=== PATIENT | female | born 1980 | race Caucasian/White ===

== ENCOUNTER 2016-05-23 16:54 | Emergency (ER) | payer MEDICAID, OTHER ==
--- NOTE | 2016-05-23 17:42 | UC ---
Respiratory Complaint HPI - HPI Summary HPI Summary: 36 yo female with a 3-4 day hx of progressive worsening cough now using rescue inhaler and neb wheezing has felt feverish - History of Current Complaint Chief Complaint: UCGeneralIllness Stated Complaint: ST,CHEST CONGESTION,COUGH Time Seen by Provider: 05/23/16 17:31 Hx Obtained From: Patient Hx Last Menstrual Period: 05/20/16 Onset/Duration: Gradual Onset Timing: Constant Severity Initially: Mild Severity Currently: Mild Pain Intensity: 4 Pain Scale Used: 0-10 Numeric Character: Cough: Nonproductive Alleviating Factors: Bronchodilator Associated Signs And Symptoms: Positive: Hemoptysis, Nasal Congestion, Sinus Discomfort - Allergies/Home Medications Allergies/Adverse Reactions: Allergies Allergy/AdvReac Type Severity Reaction Status Date / Time Desloratadine [From Clarinex] Allergy Intermediate Hives Verified 05/23/16 17:23 Levofloxacin [From Levaquin] Allergy Intermediate Hives Verified 05/23/16 17:23 Naproxen Allergy Intermediate DIZZY, Verified 05/23/16 17:23 HIVES Latex Allergy Mild Rash Verified 05/23/16 17:23 Home Medications: Home Medications Multiple Vitamins W/ Minerals [Multivitamin Women] 1 tab PO DAILY 05/23/16 [ History Confirmed 05/23/16] PMH/Surg Hx/FS Hx/Imm Hx Endocrine History Of: Denies: Diabetes, Thyroid Disease, Hyperthyroidism, Hypothyroidism, Dyslipidemia Cardiovascular History Of: Denies: Cardiac Disorders, Hypertension, Pacemaker/ICD, Myocardial Infarction , Congestive Heart Failure, Atrial Fibrillation, Deep Vein Thrombosis, Bleeding Disorders Respiratory History Of: Reports: Asthma, Bronchitis, Pneumonia Denies: COPD, Pulmonary Embolism GI/ History Of: Reports: Gastroesophageal Reflux, Kidney Stones - many yrs ago , no surgery Denies: Ulcer, Gastrointestinal Bleed, Gall Bladder Disease, Diverticulitis, Renal Disease, Urosepsis Neurological History Of: Denies: TIA, CVA, Dementia, Seizures, Migraine Psychological History Of: Reports: Anxiety Denies: Depression, Bipolar Disorder, Schizophrenia, Post Traumatic Stress Disorder Cancer History Of: Denies: Lung Cancer, Colorectal Cancer, Breast Cancer, Prostate Cancer, Cervical Cancer Other History Of: Negative For: HIV, Hepatitis B, Hepatitis C, Anticoagulant Therapy - Surgical History Surgical History: Yes Surgery Procedure, Year, and Place: , 1996. Cholecystectomy, 2000. Tubal Ligation, 2002. CARPAL TUNNEL RIGHT. DEVIATED SEPTUM - Family History Known Family History: Positive: Unknown, Hypertension - father, Respiratory Disease Negative: Cardiac Disease, Diabetes - Social History Alcohol Use: None Substance Use Type: Excessive Caffeine Smoking Status (MU): Never Smoked Tobacco Have You Smoked in the Last Year: No - Immunization History Most Recent Influenza Vaccination: 2015--FEB Review of Systems Constitutional: Chills, Fatigue Skin: Negative Eyes: Negative ENT: Nasal Discharge Respiratory: Cough Cardiovascular: Negative Gastrointestinal: Abdominal Pain - with cough Genitourinary: Negative Motor: Negative Neurovascular: Negative Musculoskeletal: Negative Neurological: Negative Psychological: Negative All Other Systems Reviewed And Are Negative: Yes Physical Exam Triage Information Reviewed: Yes Appearance: Well-Appearing, No Pain Distress, Well-Nourished Vital Signs: Initial Vital Signs Temp 98.9 F 05/23/16 17:12 Pulse 106 05/23/16 17:12 Resp 18 05/23/16 17:12 BP 113/68 05/23/16 17:12 Pulse Ox 100 05/23/16 17:12 Eyes: Positive: Conjunctiva Clear ENT: Positive: Hearing grossly normal, Nasal congestion, Nasal drainage, TMs normal. Negative: Trismus, Muffled/hoarse voice Neck: Positive: Supple, Nontender, No Lymphadenopathy Respiratory: Positive: No respiratory distress, No accessory muscle use, Wheezing - with forced expiration Cardiovascular: Positive: RRR, No Murmur Abdomen Description: Positive: Nontender, Soft. Negative: CVA Tenderness (R), CVA Tenderness (L) Bowel Sounds: Positive: Present Musculoskeletal: Positive: ROM Intact, No Edema Neurological: Positive: Alert Psychological Exam: Normal Skin Exam: Normal UC Diagnostic Evaluation - Laboratory O2 Sat by Pulse Oximetry: 100 Respiratory Course/Dx - Differential Dx/Diagnosis Provider Diagnoses: acute bronchitis Discharge - Discharge Plan Condition: Stable Disposition: HOME Prescriptions: Azithromycin TAB* [Zithromax TAB*] 250 mg PO DAILY #6 tab Prednisone [Deltasone] 40 mg PO DAILY #10 tab Patient Education Materials: Acute Bronchitis (ED) Referrals: Serg Foster, [employer]SULTANT [Primary Care Provider] - 4 Days Additional Instructions: use your inhaler/nebulizer as directed recheck for new or worsening symptoms
[2016-05-23 17:51] VITALS: BP 105/60
== END 2016-05-23 17:51 | disposition home or self-care (01) ==
LOC: UCCORT 16:54
DX: J20.9 Acute bronchitis, unspecified (principal); Z88.6 Allergy status to analgesic agent; Z88.8 Allergy status to other drugs, medicaments and biological substances; Z90.49 Acquired absence of other specified parts of digestive tract
CPT/HCPCS: 99212; G0463

== ENCOUNTER 2016-06-18 13:15 | Emergency (ER) | payer OTHER | END 2016-06-18 14:30 | disposition left against medical advice (07) | LOC: UCCORT 13:15 | DX: R10.9 Unspecified abdominal pain (principal); Z53.21 Procedure and treatment not carried out due to patient leaving prior to being seen by health care provider ==

== ENCOUNTER 2016-07-03 08:35 | Emergency (ER) | payer OTHER ==
[2016-07-03 09:00] VITALS: BP 109/66
--- NOTE | 2016-07-03 10:10 | UC ---
Complaint Female HPI - HPI Summary HPI Summary: suprapubic abd discomfort x 3 days. Urinary frequency and burning. Feels like prior UTI's. Took one of her daughter's left-over Bactrim last pm. No fever. No flank pain. No hematuria. Pt states fam hx of "kidney problems" in herself and mother and grandmother. No fam members with renal transplant or dialysis. Pt unable to elaborate further on kidney problems. - History Of Current Complaint Chief Complaint: UCGU Stated Complaint: ABDOMINAL PAIN 3 DAYS Time Seen by Provider: 07/03/16 08:56 Hx Obtained From: Patient Hx Last Menstrual Period: 06/23/16 Onset/Duration: Gradual Onset, Lasting Days, Still Present Timing: Constant Severity Initially: Moderate Severity Currently: Moderate Pain Intensity: 2 Pain Scale Used: 0-10 Numeric Radiates to: no radiation Character: Dull, Burning Aggravating Factor(s): Nothing Alleviating Factor(s): Nothing Associated Signs And Symptoms: Negative: Fever, Back Pain, Vaginal Bleeding/ Discharge, Vaginal Discharge, Nausea, Vomiting(# Of Episodes =) - Allergies/Home Medications Allergies/Adverse Reactions: Allergies Allergy/AdvReac Type Severity Reaction Status Date / Time Desloratadine [From Clarinex] Allergy Intermediate Hives Verified 07/03/16 09:00 Levofloxacin [From Levaquin] Allergy Intermediate Hives Verified 07/03/16 09:00 Naproxen Allergy Intermediate DIZZY, Verified 07/03/16 09:00 HIVES Latex Allergy Mild Rash Verified 07/03/16 09:00 PMH/Surg Hx/FS Hx/Imm Hx Endocrine History Of: Denies: Diabetes, Thyroid Disease, Hyperthyroidism, Hypothyroidism, Dyslipidemia Cardiovascular History Of: Denies: Cardiac Disorders, Hypertension, Pacemaker/ICD, Myocardial Infarction , Congestive Heart Failure, Atrial Fibrillation, Deep Vein Thrombosis, Bleeding Disorders Respiratory History Of: Reports: Asthma, Bronchitis, Pneumonia Denies: COPD, Pulmonary Embolism GI/ History Of: Reports: Gastroesophageal Reflux, Kidney Stones - many yrs ago , no surgery Denies: Ulcer, Gastrointestinal Bleed, Gall Bladder Disease, Diverticulitis, Renal Disease, Urosepsis Neurological History Of: Denies: TIA, CVA, Dementia, Seizures, Migraine Psychological History Of: Reports: Anxiety Denies: Depression, Bipolar Disorder, Schizophrenia, Post Traumatic Stress Disorder Cancer History Of: Denies: Lung Cancer, Colorectal Cancer, Breast Cancer, Prostate Cancer, Cervical Cancer Other History Of: Negative For: HIV, Hepatitis B, Hepatitis C, Anticoagulant Therapy - Surgical History Surgical History: Yes Surgery Procedure, Year, and Place: , 1996. Cholecystectomy, 2000. Tubal Ligation, 2001. CARPAL TUNNEL RIGHT. DEVIATED SEPTUM - Family History Known Family History: Positive: Unknown, Hypertension - father, Renal Disease - mother and grandmother, Respiratory Disease Negative: Cardiac Disease, Diabetes - Social History Occupation: Employed Full-time Lives: With Family Alcohol Use: None Substance Use Type: None Smoking Status (MU): Never Smoked Tobacco Have You Smoked in the Last Year: No - Immunization History Most Recent Influenza Vaccination: 2015--FEB Review of Systems Constitutional: Negative Skin: Negative Eyes: Negative ENT: Negative Respiratory: Negative Cardiovascular: Negative Gastrointestinal: Negative Genitourinary: Dysuria, Frequency, Urgency Motor: Negative Neurovascular: Negative Musculoskeletal: Negative Neurological: Negative Psychological: Negative All Other Systems Reviewed And Are Negative: Yes Physical Exam Triage Information Reviewed: Yes Appearance: Well-Nourished, Ill-Appearing, Pain Distress Vital Signs: Initial Vital Signs Temp 98.1 F 07/03/16 08:50 Pulse 84 07/03/16 08:50 Resp 18 07/03/16 08:50 BP 109/66 07/03/16 08:50 Vital Signs Reviewed: Yes Eyes: Positive: Conjunctiva Clear ENT: Positive: Normal ENT inspection Neck: Positive: Supple, Nontender, No Lymphadenopathy Respiratory: Positive: Lungs clear, Normal breath sounds, No respiratory distress Cardiovascular: Positive: RRR, No Murmur, Pulses Normal, Brisk Capillary Refill Abdomen Description: Positive: Nontender, No Organomegaly, Soft. Negative: CVA Tenderness (R), CVA Tenderness (L), Distended, Guarding, McBurney's Point Tenderness, Peritoneal Signs, Pulsatile Mass Bowel Sounds: Positive: Present Musculoskeletal: Positive: Strength Intact, ROM Intact Neurological: Positive: Alert, Muscle Tone Normal Psychological Exam: Normal Skin Exam: Normal Complaint Female Dx - Course Course Of Treatment: UA and UCG neg, but will treat anyway as UTI, as pt took one Bactrim with improvement of symptoms, so culture and UA may not show infection. - Differential Dx/Diagnosis Differential Diagnosis/HQI/PQRI: Appendicitis, Ureteral Stone, Urinary Tract Infection Provider Diagnoses: UTI Discharge - Discharge Plan Condition: Stable Disposition: HOME Prescriptions: Fluconazole 150 MG (NF) [Diflucan 150 mg (NF)] 150 mg PO ONCE #2 tab Phenazopyridine TAB* [Pyridium 100 mg TAB*] 100 mg PO TID #15 tab Sulfamethox/Trimethoprim DS* [Bactrim DS 800/160 TAB*] 1 tab PO BID #10 tab Patient Education Materials: Urinary Tract Infection in Women (ED) Forms: *Work Release Referrals: Serg Foster NP [Primary Care Provider] - Additional Instructions: A culture has been sent. It may be negative, because you took one dose of the Bactrim. Since the Bactrim did help your symptoms, and it sounds like it was as true UTI, we have advised you to finish the full course of antibiotics, even if the culture is negative. Take the diflucan if needed for a yeast infection. You may use the phenazopyridine (pyridium) as needed for discomfort. Return to urgent care if any new or worsening symptoms.
== END 2016-07-03 10:31 | disposition home or self-care (01) ==
LOC: UCCORT 08:35
DX: N39.0 Urinary tract infection, site not specified (principal); Z32.02 Encounter for pregnancy test, result negative; Z87.440 Personal history of urinary (tract) infections; Z87.442 Personal history of urinary calculi; K21.9 Gastro-esophageal reflux disease without esophagitis; J45.909 Unspecified asthma, uncomplicated; F41.9 Anxiety disorder, unspecified; Z90.49 Acquired absence of other specified parts of digestive tract; Z88.1 Allergy status to other antibiotic agents
CPT/HCPCS: 81003; 84702; 87086; 99212; G0463

== ENCOUNTER 2016-09-30 09:16 | Emergency (ER) | payer MEDICAID ==
[2016-09-30 09:37] VITALS: BP 91/67
[2016-09-30] MEDS ORDERED: Ondansetron ODT TAB* 4 MG PO ONE (09:43)
--- NOTE | 2016-09-30 10:18 | UC ---
Abdominal Pain Female HPI - HPI Summary HPI Summary: LEFT UPPER ABDOMINAL/ FLANK PAIN X 3 DAYS NO FEVER, NO CHILLS, + NAUSEA NO /V/D/C NO URINARY SX. - History of Current Complaint Chief Complaint: UCGeneralIllness Stated Complaint: STOMACH ACHE,LEFT SIDE PAIN Time Seen by Provider: 09/30/16 09:37 Hx Obtained From: Patient Hx Last Menstrual Period: 09/12/16 ?: No Onset/Duration: Gradual Onset, Lasting Days - 3, Still Present Timing: Constant Severity Initially: Moderate Severity Currently: Moderate Location: Discrete At: LUQ Radiates: No Character: Aching Aggravating Factor(s): Movement Alleviating Factor(s): Spontaneous Resolution Associated Signs and Symptoms: Positive: Nausea. Negative: Fever, Cough, Chest Pain, Dizzy, Back Pain, Constipation, Blood in Stool, Urinary Symptoms, Decreased Appetite, Vaginal Bleeding, Vaginal Discharge, Vomiting, Diarrhea Allergies/Adverse Reactions: Allergies Allergy/AdvReac Type Severity Reaction Status Date / Time Desloratadine [From Clarinex] Allergy Intermediate Hives Verified 09/30/16 09:24 Levofloxacin [From Levaquin] Allergy Intermediate Hives Verified 09/30/16 09:24 Naproxen Allergy Intermediate DIZZY, Verified 09/30/16 09:24 HIVES Latex Allergy Mild Rash Verified 09/30/16 09:24 Home Medications: Home Medications Albuterol 2.5MG/3ML (0.083%)* [Ventolin 2.5 MG/3 ML NEB.SD*] 2.5 mg INH Q4H PRN 09/30/16 [History Confirmed 09/30/16] PMH/Surg Hx/FS Hx/Imm Hx Previously Healthy: Yes Other History Of: Negative For: HIV, Hepatitis B, Hepatitis C, Anticoagulant Therapy - Surgical History Surgical History: Yes Surgery Procedure, Year, and Place: , 1996. Cholecystectomy, 2000. Tubal Ligation, 2001. CARPAL TUNNEL RIGHT. DEVIATED SEPTUM - Family History Known Family History: Positive: Unknown, Hypertension - father, Renal Disease - mother and grandmother, Respiratory Disease Negative: Cardiac Disease, Diabetes - Social History Alcohol Use: None Substance Use Type: None Smoking Status (MU): Never Smoked Tobacco Have You Smoked in the Last Year: No - Immunization History Most Recent Influenza Vaccination: 2015--FEB Review of Systems Constitutional: Negative Skin: Negative Eyes: Negative ENT: Negative Respiratory: Negative Cardiovascular: Negative Gastrointestinal: Abdominal Pain Genitourinary: Negative All Other Systems Reviewed And Are Negative: Yes Physical Exam Triage Information Reviewed: Yes Appearance: Well-Appearing, No Pain Distress, Well-Nourished Vital Signs: Initial Vital Signs Temp 98.4 F 09/30/16 09:27 Pulse 92 09/30/16 09:27 Resp 14 09/30/16 09:27 BP 91/67 09/30/16 09:27 Pulse Ox 98 09/30/16 09:27 Vital Signs Reviewed: Yes Eye Exam: Normal Eyes: Positive: Conjunctiva Clear ENT: Positive: Hearing grossly normal, Pharynx normal Neck: Positive: Supple, Nontender, No Lymphadenopathy Respiratory: Positive: Chest non-tender, Lungs clear, Normal breath sounds, No respiratory distress Cardiovascular: Positive: RRR, No Murmur, Pulses Normal Abdomen Description: Positive: Nontender, Soft. Negative: CVA Tenderness (R), CVA Tenderness (L), Distended, Guarding Bowel Sounds: Positive: Present Abd Pain Female Course/Dx - Differential Dx/Diagnosis Provider Diagnoses: LUQ ABODMINAL PAIN Discharge - Discharge Plan Condition: Stable Disposition: HOME Patient Education Materials: Abdominal Pain (ED), Flank Pain (ED) Forms: *Work Release Referrals: Serg Foster NP [Primary Care Provider] - 3 Days Additional Instructions: cont. with rest, increase fluid, take tylenol as needed for pain , follow up in 3 days if not better, may need to do imagine study / CT scan of abdomen follow up sooner for go to ED if getting worse
== END 2016-09-30 10:21 | disposition home or self-care (01) ==
LOC: UCCORT 09:16
DX: R10.12 Left upper quadrant pain (principal)
CPT/HCPCS: 81003; 99212; A9270-GY; G0463

== ENCOUNTER 2016-11-13 14:22 | Emergency (ER) | payer OTHER ==
[2016-11-13 14:31] VITALS: BP 106/66
--- NOTE | 2016-11-13 15:01 | UC ---
Abdominal Pain Female HPI - HPI Summary HPI Summary: 36 year old female with hx of GERD present with GERD and epigastric pain that is slightly worsened after a meal. Not in the right or left upper stomach. She takes omeprazole BID and had negative endo in the past. Burning in the mid stomach started yesterday AM . LMP 11/12/16 . No new sexual partners. Has had BV 4 mo ago and given flagyl and she feels it is unrelated but returned. She has had more stress lately . No recent travel and works at [employer] - History of Current Complaint Chief Complaint: UCGU Stated Complaint: STOMACH ACHE Time Seen by Provider: 11/13/16 14:37 Hx Obtained From: Patient Hx Last Menstrual Period: 11/08/16 ?: No Onset/Duration: Gradual Onset Timing: Intermittent Episodes Lasting: Radiates: No Character: Burning Aggravating Factor(s): Food Associated Signs and Symptoms: Positive: Negative Allergies/Adverse Reactions: Allergies Allergy/AdvReac Type Severity Reaction Status Date / Time Desloratadine [From Clarinex] Allergy Intermediate Hives Verified 11/13/16 14:31 Levofloxacin [From Levaquin] Allergy Intermediate Hives Verified 11/13/16 14:31 Naproxen Allergy Intermediate DIZZY, Verified 11/13/16 14:31 HIVES Latex Allergy Mild Rash Verified 11/13/16 14:31 PMH/Surg Hx/FS Hx/Imm Hx Previously Healthy: Yes Respiratory History: Asthma GI/ History: Gastroesophageal Reflux Psychological History: Anxiety Other History Of: Negative For: HIV, Hepatitis B, Hepatitis C, Anticoagulant Therapy - Surgical History Surgical History: Yes Surgery Procedure, Year, and Place: , 1996. Cholecystectomy, 2000. Tubal Ligation, 2001. CARPAL TUNNEL RIGHT. DEVIATED SEPTUM - Family History Known Family History: Positive: Unknown, Hypertension - father, Renal Disease - mother and grandmother, Respiratory Disease Negative: Cardiac Disease, Diabetes - Social History Occupation: Employed Full-time Alcohol Use: None Substance Use Type: None Smoking Status (MU): Never Smoked Tobacco Have You Smoked in the Last Year: No - Immunization History Most Recent Influenza Vaccination: 2015--FEB Review of Systems Gastrointestinal: Abdominal Pain Genitourinary: Other - "odor" Psychological: Anxious All Other Systems Reviewed And Are Negative: Yes Physical Exam Triage Information Reviewed: Yes Appearance: Well-Appearing, No Pain Distress, Well-Nourished Vital Signs: Initial Vital Signs Temp 98.9 F 11/13/16 14:26 Pulse 85 11/13/16 14:26 Resp 16 11/13/16 14:26 BP 106/66 11/13/16 14:26 Pulse Ox 98 11/13/16 14:26 Vital Signs Reviewed: Yes Eye Exam: Normal ENT Exam: Normal Dental Exam: Normal Neck exam: Normal Neck: Positive: 1 Respiratory Exam: Normal Cardiovascular Exam: Normal Abdominal Exam: Normal Abdomen Description: Positive: No Organomegaly, Soft, Other: - midepigastric mild tenderness to deep palpation. Negative: CVA Tenderness (R), CVA Tenderness (L), Distended, Guarding Bowel Sounds: Positive: Present Musculoskeletal Exam: Normal Neurological Exam: Normal Psychological Exam: Normal Skin Exam: Normal Abd Pain Female Course/Dx - Course Course Of Treatment: Pt had BV 4 mo and and having the same sx and desires treatment and gets yeast from flagyl. treat at this time and if sx not improved then go to be seen melo. - Differential Dx/Diagnosis Differential Diagnosis: Constipation Provider Diagnoses: Gastritis / Bacterial vaginosis Discharge - Discharge Plan Condition: Good Disposition: HOME Prescriptions: Fluconazole [Diflucan 150 MG (NF)] 150 mg PO ONCE #1 tab Metronidazole [Flagyl 500 MG TAB] 500 mg PO BID #14 tab Sucralfate SUSP (NF) [Carafate SUSP (NF)] 10 ml PO Q6HR #1 bottle Patient Education Materials: Diet for Stomach Ulcers and Gastritis (ED), Gastroesophageal Reflux Disease (ED), Bacterial Vaginosis (ED) Forms: *Work Release Referrals: Serg Foster NP [Primary Care Provider] - 4 Days (Please follow up with GI for your heartburn if your symptoms persist) Additional Instructions: As we discussed if you develop a yeast infection from the antibiotic please then use the diflucan medication
== END 2016-11-13 15:13 | disposition home or self-care (01) ==
LOC: UCCORT 14:22
DX: K29.70 Gastritis, unspecified, without bleeding (principal); N76.0 Acute vaginitis; K21.9 Gastro-esophageal reflux disease without esophagitis; J45.909 Unspecified asthma, uncomplicated; F41.9 Anxiety disorder, unspecified; Z90.49 Acquired absence of other specified parts of digestive tract; Z88.8 Allergy status to other drugs, medicaments and biological substances; Z88.6 Allergy status to analgesic agent; Z88.1 Allergy status to other antibiotic agents; Z91.040 Latex allergy status
CPT/HCPCS: 81003; 99212; G0463

== ENCOUNTER 2017-01-07 16:05 | Emergency (ER) | payer OTHER ==
[2017-01-07 16:22] VITALS: BP 98/61
--- NOTE | 2017-01-07 16:29 | UC ---
Abdominal Pain Female HPI - HPI Summary HPI Summary: 36 yo female with a three day hx of diarrhea initially had 15-20+ episodes today has had two malaise lassitude fatigue no fever or chills no n/v anorexic no UTI symptoms no blood in stool - History of Current Complaint Chief Complaint: UCRespiratory Stated Complaint: FLU SYMPTOMS Time Seen by Provider: 01/07/17 16:14 Hx Obtained From: Patient Hx Last Menstrual Period: 01/07/17 Onset/Duration: Gradual Onset, Lasting Days Timing: Constant Severity Initially: Severe Severity Currently: Mild Pain Intensity: 2 Pain Scale Used: 0-10 Numeric Location: Diffuse Character: Cramping Aggravating Factor(s): Nothing Alleviating Factor(s): Spontaneous Resolution Associated Signs and Symptoms: Positive: Decreased Appetite, Diarrhea. Negative : Diaphoresis, Fever, Cough, Chest Pain, Dizzy, Back Pain, Constipation, Blood in Stool, Urinary Symptoms, Vaginal Bleeding, Vaginal Discharge, Nausea, Vomiting Allergies/Adverse Reactions: Allergies Allergy/AdvReac Type Severity Reaction Status Date / Time Desloratadine [From Clarinex] Allergy Intermediate Hives Verified 01/07/17 16:14 Levofloxacin [From Levaquin] Allergy Intermediate Hives Verified 01/07/17 16:14 Naproxen Allergy Intermediate DIZZY, Verified 01/07/17 16:14 HIVES Latex Allergy Mild Rash Verified 01/07/17 16:14 PMH/Surg Hx/FS Hx/Imm Hx Previously Healthy: Yes Respiratory History: Asthma Other History Of: Negative For: HIV, Hepatitis B, Hepatitis C, Anticoagulant Therapy - Surgical History Surgical History: Yes Surgery Procedure, Year, and Place: , 1996. Cholecystectomy, 2000. Tubal Ligation, 2001. CARPAL TUNNEL RIGHT. DEVIATED SEPTUM - Family History Known Family History: Positive: Hypertension - father, Renal Disease - mother and grandmother, Respiratory Disease Negative: Cardiac Disease, Diabetes - Social History Alcohol Use: None Substance Use Type: None Smoking Status (MU): Never Smoked Tobacco Have You Smoked in the Last Year: No Household Exposure Type: Cigarettes - Immunization History Most Recent Influenza Vaccination: none 2016 Review of Systems Constitutional: Negative Skin: Negative Eyes: Negative ENT: Sinus Congestion Respiratory: Negative Cardiovascular: Negative Gastrointestinal: Diarrhea Genitourinary: Negative Motor: Negative Neurovascular: Negative Musculoskeletal: Negative Neurological: Negative Psychological: Negative Is Patient Immunocompromised?: No All Other Systems Reviewed And Are Negative: Yes Physical Exam Triage Information Reviewed: Yes Appearance: Well-Appearing, No Pain Distress, Well-Nourished Vital Signs: Initial Vital Signs Temp 98.2 F 01/07/17 16:16 Pulse 81 01/07/17 16:16 Resp 16 01/07/17 16:16 BP 98/61 01/07/17 16:16 Pulse Ox 100 01/07/17 16:16 Vital Signs Reviewed: Yes Eyes: Positive: Conjunctiva Clear ENT: Positive: Hearing grossly normal, TMs normal. Negative: Nasal congestion, Nasal drainage, Tonsillar swelling, Tonsillar exudate, Trismus, Muffled/hoarse voice Dental: Negative: Abscess @ Neck: Positive: Supple, Nontender, No Lymphadenopathy Respiratory: Positive: Lungs clear, Normal breath sounds, No respiratory distress, No accessory muscle use Cardiovascular: Positive: RRR, No Murmur Abdomen Description: Positive: Nontender, No Organomegaly, Soft. Negative: CVA Tenderness (R), CVA Tenderness (L), Distended, Guarding Bowel Sounds: Positive: Present Musculoskeletal: Positive: ROM Intact, No Edema Neurological: Positive: Alert Psychological Exam: Normal Skin Exam: Normal Abd Pain Female Course/Dx - Differential Dx/Diagnosis Provider Diagnoses: acute diarrhea. suspect viral syndrome Discharge - Discharge Plan Condition: Stable Disposition: HOME Patient Education Materials: Acute Diarrhea (ED), Viral Syndrome (ED) Forms: *Work Release Referrals: Serg Foster NP [Primary Care Provider] - 2 Days Additional Instructions: rest fluids bring in stool for studies
== END 2017-01-07 16:47 | disposition home or self-care (01) ==
LOC: UCCORT 16:05
DX: R19.7 Diarrhea, unspecified (principal); Z88.1 Allergy status to other antibiotic agents; Z88.6 Allergy status to analgesic agent; Z88.8 Allergy status to other drugs, medicaments and biological substances; Z91.040 Latex allergy status
CPT/HCPCS: 87045; 87046; 87328; 87329; 87425; 87899; 99211; G0463

== ENCOUNTER 2017-02-09 16:20 | Emergency (ER) | payer OTHER ==
[2017-02-09 16:40] VITALS: BP 100/61
--- NOTE | 2017-02-09 17:10 | UC ---
Abdominal Pain Female HPI - HPI Summary HPI Summary: Pt c/o abdominal pain that began today around her umbilicus. Pt denies dysuria , frequency, and urgency. Pt has low back ache denies STD exposure. Denies unusual vaginal discharge or bleeding Pt reports 50 lb weight loss due to decreased appetite and increased stress level over the last 6 months. - History of Current Complaint Chief Complaint: UCAbdominalPain Stated Complaint: STOMACH ACHE Hx Obtained From: Patient Hx Last Menstrual Period: 01/07/17 ?: No Onset/Duration: Sudden Onset, Still Present Timing: Constant Severity Initially: Mild Severity Currently: Mild Location: Other - umbilicus Radiates: Yes Radiates to: Back, Flank Character: Aching, Dull Aggravating Factor(s): Nothing Associated Signs and Symptoms: Positive: Decreased Appetite, Other: - abdominal pain - Risk Factors Ectopic Risk Factor: Maternal Age ^ 30 Allergies/Adverse Reactions: Allergies Allergy/AdvReac Type Severity Reaction Status Date / Time Desloratadine [From Clarinex] Allergy Intermediate Hives Verified 02/09/17 16:40 Levofloxacin [From Levaquin] Allergy Intermediate Hives Verified 02/09/17 16:40 Naproxen Allergy Intermediate DIZZY, Verified 02/09/17 16:40 HIVES Latex Allergy Mild Rash Verified 02/09/17 16:40 PMH/Surg Hx/FS Hx/Imm Hx Previously Healthy: Yes Other History Of: Negative For: HIV, Hepatitis B, Hepatitis C, Anticoagulant Therapy - Surgical History Surgical History: Yes Surgery Procedure, Year, and Place: , 1996. Cholecystectomy, 2000. Tubal Ligation, 2001. CARPAL TUNNEL RIGHT. DEVIATED SEPTUM - Family History Known Family History: Positive: Unknown, Hypertension - father, Renal Disease - mother and grandmother, Respiratory Disease Negative: Cardiac Disease, Diabetes - Social History Occupation: Employed Full-time Lives: With Family Alcohol Use: None Substance Use Type: None Smoking Status (MU): Never Smoked Tobacco Have You Smoked in the Last Year: No Household Exposure Type: Cigarettes - Immunization History Most Recent Influenza Vaccination: none 2016 Review of Systems Constitutional: Negative Skin: Negative Eyes: Negative ENT: Negative Respiratory: Negative Cardiovascular: Negative Gastrointestinal: Abdominal Pain Genitourinary: Negative Motor: Negative Neurovascular: Negative Musculoskeletal: Negative Neurological: Negative Psychological: Negative Is Patient Immunocompromised?: No All Other Systems Reviewed And Are Negative: Yes Physical Exam Triage Information Reviewed: Yes Appearance: Well-Appearing Vital Signs: Initial Vital Signs Temp 98.2 F 02/09/17 16:36 Pulse 97 02/09/17 16:36 Resp 16 02/09/17 16:36 BP 100/61 02/09/17 16:36 Pulse Ox 99 02/09/17 16:36 Vital Signs Reviewed: Yes Eye Exam: Normal ENT Exam: Normal Dental Exam: Normal Neck exam: Normal Respiratory Exam: Normal Cardiovascular Exam: Normal Abdominal Exam: Normal Abdomen Description: Positive: Other: - mild tenderness umbilicus area Bowel Sounds: Positive: Present Musculoskeletal Exam: Normal Neurological Exam: Normal Psychological Exam: Normal Skin Exam: Normal Abd Pain Female Course/Dx - Differential Dx/Diagnosis Differential Diagnosis: Irritable Bowel Syndrome, Urinary Tract Infection, Other - BV Provider Diagnoses: Abdominal pain. unintentional weight loss Discharge - Discharge Plan Condition: Stable Disposition: HOME Patient Education Materials: Abdominal Pain (ED) Referrals: Vanessa Gutiérrez MD [Primary Care Provider] - If Needed Additional Instructions: Please follow up with your PCP or return to clinic as needed.
--- NOTE | 2017-02-11 07:30 | ED ---
Progress - Progress Note Progress Note: Per the chart, there is no suggestion of vaginitis. BV has come up positive but if patient still remains asymptomatic (no discharge, odor, vaginal pain) then she can simply f/u with pcp or seismograph chief within the next 1-2 weeks if needed. Course/Dx - Diagnoses Provider Diagnoses: Abdominal pain
== END 2017-02-09 17:22 | disposition home or self-care (01) ==
LOC: UCCORT 16:20
DX: R10.9 Unspecified abdominal pain (principal); R63.4 Abnormal weight loss; Z32.02 Encounter for pregnancy test, result negative
CPT/HCPCS: 81003; 84702; 87086; 87480; 87510; 99211; G0463

== ENCOUNTER 2017-04-13 17:13 | Emergency (ER) | payer OTHER ==
--- OUTSIDE RECORDS SUMMARY | 2017-04-13 17:38 | XMS REPORT ---
:1980 External Reference #:[id number] Author Organization [facility] Address [address] [address] Phone [phone] Care Team Providers Name Role Phone Vanessa Gutiérrez MD Primary Care Physician Unavailable Payers Type Date Identification Numbers Payment Provider Subscriber Commercial Policy Number: [id number] Orion Garcia Group Name: [id number] [address] PayID: [id number] [place] [address] Medigap Part B Expires: 2016 Policy Number: [id number] Medicaid Bibiana Garcia Group Name: 1 1 [address] PayID: [id number] [place] [address] Commercial Effective: 2014 Policy Number: [id number] Orion Garcia Expires: 2016 Group Name: [id number] [address] PayID: [id number] [place] [address] Problems Date Description Provider Status Onset: 07/19/2013 Vitamin D deficiency Deja Beck M.D. Active Onset: 04/03/2016 Moderate persistent asthma Vanessa Gutiérrez M.D. Active Onset: 03/25/2017 History of calculus of kidney Vanessa Gutiérrez M.D. Active Onset: 03/22/2014 Vaginitis and vulvovaginitis Vignesh Ferguson M.D. 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 [employer] Cigarette Use Never Smoked Cigarettes ETOH Use Rarely consumes alcohol Smoking Patient has never smoked Recreational Drug Use Denies Drug Use Exercise Type/Frequency Exercises regularly Exercise Type/Frequency started at gym treadmill 07/04 Sexual Hx text yes Allergies, Adverse Reactions, Alerts Date Description Reaction Status Severity Comments 10/12/2012 Levaquin rash active 10/12/2012 Clarinex rash active 10/20/2012 Latex active 11/03/2014 Naproxen active Moderate dizzy Medications Medication Date Status Form Strength Qnty SIG Indications Ordering Provider Sulfamethoxazole 04/09 Hx Tablets 800-160mg 10tab 1 by mouth R30.0 Vanessa /Trimethoprim s twice a day Marla, - X 5 days M.D. 04/14 Prilosec OTC 10/[address] 20mg 60tab take one Vanessa s capsule by Gutiérrez, mouth twice M.D. a day Cyclobenzaprine 09/20 Active Tablets 5mg 30tab take one M25.512 Vanessa HCL /2015 s tablet by Gutiérrez, mouth every M.D. 8 hours prn. may take a second tablet if first not effetive. Montelukast 03/28 Active Tablets 10mg 30tab take one Vanessa Sodium /2015 s tablet by Gutiérrez, mouth every M.D. day pv Daily 02/20 Active 30uni take one Vanessa Multivitamin- ts tablet by Marla, Tab mouth every M.D. day Humidifier 05/12 Active Misc 2Gallon 1unit run every 461.8 Deja s day Connie Beck Proventil HFA Active Aerosol 108(90Bas 1unit 2 puffs by Serg /0000 e) s mouth every Kristin, LOG DRIVER mcg/Act 4 hours as needed Klonopin Active Tablets 0.5mg 1 by mouth Unknown /0000 tid prn Amitriptyline Active Tablets 50mg 30tab take one Vanessa HCL s tablet by Gutiérrez, mouth at M.D. bedtime Azelastine HCL Active Solution 0.1% Use 1 Wister Unknown (Nasal) /0000 In Each Nostril In The Morning And Night Breo Ellipta Active Aerosol 100-25mcg Inhale One Unknown / /Inh puff By Mouth Every Day Fexofenadine HCL Active Tablets 180mg 30tab take one Rudy E. / s tablet by Jodie, mouth every M.D. day Sertraline HCL Active Tablets 50mg one daily Unknown Clindamycin 06/11 Hx Cream 2% 40gm one N76.0 [place] applicator Nate, - intravagina N.P. 03/25 lly at bedtime for 7 nights Tramadol HCL 11/06 Hx Tablets 50mg 60tab 1-2 tablets s every 12 Kristin, LOG DRIVER - hours as 04/03 needed for pain. Lorazepam 01/05 Hx Tablets 0.5mg 60tab 1 by mouth s three a day Tee, LOG DRIVER - as needed 09/20 Fluconazole 01/05 Hx Tablets 150mg 3tabs 1 tab by N76.0 mouth x1 Tee, LOG DRIVER - 09/20 Sulfamethoxazole 01/05 Hx Solution 400-80mg/ N76.0 Steve -Trimethoprim 5ML Tee, LOG DRIVER - 01/05 Sulfamethoxazole 01/05 Hx Tablets 800-160mg 10tab 1 tab by N76.0 Steve /Trimethoprim s mouth twice Tee, LOG DRIVER - a day x 5 Acetaminophen-Co 12/15 Hx Tablets 300-30mg 30tab 1 tab by M54.31 Deja deine #3 s mouth 2x Kiran, - per day prn M.D. 01/05 Fluticasone 05/12 Hx Suspension 50mcg/Act 1unit 2 sprays 461.8 Deja Propionate /2014 s each Kiran - nostril M.D. 12/15 Flagyl 03/22 Hx Tablets 500mg 14tab bid No 616.10 Vignesh s alcohol use Pachikara - during and , M.D. 05/12 for 5 after finishing Medrol (Shahriar) 12/22 Hx Tablets 4mg 1tabs as directed 493.90 Deja Teresa Beck M.D. 03/22 Nasonex 12/22 Hx Suspension 50mcg/Act 1unit 2 sp nasal 493.90 s every day Teresa Beck M.D. 01/05 Metrogel-Vaginal 07/22 Hx Gel 0.75% 1unit insert one s applicator Kiran, - once a day M.DAzael 03/22 x 7 Multi For Her Hx Capsules 30cap 1 by mouth s every day Teresa Beck M.D. 08/30 Effexor XR Hx Caps ER 75mg 1 po qd 24HR - 11/03 Effexor XR Hx Caps ER 150mg 30cap 1 by mouth 24HR s every day Teresa Beck M.D. 11/03 Singulair Hx Tablets 10mg 30tab 1 by mouth Rudy E. / s every day Teresa Feliciano M.D. 03/28 Trazodone HCL Hx Tablets 50mg 30tab 1 tablet at s bedtime as Kiran - needed M.DAzael 09/20 Hydrocodone/Acet Hx Tablets 5-325mg 1 po q4-6 Unknown aminophen /0000 hours prn - 07/14 Topamax Hx Tablets 25mg 1 Q6 hours Unknown / prn - 07/14 Vitamin D Hx Capsules [id number] 12cap one by Deja (Ergocalciferol) / s mouth Teresa Beck weekly Pat.[place] 05/12 Qvar Hx Aerosol 80mcg/Act 1unit 2 puff Rudy E. / s twice a day Teresa Feliciano M.D. 01/05 Bactrim DS Hx Tablets Unknown - 12/15 Tramadol HCL Hx Tablets as needed - 12/[address] 20mg 60cap take one Serg s capsule by KIM Foster - mouth twice 10/29 a day /2016 Trazodone HCL 00/00 Hx Tablets 100mg take two Unknown /0000 tablets by - mouth every 04/03 day at /2017 bedtime Immunizations CPT Code Status Date Vaccine Reaction Lot # [id number] Given 03/25/2017 Pneumonia Vaccine Pt. tolerated well. No [id number] immediate reaction noted. 05038 Given 04/03/2016 Tdap - [id number] Tetanus/Diptheria/Acellul ar Pertussis 17501 Given 04/03/2016 Influenza Virus Vaccine, [id number] Quadrivalent, Split Virus, Im Use Vital Signs Date Vital Result Comment 04/09/2017 Height 65 inches 5'5" Weight 158.00 lb per pt Heart Rate 66 /min reg Respiratory Rate 16 /min Pain Level 6 left shoulder BMI (Body Mass Index) 26.3 kg/m2 04/09/2017 Weight 158.00 lb Heart Rate 64 /min BP Systolic Sitting 128 mmHg BP Diastolic Sitting 80 mmHg O2 % BldC Oximetry 97 % 03/25/2017 Weight 156.00 lb Heart Rate 100 /min BP Systolic Sitting 100 mmHg BP Diastolic Sitting 70 mmHg O2 % BldC Oximetry 97 % 06/11/2016 Weight 170.00 lb Heart Rate 80 /min BP Systolic Sitting 110 mmHg BP Diastolic Sitting 70 mmHg Body Temperature 98.1 F O2 % BldC Oximetry 97 % 04/03/2016 Height 65 inches 5'5" Weight 166.00 lb Heart Rate 95 /min BP Systolic Sitting 110 mmHg BP Diastolic Sitting 68 mmHg Body Temperature 98.4 F O2 % BldC Oximetry 98 % BMI (Body Mass Index) 27.6 kg/m2 09/21/2015 Weight 190.00 lb Heart Rate 97 /min BP Systolic Sitting 126 mmHg BP Diastolic Sitting 78 mmHg O2 % BldC Oximetry 98 % 01/05/2015 Height 65.5 inches 5'5.50" Weight 207.00 lb Heart Rate 100 /min BP Systolic 120 mmHg BP Diastolic 78 mmHg Body Temperature 99.3 F O2 % BldC Oximetry 98 % BMI (Body Mass Index) 33.9 kg/m2 12/15/2014 Height 65.5 inches 5'5.50" Weight 206.00 lb Heart Rate 99 /min BP Systolic Sitting 122 mmHg BP Diastolic Sitting 78 mmHg Body Temperature 98.7 F O2 % BldC Oximetry 97 % BMI (Body Mass Index) 33.8 kg/m2 11/03/2014 Weight 210.50 lb Heart Rate 107 /min Respiratory Rate 18 /min Body Temperature 99.6 F Pain Level 4 O2 % BldC Oximetry 98 % 05/12/2014 Weight 212.00 lb Heart Rate 96 /min BP Systolic Sitting 110 mmHg BP Diastolic Sitting 70 mmHg Body Temperature 98.5 F 03/22/2014 Weight 210.50 lb Heart Rate 100 /min BP Systolic Sitting 111 mmHg BP Diastolic Sitting 73 mmHg Body Temperature 98.1 F 12/22/2013 Weight 209.00 lb Heart Rate 110 /min BP Systolic Sitting 112 mmHg BP Diastolic Sitting 70 mmHg 07/14/2013 Height 66 inches 5'6" Weight 187.00 lb Heart Rate 92 /min BP Systolic Sitting 118 mmHg BP Diastolic Sitting 72 mmHg Body Temperature 98.4 F BMI (Body Mass Index) 30.2 kg/m2 10/20/2012 Height 66 inches 5'6" Weight 170.00 lb Heart Rate 90 /min BP Systolic 103 mmHg BP Diastolic 69 mmHg BMI (Body Mass Index) 27.4 kg/m2 10/12/2012 Height 66 inches 5'6" Weight 170.00 lb Heart Rate 96 /min Respiratory Rate 12 /min BMI (Body Mass Index) 27.4 kg/m2 Results Test Date Test Result H/L Range Note Ua Routine 04/09/2017 Ua Specific [place] 1.000 Ua PH 6 Ua Color yellow Ua Appera clear Ua WBC - Ua Protein - Ua Glucose norm Ua Ketones - Ua Bilirubin - Ua Urobilinogen - Ua Nitrite - Ua Occult Blood - Poc Urinalysis 02/09/2017 Poc Glucose, Urine Negative Negative Poc Bilirubin, Urine 1+ Negative Poc Ketone, Urine 1+ Negative Poc Specific [place], Urine 1.025 1.010-1.030 Poc Blood, Urine Trace-intact Negative Poc pH, Urine 6.0 5-9 Poc Protein, Urine 2+ Negative Poc Urobilinogen, Urine 1.0 Negative Poc Nitrite, Urine Negative Negative Poc Leukocytes, Urine Trace Negative Poc Color, Urine Ainsley Poc Clarity, Urine Clear 1 Laboratory test 02/09/2017 Gardnerella/Yeast: SEE RESULT 2, 3 finding Vaginal Dna BELOW Urine Culture And 02/09/2017 Urine Culture SEE RESULT 4, 5 Sensitivities BELOW Laboratory test 02/09/2017 Poc , Urine Negative Negative 6 finding Laboratory test 01/08/2017 Stool Culture SEE RESULT 7, 8 finding BELOW Poc Urinalysis 09/30/2016 Poc Glucose, Urine Negative Negative Poc Bilirubin, Urine Negative Negative Poc Ketone, Urine 1+ Negative Poc Specific [place], Urine 1.020 1.010-1.030 Poc Blood, Urine Negative Negative Poc pH, Urine 7.0 5-9 Poc Protein, Urine Negative Negative Poc Urobilinogen, Urine 0.2 Negative Poc Nitrite, Urine Negative Negative Poc Leukocytes, Urine Negative Negative Poc Color, Urine Yellow Poc Clarity, Urine Clear 9 Laboratory test finding 09/12/2016 Bilirubin Total 0.50 mg/dL 0.2-1.0 10 Bilirubin Direct 0.10 mg/dL 0.03-0.18 10 Urine Culture And 07/03/2016 Urine Culture SEE RESULT 11, 12 Sensitivities BELOW Laboratory test finding 06/18/2016 TSH (Thyroid Stim 0.91 mcIU/mL 0.34- 5.60 Horm) Urine Culture And 06/11/2016 Urine Culture SEE RESULT 13 Sensitivities BELOW Ua Routine 06/11/2016 Ua Specific 1.025 [place] Ua PH 7 Ua Color yellow Ua Appera clear Ua WBC neg Ua Protein neg Ua Glucose neg Ua Ketones neg Ua Bilirubin neg Ua Urobilinogen normal Ua Nitrite neg Ua Occult Blood neg HIV 1/2 AB Evaluation 04/17/2016 HIV 1 2 Antibody Nonreactive Nonreactive 14 Comp Metabolic Panel 04/17/2016 Sodium 135 mmol/L 133-145 Potassium 4.1 mmol/L 3.5-5.0 Chloride 102 mmol/L 101-111 Co2 Carbon Dioxide 28 mmol/L 22-32 Anion Gap 5 mmol/L 2-11 Glucose 88 mg/dL 70-100 Blood Urea Nitrogen 14 mg/dL 6-24 Creatinine 0.88 mg/dL 0.51-0.95 BUN/Creatinine Ratio 15.9 8-20 Calcium 9.4 mg/dL 8.6-10.3 Total Protein 7.5 g/dL 6.4-8.9 Albumin 4.3 g/dL 3.2-5.2 Globulin 3.2 g/dL 2-4 Albumin/Globulin Ratio 1.3 1-3 Total Bilirubin 1.20 mg/dL High 0.2-1.0 Alkaline Phosphatase 54 U/L 34-104 Alt 14 U/L 7-52 Ast 16 U/L 13-39 Egfr Non- 71.9 >60 Egfr 92.5 >60 15 Laboratory test 04/03/2016 Cytology SEE RESULT BELOW 16 finding GC/Chlamydia 04/03/2016 Chlamydia trachomatis Negative Negative Amplified Rna Rna Neisseria gonorrhoeae (GC) Rna Negative Negative Laboratory test 04/03/2016 Gardnerella/Yeast: Vaginal SEE RESULT BELOW 17 finding Dna HPV Rna Ww/Reflex Genotype Negative Negative 18 Trichomonas Vaginalis Rna Negative Negative 19 Urine Culture And 01/16/2016 Urine Culture SEE RESULT BELOW 20, 21 Sensitivities Laboratory test finding 11/09/2015 Gardnerella/Yeast: SEE RESULT BELOW 22 Vaginal Dna Trichomonas Vaginalis Rna Negative Negative 23 GC/Chlamydia Amplified Rna 11/09/2015 Chlamydia trachomatis Rna Negative Negative Neisseria gonorrhoeae (GC) Rna Negative Negative Urine Culture And 10/06/2015 Urine Culture SEE RESULT BELOW 24, 25 Sensitivities GC/Chlamydia 08/21/2015 Chlamydia Negative Negative Amplified Rna trachomatis Rna Neisseria gonorrhoeae (GC) Rna Negative Negative CBC Auto Diff 08/21/2015 White Blood Count 7.8 10^3/uL 3.5-10.8 26 Red Blood Count 4.20 10^6/uL 4.0-5.4 26 Hemoglobin 13.6 g/dL 12.0-16.0 26 Hematocrit 40 % 35-47 26 Mean Corpuscular Volume 95 fL 80-97 26 Mean Corpuscular Hemoglobin 32 pg High 27-31 26 Mean Corpuscular HGB Conc 34 g/dL 31-36 26 Red Cell Distribution Width 13 % 10.5-15 26 Platelet Count 258 10^3/uL 150-450 26 Mean Platelet Volume 9 um3 7.4-10.4 26 Abs Neutrophils 3.4 10^3/uL 1.5-7.7 26 Abs Lymphocytes 3.5 10^3/uL 1.0-4.8 26 Abs Monocytes 0.7 10^3/uL 0-0.8 26 Abs Eosinophils 0.2 10^3/uL 0-0.6 26 Abs Basophils 0 10^3/uL 0-0.2 26 Abs Nucleated RBC 0 10^3/uL 26 Granulocyte % 43.2 % 38-83 26 Lymphocyte % 45.1 % 25-47 26 Monocyte % 8.8 % 1-9 26 Eosinophil % 2.6 % 0-6 26 Basophil % 0.3 % 0-2 26 Nucleated Red Blood Cells % 0.1 26 Laboratory test 08/21/2015 Gardnerella/Yeast: Vaginal SEE RESULT BELOW 27 finding Dna Laboratory test 08/21/2015 Trichomonas Vaginalis Rna Negative Negative 28 finding Basic Metabolic 08/21/2015 Sodium 136 mmol/L 133-145 26 Panel Potassium 4.2 mmol/L 3.5-5.0 26 Chloride 105 mmol/L 101-111 26 Co2 Carbon Dioxide 27 mmol/L 22-32 26 Anion Gap 4 mmol/L 2-11 26 Glucose 70 mg/dL 70-100 26 Blood Urea Nitrogen 14 mg/dL 6-24 26 Creatinine 0.95 mg/dL 0.51-0.95 26 BUN/Creatinine Ratio 14.7 8-20 26 Calcium 8.8 mg/dL 8.6-10.3 26 Egfr Non- 66.2 >60 26 Egfr 85.1 >60 26, 29 Urine Culture And 07/23/2015 Urine Culture SEE RESULT BELOW 30 Sensitivities Laboratory test finding 07/23/2015 Urine Glucose Negative mg/dL Negative Laboratory test finding 05/11/2015 Trichomonas Negative Negative 31 Vaginalis Rna Laboratory test finding 05/11/2015 Gardnerella/Yeast: SEE RESULT BELOW 32 Vaginal Dna Urine Culture And Sensitivities SEE RESULT BELOW 33 Laboratory test 05/11/2015 Gardnerella/Yeast: Vaginal SEE RESULT BELOW 34 finding Dna Urine Culture And Sensitivities SEE RESULT BELOW 35 GC/Chlamydia Amplified Rna 05/11/2015 Chlamydia trachomatis Rna Negative Negative Neisseria gonorrhoeae (GC) Rna Negative Negative Laboratory test 03/21/2015 Gardnerella/Yeast: Vaginal SEE RESULT BELOW 36 finding Dna Trichomonas Vaginalis Rna Negative Negative Laboratory test 02/09/2015 Gardnerella/Yeast: Vaginal SEE RESULT BELOW 37 finding Dna GC/Chlamydia 02/09/2015 Chlamydia trachomatis Rna Negative Negative Amplified Rna Neisseria gonorrhoeae (GC) Rna Negative Negative 38 Laboratory test 02/09/2015 Trichomonas Vaginalis Negative Negative 39 finding Rna Laboratory test 02/09/2015 Urine Culture And SEE RESULT BELOW 40 finding Sensitivities Laboratory test 01/05/2015 Gardnerella/Yeast: SEE RESULT BELOW 41 finding Vaginal Dna Ua And Culture 01/05/2015 Urine Culture And SEE RESULT BELOW 42 Sensitivity Sensitivities Urinalysis Profile 01/05/2015 Urine Color Yellow Urine Appearance Cloudy Urine Specific [place] 1.003 Low 1.010-1.030 Urine pH 6.0 5-9 Urine Urobilinogen Negative Negative Urine Ketones Negative Negative Urine Protein Negative Negative Urine Leukocytes 3+ Negative Urine Blood 1+ Negative Urine Nitrite Negative Negative Urine Bilirubin Negative Negative Urine Glucose Negative Negative Urine White Blood Cell 3+(>20/hpf) Absent Urine Red Blood Cell 1+(3-5/hpf) Absent Urine Bacteria Absent Absent Urine Squamous Epithelial Cell Present Absent Ua Routine 01/05/2015 Ua Specific [place] 1.000 Ua PH 5 Ua Color yellow Ua Appera cloudy Ua WBC large Ua Protein negative Ua Glucose negative Ua Ketones negative Ua Bilirubin negative Ua Urobilinogen normal Ua Nitrite negative Ua Occult Blood NHT GC/Chlamydia Amplified Rna 01/05/2015 Chlamydia trachomatis Rna Negative Negative Neisseria gonorrhoeae (GC) Rna Negative Negative 43 Laboratory test 12/17/2014 Gardnerella/Yeast: Vaginal SEE RESULT BELOW 44 finding Dna Trichomonas Vaginalis Rna Negative Negative 45 GC/Chlamydia Amplified Rna 12/17/2014 Chlamydia trachomatis Rna Positive Negative Neisseria gonorrhoeae (GC) Rna Negative Negative 46 Drug Abuse 20 Urine 12/15/2014 Urine Amphetamine Negative ng/mL 47 Urine Barbiturates Negative ng/mL 48 Urine Benzodiazepines Negative ng/mL 49 Urine Cocaine Negative ng/mL 50 Urine Methadone Negative ng/mL 51 Urine Opiates Negative ng/mL 52 Urine Phencyclidine Negative ng/mL Cutoff: 25 Urine Tetrahydrocannabinol Negative ng/mL Cutoff: 20 53 Urine Oxycodone Negative ng/mL 54 CBC Auto Diff 12/06/2014 White Blood Count 8.0 10^3/uL 4.8-10.8 Red Blood Count 4.17 10^6/uL 4.0-5.4 Hemoglobin 13.2 g/dL 12.0-16.0 Hematocrit 40 % 35-47 Mean Corpuscular Volume 95 fL 80-97 Mean Corpuscular Hemoglobin 32 pg High 27-31 Mean Corpuscular HGB Conc 34 g/dL 31-36 Red Cell Distribution Width 13 % 10.5-15 Platelet Count 296 10^3/uL 150-450 Mean Platelet Volume 9 um3 7.4-10.4 Abs Neutrophils 4.4 10^3/uL 1.5-7.7 Abs Lymphocytes 2.9 10^3/uL 1.0-4.8 Abs Monocytes 0.5 10^3/uL 0-0.8 Abs Eosinophils 0.2 10^3/uL 0-0.6 Abs Basophils 0.1 10^3/uL 0-0.2 Abs Nucleated RBC 0 10^3/uL Granulocyte % 54.5 % 38-83 Lymphocyte % 36.4 % 25-47 Monocyte % 5.7 % 1-9 Eosinophil % 2.7 % 0-6 Basophil % 0.7 % 0-2 Nucleated Red Blood Cells % 0 Comp Metabolic Panel 12/06/2014 Sodium 137 mmol/L 133-145 Potassium 4.0 mmol/L 3.5-5.0 Chloride 102 mmol/L 101-111 Co2 Carbon Dioxide 30 mmol/L 22-32 Anion Gap 5 mmol/L 2-11 Glucose 89 mg/dL 70-100 Blood Urea Nitrogen 14 mg/dL 6-24 Creatinine 0.95 mg/dL 0.51-0.95 BUN/Creatinine Ratio 14.7 8-20 Calcium 8.9 mg/dL 8.6-10.3 Total Protein 6.7 g/dL 6.4-8.9 Albumin 3.8 g/dL 3.2-5.2 Globulin 2.9 g/dL 2-4 Albumin/Globulin Ratio 1.3 1-3 Total Bilirubin 0.50 mg/dL 0.2-1.0 Alkaline Phosphatase 51 U/L 34-104 Alt 33 U/L 7-52 Ast 19 U/L 13-39 Egfr Non- 66.6 >60 Egfr 85.6 >60 55 Laboratory test finding 12/06/2014 TSH (Thyroid Stim Horm) 1.22 ?IU/mL 0.34-5.60 Free T4 (Free Thyroxine) 0.86 ng/mL 0.61-1.12 Lipid Profile (Trig/Chol/HDL) 12/06/2014 Triglycerides 126 mg/dL 56 Cholesterol 158 mg/dL 57 HDL Cholesterol 46.1 mg/dL 58 LDL Cholesterol 87 mg/dL 59 Laboratory test 10/29/2014 Urine Culture And SEE RESULT BELOW 60 finding Sensitivities Laboratory test 10/19/2014 Gardnerella/Yeast: SEE RESULT BELOW 61 finding Vaginal Dna GC/Chlamydia 10/19/2014 Chlamydia trachomatis Negative Negative Amplified Rna Rna Neisseria gonorrhoeae (GC) Rna Negative Negative 62 Laboratory test 10/19/2014 Trichomonas Vaginalis Negative Negative 63 finding Rna Laboratory test 10/10/2014 Urine Culture And SEE RESULT BELOW 64 finding Sensitivities Laboratory test 08/23/2014 Urine Culture And SEE RESULT BELOW 65 finding Sensitivities Laboratory test 06/14/2014 TSH (Thyroid 1.03 IU/mL 0.34-5.60 finding Stimulating Horm) Free T4 0.61 ng/mL 0.61-1.12 CMP Panel 06/14/2014 Sodium 134 mmol/L 133-145 Potassium 4.1 mmol/L 3.5-5.0 Chloride 101 mmol/L 101-111 Co2 Carbon Dioxide 27 mmol/L 22-32 Anion Gap 6 mmol/L 2-11 Glucose 113 mg/dL High 70-100 Blood Urea Nitrogen 11 mg/dL 6-24 Creatinine 0.88 mg/dL 0.51-0.95 BUN/Creatinine Ratio 12.5 8-20 Calcium 9.3 mg/dL 8.6-10.3 Total Protein 7.2 g/dL 6.4-8.9 Albumin 4.2 g/dL 3.2-5.2 Globulin 3.0 g/dL 2-4 Albumin/Globulin Ratio 1.4 1-3 Total Bilirubin 0.40 mg/dL 0.2-1.0 Alkaline Phosphatase 57 U/L 34-104 Alt 49 U/L 7-52 Ast 30 U/L 13-39 Egfr Non- 72.7 >60 Egfr 93.5 >60 66 Laboratory test finding 05/12/2014 Gardnerella/Yeast: Vaginal Dna (SEE NOTE ) 67 Ua Routine 03/22/2014 Ua Specific [place] 1.005 Ua PH 5 Ua Color yellow Ua Appera clear Ua WBC neg Ua Protein neg Ua Glucose neg Ua Ketones neg Ua Bilirubin neg Ua Urobilinogen neg Ua Nitrite neg Ua Occult Blood neg Urine Culture And 01/27/2014 Urine Culture (SEE NOTE) 68 Sensitivities Laboratory test finding 07/14/2013 Cytology RUN DATE: <SEE NOTE> Laboratory test finding 07/14/2013 Affirm Vaginal Dna (SEE NOTE) 70 Probe Vitamin D, 25 Hydroxy 07/14/2013 25-Hydroxy Vitamin D2 34 ng/mL 25-Hydroxy Vitamin D3 16 ng/mL 25-Hydroxy Vitamin D Total 50 ng/mL 71 Laboratory test 07/14/2013 TSH (Thyroid 0.72 IU/mL 0.34-5.60 finding Stimulating Horm) HIV 1/2 AB Evaluation 07/14/2013 HIV 1 2 Antibody Nonreactive Nonreactive 72 Lipid Profile 07/14/2013 Triglycerides 47 mg/dL 73 (Trig/Chol/HDL) Cholesterol 179 mg/dL 74 HDL Cholesterol 65.4 mg/dL 75 LDL Cholesterol 104 mg/dL 76 1 [employer]: [id number] Would you like to order Trichomonas Vaginalis RNA testing? N [id number] SEE RESULT BELOW Name: BIBIANA GARCIA : [address]: Jon Ness MD Acct: [id number] Unit: [id number] AGE: 37 Location: [facility] Re02/09/17 SEX: F Status: DEP ER SPEC: [id number] WILL: 02/09/[address]: Mona Buck NP REQ: [id number] RECD: 02/09/17 STATUS: MILAGROS KERNS DR: Vanessa Ness MD _ SOURCE: VAGINAL SPDESC: ORDERED: Arturo,Yeast DNA COMMENTS: Would you like to order Trichomonas Vaginalis RNA testing? N [id number] Procedure Result Reported Site Gardnerella/Yeast: Vaginal DNA Final 02/10/17- 1326 ML Organism 1 Negative Jodee Organism 2 POSITIVE GARDNERELLA The presence of G. vaginalis, although suggestive, is not diagnostic for bacterial vaginosis. Results should be interpreted in conjuction with other clinical and laboratory data available. Women with vaginal discharge should be evaluated for risk factors of cervicitis and pelvic inflammatory disease, toxic shock syndrome (S.aureus), and if present, evaluated for organisms not included in this assay such as N. gonorrhoeae, C. trachomatis, Mobiluncus, Mycoplasma and/or Prevotella. Mixed infections may occur. The performance of this test on patient specimens collected during or immediately after antimicrobial therapy is unknown. The presence or absence of Jodee species, or G. vaginalis cannot be used as a test for therapeutic success or failure. * ML - MAIN LAB ([facility]) . END OF REPORT * ML=Testing performed at Main Lab DEPARTMENT OF PATHOLOGY, [address] [place] [address] Jordan Pedroza M.D. Director [facility] # [id number] 4 [id number] SEE RESULT BELOW Name: BIBIANA GARCIA : [address]: Jon Ness MD Acct: [id number] Unit: [id number] AGE: 37 Location: [facility] Re02/09/17 SEX: F Status: DEP ER SPEC: [id number] WILL: 02/09/17-[address]: Mona Buck NP REQ: [id number] RECD: 02/09/17 STATUS: COMP OTHR DR: Vanessa Ness MD _ SOURCE: URINE SPDESC: ORDERED: Urine Culture COMMENTS: [id number] Procedure Result Reported Site Urine Culture Final 02/10/17- 1624 ML No growth of clinically significant organisms * ML - MAIN LAB ([facility]) . END OF REPORT * ML=Testing performed at Main Lab DEPARTMENT OF PATHOLOGY, [address] [place] [address] Jordan Pedroza M.D. Director [facility] # [id number] 6 [employer]: [id number] If is still suspected, please repeat test after 48 to 72 hours. 7 [id number] C. Difficile toxin testing is not performed on formed stool specimens. Test of cure 8 SEE RESULT BELOW Name: BIBIANA GARCIA : [address]: Elizabet Quesada MD Acct: [id number] Unit: [id number] AGE: 36 Location: [facility] Re01/08/17 SEX: F Status: REG REF SPEC: [id number] WILL: 01/08/17-[address] [facility] [address]: Xavi Navarro MD REQ: [id number] RECD: 01/09/17 STATUS: MILAGROS KERNS DR: Vanessa Gutiérrez MD _ SOURCE: STOOL SPDESC: ORDERED: Stool Culture, O P: Giar/Crypt, Rotavirus Ag St COMMENTS: [id number] C. Difficile toxin testing is not performed on formed stool specimens. Test of cure on positive patients is not recommended. Verbal to ABBY KNAPP. by [email or web address] at 0948 on 01/12/17. Results read back accurately. Procedure Result Reported Site Stool Culture Final 01/11/17- 0947 ML Result No enteric pathogens isolated Testing for Salmonella, Shigella, Aeromonas, Plesiomonas, Yersinia and Campylobacter are included in a Stool Culture. Vibrio spp not routinely tested for in a stool culture. If testing is desired, please request specifically when placing test order. Sensitivities not routinely performed on stool isolates, as antibiotics may prolong the carriage rate of bacteria. Please contact the microbiology lab if sensitivities are required. Stool Specimen Description Final 01/09/17- 1917 ML Stool Color Brown Stool Form Formed Stool Consistency Firm Shiga Toxin 1 2 Final 01/12/17- 1147 ML Organism 1 Negative Shiga Toxin 1 2 CONTINUED ON NEXT PAGE * ML=Testing performed at Main Lab DEPARTMENT OF PATHOLOGY, [address] [place] [address] Jordan Pedroza M.D. Director [facility] # [id number] Patient: BIBIANA GARCIA [id number] (Continued) Specimen: [id number] Collected: 01/08/17 Received: 01/09/17 (Continued) Procedure Result Reported Site Shiga Toxin 1 2 Final (continued) 01/12/17- 1146 Immunochromatographic Assay O P: Giardia/Cryptospor Screen Final 01/12/17 121 ML Organism 1 Neg Cryptosporidium/Giardia Giardia and cryptosporidium antigen testing performed by enzyme immunoassay. If patient is immunocompromised or has traveled to or is from a developing country, a full ova and parasite exam with microscopic (OPMIC) is recommended. All samples will be held one month in case full ova and parasite testing is requested. Contact the Microbiology Department at [phone]. TEST LIMITATIONS: As with all diagnostic procedures, the results obtained should be used in conjunction with other clinical information available the physician, including confirmation by another method. Negative results can occur in samples containing antigen below lower limits of detection of the assay. One negative specimen does not rule out the possibility of a parasitic infection. To improve detection it is recommended that three specimens be collected on separate days over a period of not more than seven days. The use of colonic washes, aspirates or other diluted sample types has not been established and could affect the performance of the assay. Stool samples contaminated with an oily or particulate base (eg. Barium, mineral oil etc.) could interfere with the test and are not recommended. Rotavirus Antigen Stool Final 01/10/17- 812 ML Organism 1 Negative Rotavirus CONTINUED ON NEXT PAGE * ML=Testing performed at Main Lab DEPARTMENT OF PATHOLOGY, [address] [place] [address] Jordan Pedroza M.D. Director [facility] # [id number] Patient: BIBIANA GARCIA [id number] (Continued) Specimen: [id number] Collected: 01/08/17-1029 Received: 01/09/17 (Continued) Procedure Result Reported Site Rotavirus Antigen Stool Final (continued) 01/10/17- 812 Antigen testing by enzyme immunoassay * ML - MAIN LAB ([facility]) . END OF REPORT * ML=Testing performed at Main Lab DEPARTMENT OF PATHOLOGY, [address] [place] [address] Jordan Pedroza M.D. Director [facility] # [id number] 9 Etcher Photoengraving: [id number] REPEAT IN 4 MONTHS 11 [id number] 12 SEE RESULT BELOW Name: BIBIANA GARCIA : [address]: Betzaida Leiva MD Acct: [id number] Unit: [id number] AGE: 36 Location: [facility] Re07/03/16 SEX: F Status: DEP ER SPEC: [id number] WILL: 07/03/[address] [facility] [address]: Betzaida Leiva MD REQ: [id number] RECD: 07/03/16 STATUS: COMP WILMARHR DR: Serg Foster LOG DRIVER _ SOURCE: URINE SPDESC: ORDERED: Urine Culture COMMENTS: [id number] Procedure Result Reported Site Urine Culture Final 07/04/16- 1341 ML No growth of clinically significant organisms * ML - MAIN LAB ([facility]) . END OF REPORT * ML=Testing performed at Main Lab DEPARTMENT OF PATHOLOGY, [address] [place] [address] Jordan Pedroza M.D. Director [facility] # [id number] 13 SEE RESULT BELOW Name: BIBIANA GARCIA : [address]: Sydnie Sullivan NP Acct: [id number] Unit: [id number] AGE: 36 Location: [facility] Re06/11/16 SEX: F Status: REG REF SPEC: [id number] WILL: 06/11/16-[address]: Sydnie Sullivan NP REQ: [id number] RECD: 06/11/16 STATUS: COMP _ SOURCE: URINE SPDESC: ORDERED: Urine Culture COMMENTS: [id number] Urine Source: Random Procedure Result Reported Site Urine Culture Final 06/12/16- 1612 ML No Growth (<1,000 CFU/mL) * ML - [facility] ([facility]) . END OF REPORT * ML=Testing performed at Main Lab DEPARTMENT OF PATHOLOGY, [address] [place] [address] Jordan Pedrzoa M.D. Director [facility] # [id number] 14 It is recognized that currently available assays for the detection of antibodies to HIV-1 and/or HIV-2 may not detect all infected individuals. HIV antibodies may be undetectable in some stages of the infection and in some clinical conditions. The performance of this assay has not been established for populations of infants or children. Assayed by Chemiluminescence Microparticle Immunoassay on the Siemens Advia Centaur CP. Values obtained with different methods or kits cannot be used interchangeably.The diagnostic specificity of the ADVIA Centaur 1/O/2 Enhanced assay in the low risk population was 99.90% (6052/6058) with a 95% confidence interval of 99.78 to 99.96%. 15 Because ethnic data is not always readily available, this report includes an eGFR for both -Americans and non- Americans. The National Kidney Disease Education Program (NKDEP) does not endorse the use of the MDRD equation for patients that are not between the ages of 18 and 70, are , have extremes of body size, muscle mass, or nutritional status, or are non- or non-. According to the National Kidney Foundation, irrespective of diagnosis, the stage of the disease is based on the level of kidney function: Stage Description GFR(mL/min/1.73 m(2)) 1 Kidney damage with normal or decreased GFR 90 2 Kidney damage with mild decrease in GFR 60-89 3 Moderate decrease in GFR 30-59 4 Severe decrease in GFR 15-29 5 Kidney failure <15 (or dialysis) 16 SEE RESULT BELOW Name: BIBIANA GARCIA : [address]: Vanessa Gutiérrez MD Acct: [id number] Unit: [id number] AGE: 36 Location: [facility] Re04/03/16 SEX: F Status: REG REF SPEC: [id number] WILL: 04/03/16-[address] [facility] [address]: Vanessa Gutiérrez MD REQ: [id number] RECD: 04/03/16 STATUS: SOUT _ ORDERED: IMAGE ANALYSIS, HPV/Thin Prep, HPV 16/18 GENE COMMENTS: [id number] FINAL DIAGNOSIS Negative for Intraepithelial lesion or Malignancy A. Ectocervical/Endocervical Specimen Adequacy: Satisfactory of evaluation Transformation zone component identified Patient Information: HPV: High risk HPV RNA testing regardless of pap results. HPV 16/18 Genotype Reflex Actual Specimen Date: 04/03/16 Last Menstrual Date: 02/24/17 Previous Abnormal Pap Smears?:N Date Time Test Result Flag (u) Normal Range 04/03/16 1247 HPV RNA RFLX GE Negative Negative The high-risk HPV types detected by the assay include: 16, 18, 31, 33, 35, 39, 45, 51, 52, 56, 58, 59, 66, and 68. Signed (signature on file) DAKOTAH Sepulveda (ASCP) 04/04 1417 This Pap test was evaluated with the assistance of the BDNA Test Imaging System. Due to cytologic findings at the accounts supervisor microscope, comprehensive manual rescreening by a Graphic Design Professor may be required. The Pap Smear is a screening test designed to aid in the detection of premalignant and malignant conditions of the uterine cervix. It is not a diagnostic procedure and should not be used as the sole means of detecting cervical cancer. Both false- positive and false- negative reports do occur. Depending on your risk status, a Pap smear should be obtained and evaluated every 1-3 years. END OF REPORT * ML=Testing performed at Main Lab DEPARTMENT OF PATHOLOGY, [address], [place], [place] [address] Jordan Pedroza M.D. Director [facility] # [id number] 17 SEE RESULT BELOW Name: BIBIANA GARCIA : [address]: Vanessa Gutiérrez MD Acct: [id number] Unit: [id number] AGE: 36 Location: [facility] Re04/03/16 SEX: F Status: REG REF SPEC: [id number] WILL: 04/03/16-[address] [facility] [address]: Vanessa Gutiérrez MD REQ: [id number] RECD: 04/03/16 STATUS: COMP _ SOURCE: VAGINAL SPDESC: ORDERED: Agata Morris DNA COMMENTS: [id number] Procedure Result Reported Site Gardnerella/Yeast: Vaginal DNA Final 04/04/16- 1059 ML Organism 1 Negative Gardnerella Organism 2 Negative Jodee The presence of G. vaginalis, although suggestive, is not diagnostic for bacterial vaginosis. Results should be interpreted in conjuction with other clinical and laboratory data available. Women with vaginal discharge should be evaluated for risk factors of cervicitis and pelvic inflammatory disease, toxic shock syndrome (S.aureus), and if present, evaluated for organisms not included in this assay such as N. gonorrhoeae, C. trachomatis, Mobiluncus, Mycoplasma and/or Prevotella. Mixed infections may occur. The performance of this test on patient specimens collected during or immediately after antimicrobial therapy is unknown. The presence or absence of Jodee species, or G. vaginalis cannot be used as a test for therapeutic success or failure. * ML - MAIN LAB ([facility]) . END OF REPORT * ML=Testing performed at Main Lab DEPARTMENT OF PATHOLOGY, [address] [place] [address] Jordan Pedroza M.D. Director [facility] # [id number] 18 The high-risk HPV types detected by the assay include: 16, 18, 31, 33, 35, 39, 45, 51, 52, 56, 58, 59, 66, and 68. 19 [id number] GC/Chlamydia Source?: Thin Prep HPV Source?: Thin Prep Trichomonas Source: Thin Prep 20 [id number] 21 SEE RESULT BELOW Name: BIBIANA GARCIA : [address]: Tab Celaya MD Acct: [id number] Unit: [id number] AGE: 35 Location: [facility] Re01/16/16 SEX: F Status: DEP ER SPEC: [id number] WILL: 01/16/16-[address]: Anjelica Espana NP REQ: [id number] RECD: 01/16/16 STATUS: MILAGROS KERNS DR: Tab Foster LOG DRIVER _ SOURCE: URINE SPDESC: ORDERED: Urine Culture COMMENTS: [id number] Procedure Result Reported Site Urine Culture Final 10/27/16- 1250 ML Organism 1 STREP GROUP B [place] Count 75-100,000 (Many) CFU/ML Organism 2 NORMAL ABI [place] Count 1-10,000 (Few) CFU/ML Susceptibility testing of penicillins and other B-lactams approved by FDA for treatment of Streptococcus pyogenes (Group A Strep) and Streptococcus agalactiae (Group B Strep) is not necessary for clinical purposes and need not be done routinely, since as with vancomycin, resistant strains have not been recognized. (CLSI B978-W88;p.66) Positive isolates will be saved for one week. Please call the Microbiology Laboratory if further susceptibility testing is needed. * ML - MAIN LAB ([facility]) . END OF REPORT * ML=Testing performed at Main Lab DEPARTMENT OF PATHOLOGY, [address] [place] [address] Jordan Pedroza M.D. Director [facility] # [id number] 22 SEE RESULT BELOW Name: BIBIANA GARCIA : [address]: Steve Keen MD Acct: [id number] Unit: [id number] AGE: 35 Location: [facility] Re11/09/15 SEX: F Status: DEP ER SPEC: [id number] WILL: 11/09/15-[address] [facility] [address]: Steve Keen MD REQ: [id number] RECD: 11/09/15 STATUS: MILAGROS KERNS DR: Serg Foster LOG DRIVER _ SOURCE: VAGINAL SPDESC: ORDERED: Arturo,Yeast DNA Procedure Result Reported Site Gardnerella/Yeast: Vaginal DNA Final 11/10/15- 1224 ML Organism 1 POSITIVE GARDNERELLA Organism 2 Negative Jodee The presence of G. vaginalis, although suggestive, is not diagnostic for bacterial vaginosis. Results should be interpreted in conjuction with other clinical and laboratory data available. Women with vaginal discharge should be evaluated for risk factors of cervicitis and pelvic inflammatory disease, toxic shock syndrome (S.aureus), and if present, evaluated for organisms not included in this assay such as N. gonorrhoeae, C. trachomatis, Mobiluncus, Mycoplasma and/or Prevotella. Mixed infections may occur. The performance of this test on patient specimens collected during or immediately after antimicrobial therapy is unknown. The presence or absence of Jodee species, or G. vaginalis cannot be used as a test for therapeutic success or failure. * ML - MAIN LAB ([facility]) . END OF REPORT * ML=Testing performed at Main Lab DEPARTMENT OF PATHOLOGY, [address] [place] [address] Jordan Pedroza M.D. Director [facility] # [id number] 23 GC/Chlamydia Source?: Endocervical Trichomonas Source: Endocervical 24 [id number] 25 SEE RESULT BELOW Name: BIBIANA GARCIA : [address]: Bev Espana MD Acct: [id number] Unit: [id number] AGE: 35 Location: [facility] Re10/06/15 SEX: F Status: DEP ER SPEC: [id number] WILL: 10/06/15-[address] [facility] [address]: Bve Espana MD REQ: [id number] RECD: 10/07/157333 STATUS: MILAGROS KERNS DR: Deja Beck MD _ SOURCE: URINE SPDESC: ORDERED: Urine Culture COMMENTS: [id number] Procedure Result Reported Site Urine Culture Final 10/08/15- 1233 ML No Growth (<1,000 CFU/mL) * ML - MAIN LAB ([facility]) . END OF REPORT * ML=Testing performed at Main Lab DEPARTMENT OF PATHOLOGY, [address] [place] [address] Jordan Pedroza M.D. Director [facility] # [id number] 26 [id number] 27 SEE RESULT BELOW Name: BIBIANA GARCIA : [address]: Xavi Navarro MD Acct: [id number] Unit: [id number] AGE: 35 Location: [facility] Re08/21/15 SEX: F Status: DEP ER SPEC: [id number] WILL: 08/21/15-[address]: Xavi Navarro MD REQ: [id number] RECD: 08/22/15-1155 STATUS: MILAGROS KERNS DR: Deja Beck MD _ SOURCE: VAGINAL SPDESC: ORDERED: Arturo,Yeast DNA Procedure Result Reported Site Gardnerella/Yeast: Vaginal DNA Final 08/22/15- 1406 ML Organism 1 Negative Gardnerella Organism 2 Negative Jodee The presence of G. vaginalis, although suggestive, is not diagnostic for bacterial vaginosis. Results should be interpreted in conjuction with other clinical and laboratory data available. Women with vaginal discharge should be evaluated for risk factors of cervicitis and pelvic inflammatory disease, toxic shock syndrome (S.aureus), and if present, evaluated for organisms not included in this assay such as N. gonorrhoeae, C. trachomatis, Mobiluncus, Mycoplasma and/or Prevotella. Mixed infections may occur. The performance of this test on patient specimens collected during or immediately after antimicrobial therapy is unknown. The presence or absence of Jodee species, or G. vaginalis cannot be used as a test for therapeutic success or failure. * ML - MAIN LAB ([facility]) . END OF REPORT * ML=Testing performed at Main Lab DEPARTMENT OF PATHOLOGY, [address] [place] [address] Jordan Pedroza M.D. Director [facility] # [id number] 28 GC/Chlamydia Source?: Endocervical Trichomonas Source: Endocervical 29 Because ethnic data is not always readily available, this report includes an eGFR for both -Americans and non- Americans. The National Kidney Disease Education Program (NKDEP) does not endorse the use of the MDRD equation for patients that are not between the ages of 18 and 70, are , have extremes of body size, muscle mass, or nutritional status, or are non- or non-. According to the National Kidney Foundation, irrespective of diagnosis, the stage of the disease is based on the level of kidney function: Stage Description GFR(mL/min/1.73 m(2)) 1 Kidney damage with normal or decreased GFR 90 2 Kidney damage with mild decrease in GFR 60-89 3 Moderate decrease in GFR 30-59 4 Severe decrease in GFR 15-29 5 Kidney failure <15 (or dialysis) 30 SEE RESULT BELOW Name: BIBIANA GARCIA : [address]: Tab Celaya MD Acct: [id number] Unit: [id number] AGE: 35 Location: [facility] Re07/23/15 SEX: F Status: DEP ER SPEC: [id number] WILL: 07/23/15-[address] [facility] [address]: Alejandro HERRERA REQ: [id number] RECD: 07/23/15 STATUS: MILAGROS KERNS DR: [facility] Deja Beck MD _ SOURCE: URINE SPDESC: ORDERED: Urine Culture Procedure Result Reported Site Urine Culture Final 07/24/15- 1638 ML No growth of clinically significant organisms * ML - MAIN LAB ([facility]) . END OF REPORT * ML=Testing performed at Main Lab DEPARTMENT OF PATHOLOGY, [address] [place] [address] Jordan Pedroza M.D. Director [facility] # [id number] 31 GC/Chlamydia Source?: Endocervical Trichomonas Source: Endocervical 32 SEE RESULT BELOW Name: BIBIANA GARCIA : [address]: Tab Celaya MD Acct: [id number] Unit: [id number] AGE: 35 Location: [facility] Re05/11/15 SEX: F Status: DEP ER SPEC: [id number] WILL: 05/11/15-[address]: Cordelia Cahn NP REQ: [id number] RECD: 05/12/15-1225 STATUS: MILAGROS KERNS DR: Dejakelsi Celaya MD _ SOURCE: VAGINAL SPDESC: ORDERED: Arturo,Yeast DNA Procedure Result Reported Site Gardnerella/Yeast: Vaginal DNA Final 05/12/15- 1336 ML Organism 1 POSITIVE GARDNERELLA Organism 2 Negative Jodee The presence of G. vaginalis, although suggestive, is not diagnostic for bacterial vaginosis. Results should be interpreted in conjuction with other clinical and laboratory data available. Women with vaginal discharge should be evaluated for risk factors of cervicitis and pelvic inflammatory disease, toxic shock syndrome (S.aureus), and if present, evaluated for organisms not included in this assay such as N. gonorrhoeae, C. trachomatis, Mobiluncus, Mycoplasma and/or Prevotella. Mixed infections may occur. The performance of this test on patient specimens collected during or immediately after antimicrobial therapy is unknown. The presence or absence of Jodee species, or G. vaginalis cannot be used as a test for therapeutic success or failure. * ML - MAIN LAB ([facility]) . END OF REPORT * ML=Testing performed at Main Lab DEPARTMENT OF PATHOLOGY, [address] [place] [address] Jordan ePdroza M.D. Director [facility] # [id number] 33 SEE RESULT BELOW Name: BIBIANA GARCIA : [address]: Tab Celaya MD Acct: [id number] Unit: [id number] AGE: 35 Location: [facility] Re05/11/15 SEX: F Status: DEP ER SPEC: [id number] WILL: 05/11/15-[address] [facility] [address]: Tab Celaya MD REQ: [id number] RECD: 05/12/15-5 STATUS: MILAGROS KERNS DR: Deja Beck MD _ SOURCE: URINE SPDESC: ORDERED: Urine Culture Procedure Result Reported Site Urine Culture Final 05/13/15- 1314 ML No Growth (<1,000 CFU/mL) * ML - MAIN LAB ([facility]) . END OF REPORT * ML=Testing performed at Main Lab DEPARTMENT OF PATHOLOGY, [address] [place] [address] Jordan Pedroza M.D. Director [facility] # [id number] 34 SEE RESULT BELOW Name: BIBIANA GARCIA : [address]: Tab Celaya MD Acct: [id number] Unit: [id number] AGE: 35 Location: [facility] Re05/11/15 SEX: F Status: DEP ER SPEC: [id number] WILL: 05/11/15-[address] [facility] [address]: Cordelia Chan NP REQ: [id number] RECD: 05/12/15-1224 STATUS: MILAGROS KERNS DR: Deja Celaya MD _ SOURCE: VAGINAL SPDESC: ORDERED: Arturo,Yeast DNA Procedure Result Reported Site Gardnerella/Yeast: Vaginal DNA Final 05/12/15- 1336 ML Organism 1 POSITIVE GARDNERELLA Organism 2 Negative Jodee The presence of G. vaginalis, although suggestive, is not diagnostic for bacterial vaginosis. Results should be interpreted in conjuction with other clinical and laboratory data available. Women with vaginal discharge should be evaluated for risk factors of cervicitis and pelvic inflammatory disease, toxic shock syndrome (S.aureus), and if present, evaluated for organisms not included in this assay such as N. gonorrhoeae, C. trachomatis, Mobiluncus, Mycoplasma and/or Prevotella. Mixed infections may occur. The performance of this test on patient specimens collected during or immediately after antimicrobial therapy is unknown. The presence or absence of Jodee species, or G. vaginalis cannot be used as a test for therapeutic success or failure. * ML - MAIN LAB ([facility]) . END OF REPORT * ML=Testing performed at Main Lab DEPARTMENT OF PATHOLOGY, [address] [place] [address] Jordan Pedroza M.D. Director [facility] # [id number] 35 SEE RESULT BELOW Name: BIBIANA GARCIA : [address]: Tab Celaya MD Acct: [id number] Unit: [id number] AGE: 35 Location: [facility] Re05/11/15 SEX: F Status: DEP ER SPEC: [id number] WILL: 05/11/15-[address] [facility] [address]: Tab Celaya MD REQ: [id number] RECD: 05/12/15-122 STATUS: MILAGROS KERNS DR: Deja Beck MD _ SOURCE: URINE SPDESC: ORDERED: Urine Culture Procedure Result Reported Site Urine Culture Final 05/13/15- 1314 ML No Growth (<1,000 CFU/mL) * ML - MAIN LAB ([facility]) . END OF REPORT * ML=Testing performed at Main Lab DEPARTMENT OF PATHOLOGY, [address] [place] [address] Jordan Pedroza M.D. Director [facility] # [id number] 36 SEE RESULT BELOW Name: BIBIANA GARCIA : [address]: Steve Keen MD Acct: [id number] Unit: [id number] AGE: 35 Location: [facility] Re03/21/15 SEX: F Status: DEP ER SPEC: [id number] WILL: 03/21/15-[address] [facility] [address]: Steve Keen MD REQ: [id number] RECD: 03/21/15 STATUS: MILAGROS KERNS DR: Deja Beck MD _ SOURCE: VAGINAL SPDESC: ORDERED: Arturo,Yeast DNA Procedure Result Reported Site Gardnerella/Yeast: Vaginal DNA Final 03/22/15- 1242 ML Organism 1 Negative Gardnerella Organism 2 Negative Jodee The presence of G. vaginalis, although suggestive, is not diagnostic for bacterial vaginosis. Results should be interpreted in conjuction with other clinical and laboratory data available. Women with vaginal discharge should be evaluated for risk factors of cervicitis and pelvic inflammatory disease, toxic shock syndrome (S.aureus), and if present, evaluated for organisms not included in this assay such as N. gonorrhoeae, C. trachomatis, Mobiluncus, Mycoplasma and/or Prevotella. Mixed infections may occur. The performance of this test on patient specimens collected during or immediately after antimicrobial therapy is unknown. The presence or absence of Jodee species, or G. vaginalis cannot be used as a test for therapeutic success or failure. * ML - MAIN LAB ([facility]) . END OF REPORT * ML=Testing performed at Main Lab DEPARTMENT OF PATHOLOGY, [address] [place] [address] Jordan Pedroza M.D. Director [place] # [id number] 37 SEE RESULT BELOW Name: BIBIANA GARCIA : [address]: Bev Espana MD Acct: [id number] Unit: [id number] AGE: 35 Location: [facility] Re02/09/15 SEX: F Status: DEP ER SPEC: [id number] WILL: 02/09/15-[address] [facility] [address]: Bev Espana MD REQ: [id number] RECD: 02/09/15 STATUS: MILAGROS KERNS DR: Deja Beck MD _ SOURCE: VAGINAL SPDESC: ORDERED: Arturo,Yeast DNA Procedure Result Verified Site Gardnerella/Yeast: Vaginal DNA Final 02/10/15- 1406 ML Organism 1 Negative Jodee Organism 2 POSITIVE GARDNERELLA The presence of G. vaginalis, although suggestive, is not diagnostic for bacterial vaginosis. Results should be interpreted in conjuction with other clinical and laboratory data available. Women with vaginal discharge should be evaluated for risk factors of cervicitis and pelvic inflammatory disease, toxic shock syndrome (S.aureus), and if present, evaluated for organisms not included in this assay such as N. gonorrhoeae, C. trachomatis, Mobiluncus, Mycoplasma and/or Prevotella. Mixed infections may occur. The performance of this test on patient specimens collected during or immediately after antimicrobial therapy is unknown. The presence or absence of Jodee species, or G. vaginalis cannot be used as a test for therapeutic success or failure. * ML - MAIN LAB ([facility]) . END OF REPORT * ML=Testing performed at Main Lab DEPARTMENT OF PATHOLOGY, [address] [place] [address] Jordan Pedroza M.D. Director [facility] # [id number] 38 Female urine specimens have been self-validated by [facility] and have been granted conditional assay approval by [facility]. 39 [facility] Specimen Source: vaginal GC/Chlamydia Source?: Endocervical Trichomonas Source: Endocervical 40 SEE RESULT BELOW Name: BIBIANA GARCIA : [address]: Bev Espana MD Acct: [id number] Unit: [id number] AGE: 35 Location: [facility] Re02/09/15 SEX: F Status: DEP ER SPEC: [id number] WILL: 02/09/15-[address] [facility] [address]: Bev Espana MD REQ: [id number] RECD: 02/09/15234 STATUS: MILAGROS KERNS DR: [facility] Deja Beck MD _ SOURCE: URINE SPDESC: ORDERED: Urine Culture Procedure Result Verified Site Urine Culture Final 02/11/15- 927 ML No Growth Day 2 (<1,000 CFU/mL) * ML - MAIN LAB ([facility]) . END OF REPORT * ML=Testing performed at Main Lab DEPARTMENT OF PATHOLOGY, [address] [place] [address] Jordan Pedroza M.D. Director [facility] # [id number] 41 SEE RESULT BELOW Name: BIBIANA GARCIA : [address]: Steve Tee NP Acct: [id number] Unit: [id number] AGE: 34 Location: [facility] Re01/05/15 SEX: F Status: REG REF SPEC: [id number] WILL: 01/05/[address] [facility] [address]: Steve Tee NP REQ: [id number] RECD: 01/05/15 STATUS: COMP _ SOURCE: VAGINAL SPDESC: ORDERED: Arturo,Yeast DNA, Trich DNA Procedure Result Verified Site Gardnerella/Yeast: Vaginal DNA Final 01/06/15- 1319 ML Organism 1 POSITIVE GARDNERELLA Organism 2 POSITIVE JODEE The presence of G. vaginalis, although suggestive, is not diagnostic for bacterial vaginosis. Results should be interpreted in conjuction with other clinical and laboratory data available. Women with vaginal discharge should be evaluated for risk factors of cervicitis and pelvic inflammatory disease, toxic shock syndrome (S.aureus), and if present, evaluated for organisms not included in this assay such as N. gonorrhoeae, C. trachomatis, Mobiluncus, Mycoplasma and/or Prevotella. Mixed infections may occur. The performance of this test on patient specimens collected during or immediately after antimicrobial therapy is unknown. The presence or absence of Jodee species, or G. vaginalis cannot be used as a test for therapeutic success or failure. Trichomonas: Vaginal DNA Probe Final 01/06/15- 1320 ML Organism 1 Negative Trichomonas CONTINUED ON NEXT PAGE * ML=Testing performed at Main Lab DEPARTMENT OF PATHOLOGY, [address] [place] [address] Jordan Pedroza M.D. Director [facility] # [id number] Patient: BIBIANA GARCIA [id number] (Continued) Specimen: [id number] Collected: 01/05/15 Received: 01/05/15-1625 (Continued) Procedure Result Verified Site Trichomonas: Vaginal DNA Probe Final (continued) 01/06/15- 1320 The presence or absence of T. vaginalis cannot be used as a test for therapeutic success or failure. * ML - MAIN LAB ([facility]) . END OF REPORT * ML=Testing performed at Main Lab DEPARTMENT OF PATHOLOGY, [address] [place] [address] Jordan Pedroza M.D. Director [facility] # [id number] 42 SEE RESULT BELOW Name: BIBIANA GARCIA : [address]: Steve Tee NP Acct: [id number] Unit: [id number] AGE: 34 Location: [facility] Re01/05/15 SEX: F Status: REG REF SPEC: [id number] WILL: 01/05/15-[address]: Steve Tee NP REQ: [id number] RECD: 01/05/15 STATUS: COMP _ [facility] ORDERED: Urine Culture Urine Source: Catheterization Procedure Result Verified Site Urine Culture Final 15- 1038 ML Organism 1 NORMAL ABI [place] Count 10-25,000 (Moderate) CFU/ML * ML - MAIN LAB ([facility]) . END OF REPORT * ML=Testing performed at Main Lab DEPARTMENT OF PATHOLOGY, [address] [place] [address] Jordan Pedroza M.D. Director [facility] # [id number] 43 Female urine specimens have been self-validated by [facility] and have been granted conditional assay approval by [facility]. 44 SEE RESULT BELOW Name: BIBIANA GARCIA Vito : [address]: Luciano Marion DO Acct: [id number] Unit: [id number] AGE: 34 Location: [facility] Re12/17/14 SEX: F Status: DEP ER SPEC: [id number] WILL: 12/17/14-[address] [facility] [address]: Gwen Duran NP REQ: [id number] RECD: 12/18/14-1152 STATUS: MILAGROS KERNS DR: Deja Marion DO _ SOURCE: VAGINAL SPDESC: ORDERED: Arturo,Yeast DNA Procedure Result Verified Site Gardnerella/Yeast: Vaginal DNA Final 12/19/14- 1113 ML Organism 1 Negative Gardnerella Organism 2 Negative Jodee The presence of G. vaginalis, although suggestive, is not diagnostic for bacterial vaginosis. Results should be interpreted in conjuction with other clinical and laboratory data available. Women with vaginal discharge should be evaluated for risk factors of cervicitis and pelvic inflammatory disease, toxic shock syndrome (S.aureus), and if present, evaluated for organisms not included in this assay such as N. gonorrhoeae, C. trachomatis, Mobiluncus, Mycoplasma and/or Prevotella. Mixed infections may occur. The performance of this test on patient specimens collected during or immediately after antimicrobial therapy is unknown. The presence or absence of Jodee species, or G. vaginalis cannot be used as a test for therapeutic success or failure. * ML - MAIN LAB ([facility]) . END OF REPORT * ML=Testing performed at Main Lab DEPARTMENT OF PATHOLOGY, [address] [place] [address] Jordan Pedroza M.D. Director [facility] # [id number] 45 [facility] Specimen Source: endocervical GC/Chlamydia Source?: Endocervical Trichomonas Source: Endocervical 46 Female urine specimens have been self-validated by [facility] and have been granted conditional assay approval by [facility]. 47 REFERENCE VALUE Cutoff: 500 48 REFERENCE VALUE Cutoff: 200 49 REFERENCE VALUE Cutoff: 200 50 REFERENCE VALUE Cutoff: 150 51 REFERENCE VALUE Cutoff: 150 52 REFERENCE VALUE Cutoff: 300 53 ADDITIONAL INFORMATION This report is intended for use in clinical monitoring or management of patients. It is not intended for use in employment-related testing. 54 REFERENCE VALUE Cutoff: 100 ADDITIONAL INFORMATION This report is intended for use in clinical monitoring or management of patients. It is not intended for use in employment-related testing. Test Performed by: [place] [address] [employer]: Sudheer Griffiths II, M.D., Ph.D. 55 Because ethnic data is not always readily available, this report includes an eGFR for both -Americans and non- Americans. The National Kidney Disease Education Program (NKDEP) does not endorse the use of the MDRD equation for patients that are not between the ages of 18 and 70, are , have extremes of body size, muscle mass, or nutritional status, or are non- or non-. According to the National Kidney Foundation, irrespective of diagnosis, the stage of the disease is based on the level of kidney function: Stage Description GFR(mL/min/1.73 m(2)) 1 Kidney damage with normal or decreased GFR 90 2 Kidney damage with mild decrease in GFR 60-89 3 Moderate decrease in GFR 30-59 4 Severe decrease in GFR 15-29 5 Kidney failure <15 (or dialysis) 56 Desirable <150 Borderline high 150-199 High 200-499 Very High >500 57 Desirable <200 Borderline high 200-239 High >239 58 Low <40 Desirable: 40-60 High: >60 59 Desirable: <100 mg/dL Near Optimal: 100-129 mg/dL Borderline High: 130-159 mg/dL High: 160-189 mg/dL Very High: >189 mg/dL 60 SEE RESULT BELOW Name: BIBIANA MATHIS : [address]: Alejandro Sesay MD Acct: [id number] Unit: [id number] AGE: 34 Location: [facility] Re10/29/14 SEX: F Status: DEP ER SPEC: [id number] WILL: 10/29/14-[address]: Alejandro Sesay MD REQ: [id number] RECD: 10/30/141134 STATUS: COMP [facility] DR: Deja Beck MD _ SOURCE: URINE SPDESC: ORDERED: Urine Culture Procedure Result Verified Site Urine Culture Final 11/01/14- 1130 ML No Growth Day 2 (<1,000 CFU/mL) * ML - MAIN LAB ([facility]) . END OF REPORT * ML=Testing performed at Main Lab DEPARTMENT OF PATHOLOGY, [address] [place] [address] Jordan Pedroza M.D. Director [facility] # [id number] 61 SEE RESULT BELOW Name: BIBIANA GARCIA : [address]: Adrianne Hugo Acct: [id number] Unit: [id number] AGE: 34 Location: [facility] Re10/19/14 SEX: F Status: DEP ER SPEC: [id number] WILL: 10/19/14-[address] [facility] [address]: Adrianne Dixon DO REQ: [id number] RECD: 10/20/14-105 STATUS: MILAGROS KERNS DR: Deja Beck MD _ SOURCE: VAGINAL SPDESC: ORDERED: Arturo,Yeast DNA Procedure Result Verified Site Gardnerella/Yeast: Vaginal DNA Final 10/21/14- 1419 ML Organism 1 Negative Gardnerella Organism 2 Negative Jodee The presence of G. vaginalis, although suggestive, is not diagnostic for bacterial vaginosis. Results should be interpreted in conjuction with other clinical and laboratory data available. Women with vaginal discharge should be evaluated for risk factors of cervicitis and pelvic inflammatory disease, toxic shock syndrome (S.aureus), and if present, evaluated for organisms not included in this assay such as N. gonorrhoeae, C. trachomatis, Mobiluncus, Mycoplasma and/or Prevotella. Mixed infections may occur. The performance of this test on patient specimens collected during or immediately after antimicrobial therapy is unknown. The presence or absence of Jodee species, or G. vaginalis cannot be used as a test for therapeutic success or failure. * ML - MAIN LAB ([facility]) . END OF REPORT * ML=Testing performed at Main Lab DEPARTMENT OF PATHOLOGY, [address] [place] [address] Jordan Pedroza M.D. Director [facility] # [id number] 62 Female urine specimens have been self-validated by [facility] and have been granted conditional assay approval by [facility]. 63 [facility] Specimen Source: cervix GC/Chlamydia Source?: Endocervical Trichomonas Source: Endocervical 64 SEE RESULT BELOW Name: BIBIANA GARCIA : [address]: Xavi Navarro MD Acct: [id number] Unit: [id number] AGE: 34 Location: [facility] Re10/10/14 SEX: F Status: DEP ER SPEC: [id number] WILL: 10/10/14-[address] [facility] [address]: Alyson Keen NP REQ: [id number] RECD: 10/10/14 STATUS: MILAGROS KERNS DR: [facility] Deja Beck MD _ SOURCE: URINE SPDESC: ORDERED: Urine Culture Procedure Result Verified Site Urine Culture Final 10/12/14- 1018 ML Organism 1 NORMAL ABI [place] Count 1-10,000 (Few) CFU/ML * ML - MAIN LAB ([facility]) . END OF REPORT * ML=Testing performed at Main Lab DEPARTMENT OF PATHOLOGY, [address] [place] [address] Jordan Pedroza M.D. Director [facility] # [id number] 65 SEE RESULT BELOW Name: BIBIANA GARCIA : [address]: Xavi Navarro MD Acct: [id number] Unit: [id number] AGE: 34 Location: [facility] Re08/23/14 SEX: F Status: DEP ER SPEC: [id number] WILL: 08/23/14-[address] [facility] [address]: Xavi Navarro MD REQ: [id number] RECD: 08/23/14-1311 STATUS: MILAGROS KERNS DR: Deja Beck MD _ SOURCE: URINE SPDESC: ORDERED: Urine Culture Procedure Result Verified Site Urine Culture Final 08/25/14- 0850 ML Organism 1 ESCHERICHIA COLI [place] Count >100,000 (Many) CFU/ML 1. ESCHERICHIA COLI M.I.C. RX --------- ------ Ampicillin <=2 S Cefazolin <=4 S Cefepime <=1 S Ceftriaxone <=1 S Ciprofloxacin <=0.25 S Gentamicin <=1 S Levofloxacin <=0.12 S Meropenem <=0.25 S Nitrofurantoin <=16 S Tetracycline <=1 S Pipercillin/Tazobactam <=4 S Trimethoprim/Sulfamethoxazole <=20 S Amoxicillin/Clavulanic Acid <=2 S Aztreonam <=1 S Contact the Microbiology Department for any additional antibiotic reporting. * ML - MAIN LAB ([facility]) . END OF REPORT * ML=Testing performed at Main Lab DEPARTMENT OF PATHOLOGY, [address] [place] [address] Jordan Pedroza M.D. Director [facility] # [id number] 66 Because ethnic data is not always readily available, this report includes an eGFR for both -Americans and non- Americans. The National Kidney Disease Education Program (NKDEP) does not endorse the use of the MDRD equation for patients that are not between the ages of 18 and 70, are , have extremes of body size, muscle mass, or nutritional status, or are non- or non-. According to the National Kidney Foundation, irrespective of diagnosis, the stage of the disease is based on the level of kidney function: Stage Description GFR(mL/min/1.73 m(2)) 1 Kidney damage with normal or decreased GFR 90 2 Kidney damage with mild decrease in GFR 60-89 3 Moderate decrease in GFR 30-59 4 Severe decrease in GFR 15-29 5 Kidney failure <15 (or dialysis) 67 RUN DATE: 05/13/14 [facility] LIVE PAGE 1 RUN TIME: [address] [place] [address] Specimen Inquiry Name: BIBIANA GARCIA : [address]: Deja Beck MD Acct: [id number] Unit: [id number] AGE: 34 Location: [facility] Re05/12/14 SEX: F Status: REG REF SPEC: [id number] WILL: 05/12/14-[address] [facility] [address]: Deja Beck MD REQ: [id number] RECD: 05/12/14-1799 STATUS: COMP _ SOURCE: VAGINAL SPDESC: ORDERED: Arturo,Yeast DNA, Trich DNA QUERIES: Provider Requisition # [id number] Procedure Result Verified Site Gardnerella/Yeast: Vaginal DNA Final 05/13/14- 1255 ML Organism 1 Negative Gardnerella Organism 2 Negative Jodee The presence of G. vaginalis, although suggestive, is not diagnostic for bacterial vaginosis. Results should be interpreted in conjuction with other clinical and laboratory data available. Women with vaginal discharge should be evaluated for risk factors of cervicitis and pelvic inflammatory disease, toxic shock syndrome (S.aureus), and if present, evaluated for organisms not included in this assay such as N. gonorrhoeae, C. trachomatis, Mobiluncus, Mycoplasma and/or Prevotella. Mixed infections may occur. The performance of this test on patient specimens collected during or immediately after antimicrobial therapy is unknown. The presence or absence of Jodee species, or G. vaginalis cannot be used as a test for therapeutic success or failure. Trichomonas: Vaginal DNA Probe Final 05/13/14- 1255 ML Organism 1 Negative Trichomonas CONTINUED ON NEXT PAGE * ML=Testing performed at Main Lab DEPARTMENT OF PATHOLOGY, [facility] [place], [place] [address] Jordan Pedroza M.D. Director [facility] # [id number] RUN DATE: 05/13/14 [facility] LIVE PAGE 2 RUN TIME: [address] [place] [address] Specimen Inquiry Patient: BIBIANA GARCIA [id number] (Continued) Specimen: [id number] Collected: 05/12/14-1648 Received: 05/12/14-1799 (Continued) Procedure Result Verified Site Trichomonas: Vaginal DNA Probe Final (continued) 05/13/14- 1255 The presence or absence of T. vaginalis cannot be used as a test for therapeutic success or failure. END OF REPORT * ML=Testing performed at Main Lab DEPARTMENT OF PATHOLOGY, [address] [place] [address] Jordan Pedroza M.D. Director [facility] # [id number] 68 RUN DATE: 01/29/14 [facility] LIVE PAGE 1 RUN TIME: [address] [place] [address] Specimen Inquiry Name: BIBIANA GARCIA : [address]: Xavi Navarro MD Acct: [id number] Unit: [id number] AGE: 33 Location: [facility] Re01/27/14 SEX: F Status: DEP ER SPEC: [id number] WILL: 01/27/14-[address] [facility] [address]: Xavi Navarro MD REQ: [id number] RECD: 01/27/14 STATUS: MILAGROS KERNS DR: [facility] Deja Beck MD _ SOURCE: URINE SPDESC: ORDERED: Urine Culture Procedure Result Verified Site Urine Culture Final 01/29/14- 0732 ML Organism 1 ESCHERICHIA COLI [place] Count >100,000 (Many) CFU/ML 1. ESCHERICHIA COLI M.I.C. RX --------- ------ Ampicillin >=32 R Cefazolin <=4 S Cefepime <=1 S Ceftriaxone <=1 S Ciprofloxacin <=0.25 S Gentamicin >=16 R Levofloxacin 1 S Meropenem <=0.25 S Nitrofurantoin <=16 S Tetracycline <=1 S Pipercillin/Tazobactam <=4 S Trimethoprim/Sulfamethoxazole <=20 S Amoxicillin/Clavulanic Acid 8 S Aztreonam <=1 S Contact the Microbiology Department for any additional antibiotic reporting. END OF REPORT * ML=Testing performed at Main Lab DEPARTMENT OF PATHOLOGY, [facility] [place], [place] [address] Jordan Pedroza M.D. Director [facility] # [id number] 69 RUN DATE: 07/15/13 [facility] LIVE PAGE 1 RUN TIME: [address] [place] [address] Specimen Inquiry Name: BIBIANA MATHIS : [address]: Deja Beck MD Acct: [id number] Unit: [id number] AGE: 33 Location: [facility] Re07/14/13 SEX: F Status: REG REF SPEC: [id number] WILL: 07/14/[address]: Deja Beck MD REQ: [id number] RECD: 07/14/13 STATUS: SOUT _ ORDERED: IMAGE ANALYSIS FINAL DIAGNOSIS Negative for Intraepithelial lesion or Malignancy A. Ectocervical/Endocervical Specimen Adequacy: Satisfactory of evaluation Transformation zone component identified Patient Information: HPV: Thin Layer Pap Test w/reflex to high risk HPV DNA testing when ASCUS Actual Specimen Date: 07/14/13 Last Menstrual Date: 07/04/13 Cautery: N IUD: N Lesion, grossly demonstrate: N ?: N Post Menopausal?: N Hysterectomy?: N Previous Abnormal Pap Smears?:Y If Yes, enter Diagnosis: had abnormal in past, but have been normal since Signed (signature on file) DAKOTAH Echeverria (ASCP) 07/15/13 9703 This Pap test was evaluated with the assistance of the ThinPrep Test Imaging System. Due to cytologic findings at the accounts supervisor microscope, comprehensive manual rescreening by a Graphic Design Professor may be required. The Pap Smear is a screening test designed to aid in the detection of premalignant and malignant conditions of the uterine cervix. It is not a diagnostic procedure and should not be used as the sole means of detecting cervical cancer. Both false- positive and false- negative reports do occur. Depending on your risk status, a Pap smear shoudl be obtained and evaluated every 1-3 years. END OF REPORT * ML=Testing performed at Main Lab DEPARTMENT OF PATHOLOGY, [facility] [place], [place] [address] Jordan Pedroza M.D. Director [facility] Permit #[id number] 70 RUN DATE: 07/15/13 [facility] LIVE PAGE 1 RUN TIME: 1430 [facility] [employer] [place], [place] [address] Specimen Inquiry Name: BIBIANA MATHIS : [address]: Deja Beck MD Acct: [id number] Unit: [id number] AGE: 33 Location: [facility] Re07/14/13 SEX: F Status: REG REF SPEC: [id number] WILL: 07/14/13-[address] [facility] [address]: Djea Beck MD REQ: [id number] RECD: 07/14/13 STATUS: COMP _ SOURCE: VAGINAL SPDESC: ORDERED: Affirm QUERIES: Medent Number [id number] Procedure Result Verified Site Affirm Vaginal DNA Probe Final 07/15/13- 1429 ML Organism 1 Negative Trichomonas Organism 2 Negative Gardnerella Organism 3 Negative Jodee The presence of G. vaginalis, although suggestive, is not diagnostic for bacterial vaginosis. Results should be interpreted in conjunction with other clinical and laboratory data available. Women with vaginal discharge should be evaluated for risk factors of cervicitis and pelvic inflammatory disease, toxic shock syndrome (S.aureus), and if present, evaluated for organisms not included in this assay such as N. gonorrhoeae, C. trachomatis, Mobiluncus, Mycoplasma and/or Prevotella. Mixed infections may occur. The performance of this test on patient specimens collected during or immediately after antimicrobial therapy is unknown. The presence or absence of Jodee species, G. vaginalis or T. vaginalis cannot be used as a test for therapeutic success or failure. END OF REPORT * ML=Testing performed at Main Lab DEPARTMENT OF PATHOLOGY, [address] [place] [address] Jordan Pedroza M.D. Director [facility] Permit #[id number] 71 -- REFERENCE VALUE -- 25-HYDROXY D TOTAL (D2+D3) Optimum levels in the healthy population are 20-50, patients with bone disease may benefit from higher levels within this range. Test Performed by: [address] [address] [employer]: Jake Colby III, M.D. 72 It is recognized that currently available assays for the detection of antibodies to HIV-1 and/or HIV-2 may not detect all infected individuals. HIV antibodies may be undetectable in some stages of the infection and in some clinical conditions. The performance of this assay has not been established for populations of infants or children. Assayed by Chemiluminescence Microparticle Immunoassay on the Siemens Advia Centaur CP. Values obtained with different methods or kits cannot be used interchangeably.The diagnostic specificity of the ADVIA Centaur 1/O/2 Enhanced assay in the low risk population was 99.90% (6052/6058) with a 95% confidence interval of 99.78 to 99.96%. 73 Desirable <150 Borderline high 150-199 High 200-499 Very High >500 74 Desirable <200 Borderline high 200-239 High >239 75 Low <40 Desirable: 40-60 High: >60 76 Desirable <100 Near Optimal 100-129 Borderline high 130-159 High 160-189 Very High >189 Procedures Date CPT Code Description Status 10/20/2012 45632 Rad Exam; Spine Cerv Comp Completed 10/12/2012 08651 Nerve Conduction 03-04 Studies Completed 10/12/2012 70502 Needle Electromyography Complete, Five Or More Muscles Completed Studied Encounters Type Date Location Provider CPT E/M Dx Office Visit 04/09/2017 1:30p [facility] [place] [address] M25.512 C.MStacey S46.012A R20.0 M54.2 Office Visit 03/25/2017 10:50a [facility] Vanesas Gutiérrez, [address]255 M25.512 - Barb Rosales Z23 J06.9 Office Visit 06/11/2016 1:00p [facility] Sydnie Sullivan, N.P. [address] N76.0 - [place] R35.0 L65.9 Office Visit 04/03/2016 11:10a [facility] Vanessaissac Couchan, [address] Z00.00 - Barb Rosales N76.0 Z13.1 Z11.4 Z12.4 Z23 Office Visit 09/21/2015 2:00p [facility] [place] [address] M25.512 [place] Office Visit 01/05/2015 1:30p [facility] [place] [address] N76.0 [place] N39.0 Office Visit 12/15/2014 4:20p [facility] Deja Beck M.D. 78267 M54.41 - [place] E78.89 Office Visit 11/03/2014 12:40p [facility] Deja Beck M.D. 37889 780.79 - [place] 783.1 844.9 782.3 V17.49 Office Visit 05/12/2014 4:40p [facility] Deja Beck M.D. 32453 616.10 - [place] 783.1 461.8 461.9 Office Visit 03/22/2014 1:40p [facility] Vignesh Ferguson, [address] 616.10 Medicine Teresa Celis M.D. Office Visit 12/22/2013 1:40p [facility] Deja Beck M.D. 49330 493.90 Medicine - [place] 726.5 Office Visit 07/14/2013 2:00p [facility] Deja Beck M.D. 26248 V70.0 - [place] V76.2 V76.10 268.9 278.00 V17.49 v65.44 V77.91 Office Visit 10/20/2012 2:00p [facility] M.D. 84240 723.4 C.M.A. Plan of Care Future Appointment(s):05/07/2017 2:45 pm - Orestes Burnett MD at [facility].MStacey05/21/2017 1:00 pm - Vanessa Gutiérrez M.D. at [facility] - Pvykzyxfa49/18/2018 - Orestes Burnett, MDM25.512 Pain in left shoulderFollow up:Follow up: 4 zvxaxO62.012A Strain of musc/tend the rotator cuff of left shoulder, initNew Therapy:Physical GkthpjbI67.0 Anesthesia of skinNew Orders:EMG w/Nerve Conduct Study, UpperNew Therapy:Physical FqxobrqO60.2 CervicalgiaNew Therapy:Physical TherapyComments:set up neurosurgery referral
--- OUTSIDE RECORDS SUMMARY | 2017-04-13 17:39 | XMS REPORT ---
:1980 External Reference #:[id number] Author Organization [facility] Address [address] [address] Phone [phone] Care Team Providers Name Role Phone Vanessa Gutiérrez MD Primary Care Physician Unavailable Payers Type Date Identification Numbers Payment Provider Subscriber Commercial Policy Number: [id number] [employer]ion [employer] Name: [id number] [address] PayID: [id number] [place] [address] Medigap Part B Expires: 2016 Policy Number: [id number] Medicaid Bibiana Garcia Group Name: 1 1 [address] PayID: [id number] [place] [address] Commercial Effective: 2014 Policy Number: [id number] Orion Garcia Expires: 2016 Group Name: [id number] [address] PayID: [id number] [place] [address] Problems Date Description Provider Status Onset: 07/19/2013 [...] Serg /0000 e) s mouth every Kristin, DIRECTOR WEIGHTS AND MEASURES mcg/Act 4 hours as needed Klonopin Active Tablets 0.5mg 1 by mouth Unknown /0000 tid prn Amitriptyline Active Tablets 50mg 30tab take one Vanessa HCL s tablet by Gutiérrez, mouth at M.D. bedtime Azelastine HCL Active Solution 0.1% Use 1 [place] Unknown (Nasal) /0000 In Each Nostril In The Morning And Night Breo Ellipta Active Aerosol 100-25mcg Inhale One Unknown /Inh puff By Mouth Every Day Fexofenadine HCL Active Tablets 180mg 30tab take one Rudy E. / s tablet by Jodie, mouth every M.D. day Sertraline HCL Active Tablets 50mg one daily Unknown Clindamycin 06/11 Hx Cream 2% 40gm one N76.0 Hendricks applicator Nate, - intravagina N.P. 03/25 lly at /2017 bedtime for 7 nights Tramadol HCL 11/06 Hx Tablets 50mg 60tab 1-2 tablets s every 12 Kristin, DIRECTOR WEIGHTS [employer] MEASURES - hours as 04/03 needed for pain. Lorazepam 01/05 Hx Tablets 0.5mg 60tab 1 by mouth s three a day Tee, DIRECTOR WEIGHTS [employer] MEASURES - as needed 09/20 Fluconazole 01/05 Hx Tablets 150mg 3tabs 1 tab by N76.0 mouth x1 Tee, DIRECTOR WEIGHTS AND MEASURES - 09/20 Sulfamethoxazole 01/05 Hx Solution 400-80mg/ N76.0 Steve -Trimethoprim 5ML Tee, DIRECTOR WEIGHTS AND MEASURES - 01/05 Sulfamethoxazole 01/05 Hx Tablets 800-160mg 10tab 1 tab by N76.0 Steve /Trimethoprim s mouth twice Tee, DIRECTOR WEIGHTS [employer] MEASURES - a day x 5 Acetaminophen-Co 12/15 Hx Tablets 300-30mg 30tab 1 tab by M54.31 Deja deine #3 /2014 s mouth 2x Kiran, - per day prn M.D. 01/05 Fluticasone 05/12 Hx Suspension 50mcg/Act 1unit 2 sprays 461.8 Deja Propionate /2014 s each Kiran - nostril M.D. 12/15 Flagyl 03/22 Hx Tablets 500mg 14tab bid No 616.10 Vignesh s alcohol use Pachikara - during and , M.D. 05/12 for 5 days after finishing Medrol (Shahriar) 12/22 Hx Tablets 4mg 1tabs as directed 493.90 Deja /2014 Teresa Beck M.D. 03/22 Nasonex 12/22 Hx Suspension 50mcg/Act 1unit 2 sp nasal 493.90 s every day Teresa Beck M.D. 01/05 Metrogel-Vaginal 07/22 Hx Gel 0.75% 1unit insert one s applicator Kiran, - once a day M.DAzael 03/22 x 7 /2013 Multi For Her Hx Capsules 30cap 1 [...] Hx Tablets 50mg 30tab 1 tablet at Deja s bedtime as Kiran - needed [place] 09/20 Hydrocodone/Acet Hx Tablets 5-325mg 1 po q4-6 Unknown aminophen /0000 hours prn - 07/14 Topamax Hx Tablets 25mg 1 Q6 hours Unknown prn - 07/14 Vitamin D Hx Capsules [id number] 12cap one by Deja (Ergocalciferol) / s mouth Teresa Beck weekly Connie 05/12 Qvar Hx Aerosol 80mcg/Act 1unit 2 [...] Code Status Date Vaccine Reaction Lot # [id number] Given 03/25/2017 Pneumonia Vaccine Pt. tolerated well. No [id number] immediate reaction noted. 05252 Given 04/03/2016 Tdap - [id number] Tetanus/Diptheria/Acellul ar Pertussis 75571 Given 04/03/2016 Influenza Virus Vaccine, [id number] Quadrivalent, Split Virus, Im Use Vital Signs Date Vital Result Comment 04/09/2017 Weight 158.00 lb Heart Rate 64 [...] Range Note Ua Routine 04/09/2017 Ua Specific [place] 1.000 Ua PH 6 Ua Color yellow Ua Appera clear Ua WBC - Ua Protein - Ua Glucose norm Ua Ketones - Ua Bilirubin - Ua Urobilinogen - Ua Nitrite - Ua Occult Blood - Urine Culture And 02/09/2017 Urine Culture SEE RESULT BELOW 1, 2 Sensitivities Laboratory test finding 02/09/2017 Poc , Negative Negative 3 Urine Poc Urinalysis 02/09/2017 Poc Glucose, Negative Negative Urine Poc Bilirubin, Urine 1+ Negative Poc Ketone, Urine 1+ Negative Poc Specific [place], Urine 1.025 1.010-1.030 Poc Blood, Urine Trace-intact Negative Poc pH, Urine 6.0 5-9 Poc Protein, Urine 2+ Negative Poc Urobilinogen, Urine 1.0 Negative Poc Nitrite, Urine Negative Negative Poc Leukocytes, Urine Trace Negative Poc Color, Urine Ainsley Poc Clarity, Urine Clear 4 Laboratory test 02/09/2017 Gardnerella/Yeast: SEE RESULT 5, 6 finding Vaginal Dna BELOW Laboratory test 01/08/2017 Stool Culture SEE RESULT 7, 8 finding BELOW Poc Urinalysis 09/30/2016 Poc Glucose, Urine Negative Negative Poc Bilirubin, Urine Negative Negative Poc Ketone, Urine 1+ Negative Poc Specific [place], Urine 1.020 1.010-1.030 Poc Blood, Urine Negative [...] BELOW Ua Routine 06/11/2016 Ua Specific 1.025 [place] Ua PH 7 Ua Color yellow Ua [...] Culture SEE RESULT BELOW 24, 25 Sensitivities CBC Auto Diff 08/21/2015 White Blood Count [...] Nucleated Red Blood Cells % 0.1 26 Basic Metabolic Panel 08/21/2015 Sodium 136 mmol/L 133-145 26 Potassium 4.2 mmol/L 3.5-5.0 26 Chloride 105 mmol/L 101-111 26 Co2 Carbon Dioxide 27 mmol/L 22-32 26 Anion Gap 4 mmol/L 2-11 26 Glucose 70 mg/dL 70-100 26 Blood Urea Nitrogen 14 mg/dL 6-24 26 Creatinine 0.95 mg/dL 0.51-0.95 26 BUN/Creatinine Ratio 14.7 8-20 26 Calcium 8.8 mg/dL 8.6-10.3 26 Egfr Non- 66.2 >60 26 Egfr 85.1 >60 26, 27 Laboratory test 08/21/2015 Gardnerella/Yeast: Vaginal SEE RESULT BELOW 28 finding Dna GC/Chlamydia 08/21/2015 Chlamydia trachomatis Rna Negative Negative Amplified Rna Neisseria gonorrhoeae (GC) Rna Negative Negative Laboratory test finding 08/21/2015 Trichomonas Negative Negative 29 Vaginalis Rna Urine Culture And 07/23/2015 Urine Culture SEE RESULT BELOW 30 Sensitivities Laboratory test finding 07/23/2015 Urine Glucose Negative mg/dL Negative Laboratory test finding 05/11/2015 Gardnerella/Yeast: SEE RESULT BELOW 31 Vaginal Dna Urine Culture And Sensitivities SEE RESULT BELOW 32 GC/Chlamydia Amplified Rna 05/11/2015 Chlamydia trachomatis Rna Negative Negative Neisseria gonorrhoeae (GC) Rna Negative Negative Laboratory test 05/11/2015 Trichomonas Vaginalis Negative Negative 33 finding Rna Laboratory test 05/11/2015 Gardnerella/Yeast: SEE RESULT BELOW 34 finding Vaginal Dna Urine Culture And Sensitivities SEE RESULT BELOW 35 Laboratory test 03/21/2015 Gardnerella/Yeast: Vaginal SEE RESULT BELOW 36 finding Dna Trichomonas Vaginalis Rna Negative Negative Laboratory test 02/09/2015 Urine Culture And SEE RESULT BELOW 37 finding Sensitivities GC/Chlamydia 02/09/2015 Chlamydia trachomatis Negative Negative Amplified Rna Rna Neisseria gonorrhoeae (GC) Rna Negative Negative 38 Laboratory test 02/09/2015 Gardnerella/Yeast: Vaginal SEE RESULT 39 finding Dna BELOW Laboratory test 02/09/2015 Trichomonas Vaginalis Rna Negative Negative 40 finding Laboratory test 01/05/2015 Gardnerella/Yeast: Vaginal SEE RESULT 41 finding Dna BELOW Ua And Culture 01/05/2015 Urine Culture And SEE RESULT 42 Sensitivity Sensitivities BELOW Urinalysis Profile 01/05/2015 Urine Color Yellow Urine Appearance Cloudy Urine Specific [place] 1.003 Low 1.010-1.030 Urine pH 6.0 5-9 [...] Present Absent Ua Routine 01/05/2015 Ua Specific [place] 1.000 Ua PH 5 Ua Color yellow [...] And SEE RESULT BELOW 65 finding Sensitivities CMP Panel 06/14/2014 Sodium 134 mmol/L 133-145 [...] Egfr 93.5 >60 66 Laboratory test finding 06/14/2014 TSH (Thyroid Stimulating 1.03 IU/mL 0.34-5.60 Horm) Free T4 0.61 ng/mL 0.61-1.12 Laboratory test finding 05/12/2014 Gardnerella/Yeast: Vaginal Dna (SEE NOTE ) 67 Ua Routine 03/22/2014 Ua Specific [place] 1.005 Ua PH 5 Ua Color yellow [...] 75 LDL Cholesterol 104 mg/dL 76 1 [id number] 2 SEE RESULT BELOW Name: BIBIANA GARCIA Vito : [address]: Jon Ness MD Acct: [id number] Unit: [id number] AGE: 37 Location: [facility] Re02/09/17 SEX: F Status: DEP ER SPEC: [id number] WILL: 02/09/17-[address] [facility] [address]: Mona Buck NP REQ: [id number] RECD: 02/09/17 STATUS: COMP OTHR DR: Vanessa Ness MD _ SOURCE: URINE SPDESC: ORDERED: Urine Culture COMMENTS: [id number] Procedure Result Reported Site Urine Culture Final 02/10/17- 1624 ML No growth of clinically significant organisms * [facility] - [facility]) . END OF REPORT * ML=Testing performed at Main Lab DEPARTMENT OF PATHOLOGY, [address] [place] [address] Jordan Pedroza M.D. Director [facility] # [id number] Actuarial Consultant: [id number] If is still suspected, please repeat test after 48 to 72 hours. 4 Actuarial Consultant: [id number] 5 Would you like to order Trichomonas Vaginalis RNA testing? N [id number] 6 SEE RESULT BELOW Name: BIBIANA GARCIA : [address]: Jon Ness MD Acct: [id number] Unit: [id number] AGE: 37 Location: [facility] Re02/09/17 SEX: F Status: DEP ER SPEC: [id number] WILL: 02/09/17-[address]: Mona Buck NP REQ: [id number] RECD: 02/09/17 STATUS: MILAGROS KERNS DR: Vanessa Ness MD _ [facility] ORDERED: Arturo,Yeast DNA COMMENTS: Would you like to order Trichomonas Vaginalis RNA testing? N [id number] Procedure Result Reported Site Gardnerella/Yeast: Vaginal DNA [...] or failure. * ML - [facility]) . END OF REPORT * ML=Testing performed at Main Lab DEPARTMENT OF PATHOLOGY, [address] [place] [address] Jordan Pedroza M.D. Director [facility] # [id number] 7 [id number] C. Difficile toxin testing is not performed on formed stool specimens. Test of cure 8 SEE RESULT BELOW Name: BIBIANA GARCIA : [address]: Elizabet Quesada MD Acct: [id number] Unit: [id number] AGE: 36 Location: [facility] Re01/08/17 SEX: F Status: REG REF SPEC: [id number] WILL: 01/08/17-[address] [facility] [address]: Xavi Navarro MD REQ: [id number] RECD: 01/09/17 STATUS: MILAGROS URBAN DR: Vanessa Gutiérrez MD _ SOURCE: STOOL SPDESC: ORDERED: Stool Culture, O P: Giar/Crypt, Rotavirus Ag St COMMENTS: [id number] C. Difficile toxin testing is not performed on formed stool specimens. Test of cure on positive patients is not recommended. Verbal to ABBY KNAPP. by [id number] at 0948 on 01/12/17. Results read back [...] performed at Main Lab DEPARTMENT OF PATHOLOGY, [address] [place] [address] Jordan Pedroza M.D. Director [facility] # [id number] Patient: BIBIANA GARCIA [id number] (Continued) Specimen: [id number] Collected: 01/08/17 Received: 01/09/17 (Continued) Procedure Result Reported Site Shiga Toxin 1 2 Final (continued) 01/12/17- 1146 Immunochromatographic Assay O P: Giardia/Cryptospor Screen Final 01/12/17- 1217 ML Organism 1 Neg Cryptosporidium/Giardia Giardia and cryptosporidium antigen testing performed by enzyme immunoassay. If patient is immunocompromised or has traveled to or is from a developing country, a full ova and parasite exam with microscopic (OPMIC) is recommended. All samples will be held one month in case full ova and parasite testing is requested. Contact the Microbiology Department at [phone]. TEST LIMITATIONS: As with all diagnostic procedures, [...] not recommended. Rotavirus Antigen Stool Final 01/10/17- 0813 ML Organism 1 Negative Rotavirus CONTINUED ON NEXT PAGE * ML=Testing performed at [facility] Lab DEPARTMENT OF PATHOLOGY, [address] [place] [address] Jordan Pedroza M.D. Director [facility] # [id number] Patient: BIBIANA GARCIA [id number] (Continued) Specimen: [id number] Collected: 01/08/17-1029 Received: 01/09/17-1832 (Continued) Procedure Result Reported Site Rotavirus Antigen Stool Final (continued) 01/10/17- 812 Antigen testing by enzyme immunoassay * ML - [facility]) . END OF REPORT * ML=Testing performed at Main Lab DEPARTMENT OF PATHOLOGY, [address] [place] [address] Jordan Pedroza M.D. Director [facility] # [id number] 9 Actuarial Consultant: [id number] REPEAT IN 4 MONTHS 11 [id number] 12 SEE RESULT BELOW Name: BIBIANA GARCIA : [address]: Betzaida Leiva MD Acct: [id number] Unit: [id number] AGE: 36 Location: [facility] Re07/03/16 SEX: F Status: DEP ER SPEC: [id number] WILL: 07/03/16-[address] [facility] [address]: Betzaida Leiva MD REQ: [id number] RECD: 07/03/16 STATUS: MILAGROS KERNS DR: Serg Foster DIRECTOR WEIGHTS AND MEASURES _ SOURCE: URINE SPDESC: ORDERED: Urine Culture COMMENTS: [id number] Procedure Result Reported Site Urine Culture Final 07/04/16- 1341 ML No growth of clinically significant organisms * ML - MAIN LAB ([facility]) . END OF REPORT * ML=Testing performed at Main Lab DEPARTMENT OF PATHOLOGY, [address] [place] [address] Jordan Pedroza M.D. Director [facility] # [id number] 13 SEE RESULT BELOW Name: BIBIANA GARCIA : [address]: Sydnie Sullivan NP Acct: [id number] Unit: [id number] AGE: 36 Location: [facility] Re06/11/16 SEX: F Status: REG REF SPEC: [id number] WILL: 06/11/16-[address]: Sydnie Sullivan NP REQ: [id number] RECD: 06/11/16 STATUS: COMP _ SOURCE: URINE SPDESC: ORDERED: Urine Culture COMMENTS: [id number] Urine Source: Random Procedure Result Reported Site Urine Culture Final 06/12/16- 1612 ML No Growth (<1,000 CFU/mL) * ML - [facility] LAB [facility]) . END OF REPORT * ML=Testing performed at Main Lab DEPARTMENT OF PATHOLOGY, [address] [place] [address] Jordan Pedroza M.D. Director [facility] # [id number] 14 It is recognized that currently available [...] [address]: Vanessa Gutiérrez MD Acct: [id number] Unit: [id number] AGE: 36 Location: [facility] Re04/03/16 SEX: F Status: REG REF SPEC: [id number] WILL: 04/03/16-[address]: Vanessa Gutiérrez MD REQ: [id number] RECD: 04/03/16 STATUS: SOUT _ ORDERED: IMAGE ANALYSIS, HPV/Thin Prep, HPV 16/18 GENE COMMENTS: [id number] FINAL DIAGNOSIS Negative for Intraepithelial lesion or [...] was evaluated with the assistance of the [employer] Software Test Imaging System. Due to cytologic findings at the grain wafer machine operator microscope, comprehensive manual rescreening by a Musical Engineer may be required. The Pap Smear is [...] performed at Main Lab DEPARTMENT OF PATHOLOGY, [address] [place] [address] Jordan Pedroza M.D. Director [facility] # [id number] 17 SEE RESULT BELOW Name: BIBIANA GARCIA : [address]: Vanessa Gutiérrez MD Acct: [id number] Unit: [id number] AGE: 36 Location: [facility] Re04/03/16 SEX: F Status: REG REF SPEC: [id number] WILL: 04/03/16-[address]: Vanessa Gutiérrez MD REQ: [id number] RECD: 04/03/16 STATUS: COMP _ SOURCE: VAGINAL SPDESC: ORDERED: ArturoYeast DNA COMMENTS: [id number] Procedure Result Reported Site Gardnerella/Yeast: Vaginal DNA [...] or failure. * ML - [facility]) . END OF REPORT * ML=Testing performed at Main Lab DEPARTMENT OF PATHOLOGY, [address] [place] [address] Jordan Pedroza M.D. Director [facility] # [id number] 18 The high-risk HPV types detected by the assay include: 16, 18, 31, 33, 35, 39, 45, 51, 52, 56, 58, 59, 66, and 68. 19 [id number] GC/Chlamydia Source?: Thin Prep HPV Source?: Thin Prep Trichomonas Source: Thin Prep 20 [id number] 21 SEE RESULT BELOW Name: BIBIANA GARCIA Vito : [address]: Tab Celaya MD Acct: [id number] Unit: [id number] AGE: 35 Location: [facility] Re01/16/16 SEX: F Status: DEP ER SPEC: [id number] WILL: 01/16/16-[address] [facility] [address]: Anjelica Espana NP REQ: [id number] RECD: 01/16/16 STATUS: MILAGROS KERNS DR: Tab Foster DIRECTOR WEIGHTS AND MEASURES _ SOURCE: URINE SPDESC: ORDERED: Urine Culture COMMENTS: [id number] Procedure Result Reported Site Urine Culture Final 01/17/16- 1250 ML Organism 1 STREP GROUP B [place] Count 75-100,000 (Many) CFU/ML Organism 2 NORMAL ABI [place] Count 1-10,000 (Few) CFU/ML Susceptibility testing of penicillins and other B-lactams approved by FDA for treatment of Streptococcus pyogenes (Group A Strep) and Streptococcus agalactiae (Group B Strep) is not necessary for clinical purposes and need not be done routinely, since as with vancomycin, resistant strains have not been recognized. (CLSI K652-M48;p.66) Positive isolates will be saved for one week. Please call the Microbiology Laboratory if further susceptibility testing is needed. * ML - [facility] . END OF REPORT * ML=Testing performed at Main Lab DEPARTMENT OF PATHOLOGY, [address] [place] [address] Jordan Pedroza M.D. Director [facility] # [id number] 22 SEE RESULT BELOW Name: BIBIANA GARCIA : [address]: Steve Keen MD Acct: [id number] Unit: [id number] AGE: 35 Location: [facility] Re11/09/15 SEX: F Status: DEP ER SPEC: [id number] WILL: 11/09/15-[address] [facility] [address]: Steve Keen MD REQ: [id number] RECD: 11/09/15 STATUS: MILAGROS KERNS DR: Serg Foster DIRECTOR WEIGHTS AND MEASURES _ SOURCE: VAGINAL SPDESC: ORDERED: Arturo,Yeast DNA [...] or failure. * ML - MA[facility] LAB ([facility]) . END OF REPORT * ML=Testing performed at Main Lab DEPARTMENT OF PATHOLOGY, [address] [place] [address] Jordan Pedroza M.D. Director [facility] # [id number] 23 GC/Chlamydia Source?: Endocervical Trichomonas Source: Endocervical 24 [id number] 25 SEE RESULT BELOW Name: BIBIANA GARCIA : [address]: Bev Espana MD Acct: [id number] Unit: [id number] AGE: 35 Location: [facility] Re10/06/15 SEX: F Status: DEP ER SPEC: [id number] WILL: 10/06/15-[address] [facility] [address]: Bev Espana MD REQ: [id number] RECD: 10/07/153811 STATUS: MILAGROS KERNS DR: Deja Beck MD _ SOURCE: URINE SPDESC: ORDERED: Urine Culture COMMENTS: [id number] Procedure Result Reported Site Urine Culture Final 10/08/15- 1233 ML No Growth (<1,000 CFU/mL) * ML - MAIN LAB ([facility]) . END OF REPORT * ML=Testing performed at Main Lab DEPARTMENT OF PATHOLOGY, [address] [place] [address] Jordan Pedroza M.D. Director [facility] # [id number] 26 [id number] 27 Because ethnic data is not always readily [...] 15-29 5 Kidney failure <15 (or dialysis) 28 SEE RESULT BELOW Name: BIBIANA GARCIA : [address]: Xavi Navarro MD Acct: [id number] Unit: [id number] AGE: 35 Location: [facility] Re08/21/15 SEX: F Status: DEP ER SPEC: [id number] WILL: 08/21/15-[address] [facility] [address]: Xaiv Navarro MD REQ: [id number] RECD: 08/22/15491 STATUS: MILAGROS KERNS DR: Deja Beck MD _ SOURCE: [facility]: ORDERED: Agata Morris DNA Procedure Result Reported Site Gardnerella/Yeast: Vaginal [...] or failure. * ML - [facility]) . END OF REPORT * ML=Testing performed at Main Lab DEPARTMENT OF PATHOLOGY, [address] [place] [address] Jordan Pedroza M.D. Director [facility] # [id number] 29 GC/Chlamydia Source?: Endocervical Trichomonas Source: Endocervical 30 SEE RESULT BELOW Name: BIBIANA GARCIA : [address]: Tab Celaya MD Acct: [id number] Unit: [id number] AGE: 35 Location: [facility] Re07/23/15 SEX: F Status: DEP ER SPEC: [id number] WILL: 07/23/15-[address]: Alejandro HERRERA REQ: [id number] RECD: 07/23/15 STATUS: MILAGROS KERNS DR: [facility] Deja Beck MD _ SOURCE: URINE SPDESC: ORDERED: Urine Culture Procedure Result Reported Site Urine Culture Final 07/24/15- 1638 ML No growth of clinically significant organisms * ML - [facility]) . END OF REPORT * ML=Testing performed at Main Lab DEPARTMENT OF PATHOLOGY, [address] [place] [address] Jordan Pedroza M.D. Director [facility] # [id number] 31 SEE RESULT BELOW Name: BIBIANA GARCIA : [address]: Tab Celaya MD Acct: [id number] Unit: [id number] AGE: 35 Location: [facility] Re05/11/15 SEX: F Status: DEP ER SPEC: [id number] WILL: 05/11/15-[address] [facility] [address]: Cordelia Chan NP REQ: [id number] RECD: 05/12/15-1225 STATUS: MILAGROS KERNS DR: Deja Celaya MD [...] or failure. * ML - [facility]) . END OF REPORT * ML=Testing performed at Main Lab DEPARTMENT OF PATHOLOGY, [address] [place] [address] Jordan Pedroza M.D. Director [facility] # [id number] 32 SEE RESULT BELOW Name: BIBIANA GARCIA : [address]: Tab Celaya MD Acct: [id number] Unit: [id number] AGE: 35 Location: [facility] Re05/11/15 SEX: F Status: DEP ER SPEC: [id number] WILL: 05/11/15-[address] [facility] [address]: Tab Celaya MD REQ: [id number] RECD: 05/12/15 STATUS: MILAGROS KERNS DR: Deja Beck MD _ SOURCE: URINE SPDESC: ORDERED: Urine Culture Procedure Result Reported Site Urine Culture Final 05/13/15- 1314 ML No Growth (<1,000 CFU/mL) * ML - MA[facility] LAB ([facility]) . END OF REPORT * ML=Testing performed at Main Lab DEPARTMENT OF PATHOLOGY, [address] [place] [address] Jordan Pedroza M.D. Director [facility] # [id number] 33 GC/Chlamydia Source?: Endocervical Trichomonas Source: Endocervical 34 SEE RESULT BELOW Name: BIBIANA GARCIA : [address]: Tab Celaya MD Acct: [id number] Unit: [id number] AGE: 35 Location: [facility] Re05/11/15 SEX: F Status: DEP ER SPEC: [id number] WILL: 05/11/15-[address] [facility] [address]: Cordeila Chan NP REQ: [id number] RECD: 05/12/15-5 STATUS: MILAGROS KERNS DR: Deja Celaya MD [...] or failure. * ML - MAIN LAB ([facility]) . END OF REPORT * ML=Testing performed at Main Lab DEPARTMENT OF PATHOLOGY, [address] [place] [address] Jordan Pedroza M.D. Director [facility] # [id number] 35 SEE RESULT BELOW Name: BIBIANA GARCIA : [address]: Tab Celaya MD Acct: [id number] Unit: [id number] AGE: 35 Location: [facility] Re05/11/15 SEX: F Status: DEP ER SPEC: [id number] WILL: 05/11/15-[address] [facility] [address]: Tab Celaya MD REQ: [id number] RECD: 05/12/15-5 STATUS: MILAGROS KERNS DR: Deja Beck MD _ SOURCE: URINE SPDESC: ORDERED: Urine Culture Procedure Result Reported Site Urine Culture Final 05/13/15- 1314 ML No Growth (<1,000 CFU/mL) * ML - [facility] LAB ([facility]) . END OF REPORT * ML=Testing performed at Main Lab DEPARTMENT OF PATHOLOGY, [address] [place] [address] Jordan Pedroza M.D. Director [facility] # [id number] 36 SEE RESULT BELOW Name: BIBIANA GARCIA : [address]: Steve Keen MD Acct: [id number] Unit: [id number] AGE: 35 Location: [facility] Re03/21/15 SEX: F Status: DEP ER SPEC: [id number] WILL: 03/21/15-[address] [facility] [address]: Steve Keen MD REQ: [id number] RECD: 03/21/15 STATUS: [facility] DR: Deja Beck MD _ SOURCE: VAGINAL [...] or failure. * ML - [facility] LAB ([facility]) . END OF REPORT * ML=Testing performed at Main Lab DEPARTMENT OF PATHOLOGY, [address] [place] [address] Jordan Pedroza M.D. Director [facility] # [id number] 37 SEE RESULT BELOW Name: BIBIANA GARCIA : [address]: Bev Espana MD Acct: [id number] Unit: [id number] AGE: 35 Location: [facility] Re02/09/15 SEX: F Status: DEP ER SPEC: [id number] WILL: 02/09/15-[address] [facility] [address]: Bev Espana MD REQ: [id number] RECD: 02/09/15-1123 STATUS: MILAGROS KERNS DR: [facility] Deja Beck MD _ SOURCE: URINE SPDESC: ORDERED: Urine Culture Procedure Result Verified Site Urine Culture Final 02/11/15- 927 ML No Growth Day 2 (<1,000 CFU/mL) * ML - [facility] ([facility]) . END OF REPORT * ML=Testing performed at Main Lab DEPARTMENT OF PATHOLOGY, [address] [place] [address] Jordan Pedroza M.D. Director [facility] # [id number] 38 Female urine specimens have been self-validated by [facility] and have been granted conditional assay approval by [facility]. 39 SEE RESULT BELOW Name: BIBIANA GARCIA : [address]: Bev Espana MD Acct: [id number] Unit: [id number] AGE: 35 Location: [facility] Re02/09/15 SEX: F Status: DEP ER SPEC: [id number] WILL: 02/09/15-[address]: Bev Espana MD REQ: [id number] RECD: 02/09/15-1821 STATUS: MILAGROS KERNS DR: Deja Beck MD [...] therapeutic success or failure. * ML - [facility] ([facility]) . END OF REPORT * ML=Testing performed at Main Lab DEPARTMENT OF PATHOLOGY, [address] [place] [address] Jordan Pedroza M.D. Director [facility] # [id number] 40 [facility] Specimen Source: vaginal GC/Chlamydia Source?: Endocervical Trichomonas Source: Endocervical 41 SEE RESULT BELOW Name: BIBIANA GARCIA : [address]: Steve Tee NP Acct: [id number] Unit: [id number] AGE: 34 Location: [facility] Re01/05/15 SEX: F Status: REG REF SPEC: [id number] WILL: 01/05/157236 [facility] DR: Steve Tee NP REQ: [id number] RECD: 01/05/15 STATUS: COMP _ SOURCE: VAGINAL [...] ON NEXT PAGE * ML=Testing performed at [facility] DEPARTMENT OF PATHOLOGY, [address] [place] [address] Jordan Pedroza M.D. Director [facility] # [id number] Patient: BRITTNEYLORETTABARRYBIBIANA L [id number] (Continued) Specimen: [id number] Collected: 01/05/15 Received: 01/05/15 (Continued) Procedure Result Verified Site Trichomonas: Vaginal DNA Probe Final (continued) 01/06/15- 7606 The presence or absence of T. vaginalis cannot be used as a test for therapeutic success or failure. * ML - MA[facility] ([facility]) . END OF REPORT * ML=Testing performed at Main Lab DEPARTMENT OF PATHOLOGY, [address] [place] [address] Jordan Pedroza M.D. Director [facility] # [id number] 42 SEE RESULT BELOW Name: BIBIANA GARCIA : [address]: Steve Tee NP Acct: [id number] Unit: [id number] AGE: 34 Location: [facility] Re01/05/15 SEX: F Status: REG REF SPEC: [id number] WILL: 01/05/15-[address]: Steve Tee NP REQ: [id number] RECD: 01/05/15- STATUS: COMP _ SOURCE: URINE SPDESC: ORDERED: Urine Culture Urine Source: Catheterization Procedure Result Verified Site Urine Culture Final 01/07/15- 1038 ML Organism 1 NORMAL ABI [place] Count 10-25,000 (Moderate) CFU/ML * ML - [facility] ([facility]) . END OF REPORT * ML=Testing performed at Main Lab DEPARTMENT OF PATHOLOGY, [address] [place] [address] Jordan Pedroza M.D. Director [facility] # [id number] 43 Female urine specimens have been self-validated by [facility] and have been granted conditional assay approval by [facility]. 44 SEE RESULT BELOW Name: BIBIANA GARCIA : [address]: Luciano Marion DO Acct: [id number] Unit: [id number] AGE: 34 Location: [facility] Re12/17/14 SEX: F Status: DEP ER SPEC: [id number] WILL: 12/17/14-[address]: Gwen Duran NP REQ: [id number] RECD: 12/18/14-115 STATUS: MILAGROS KERNS DR: Deja Marion DO [...] or failure. * ML - MAIN LAB ([facility]) . END OF REPORT * ML=Testing performed at Main Lab DEPARTMENT OF PATHOLOGY, [address] [place] [address] Jordan Pedroza M.D. Director [facility] # [id number] 45 [facility] Specimen Source: endocervical GC/Chlamydia Source?: Endocervical Trichomonas Source: Endocervical 46 Female urine specimens have been self-validated by [facility] and have been granted conditional assay approval by [facility]. 47 REFERENCE VALUE Cutoff: 500 48 REFERENCE [...] use in employment-related testing. Test Performed by: [address] [address] Ecology Professor: Sudheer Griffiths II, M.D., Ph.D. 55 Because [...] [address]: Alejandro Sesay MD Acct: [id number] Unit: [id number] AGE: 34 Location: [facility] Re10/29/14 SEX: F Status: DEP ER SPEC: [id number] WILL: 10/29/14-[address]: Alejandro Sesay MD REQ: [id number] RECD: 10/30/14 STATUS: MILAGROS KERNS DR: Deja Beck MD _ SOURCE: URINE SPDC: ORDERED: Urine Culture Procedure Result Verified Site Urine Culture Final 11/01/14- 1130 ML No Growth Day 2 (<1,000 CFU/mL) * ML - MAIN LAB ([facility]) . END OF REPORT * ML=Testing performed at Main Lab DEPARTMENT OF PATHOLOGY, [address] [place] [address] Jordan Pedroza M.D. Director [facility] # [id number] 61 SEE RESULT BELOW Name: BIBIANA GARCIA : [address]: Adrianne Hugo Acct: [id number] Unit: [id number] AGE: 34 Location: [facility] Re10/19/14 SEX: F Status: DEP ER SPEC: [id number] WILL: 10/19/14-[address] [facility] [address]: Adrianne Dixon DO REQ: [id number] RECD: 10/20/14 STATUS: MILAGROS KERNS DR: Deja Beck MD [...] or failure. * ML - MAIN LAB ([facility]) . END OF REPORT * ML=Testing performed at Main Lab DEPARTMENT OF PATHOLOGY, [address] [place] [address] Jordan Pedroza M.D. Director [facility] # [id number] 62 Female urine specimens have been self-validated by [facility] and have been granted conditional assay approval by [facility]. 63 [facility] Specimen Source: cervix GC/Chlamydia Source?: Endocervical Trichomonas Source: Endocervical 64 SEE RESULT BELOW Name: BIBIANA GARCIA : [address]: Xavi Navarro MD Acct: [id number] Unit: [id number] AGE: 34 Location: [facility] Re10/10/14 SEX: F Status: DEP ER SPEC: [id number] WILL: 10/10/14-[address] [facility] [address]: Alyson Keen NP REQ: [id number] RECD: 10/10/14 STATUS: MILAGROS KERNS DR: [facility] Deja Beck MD _ SOURCE: URINE SPDESC: ORDERED: Urine Culture Procedure Result Verified Site Urine Culture Final 10/12/14- 1018 ML Organism 1 NORMAL ABI [place] Count 1-10,000 (Few) CFU/ML * ML - MAIN LAB ([facility]) . END OF REPORT * ML=Testing performed at Main Lab DEPARTMENT OF PATHOLOGY, [address] [place] [address] Jordan Pedroza M.D. Director [facility] # [id number] 65 SEE RESULT BELOW Name: BIBIANA GARCIA : [address]: Xavi Navarro MD Acct: [id number] Unit: [id number] AGE: 34 Location: [facility] Re08/23/14 SEX: F Status: DEP ER SPEC: [id number] WILL: 08/23/14-[address] [facility] [address]: Xavi Navarro MD REQ: [id number] RECD: 08/23/14-1311 STATUS: MILAGROS KERNS DR: Djea Beck MD _ SOURCE: URINE SPDESC: ORDERED: Urine Culture Procedure Result Verified Site Urine Culture Final 08/25/14- 0850 ML Organism 1 ESCHERICHIA COLI [place] Count >100,000 (Many) CFU/ML 1. ESCHERICHIA COLI [...] antibiotic reporting. * ML - MAIN LAB ([facility]) . END OF REPORT * ML=Testing performed at Main Lab DEPARTMENT OF PATHOLOGY, [address] [place] [address] Jordan Pedroza M.D. Director [facility] # [id number] 66 Because ethnic data is not always [...] <15 (or dialysis) 67 RUN DATE: 05/13/14 [facility] LIVE PAGE 1 RUN TIME: [address] [place] [address] Specimen Inquiry Name: BIBIANA GARCIA : [address]: Deja Beck MD Acct: [id number] Unit: [id number] AGE: 34 Location: [facility] Re05/12/14 SEX: F Status: REG REF SPEC: [id number] WILL: 05/12/14-[address] [facility] [address]: Deja Beck MD REQ: [id number] RECD: 05/12/14 STATUS: COMP _ SOURCE: VAGINAL SPDESC: ORDERED: Arturo,Yeast DNA, Trich DNA QUERIES: Provider Requisition # [id number] Procedure Result Verified Site Gardnerella/Yeast: Vaginal DNA [...] performed at Main Lab DEPARTMENT OF PATHOLOGY, [facility] [employer] [place] [address] Jordan Pedroza M.D. Director [facility] # [id number] RUN DATE: 05/13/14 [facility] LIVE PAGE 2 RUN TIME: [address] [facility] [employer] [place], [place] [address] Specimen Inquiry Patient: BIBIANA GARCIA [id number] (Continued) Specimen: [id number] Collected: 05/12/14-1648 Received: 05/12/14-1799 (Continued) Procedure Result Verified Site Trichomonas: Vaginal DNA Probe Final (continued) 05/13/14- 1255 The presence or absence of T. vaginalis cannot be used as a test for therapeutic success or failure. END OF REPORT * ML=Testing performed at Main Lab DEPARTMENT OF PATHOLOGY, [address] [place] [address] Jordan Pedroza M.D. Director [facility] # [id number] 68 RUN DATE: 01/29/14 [facility] LIVE PAGE 1 RUN TIME: [address] [place] [address] Specimen Inquiry Name: BIBIANA GARCIA : [address]: Xavi Navarro MD Acct: [id number] Unit: [id number] AGE: 33 Location: [facility] Re01/27/14 SEX: F Status: DEP ER SPEC: [id number] WILL: 01/27/14-[address]: Xavi Navarro MD REQ: [id number] RECD: 01/27/14 STATUS: IMLAGROS KERNS DR: [facility] Deja Beck MD _ SOURCE: URINE SPDESC: ORDERED: Urine Culture Procedure Result Verified Site Urine Culture Final 01/29/14- 0732 ML Organism 1 ESCHERICHIA COLI [place] Count >100,000 (Many) CFU/ML 1. ESCHERICHIA COLI [...] performed at Main Lab DEPARTMENT OF PATHOLOGY, [facility] [employer] [place], [place] [address] Jordan Pedroza M.D. Director [facility] # [id number] 69 RUN DATE: 07/15/13 [facility] LIVE PAGE 1 RUN TIME: [address] [facility] [employer] [place], [place] [address] Specimen Inquiry Name: BIBIANA MATHIS : [address]: Deja Beck MD Acct: [id number] Unit: [id number] AGE: 33 Location: [facility] Re07/14/13 SEX: F Status: REG REF SPEC: [id number] WILL: 07/14/[address]: Deja Beck MD REQ: [id number] RECD: 07/14/13 STATUS: SOUT _ ORDERED: IMAGE [...] (signature on file) DAKOTAH Echeverria (ASCP) 07/15/13 6496 This Pap test was evaluated with the assistance of the Se[employer]an Angel PrintsPrep Test Imaging System. Due to cytologic findings at the grain wafer machine operator microscope, comprehensive manual rescreening by a Musical Engineer may be required. The Pap Smear is [...] performed at Main Lab DEPARTMENT OF PATHOLOGY, [facility] [employer] [place] [address] Jordan Pedroza M.D. Director [facility] Permit #[id number] 70 RUN DATE: 07/15/13 [facility] LIVE PAGE 1 RUN TIME: 14[address] [facility] [employer] [place], [place] [address] Specimen Inquiry Name: BIBIANA MATHIS : [address]: Deja Beck MD Acct: [id number] Unit: [id number] AGE: 33 Location: [facility] Re07/14/13 SEX: F Status: REG REF SPEC: [id number] WILL: 07/14/13-[address]: Deja Beck MD REQ: [id number] RECD: 07/14/13 STATUS: COMP _ SOURCE: VAGINAL [facility]: ORDERED: Affirm QUERIES: Medent Number [id number] Procedure Result Verified Site Affirm Vaginal DNA [...] performed at Main Lab DEPARTMENT OF PATHOLOGY, [address] [place] [address] Jordan Pedroza M.D. Director [facility] Permit #[id number] 71 -- REFERENCE VALUE -- 25-HYDROXY D TOTAL (D2+D3) Optimum levels in the healthy population are 20-50, patients with bone disease may benefit from higher levels within this range. Test Performed by: [place] [address] Ecology Professor: Jake Colby III, M.D. 72 It is [...] Procedures Date CPT Code Description Status 10/20/2012 17284 Rad Exam; Spine Cerv Comp Completed 10/12/2012 29407 Nerve Conduction 03-04 Studies Completed 10/12/2012 40021 Needle Electromyography Complete, Five Or More Muscles Completed Studied Encounters Type Date Location Provider CPT E/M Dx Office Visit 03/25/2017 [facility] Vanessa Gutiérrez 04489 M25.512 10:50a - Barb Rosales Z23 J06.9 Office Visit 06/11/2016 1:00p [facility] Sydnie Sullivan, N.P. 58398 N76.0 - [place] R35.0 L65.9 Office Visit 04/03/2016 11:10a [facility] Vanessa Gutiérrez, 38436 Z00.00 - Barb Rosales N76.0 Z13.1 Z11.4 Z12.4 Z23 Office Visit 09/21/2015 2:00p [facility] - Serg Foster, DIRECTOR WEIGHTS AND MEASURES 16000 M25.512 [place] Office Visit 01/05/2015 1:30p [facility] - Steve Tee, DIRECTOR WEIGHTS AND MEASURES 95187 N76.0 [place] N39.0 Office Visit 12/15/2014 4:20p [facility] Deja Beck M.D. 92536 M54.41 - [place] E78.89 Office Visit 11/03/2014 12:40p [facility] Deja Beck M.D. 65761 780.79 - [place] 783.1 844.9 782.3 V17.49 Office Visit 05/12/2014 4:40p [facility] Deja Beck M.D. 04714 616.10 - [place] 783.1 461.8 461.9 Office Visit 03/22/2014 1:40p [facility] Vignesh Ferguson, 14333 616.10 [facility] Teresa Celis M.D. Office Visit 12/22/2013 1:40p [facility] Deja Beck M.D. 11908 493.90 [facility] Vimal 726.5 Office Visit 07/14/2013 2:00p [facility] Deja Beck M.D. 94813 V70.0 - [place] V76.2 V76.10 268.9 278.00 V17.49 v65.44 V77.91 Office Visit 10/20/2012 2:00p [facility] M.D. 43750 723.4 C.M.A. Plan of Care Future Appointment(s):05/21/2017 1:00 pm - Vanessa Gutiérrez M.D. at [facility] - Uwttfwnrd40/18/2018 - Vanessa Gutiérrez M.D.R30.0 DysuriaNew Medication:Sulfamethoxazole/Trimethoprim DS 800-160 mgL08.9 Local infection of the skin and subcutaneous tissue, unspComments:I do not feel any residual infection or cyst which is good
--- OUTSIDE RECORDS SUMMARY | 2017-04-13 17:40 | XMS REPORT ---
:1980 External Reference #:[id number] Author Organization [facility] Address [address] [address] Phone [phone] Care Team Providers Name Role Phone Vanessa Gutiérrez MD Primary Care Physician Unavailable Payers Type Date Identification Numbers Payment Provider Subscriber Commercial Policy Number: [id number] Orion Garcia Group Name: [id number] [address] PayID: [id number] [place] [address] Medigap Part B Expires: 2016 Policy Number: [id number] Medicaid Bibiana Garcia Group Name: 1 1 [address] PayID: [id number] [place] [address] Commercial Effective: 2014 Policy Number: [id number] Orion Garcia Expires: 2016 Group Name: [id number] [address] PayID: [id number] [place] [address] Problems Date Description Provider Status Onset: 07/19/2013 Vitamin D deficiency Deja Beck M.D. Active Onset: 04/03/2016 Moderate persistent asthma Vansesa Gutiérrez M.D. 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 day Humidifier 05/12 Active Misc 2Gallon 1unit run every 461.8 Deja s day Connie Beck Proventil HFA Active Aerosol 108(90Bas 1unit 2 puffs by Serg /0000 e) s mouth every KIM Foster mcg/Act 4 hours as needed Klonopin Active Tablets 0.5mg 1 by mouth Unknown /0000 tid prn Amitriptyline Active Tablets 50mg 30tab take one Vanessa HCL s tablet by Gutiérrez, mouth at M.D. bedtime Azelastine HCL Active Solution 0.1% Use 1 [place] Unknown (Nasal) /0000 In Each Nostril In The Morning And Night Breo Ellipta Active Aerosol 100-25mcg Inhale One Unknown /0000 /Inh puff By Mouth Every Day Fexofenadine HCL 00/00 Active Tablets 180mg 30tab take one Rudy E. / s tablet by Jodie, mouth every M.D. day Sertraline HCL Active Tablets 50mg one daily Clindamycin 06/11 Hx Cream 2% 40gm one N76.0 Sydnie applicator Nate, - intravagina N.P. 03/25 lly at bedtime for 7 nights Tramadol HCL 11/06 Hx Tablets 50mg 60tab 1-2 tablets s every 12 Kristin, [employer]FTWO[employer] - hours as 04/03 needed for pain. Lorazepam 01/05 Hx Tablets 0.5mg 60tab 1 by mouth s three a day Tee, [employer] - as needed 09/20 Fluconazole 01/05 Hx Tablets 150mg 3tabs 1 tab by N76.0 mouth x1 Tee, [employer] - 09/20 Sulfamethoxazole 01/05 Hx Solution 400-80mg/ N76.0 Steve -Trimethoprim 5ML Tee, [employer] - 01/05 Sulfamethoxazole 01/05 Hx Tablets 800-160mg 10tab 1 tab by N76.0 Steve /Trimethoprim s mouth twice Tee, [employer] - a day x 5 Acetaminophen-Co 12/15 Hx Tablets 300-30mg 30tab 1 tab by M54.31 Deja deine #3 s mouth 2x Kiran, - per day prn M.D. 01/05 Fluticasone 05/12 Hx Suspension 50mcg/Act 1unit 2 sprays 461.8 Deja s each Kiran - nostril M.D. 12/15 Flagyl 03/22 Hx Tablets 500mg 14tab bid No 616.10 Vignesh s alcohol use Pachikara - during and , M.D. 05/12 for 5 days after finishing Medrol (Shahriar) 12/22 Hx Tablets 4mg 1tabs as directed 493.90 Deja /2014 Teresa Beck.DAzael 03/22 Nasonex 12/22 Hx Suspension 50mcg/Act 1unit 2 sp nasal 493.90 s every day Teresa Beck.[place] 01/05 Metrogel-Vaginal 07/22 Hx Gel 0.75% 1unit insert one s applicator Kiran, - once a day M.DAzael 03/22 x 7 Multi For Her Hx Capsules 30cap 1 by mouth Deja / s every day Teresa Beck M.D. 08/30 Effexor XR Hx Caps ER 75mg 1 po qd Unknown 24HR - 11/03 Effexor XR Hx Caps ER 150mg 30cap 1 by mouth Deja / 24HR s every day Teresa Beck M.D. 11/03 Singulair Hx Tablets 10mg 30tab 1 by mouth Rudy E. / s every day Teresa Feliciano M.D. 03/28 Trazodone HCL Hx Tablets 50mg 30tab 1 tablet at Deja / s bedtime as Kiran, - needed M.DAzael 09/20 Hydrocodone/Acet Hx Tablets 5-325mg 1 po q4-6 Unknown aminophen /0000 hours prn - 07/14 Topamax Hx Tablets 25mg 1 Q6 hours Unknown /0000 prn - 07/14 Vitamin D Hx Capsules [id number] 12cap one by Deja (Ergocalciferol) / s mouth Kiran - weekly M.DAzael 05/12 Qvar Hx Aerosol 80mcg/Act 1unit 2 puff Rudy E. / s twice a day Teresa Feliciano M.D. 01/05 Bactrim DS 00 Hx Tablets Unknown - 12/15 Tramadol HCL 00 Hx Tablets as needed - 12/[address] 20mg 60cap take one Segr s capsule by KIM Foster - mouth twice 10/29 a day /2016 Trazodone HCL 0000 Hx Tablets 100mg take two Unknown /0000 tablets by - mouth every 04/03 day at /2017 bedtime Immunizations CPT Code Status Date Vaccine Reaction Lot # [id number] Given 03/25/2017 Pneumonia Vaccine Pt. tolerated well. No [id number] immediate reaction noted. 96233 Given 04/03/2016 Tdap - [id number] Tetanus/Diptheria/Acellul ar Pertussis 23440 Given 04/03/2016 Influenza Virus Vaccine, [id number] Quadrivalent, Split Virus, Im Use Vital Signs Date Vital Result Comment 03/25/2017 Weight 156.00 lb Heart Rate 100 [...] Test Date Test Result H/L Range Note Laboratory test finding 02/09/2017 Gardnerella/Yeas SEE RESULT BELOW 1 , 2 t: Vaginal Dna Urine Culture And 02/09/2017 Urine Culture SEE RESULT BELOW 3, 4 Sensitivities Laboratory test finding 02/09/2017 Poc , Negative Negative 5 Urine Poc Urinalysis 02/09/2017 Poc Glucose, Negative Negative Urine Poc Bilirubin, Urine 1+ Negative Poc Ketone, Urine 1+ Negative Poc Specific [place], Urine 1.025 1.010-1.030 Poc Blood, Urine Trace-intact Negative Poc pH, Urine 6.0 5-9 Poc Protein, Urine 2+ Negative Poc Urobilinogen, Urine 1.0 Negative Poc Nitrite, Urine Negative Negative Poc Leukocytes, Urine Trace Negative Poc Color, Urine [place]ley Poc Clarity, Urine Clear 6 Laboratory test 01/08/2017 Stool Culture SEE RESULT BELOW 7, 8 finding Poc Urinalysis 09/30/2016 Poc Glucose, Urine Negative Negative Poc Bilirubin, Urine Negative Negative Poc Ketone, Urine 1+ Negative Poc Specific [place], Urine 1.020 1.010-1.030 Poc Blood, Urine Negative [...] (Thyroid Stim 0.91 mcIU/mL 0.34- 5.60 Horm) Ua Routine 06/11/2016 Ua Specific 1.025 [place] Ua PH 7 Ua Color yellow Ua Appera clear Ua WBC neg Ua Protein neg Ua Glucose neg Ua Ketones neg Ua Bilirubin neg Ua Urobilinogen normal Ua Nitrite neg Ua Occult Blood neg Urine Culture And 06/11/2016 Urine Culture SEE RESULT BELOW 13 Sensitivities HIV 1/2 AB Evaluation 04/17/2016 HIV 1 [...] Culture SEE RESULT BELOW 20, 21 Sensitivities GC/Chlamydia 11/09/2015 Chlamydia Negative Negative Amplified Rna trachomatis Rna Neisseria gonorrhoeae (GC) Rna Negative Negative Laboratory test 11/09/2015 Gardnerella/Yeast: Vaginal SEE RESULT BELOW 22 finding Dna Trichomonas Vaginalis Rna Negative Negative 23 Urine Culture And 10/06/2015 Urine Culture SEE RESULT BELOW 24, 25 Sensitivities CBC Auto Diff 08/21/2015 White Blood Count 7.8 10^3/uL 3.5-10.8 26 Red Blood Count 4.20 10^6/uL 4.0-5.4 26 Hemoglobin 13.6 g/dL 12.0-16.0 26 Hematocrit 40 % 35-47 26 Mean Corpuscular Volume 95 fL 80-97 26 Mean Corpuscular Hemoglobin 32 pg High - Mean Corpuscular HGB Conc 34 g/dL -36 Red Cell Distribution Width 13 % 10.5-15 [...] 08/21/2015 Trichomonas Negative Negative 29 Vaginalis Rna Laboratory test finding 07/23/2015 Urine Glucose Negative mg/dL Negative Urine Culture And 07/23/2015 Urine Culture SEE RESULT BELOW 30 Sensitivities Laboratory test finding 05/11/2015 Gardnerella/Yeast: SEE RESULT [...] And SEE RESULT BELOW 37 finding Sensitivities Laboratory test 02/09/2015 Gardnerella/Yeast: SEE RESULT BELOW 38 finding Vaginal Dna GC/Chlamydia 02/09/2015 Chlamydia trachomatis Negative Negative Amplified Rna Rna Neisseria gonorrhoeae (GC) Rna Negative Negative 39 Laboratory test finding 02/09/2015 Trichomonas Vaginalis Rna Negative Negative 40 GC/Chlamydia Amplified 01/05/2015 Chlamydia trachomatis Rna Negative Negative Rna Neisseria gonorrhoeae (GC) Rna Negative Negative 41 Laboratory test 01/05/2015 Gardnerella/Yeast: Vaginal SEE RESULT BELOW 42 finding Dna Ua And Culture 01/05/2015 Urine Culture And SEE RESULT BELOW 43 Sensitivity Sensitivities Urinalysis Profile 01/05/2015 Urine Color Yellow Urine Appearance Cloudy Urine Specific [place] 1.003 Low 1.010-1.030 Urine pH 6.0 5-9 [...] Present Absent Ua Routine 01/05/2015 Ua Specific [place] 1.000 Ua PH 5 Ua Color yellow Ua Appera cloudy Ua WBC large Ua Protein negative Ua Glucose negative Ua Ketones negative Ua Bilirubin negative Ua Urobilinogen normal Ua Nitrite negative Ua Occult Blood NHT Laboratory test 12/17/2014 Gardnerella/Yeast: Vaginal SEE RESULT [...] ) 67 Ua Routine 03/22/2014 Ua Specific [place] 1.005 Ua PH 5 Ua Color yellow [...] 75 LDL Cholesterol 104 mg/dL 76 1 Would you like to order Trichomonas Vaginalis RNA testing? N [id number] 2 SEE RESULT BELOW Name: BIBIANA GARCIA : [address]: Jon Ness MD Acct: [id number] Unit: [id number] AGE: 37 Location: [facility] Re02/09/17 SEX: F Status: DEP ER SPEC: [id number] WILL: 02/09/[address] [facility] [address]: Mona Buck NP REQ: [id number] RECD: 02/09/17 STATUS: MILAGROS [facility] DR: Vanessa Ness MD _ SOURCE: VAGINAL SPDESC: ORDERED: Arturo,Yeast DNA COMMENTS: Would you like to order Trichomonas Vaginalis RNA testing? N [id number] Procedure Result Reported Site Gardnerella/Yeast: Vaginal DNA [...] performed at Main Lab DEPARTMENT OF PATHOLOGY, [address] [place] [address] Jordan Pedroza M.D. Director [facility] # [id number] 3 [id number] 4 SEE RESULT BELOW Name: BIBIANA GARCIA : [address]: Jon Ness MD Acct: [id number] Unit: [id number] AGE: 37 Location: [facility] Re02/09/17 SEX: F Status: DEP ER SPEC: [id number] WILL: 02/09/17-[address]: Mona Buck NP REQ: [id number] RECD: 02/09/17 STATUS: MILAGROS KERNS DR: Vanessa Ness MD _ SOURCE: URINE [facility]: ORDERED: Urine Culture COMMENTS: [id number] Procedure Result Reported Site Urine Culture Final 02/10/17- 1624 ML No growth of clinically significant organisms * ML - MAIN LAB ([facility]) . END OF REPORT * ML=Testing performed at Main Lab DEPARTMENT OF PATHOLOGY, [address] [place] [address] Jordan Pedroza M.D. Director [facility] # [id number] 5 Meat Supervisor: [id number] If is still suspected, please repeat test after 48 to 72 hours. 6 Meat Supervisor: [id number] C. Difficile toxin testing is not performed on formed stool specimens. Test of cure 8 SEE RESULT BELOW Name: BIBIANA GARCIA : [address]: Elizabet Quesada MD Acct: [id number] Unit: [id number] AGE: 36 Location: [facility] Re01/08/17 SEX: F Status: REG REF SPEC: [id number] WILL: 01/08/17-[address] [facility] [address]: Xavi Navarro MD REQ: [id number] RECD: 01/09/17 STATUS: MILAGROS KERNS DR: Vanessa Gutiérrez MD _ SOURCE: STOOL SPDESC: ORDERED: Stool Culture, O P: Giar/Crypt, Rotavirus Ag St COMMENTS: [id number] C. Difficile toxin testing is not performed on formed stool specimens. Test of cure on positive patients is not recommended. Verbal to ABBY KNAPP. by [id number] at 0948 on 01/12/17. Results read back [...] are required. Stool Specimen Description Final 01/09/17- 191 ML Stool Color Brown Stool Form Formed Stool Consistency Firm Shiga Toxin 1 2 Final 01/12/17- 1147 ML Organism 1 Negative Shiga Toxin 1 2 CONTINUED ON NEXT PAGE * ML=Testing performed at Main Lab DEPARTMENT OF PATHOLOGY, [address] [place] [address] Jordan Pedroza M.D. Director [facility] # [id number] Patient: BIBIANA GARCIA [id number] (Continued) Specimen: [id number] Collected: 01/08/17 Received: 01/09/17 (Continued) Procedure Result [...] is requested. Contact the Microbiology Department at [phone]. TEST LIMITATIONS: As with all diagnostic procedures, [...] ON NEXT PAGE * ML=Testing performed at [facility] Lab DEPARTMENT OF PATHOLOGY, [address] [address] Jordan Pedroza M.D. Director [facility] # [id number] Patient: BRITTNEYLORETTABARRYBIBIANA L [id number] (Continued) Specimen: [id number] Collected: 01/08/17 Received: 01/09/17 (Continued) Procedure Result Reported Site Rotavirus Antigen Stool Final (continued) 01/10/17 1024 Antigen testing by enzyme immunoassay * ML - MAIN LAB ([facility]) . END OF REPORT * ML=Testing performed at Main Lab DEPARTMENT OF PATHOLOGY, [address] [place] [address] Jordan Pedroza M.D. Director [facility] # [id number] 9 Meat Supervisor: [id number] REPEAT IN 4 MONTHS 11 [id number] 12 SEE RESULT BELOW Name: BIBIANA GARCIA : [address]: Betzaida Leiva MD Acct: [id number] Unit: [id number] AGE: 36 Location: [facility] Re07/03/16 SEX: F Status: DEP ER SPEC: [id number] WILL: 07/03/[address]: Betzaida Leiva MD REQ: [id number] RECD: 07/03/16 STATUS: MILAGROS KERNS DR: Serg Foster [employer] _ SOURCE: URINE SPDESC: ORDERED: Urine Culture COMMENTS: [id number] Procedure Result Reported Site Urine Culture Final 07/04/16- 1341 ML No growth of clinically significant organisms * ML - MAIN LAB ([facility]) . END OF REPORT * ML=Testing performed at Main Lab DEPARTMENT OF PATHOLOGY, [address] [place] [address] Jordan Pedroza M.D. Director [facility] # [id number] 13 SEE RESULT BELOW Name: BIBIANA GARCIA : [address]: Sydnie Sullivan NP Acct: [id number] Unit: [id number] AGE: 36 Location: [facility] Re06/11/16 SEX: F Status: REG REF SPEC: [id number] WILL: 06/11/16-[address]: Sydnie Sullivan NP REQ: [id number] RECD: 06/11/16 STATUS: COMP _ SOURCE: URINE SPDESC: ORDERED: Urine Culture COMMENTS: [id number] Urine Source: Random Procedure Result Reported Site Urine Culture Final 06/12/16- 1612 ML No Growth (<1,000 CFU/mL) * ML - MAIN LAB ([facility]) . END OF REPORT * ML=Testing performed at Main Lab DEPARTMENT OF PATHOLOGY, [address] [place] [address] Jordan Pedroza M.D. Director [facility] # [id number] 14 It is recognized that currently available [...] [address]: Vanessa Gutiérrez MD Acct: [id number] Unit: [id number] AGE: 36 Location: [facility] Re04/03/16 SEX: F Status: REG REF SPEC: [id number] WILL: 04/03/16-[address]: Vanessa Gutiérrez MD REQ: [id number] RECD: 04/03/16 STATUS: SOUT _ ORDERED: IMAGE ANALYSIS, HPV/Thin Prep, HPV 16/18 GENE COMMENTS: [id number] FINAL DIAGNOSIS Negative for Intraepithelial lesion or [...] 66, and 68. Signed (signature on file) Cornel MeredithDAKOTAH (ASCP) 04/04 1417 This Pap test was evaluated with the assistance of the mySBX Test Imaging System. Due to cytologic findings at the laundry presser microscope, comprehensive manual rescreening by a Floor Renovator may be required. The Pap Smear is [...] performed at Main Lab DEPARTMENT OF PATHOLOGY, [address] [place] [address] Jordan Pedroza M.D. Director [facility] # [id number] 17 SEE RESULT BELOW Name: BIBIANA GARCIA : [address]: Vanessa Gutiérrez MD Acct: [id number] Unit: [id number] AGE: 36 Location: [facility] Re04/03/16 SEX: F Status: REG REF SPEC: [id number] WILL: 04/03/16-[address] [facility] [address]: Vanessa Gutiérrez MD REQ: [id number] RECD: 04/03/16 STATUS: COMP _ SOURCE: VAGINAL SPDESC: ORDERED: Arturo,Yeast DNA COMMENTS: [id number] Procedure Result Reported Site Gardnerella/Yeast: Vaginal DNA [...] or failure. * ML - MAIN LAB ([facility]) . END OF REPORT * ML=Testing performed at Main Lab DEPARTMENT OF PATHOLOGY, [address] [place] [address] Jordan Pedroza M.D. Director [facility] # [id number] 18 The high-risk HPV types detected by the assay include: 16, 18, 31, 33, 35, 39, 45, 51, 52, 56, 58, 59, 66, and 68. 19 [id number] GC/Chlamydia Source?: Thin Prep HPV Source?: Thin Prep Trichomonas Source: Thin Prep 20 [id number] 21 SEE RESULT BELOW Name: BIBIANA GARCIA : [address]: Tab Celaya MD Acct: [id number] Unit: [id number] AGE: 35 Location: [facility] Re01/16/16 SEX: F Status: DEP ER SPEC: [id number] WILL: 01/16/[address]: Anjelica Espana NP REQ: [id number] RECD: 01/16/16 STATUS: MILAGROS KERNS DR: Tab Foster SOFT[employer]ER _ SOURCE: URINE SPDESC: ORDERED: Urine Culture COMMENTS: [id number] Procedure Result Reported Site Urine Culture Final 01/17/16- 1250 ML Organism 1 STREP GROUP B [place] Count 75-100,000 (Many) CFU/ML Organism 2 NORMAL ABI [place] Count 1-10,000 (Few) CFU/ML Susceptibility testing of penicillins and other B-lactams approved by FDA for treatment of Streptococcus pyogenes (Group A Strep) and Streptococcus agalactiae (Group B Strep) is not necessary for clinical purposes and need not be done routinely, since as with vancomycin, resistant strains have not been recognized. (CLSI J506-Y91;p.66) Positive isolates will be saved for one week. Please call the Microbiology Laboratory if further susceptibility testing is needed. * ML - MAIN LAB ([facility]) . END OF REPORT * ML=Testing performed at Main Lab DEPARTMENT OF PATHOLOGY, [address] [place] [address] Jordan Pedroza M.D. Director [facility] # [id number] 22 SEE RESULT BELOW Name: BIBIANA GARCIA : [address]: Steve Keen MD Acct: [id number] Unit: [id number] AGE: 35 Location: [facility] Re11/09/15 SEX: F Status: DEP ER SPEC: [id number] WILL: 11/09/15-[address] [facility] [address]: Steve Keen MD REQ: [id number] RECD: 11/09/15 STATUS: MILAGROS KERNS DR: Serg Foster [employer]ER _ SOURCE: VAGINAL SPDESC: ORDERED: Arturo,Yeast DNA [...] or failure. * ML - MAIN LAB ([facility]) . END OF REPORT * ML=Testing performed at Main Lab DEPARTMENT OF PATHOLOGY, [address] [place] [address] Jordan Pedroza M.D. Director [facility] # [id number] 23 GC/Chlamydia Source?: Endocervical Trichomonas Source: Endocervical 24 [id number] 25 SEE RESULT BELOW Name: BIBIANA GARCIA : [address]: Bev Espana MD Acct: [id number] Unit: [id number] AGE: 35 Location: [facility] Re10/06/15 SEX: F Status: DEP ER SPEC: [id number] WILL: 10/06/15-[address] [facility] [address]: Bev Espana MD REQ: [id number] RECD: 10/07/15 STATUS: MILAGROS KERNS DR: Deja Beck MD _ SOURCE: URINE SPDESC: ORDERED: Urine Culture COMMENTS: [id number] Procedure Result Reported Site Urine Culture Final 10/08/15- 1233 ML No Growth (<1,000 CFU/mL) * ML - [facility] ([facility]) . END OF REPORT * ML=Testing performed at Main Lab DEPARTMENT OF PATHOLOGY, [address] [place] [address] Jordan Pedroza M.D. Director [facility] # [id number] 26 [id number] 27 Because ethnic data is not always [...] [address]: Xavi Navarro MD Acct: [id number] Unit: [id number] AGE: 35 Location: [facility] Re08/21/15 SEX: F Status: DEP ER SPEC: [id number] WILL: 08/21/15-[address] [facility] [address]: Xavi Navarro MD REQ: [id number] RECD: 08/22/15-1155 STATUS: COMP [facility] DR: Deja Beck MD _ SOURCE: VAGINAL [...] or failure. * ML - MAIN LAB ([facility]) . END OF REPORT * ML=Testing performed at Main Lab DEPARTMENT OF PATHOLOGY, [address] [address] Jordan Pedroza M.D. Director [facility] # [id number] 29 GC/Chlamydia Source?: Endocervical Trichomonas Source: Endocervical 30 SEE RESULT BELOW Name: BIBIANA GARCIA : [address]: Tab Celaya MD Acct: [id number] Unit: [id number] AGE: 35 Location: [facility] Re07/23/15 SEX: F Status: DEP ER SPEC: [id number] WILL: 07/23/15-[address]: Alejandro HERRERA REQ: [id number] RECD: 07/23/15 STATUS: MILAGROS KERNS DR: [facility] Deja Beck MD _ SOURCE: URINE SPDESC: ORDERED: Urine Culture Procedure Result Reported Site Urine Culture Final 07/24/15- 1638 ML No growth of clinically significant organisms * ML - MAIN LAB ([facility]) . END OF REPORT * ML=Testing performed at Main Lab DEPARTMENT OF PATHOLOGY, [address] [place] [place] [address] Jordan Pedroza M.D. Director [facility] # [id number] 31 SEE RESULT BELOW Name: BIBIANA GARCIA : [address]: Tab Celaya MD Acct: [id number] Unit: [id number] AGE: 35 Location: [facility] Re05/11/15 SEX: F Status: DEP ER SPEC: [id number] WILL: 05/11/15-[address] [facility] [address]: Cordelia Chan NP REQ: [id number] RECD: 05/12/15-1225 STATUS: MILAGROS KERNS DR: Deja [...] or failure. * ML - MAIN LAB ([facility]) . END OF REPORT * ML=Testing performed at Main Lab DEPARTMENT OF PATHOLOGY, [address] [place] [address] Jordan Pedroza M.D. Director [facility] # [id number] 32 SEE RESULT BELOW Name: BIBIANA GRACIA : [address]: Tab Celaya MD Acct: [id number] Unit: [id number] AGE: 35 Location: [facility] Re05/11/15 SEX: F Status: DEP ER SPEC: [id number] WILL: 05/11/15-[address] [facility] [address]: Tab Celaya MD REQ: [id number] RECD: 05/12/15-5 STATUS: MILAGROS KERNS DR: Deja Beck MD _ SOURCE: URINE SPDESC: ORDERED: Urine Culture Procedure Result Reported Site Urine Culture Final 05/13/15- 1314 ML No Growth (<1,000 CFU/mL) * ML - MAIN LAB ([facility]) . END OF REPORT * ML=Testing performed at Main Lab DEPARTMENT OF PATHOLOGY, [address] [place] [address] Jordan Pedroza M.D. Director [facility] # [id number] 33 GC/Chlamydia Source?: Endocervical Trichomonas Source: Endocervical 34 SEE RESULT BELOW Name: BIBIANA GARCIA : [address]: Tab Celaya MD Acct: [id number] Unit: [id number] AGE: 35 Location: [facility] Re05/11/15 SEX: F Status: DEP ER SPEC: [id number] WILL: 05/11/15-[address] [facility] [address]: Cordelia Chan NP REQ: [id number] RECD: 05/12/15-5 STATUS: MILAGROS KERNS DR: Deja [...] or failure. * ML - MAIN LAB ([facility]) . END OF REPORT * ML=Testing performed at Main Lab DEPARTMENT OF PATHOLOGY, [address] [place] [place] [address] Jordan Pedroza M.D. Director [facility] # [id number] 35 SEE RESULT BELOW Name: BIBIANA GARCIA : [address]: Tab Celaya MD Acct: [id number] Unit: [id number] AGE: 35 Location: [facility] Re05/11/15 SEX: F Status: DEP ER SPEC: [id number] WILL: 05/11/15-[address] [facility] [address]: Tab Celaya MD REQ: [id number] RECD: 05/12/15-122 STATUS: MILAGROS KERNS DR: Deja Beck MD _ SOURCE: URINE SPDESC: ORDERED: Urine Culture Procedure Result Reported Site Urine Culture Final 05/13/15- 1314 ML No Growth (<1,000 CFU/mL) * ML - MAIN LAB ([facility]) . END OF REPORT * ML=Testing performed at Main Lab DEPARTMENT OF PATHOLOGY, [address] [place] [address] Jordan Pedroza M.D. Director [facility] # [id number] 36 SEE RESULT BELOW Name: BIBIANA GARCIA : [address]: Steve Keen MD Acct: [id number] Unit: [id number] AGE: 35 Location: [facility] Re03/21/15 SEX: F Status: DEP ER SPEC: [id number] WILL: 03/21/15-[address] [facility] [address]: Steve Keen MD REQ: [id number] RECD: 03/21/15-5444 STATUS: MILAGROS KERNS DR: Deja Beck MD [...] or failure. * ML - MAIN LAB ([facility]) . END OF REPORT * ML=Testing performed at Main Lab DEPARTMENT OF PATHOLOGY, [address] [place] [address] Jodran Pedroza M.D. Director [facility] # [id number] 37 SEE RESULT BELOW Name: BIBIANA GARCIA : [address]: Bev Espana MD Acct: [id number] Unit: [id number] AGE: 35 Location: [facility] Re02/09/15 SEX: F Status: DEP ER SPEC: [id number] IWLL: 02/09/15-[address] [facility] [address]: Bev Espana MD REQ: [id number] RECD: 02/09/15-1342 STATUS: MILAGROS KERNS DR: [facility] Deja Beck MD _ SOURCE: URINE SPDESC: ORDERED: Urine Culture Procedure Result Verified Site Urine Culture Final 02/11/15- 927 ML No Growth Day 2 (<1,000 CFU/mL) * ML - MAIN LAB ([facility]) . END OF REPORT * ML=Testing performed at Main Lab DEPARTMENT OF PATHOLOGY, [address] [place] [address] Jordan Pedroza M.D. Director [facility] # [id number] 38 SEE RESULT BELOW Name: NADYABIBIANA L : [address]: Bev Espana MD Acct: [id number] Unit: [id number] AGE: 35 Location: [facility] Re02/09/15 SEX: F Status: DEP ER SPEC: [id number] WILL: 02/09/15-[address]: Bev Espana MD REQ: [id number] RECD: 02/09/15 STATUS: [facility] DR: Deja Beck MD _ SOURCE: [...] performed at Main Lab DEPARTMENT OF PATHOLOGY, [address] [place] [address] Jordan Pedroza M.D. Director [facility] # [id number] 39 Female urine specimens have been self-validated by [facility] and have been granted conditional assay approval by [facility]. [facility] Spec[facility] Source: vaginal GC/Chlamydia Source?: Endocervical Trichomonas Source: Endocervical 41 Female urine specimens have been self-validated by [facility] and have been granted conditional assay approval by [facility]. 42 SEE RESULT BELOW Name: BIBIANA GARCIA : [address]: Steve Tee NP Acct: [id number] Unit: [id number] AGE: 34 Location: [facility] Re01/05/15 SEX: F Status: REG REF SPEC: [id number] WILL: 01/05/158974 SUBM DR: Steve Tee NP REQ: [id number] RECD: 01/05/15 STATUS: COMP _ SOURCE: VAGINAL [...] ON NEXT PAGE * ML=Testing performed at [facility] DEPARTMENT OF PATHOLOGY, [address] [place] [place] [address] Jordan Pedroza M.D. Director [facility] # [id number] Patient: BIBIANA GARCIA [id number] (Continued) Specimen: [id number] Collected: 01/05/15 Received: 01/05/15 (Continued) Procedure Result Verified Site Trichomonas: Vaginal DNA Probe Final (continued) 01/06/15 1320 The presence or absence of T. vaginalis cannot be used as a test for therapeutic success or failure. * ML - MAIN LAB ([facility]) . END OF REPORT * ML=Testing performed at Main Lab DEPARTMENT OF PATHOLOGY, [address] [place] [place] [address] Jordan Pedroza M.D. Director [facility] # [id number] 43 SEE RESULT BELOW Name: BIBIANA GARCIA : [address]: Steve Tee NP Acct: [id number] Unit: [id number] AGE: 34 Location: [facility] Re01/05/15 SEX: F Status: REG REF SPEC: [id number] WILL: 01/05/150396 SUBM DR: Steve Tee NP REQ: [id number] RECD: 01/05/15 STATUS: COMP _ SOURCE: URINE SPDESC: ORDERED: Urine Culture Urine Source: Catheterization Procedure Result Verified Site Urine Culture Final 01/07/15- 1038 ML Organism 1 NORMAL ABI Saffell Count 10-25,000 (Moderate) CFU/ML * ML - MAIN LAB ([facility]) . END OF REPORT * ML=Testing performed at Main Lab DEPARTMENT OF PATHOLOGY, [address] [place] [address] Jordan Pedroza M.D. Director [facility] # [id number] 44 SEE RESULT BELOW Name: BIBIANA GARCIA : [address]: Luciano Marion DO Acct: [id number] Unit: [id number] AGE: 34 Location: [facility] Re12/17/14 SEX: F Status: DEP ER SPEC: [id number] WILL: 12/17/14-[address] [facility] DR: Gwen Duran NP REQ: [id number] RECD: 12/18/14 STATUS: [facility] DR: Deja Marion DO [...] therapeutic success or failure. * ML - [facility] ([facility]) . END OF REPORT * ML=Testing performed at Main Lab DEPARTMENT OF PATHOLOGY, [address] [place] [address] Jordan Pedroza M.D. Director [facility] # [id number] 45 [facility] Specimen Source: endocervical GC/Chlamydia Source?: Endocervical Trichomonas Source: Endocervical 46 Female urine specimens have been self-validated by [facility] and have been granted conditional assay approval by [facility]. 47 REFERENCE VALUE Cutoff: 500 48 [...] use in employment-related testing. Test Performed by: [address] [address] Chief Dietitian: Sudheer Griffiths II, M.D., Ph.D. 55 Because [...] >189 mg/dL 60 SEE RESULT BELOW Name: STELLAHÉCTORBIBIANA : [address]: Alejandro Sesay MD Acct: [id number] Unit: [id number] AGE: 34 Location: [facility] Re10/29/14 SEX: F Status: DEP ER SPEC: [id number] WILL: 10/29/14-[address]: Alejandro Sesay MD REQ: [id number] RECD: 10/30/14 STATUS: [facility] DR: Deja Beck MD _ SOURCE: URINE SPDESC: ORDERED: Urine Culture Procedure Result Verified Site Urine Culture Final 08/12/15- 1130 ML No Growth Day 2 (<1,000 CFU/mL) * ML - MAIN LAB ([facility]) . END OF REPORT * ML=Testing performed at Main Lab DEPARTMENT OF PATHOLOGY, [address] [place] [address] Jordan Pedroza M.D. Director [facility] # [id number] 61 SEE RESULT BELOW Name: BIBIANA GARCIA : [address]: Adrianne Hugo Acct: [id number] Unit: [id number] AGE: 34 Location: [facility] Re10/19/14 SEX: F Status: DEP ER SPEC: [id number] WILL: 10/19/14-[address] [facility] [address]: Adrianne Dixon DO REQ: [id number] RECD: 10/20/14-1050 STATUS: [facility] DR: Deja Beck MD [...] or failure. * ML - MAIN LAB ([facility]) . END OF REPORT * ML=Testing performed at Main Lab DEPARTMENT OF PATHOLOGY, [address] [place] [address] Jordan Pedroza M.D. Director [facility] # [id number] 62 Female urine specimens have been self-validated by [facility] and have been granted conditional assay approval by [facility]. 63 [facility] Specimen Source: cervix GC/Chlamydia Source?: Endocervical Trichomonas Source: Endocervical 64 SEE RESULT BELOW Name: BIBIANA GARCIA : [address]: Xavi Navarro MD Acct: [id number] Unit: [id number] AGE: 34 Location: [facility] Re10/10/14 SEX: F Status: DEP ER SPEC: [id number] WILL: 10/10/14-[address] [facility] [address]: Alyson Keen NP REQ: [id number] RECD: 10/10/14 STATUS: [facility]ER[facility] DR: [facility] Deja Beck MD _ SOURCE: URINE SPDESC: ORDERED: Urine Culture Procedure Result Verified Site Urine Culture Final 10/12/14- 1018 ML Organism 1 NORMAL ABI Saffell Count 1-10,000 (Few) CFU/ML * ML - MAIN LAB ([facility]) . END OF REPORT * ML=Testing performed at Main Lab DEPARTMENT OF PATHOLOGY, [address] [place] [address] Jordan Pedroza M.D. Director [facility] # [id number] 65 SEE RESULT BELOW Name: BIBIANA GARCIA : [address]: Xavi Navarro MD Acct: [id number] Unit: [id number] AGE: 34 Location: [facility] Re08/23/14 SEX: F Status: DEP ER SPEC: [id number] WILL: 08/23/[address] [facility] [address]: Xavi Navarro MD REQ: [id number] RECD: 08/23/14 STATUS: [facility] DR: Djea Beck MD _ SOURCE: URINE [facility]: ORDERED: Urine Culture Procedure Result Verified Site Urine Culture Final 08/25/14- 0850 ML Organism 1 ESCHERICHIA COLI Saffell Count >100,000 (Many) CFU/ML 1. ESCHERICHIA COLI [...] antibiotic reporting. * ML - MAIN LAB ([facility]) . END OF REPORT * ML=Testing performed at Main Lab DEPARTMENT OF PATHOLOGY, [facility] [employer] [place], [place] [address] Jordan Pedroza M.D. Director [facility] # [id number] 66 Because ethnic data is not always [...] <15 (or dialysis) 67 RUN DATE: 05/13/14 [facility] LIVE PAGE 1 RUN TIME: 2347 [facility] [place], [place] [address] Specimen Inquiry Name: BIBIANA GARCIA : [address]: Deja Beck MD Acct: [id number] Unit: [id number] AGE: 34 Location: [facility] Re05/12/14 SEX: F Status: REG REF SPEC: [id number] WILL: 05/12/14-[address]: Deja Beck MD REQ: [id number] RECD: 05/12/14 STATUS: COMP _ SOURCE: VAGINAL SPDESC: ORDERED: Arturo,Yeast DNA, Trich DNA QUERIES: Provider Requisition # [id number] Procedure Result Verified Site Gardnerella/Yeast: Vaginal DNA [...] performed at Main Lab DEPARTMENT OF PATHOLOGY, [facility] [employer] [place] [address] Jordan Pedroza M.D. Director [facility] # [id number] RUN DATE: 05/13/14 [facility] LIVE PAGE 2 RUN TIME: 1256 [facility] [place], [place] [address] Specimen Inquiry Patient: BIBIANA GARCIA [id number] (Continued) Specimen: [id number] Collected: 05/12/14 Received: 05/12/14-1799 (Continued) Procedure Result Verified Site Trichomonas: Vaginal DNA Probe Final (continued) 05/13/14- 1255 The presence or absence of T. vaginalis cannot be used as a test for therapeutic success or failure. END OF REPORT * ML=Testing performed at Main Lab DEPARTMENT OF PATHOLOGY, [facility] [employer] [place], [place] [address] Jordan Pedroza M.D. Director [facility] # [id number] 68 RUN DATE: 01/29/14 [facility] LIVE PAGE 1 RUN TIME: 07 [facility] [place], [place] [address] Specimen Inquiry Name: BIBIANA GARCIA : [address]: Xavi Navarro MD Acct: [id number] Unit: [id number] AGE: 33 Location: [facility] Re01/27/14 SEX: F Status: DEP ER SPEC: [id number] WILL: 01/27/14-[address]: Xavi Navarro MD REQ: [id number] RECD: 01/27/14 STATUS: [facility] KERNS DR: [facility] Deja Beck MD _ SOURCE: URINE SPDESC: ORDERED: Urine Culture Procedure Result Verified Site Urine Culture Final 01/29/14- 0732 ML Organism 1 ESCHERICHIA COLI Saffell Count >100,000 (Many) CFU/ML 1. ESCHERICHIA COLI [...] performed at Main Lab DEPARTMENT OF PATHOLOGY, [facility] [employer] [place], [place] [address] Jordan Pedroza M.D. Director [facility] # [id number] 69 RUN DATE: 07/15/13 [facility] LIVE PAGE 1 RUN TIME: 1306 [facility] [place], [place] [address] Specimen Inquiry Name: BIBIANA MATHIS : [address]: Deja Beck MD Acct: [id number] Unit: [id number] AGE: 33 Location: [facility] Re07/14/13 SEX: F Status: REG REF SPEC: [id number] WILL: 07/14/[address] [facility] [address]: Deja Beck MD REQ: [id number] RECD: 07/14/13 STATUS: SOUT _ ORDERED: IMAGE [...] been normal since Signed (signature on file) Irene Ross PA (ASCP) 07/15/13 1926 This Pap test was evaluated with the assistance of the Attend.comp Test Imaging System. Due to cytologic findings at the laundry presser microscope, comprehensive manual rescreening by a Floor Renovator may be required. The Pap Smear is [...] performed at Main Lab DEPARTMENT OF PATHOLOGY, [address] [place] [address] Jordan Pedroza M.D. Director [facility] Permit #[id number] 70 RUN DATE: 07/15/13 [facility] LIVE PAGE 1 RUN TIME: 1430 [address] [place], [place] [address] Specimen Inquiry Name: BIBIANA MATHIS : [address]: Deja Beck MD Acct: [id number] Unit: [id number] AGE: 33 Location: [facility] Re07/14/13 SEX: F Status: REG REF SPEC: [id number] WILL: 07/14/13-[address] [facility] [address]: Deja Beck MD REQ: [id number] RECD: 07/14/13-1824 STATUS: COMP _ SOURCE: VAGINAL SPDESC: ORDERED: Affirm QUERIES: Medent Number [id number] Procedure Result Verified Site Affirm Vaginal DNA [...] performed at Main Lab DEPARTMENT OF PATHOLOGY, [address] [place] [address] Jordan Pedroza M.D. Director [facility] Permit #[id number] 71 -- REFERENCE VALUE -- 25-HYDROXY D TOTAL (D2+D3) Optimum levels in the healthy population are 20-50, patients with bone disease may benefit from higher levels within this range. Test Performed by: [facility] - [address] [address] Chief Dietitian: Jake Colby III, M.D. 72 It is [...] Procedures Date CPT Code Description Status 10/20/2012 65998 Rad Exam; Spine Cerv Comp Completed 10/12/2012 84696 Nerve Conduction 03-04 Studies Completed 10/12/2012 05433 Needle Electromyography Complete, Five Or More Muscles Completed Studied Encounters Type Date Location Provider CPT E/M Dx Office Visit 06/11/2016 1:00p [facility] Sydnie Sullivan, N.P. [address] N76.0 - Vimal R35.0 L65.9 Office Visit 04/03/2016 11:10a [facility] Vanessa Gutiérrez [address] Z00.00 Teresa Day M.D. N76.0 Z13.1 Z11.4 Z12.4 Z23 Office Visit 09/21/2015 2:00p [facility] [place] [address] M25.512 Vimal Office Visit 01/05/2015 1:30p [facility] [place] [address] N76.0 Vimal N39.0 Office Visit 12/15/2014 4:20p [facility] Deja Beck M.D. 19117 M54.41 - Vimal E78.89 Office Visit 11/03/2014 12:40p [facility] Deja Beck M.D. 96121 780.79 - Ethel 783.1 844.9 782.3 V17.49 Office Visit 05/12/2014 4:40p [facility] Deja Beck M.D. 88833 616.10 - Ethel 783.1 461.8 461.9 Office Visit 03/22/2014 1:40p [facility] Vignesh Ferguson, [address] 616.10 [facility] Vimal Rosales Office Visit 12/22/2013 1:40p [facility] Deja Beck M.D. 61980 493.90 [facility]26[facility]5 Office Visit 07/14/2013 2:00p [facility] Deja Beck M.D. 76325 V70.0 - Ethel V76.2 V76.10 268.9 278.00 V17.49 v65.44 V77.91 Office Visit 10/20/2012 2:00p [facility] M.D. 29435 723.4 C.M.A. Plan of Care Future Appointment(s):05/21/2017 1:00 pm - Vanessa Gutiérrez M.D. at [facility] - Nfisvvsth15/03/2018 - Vanessa Gutiérrez M.D.M25.512 Pain in left shoulderReferral:Orestes Burnett MD, Surgery,OrthopedicFollow up:1 month for zwswtdhzC23 Encounter for ofogizdghxkmY61.9 Acute upper respiratory infection, unspecifiedComments:symptoms are likely viral, make sure you are hydrated well , continue to take antihistamine , it should improve in 7-10 days
== END 2017-04-13 17:55 | disposition left against medical advice (07) ==
LOC: UCCORT 17:13
DX: N39.9 Disorder of urinary system, unspecified (principal); Z53.21 Procedure and treatment not carried out due to patient leaving prior to being seen by health care provider

== ENCOUNTER 2017-04-19 10:07 | Emergency (ER) | payer OTHER | END 2017-04-19 11:20 | disposition left against medical advice (07) | LOC: UCCORT 10:07 | DX: M25.532 Pain in left wrist (principal); Z53.21 Procedure and treatment not carried out due to patient leaving prior to being seen by health care provider ==

== ENCOUNTER 2017-05-12 16:17 | Emergency (ER) | payer OTHER ==
[2017-05-12 17:19] VITALS: BP 98/56
--- NOTE | 2017-05-12 17:46 | UC ---
Ear Complaint HPI - HPI Summary HPI Summary: Pt presents with sore throat and ear pain since this morning. Pt states ear progressively sore - muffle hearing, no fever,c hills rash. No analgesia taken, No drainage. No difficulty swallowing. No sinus pain. No mann, vision changes. 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 pt's medications reviewed this visit - History of Current Complaint Chief Complaint: UCGeneralIllness Stated Complaint: SORE THROAT/ RIGHT EAR PAIN Time Seen by Provider: 05/12/17 17:35 Hx Obtained From: Patient Hx Last Menstrual Period: 04/29/17 Onset/Duration: Gradual Onset Severity Initially: Moderate Severity Currently: Moderate Pain Intensity: 6 - Allergies/Home Medications Allergies/Adverse Reactions: Allergies Allergy/AdvReac Type Severity Reaction Status Date / Time desloratadine [From Clarinex] Allergy Intermediate Hives Verified 05/12/17 17:17 latex Allergy Intermediate Rash Verified 05/12/17 17:17 levofloxacin [From Levaquin] Allergy Intermediate Hives Verified 05/12/17 17:17 naproxen Allergy Intermediate hives/dizzi Verified 05/12/17 17:17 ness Home Medications: Home Medications Sertraline* [Zoloft*] 50 mg PO DAILY 05/12/17 [History Confirmed 05/12/17] PMH/Surg Hx/FS Hx/Imm Hx Previously Healthy: Yes Other History Of: Negative For: HIV, Hepatitis B, Hepatitis C, Anticoagulant Therapy - Surgical History Surgical History: Yes Surgery Procedure, Year, and Place: , 1996. Cholecystectomy, 2000. Tubal Ligation, 2001. CARPAL TUNNEL RIGHT. DEVIATED SEPTUM - Family History Known Family History: Positive: Unknown, Hypertension - father, Renal Disease - mother and grandmother, Respiratory Disease Negative: Cardiac Disease, Diabetes - Social History Occupation: Employed Full-time Lives: With Family Alcohol Use: Occasionally Substance Use Type: None Smoking Status (MU): Never Smoked Tobacco Have You Smoked in the Last Year: No Household Exposure Type: Cigarettes - Immunization History Most Recent Influenza Vaccination: none 2016 Review of Systems Constitutional: Fever ENT: Sore Throat, Ear Ache Respiratory: Negative Is Patient Immunocompromised?: No All Other Systems Reviewed And Are Negative: Yes Physical Exam Triage Information Reviewed: Yes Appearance: Well-Appearing, No Pain Distress, Well-Nourished Vital Signs: Initial Vital Signs Temp 97.7 F 05/12/17 17:08 Pulse 74 05/12/17 17:08 Resp 16 05/12/17 17:08 BP 98/56 05/12/17 17:08 Pulse Ox 100 05/12/17 17:08 Vital Signs Reviewed: Yes Eye Exam: Normal Eyes: Positive: Conjunctiva Clear ENT Exam: Normal ENT: Positive: Pharyngeal erythema, Nasal congestion, Other - left TM ++ fluid, + retract right TM wnl turbinates mild inflamed + scant pnd diffuse erythema no exudate uvula midline no exudate. Negative: Tonsillar swelling Dental Exam: Normal Neck exam: Normal Neck: Positive: Supple, Nontender. Negative: No Lymphadenopathy - + cervical LA left submandibular Respiratory Exam: Normal Respiratory: Positive: Chest non-tender, Lungs clear, Normal breath sounds, No respiratory distress, No accessory muscle use Cardiovascular Exam: Normal Cardiovascular: Positive: RRR, No Murmur Musculoskeletal Exam: Normal Musculoskeletal: Positive: Strength Intact Neurological Exam: Normal Neurological: Positive: Alert Psychological Exam: Normal Skin Exam: Normal Ear Complaint Course/Dx - Course Course Of Treatment: progressive left ear pain and sore throat. + left OM on exam. strep neg. motrin/apap. hydrate. gargle/spit. abx. pt requesting diflucan for yeast related to abx. return precautions. work note - Differential Dx/Diagnosis Provider Diagnoses: left OM. pharyngitis Discharge - Discharge Plan Condition: Stable Disposition: HOME Prescriptions: Amoxicillin PO (*) [Amoxicillin 875 MG (*)] 875 mg PO BID #20 tab Fluconazole [Diflucan 150 MG (NF)] 150 mg PO ONCE #1 tab Patient Education Materials: Ear Infection (ED) Forms: *Work Release Referrals: Vansesa Gutiérrez MD [Primary Care Provider] - Additional Instructions: - Stay well hydrated. Drink plenty of non-alcoholic, non-caffinated beverages. - Alternate ibuprofen (Advil, Motrin) 600mg and Tylenol every 3 hours for pain or fever. Take with food. Do NOT take for more than 4-5 days. - cold foods (popsicle, jello, apple sauce) may be soothing to your throat - okay to gargle and spit with warm salt water, 2-3 times a day - taken antibiotics as prescribed until gone - These infections are spread by secretions - do NOT share eating or drinking utensils - clean items you share with other people such as cell phones, computer mouse, TV remote, computer tablets, etc. After you have taken antibiotic, change your toothbrush and your pillowcase. - get plenty of restful sleep - humidify the air in the room where you sleep - boil water, run a hot steam shower, vaporizer, cups of water by heat register - okay to take over the counter decongestant and cough medication - you have been given a prescription for diflucan - okay to take if you develop a yeast infection from your antibiotics - contact your doctor, return here, or go to the emergency department with questions or concerns
[2017-05-12] MEDS ORDERED: Acetaminophen TAB* 325 MG PO ONE (17:52)
== END 2017-05-12 18:12 | disposition home or self-care (01) ==
LOC: UCCORT 16:17
DX: H66.92 Otitis media, unspecified, left ear (principal); J02.9 Acute pharyngitis, unspecified
CPT/HCPCS: 87651; 99212; A9270-GY; G0463

== ENCOUNTER 2017-06-08 10:39 | Emergency (ER) | payer OTHER ==
--- OUTSIDE RECORDS SUMMARY | 2017-06-08 10:59 | XMS REPORT ---
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 There is capillary congestion, vasodilatation and edema. Smooth muscle fibers extend high into the lamina propria. There are sparse amounts of chronic inflammatory cells. There are no Helicobacter-type bacteria identified with MICROSCOPIC (Continued) Warthin- Starry staining. The controls are adequate. PRE OPERATIVE DIAGNOSIS Change in bowels , GERD, abdominal pain. REVIEW CODE CODE: I ----- RIKY Todd MD 05/30/11 1352 ----- 21 ------- RUN DATE: 05/21/11 [facility] NMI LIVE PAGE 1 RUN TIME: 1345 Specimen Inquiry RUN USER: INTERFACE ----- Name: BIBIANA CHAMPION Status: REG REF Re Age/Sex: 31/F Unit#: [id number] Location: [facility] : 78 ----- SPEC #: [id number] WILL: 05/19/11 STATUS: COMP REQ #: [id number] RECD: 05/19/[address]: Haley ALVAREZ,Deanna Chavis SOURCE: URINE ENTR: 05/19/[address]: PATTI: ORDERED: URINE C S QUERIES: MEDENT REQUISITION # [id number] SPECIMEN DESCRIPTION: URINE, RANDOM ACT WKST: UR 05/21/11 #1 ----- Procedure Result Verified Site ----- > URINE CULTURE SENSITIVI Final 05/21/11-1345 ML SCANT NORMAL URETHRAL OR PERINEAL ABI ----- - [facility] Permit #[id number] [address] [place] [id number] ----- DEPARTMENT OF PATHOLOGY, [address] [place] [address] [facility] Permit #[id number] Connie Hess M.D. Piler ----- 22 ------- RUN DATE: 05/02/11 [facility] NMI LIVE PAGE 1 RUN TIME: 1142 Specimen Inquiry RUN USER: INTERFACE ----- Name: BIBIANA CHAMPION Status: BRENDA CLI Re Age/Sex: 31/F Unit#: [id number] Location: [facility] : 78 ----- SPEC #: [id number] WILL: 04/29/11 STATUS: MILAGROS REQ #: [id number] RECD: 04/30/11-[address] [facility] [address]: Ke PEPPER,Que Aguirre SOURCE: URINE ENTR: 04/30/11-1100 [facility] DR: Linda Whitfield MD [facility]: ORDERED: URINE C S QUERIES : SPECIMEN DESCRIPTION: URINE, CLEAN CATCH ACT WKST: UR 05/02/11 #1 ----- Procedure Result Verified Site ----- > URINE CULTURE SENSITIVI Final 05/02/11-1141 ML SCANT NORMAL URETHRAL OR PERINEAL ABI ----- - [facility] Permit #[id number] [address] [place] [address] ----- DEPARTMENT OF PATHOLOGY, [address] [place] [address] [facility] Permit #[id number] Connie Hess M.D. Piler ----- 23 ------- RUN DATE: 04/03/11 [facility] NMI LIVE PAGE 1 RUN TIME: 1117 Specimen Inquiry RUN USER: INTERFACE ----- Name: BIBIANA CHAMPION Status: DEP CLI Re Age/Sex: 31/F Unit#: [id number] [facility] ----- SPEC #: [id number] WILL: 03/31/11 STATUS: COMP REQ #: [id number] RECD: 04/01/[address] [facility] [address]: Xavi Navarro MD SOURCE: URINE ENTR: 04/01/11 [facility] DR: Linda Whitfield MD [facility]: ORDERED: URINE C S QUERIES: SPECIMEN DESCRIPTION: URINE, CLEAN CATCH ACT WKST: UR 04/03/11 #1 ----- Procedure Result Verified Site ----- > URINE CULTURE SENSITIVI Final 04/03/11-1117 ML FINAL: NO GROWTH DAY 2 (<1,000 CFU/mL) ----- ML - [facility] Permit #[id number] [address] [place] [address] ----- DEPARTMENT OF PATHOLOGY, [address] [place] [id number] [facility] Permit #[id number] Connie Hess M.D. Piler ----- 24 PLEASE NOTE NEW REFERENCE RANGE. 25 Anion gap measurement may be of limited value in the presence of any alkalosis, especially in a combined acid base disorder. . 26 A metabolite of Naproxen, O-desmethylnaproxen, has been shown to interfere with the Jendrassik-Tona method for measuring total bilirubin. Samples from patients who have taken Naproxen have shown spurious elevation in total bilirubin levels. 27 Because ethnic data is not always [...] Kidney damage with mild decrease in GFR 60- 89 3 Moderate decrease in GFR 30-59 4 Severe decrease in GFR 15-29 5 Kidney failure <15 (or dialysis) 28 -- REFERENCE VALUE -- <0.75 (negative) 0.75-0.99 (equivocal) >=1.00 (positive) Test Performed by: [facility] Dpt of Lab Med and Pathology [address] [place] [id number] Watchmaker Apprentice: Jake Colby III, M.D. 29 SPECIMEN CONTAINS NORMAL URETHRAL OR PERINEAL ABI AND DOES NOT SUGGEST URINARY TRACT INFECTION 30 THERAPEUTIC TARGET FOR THE TREATMENT OF DIABETES MELLITUS PATIENTS IS <7 % HBA1C, AND IN SELECTIVE PATIENTS <6.0%. PLEASE REFER TO [employer] DIABETIC CARE GUIDELINES FOR FURTHER INFORMATION. 31 CHOLESTEROL INTERPRETATION: Desirable: Less than 200 MG/DL Borderline-High Risk: 200-239 MG/DL High-Risk: 240 MG/DL and over 32 HDL INTERPRETATION: Undesirable: High Risk: Less than 40 MG/DL Desirable: Low Risk: Greater than 60 MG/DL 33 LDL INTERPRETATION: Low Risk Optimal Level: LDL Less than 100 MG/DL Near or Above Optimal: LDL 100-129 MG/DL Borderline High Risk: LDL 130-159 MG/DL High Risk : LDL 160-189 MG/DL Very High Risk: LDL Greater than 189 MG/DL 34 -- REFERENCE VALUE -- 25-HYDROXY D TOTAL (D2+D3) Optimum levels in the normal population are 25-80 Test Performed by: [facility] Dpt of Lab Med and Pathology [address] [place] [address] Watchmaker Apprentice: Jake Colby III, M.D. 35 Note: Persistent reduction for 3 months or more in an eGFR <60 mL/min/1.73 m2 defines CKD. Patients with eGFR values >/=60 mL/min/1.73 m2 may also have CKD if evidence of persistent proteinuria is present. The original MDRD equation for estimated GFR is not valid for patients less than 18 years of age. Additional information may be found at www.kdoqi.org. 36 Is patient on heparin protocol? N Is patient on anticoagulants? Unknown QUERY: @[employer] Pat ID: QUERY: @[facility] Req #: QUERY: Anticoagulant Therapy? QUERY: Date of Last Dose: QUERY: Time of Last Dose: 37 THERAPEUTIC INR RANGE: 2.0 - 3.0 DVT, Pulmonary embolus, prophylaxis against venous thrombosis or systemic embolization in high risk patients. 2.5 - 3.5 Mechanical heart valves 38 QUERY: @[facility] Pat ID: QUERY: @[facility] Req #: Procedures Date CPT Code Description Status 02/26/2017 27544 Cystourethroscopy W/Removal FB/Calc/Stent Completed Urethra/Bladder Simple 02/16/2017 44645 IV Infusion, Hydration, 31 Minutes To 1 Hour Completed 02/11/2017 25853 Cystourethroscopy W/ Lithotripsy Incl. Ins. Indwelling Completed Stent 05/23/2011 94402 Holter Monitor 24HR Inter/Report Completed 05/01/2010 44765 Neuroplasty median nerve at carpal tunnel Completed 05/01/2010 00114 Anesthesia, Lower Arm Surgery Completed (Nerve,Muscle,Tendon,Fascia,Bursa) Encounters Type Date Location Provider CPT E/M Dx Office Visit 05/25/2017 1:30p Urology Светлана Palacios M.D. 85764 N20.0 N39.0 Office Visit 04/30/2017 10:00a Urology Светлана Palacios M.D. 00827 N20.0 N39.0 Office Visit 02/16/2017 1:30p Urology Светлана Palacios M.D. 06468 N20.0 Office Visit 10/17/2010 10:00a Orthopaedic Office Buck Hester 42889 723.4 M.DAzael Office Visit 08/12/2010 11:00a Orthopaedic Office Buck Hester 87986 354.0 M.D. Office Visit 03/28/2010 11:00a Orthopaedic Office Buck Hester 73121 354.0 M.D. Office Visit 02/20/2010 2:00p Orthopaedic Office Buck Hester 98000 354.0 M.DAzael Plan of Care Future Appointment(s):04/29/2018 3:00 pm - Светлана Palacios M.D. at [facility]1606/11 2:00 pm - Светлана Palacios M.D. at [facility]2005/25/2017 - Светлана Palacios M.D.N20.0 Calculus of kidneyNew Xrays:CT, Abdomen & Pelvis W/O ContrastComments:Given the pain that the patient has had for 3 days I will schedule her for a CT scan of the abdomenand pelvis. I will call her with the results.N39.0 Urinary tract infection, site not specifiedComments:I will order urine culture to make sure that her UTI has been completely treated.
[2017-06-08 11:45] VITALS: BP 93/49
--- NOTE | 2017-06-08 12:31 | UC ---
Lower Extremity/Ankle HPI - HPI Summary HPI Summary: 37 y/o female presents to the urgent care c/o left calf pain and a painful lump on the medial aspect of her calf for the past 4 days. Pt reports lump is approximately about the size of an almond. Pt states pain is 6/10 w/ walking and touch. Pt can't recall any injury. Pt also c/o of mild RT ear pain since last night. Pt denies numbness or tingling over the lower leg, fever, SOB, palpitations, dizziness, chest pain, smoking, recent travel or surgery, No OCP, Hx of DVT. Pt states her BP is usually low. - History of Current Complaint Chief Complaint: Sita Stated Complaint: RIGHT EAR, SKIN COMPLAINT Time Seen by Provider: 06/08/17 12:07 Hx Obtained From: Patient Hx Last Menstrual Period: 05/27/17 Onset/Duration: Gradual Onset, Lasting Weeks - 1 week Severity Initially: Mild Severity Currently: Moderate Pain Intensity: 6 Pain Scale Used: 0-10 Numeric Aggravating Factor(s): Ambulation Alleviating Factor(s): Rest Able to Bear Weight: Yes - Risk Factors Gout Risk Factors: Negative DVT Risk Factors: Negative Septic Arthritis Risk Factor: Negative - Allergies/Home Medications Allergies/Adverse Reactions: Allergies Allergy/AdvReac Type Severity Reaction Status Date / Time desloratadine [From Clarinex] Allergy Intermediate Hives Verified 06/08/17 11:45 latex Allergy Intermediate Rash Verified 06/08/17 11:45 levofloxacin [From Levaquin] Allergy Intermediate Hives Verified 06/08/17 11:45 naproxen Allergy Intermediate hives/dizzi Verified 06/08/17 11:45 ness PMH/Surg Hx/FS Hx/Imm Hx Previously Healthy: Yes Respiratory History: Asthma GI/ History: Gastroesophageal Reflux Psychological History: Anxiety, Depression Other History Of: Negative For: HIV, Hepatitis B, Hepatitis C, Anticoagulant Therapy - Surgical History Surgical History: Yes Surgery Procedure, Year, and Place: , 1996. Cholecystectomy, 2000. Tubal Ligation, 2001. CARPAL TUNNEL RIGHT. DEVIATED SEPTUM - Family History Known Family History: Positive: Unknown, Hypertension - father, Renal Disease - mother and grandmother, Respiratory Disease Negative: Cardiac Disease, Diabetes Family History: Stomach cancer, uterine cancer - Social History Occupation: Employed Full-time Lives: With Family Alcohol Use: Occasionally Substance Use Type: None Smoking Status (MU): Never Smoked Tobacco Have You Smoked in the Last Year: No Household Exposure Type: Cigarettes - Immunization History Most Recent Influenza Vaccination: none 2017 Review of Systems Constitutional: Negative Skin: Negative Eyes: Negative ENT: Ear Ache - RT ear pain Respiratory: Negative Cardiovascular: Negative Gastrointestinal: Negative Genitourinary: Negative Motor: Negative Neurovascular: Negative Musculoskeletal: Other: - left calf pain and a painful bump at touch Neurological: Negative Psychological: Negative Is Patient Immunocompromised?: No All Other Systems Reviewed And Are Negative: Yes Physical Exam - Summary Physical Exam Summary: Vital Signs Reviewed: Yes Appearance: Well-Appearing, Well-Nourished, female sitting in the examining table w/o any apparent pain distress. Eyes: Positive: Conjunctiva Clear - PERRLA< BERNICE, fundi grossly WNL ENT: Positive: Normal ENT inspection, Hearing grossly normal, RT external ear canal clear, RT TM WNL, left external ear canal clear, LF TM WNL. Pharynx normal , TMs normal, Uvula midline Neck: Positive: Supple, Nontender, No Lymphadenopathy Respiratory: Positive: Chest non-tender, Lungs clear, Normal breath sounds, No respiratory distress Cardiovascular: Positive: RRR, No Murmur, Pulses Normal, Brisk Capillary Refill Abdomen Description: Positive: Nontender, No Organomegaly, Soft. Negative: CVA Tenderness (R), CVA Tenderness (L) Bowel Sounds: Positive: Present Extremities: R/L extremity with/without deformity or asymmetry when compared to the R/L. No soft tissue swelling or edema. No overlying erythema, warmth, discoloration. No lesions or break in skin integrity. Diameter of both calves about the same 15 1/4 inches. Soft tissues of posterior lower legs are soft, supple, medial aspect of left mid calf w/ tender nodule or varicose vein, no bruising or ecchymosis observed or warm to touch, no evidence of thrombophlebitis. No evidence of gangrene or compartment syndrome. Medial thigh is without soft tissue swelling or tender to palpation. Negative Homans sign. No proximal lymphangitis or lymphadenopathy. Neurological Exam: Normal Psychological Exam: Normal Skin Exam: Normal Triage Information Reviewed: Yes Vital Signs: Initial Vital Signs Temp 98.2 F 06/08/17 11:40 Pulse 69 03/19/18 11:40 Resp 16 06/08/17 11:40 BP 93/49 06/08/17 11:40 Pulse Ox 100 06/08/17 11:40 Lower Extremity Course/Dx - Course Course Of Treatment: 37 y/o female presents to the urgent care c/o left calf pain and a painful lump on the medial aspect of her calf for the past 4 days. Pt reports lump is approximately about the size of an almond. Pt states pain is 6/10 w/ walking and touch. Pt can't recall any injury. Pt also c/o of mild RT ear pain since last night. Pt denies numbness or tingling over the lower leg , fever, SOB, palpitations, dizziness, chest pain, smoking, recent travel or surgery, No OCP, Hx of DVT. Pt states her BP is usually low. Hx obtained. Pt medial aspect of left mid calf w/ a tender nodule or varicose vein, no bruising or ecchymosis observed or warm to touch, no evidence of thrombophlebitis, trauma or abscess on examination. Pt's symptoms discussed w/ DR lopez and he agreed to to US of left lower leg to r/o DVT. Impression: No evidence of DVT of left lower extremity w/ an identified hypoechoic structure measuring [id number] in size probably a Hematoma as per radiologist. Pt's left calf wrapped w/ aaron bandage to apply compression and Rx Tyelenol PO to alleviate symptoms. Pt advised to elevate leg at night and avoid long periods of standing. Pt also advised to f/u w/ her PCP in 3 days if not improving of symptoms for further management. Pt understood and agreed w/ plan of care. Pt left the clinic hemodynamically stable , A&OX3 and ambulating. - Differential Dx/Diagnosis Differential Diagnosis/HQI/PQRI: Contusion, DVT, Phlebitis, Other - varicose veing Provider Diagnoses: 1- Acute left calf pain. 2-Possible left calf hematoma. Discharge - Discharge Plan Condition: Stable Disposition: HOME Prescriptions: Acetaminophen TAB* [Tylenol TAB*] 650 mg PO Q6H PRN #20 tab PRN Reason: Pain Patient Education Materials: Leg Pain (ED), Hematoma (ED) Referrals: Vanessa Gutiérrez MD [Primary Care Provider] - 3 Days Additional Instructions: 1-Please take Tylenol PO q4-6hrs prn as instructed after meals to alleviate pain and swelling. Avoid strenuous exercise, long period of standing up, elevate your leg at night time. Apply ice to alleviate symptoms 2-If symptoms do not improve f/u with your PCP in 3 days for further evaluation and treatment.
--- NOTE | 2017-06-08 13:13 | RAD ---
Indication: Leg edema. Duplex Doppler sonography of the deep venous system of the left lower extremity deep venous system was performed. Bilaterally the common femoral veins appear patent and compressible. Left proximal greater saphenous vein, proximal deep femoral vein, femoral vein, popliteal vein, posterior tibial veins and peroneal veins appear patent and compressible. ECHO complex well-defined structure in the medial calf measuring 15 x 12 x 14 mm with internal echoes may represent hematoma. Etiology is unclear. IMPRESSION: NO EVIDENCE OF DEEP VENOUS THROMBOSIS IS IDENTIFIED. IN THE AREA OF THE LUMP THERE IS A HYPOECHOIC STRUCTURE MEASURING 15 X 12 X 14 MM.
== END 2017-06-08 13:33 | disposition home or self-care (01) ==
LOC: UCCORT 10:39
DX: M79.662 Pain in left lower leg (principal); Z88.8 Allergy status to other drugs, medicaments and biological substances; Z88.1 Allergy status to other antibiotic agents; Z91.040 Latex allergy status
CPT/HCPCS: 99212; G0463

== ENCOUNTER 2017-06-30 15:24 | Emergency (ER) | payer OTHER ==
[2017-06-30 16:33] VITALS: BP 100/56
--- OUTSIDE RECORDS SUMMARY | 2017-06-30 16:33 | XMS REPORT ---
:1980 External Reference #:[id number] Author Organization [facility] Address [address] [address] Phone [phone] Care Team Providers Name Role Phone Vanessa Gutiérrez MD Primary Care Physician Unavailable Payers Type Date Identification Numbers Payment Provider Subscriber Commercial Policy Number: [id number] Orion Garcia Group Number: [id number] [address] PayID: [id number] [place] [address] Medigap Part B Expires: 2016 Policy Number: [id number] Medicaid Bibiana Garcia Group Name: 1 1 [address] PayID: [id number] [place] [address] Commercial Effective: 2014 Policy Number: [id number] Orion Garcia Expires: 2016 Group Name: [id number] [address] PayID: [id number] [place] [address] Problems Date Description Provider Status Onset: 07/19/2013 Vitamin D deficiency Deja Beck M.D. Active Onset: 04/03/2016 Moderate persistent asthma Vanessa Gutiérrez M.D. Active Onset: 03/25/2017 History of calculus of kidney Vanessa Gutiérrez M.D. Active Note: calcium oxalate Dr. Palacios Onset: Problem Active Onset: 05/20/2017 Neck pain Pako Wood MD Active Onset: 06/17/2017 Low back pain Pako Wood MD Active Onset: 03/22/2014 Vaginitis and vulvovaginitis Vignesh Ferguson M.D. 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 Occupation Currently Working [employer] Cigarette Use Never Smoked Cigarettes ETOH Use Rarely consumes alcohol Smoking Patient has never smoked Recreational Drug Use Denies Drug Use Daily Caffeine Consumes on average 3 cups of regular coffee per day Exercise Type/Frequency Exercises regularly Exercise Type/Frequency started at gym treadmill 07/04 Sexual Hx text yes Allergies, Adverse Reactions, Alerts Date Description Reaction Status Severity Comments 10/12/2012 Levaquin rash active 05/12/2017 Desloratadine Hives active Moderate 10/12/2012 Clarinex rash active 05/12/2017 Levofloxacin Hives active Moderate 10/20/2012 Latex active 11/03/2014 Naproxen active Moderate dizzy Medications Medication Date Status Form Strength Qnty SIG Indications Ordering Provider Prilosec OTC 10/[address] 20mg 60tab take one Vanessa /2016 s capsule by Gutiérrez, mouth twice M.D. a day Ventolin HFA 12/19 Active Aerosol 108(90Bas 1unit every Q4H e) s prn mcg/Act Cyclobenzaprine 09/20 Active Tablets 5mg 30tab take one M25.512 Vanessa HCL /2015 s tablet by Gutiérrez, mouth every M.D. 8 hours prn. may take a second tablet if first not effetive. Montelukast 03/28 Active Tablets 10mg 30tab take one Vanessa Sodium /2015 s tablet by Gutiérrez, mouth every M.D. day pv Daily 02/20 Active 30uni take one Vanessa Multivitamin-Min ts tablet by Gutiérrez, Tab mouth every M.D. day Humidifier 05/12 Active Misc 2Gallon 1unit run every 461.8 Deja /2014 s day Connie Beck Proventil HFA Active Aerosol 108(90Bas 1unit 2 puffs by Serg /0000 e) s mouth every Kristin, ADULT SERVICES LIBRARIAN mcg/Act 4 hours as needed Klonopin Active Tablets 0.5mg 1 by mouth Unknown tid prn Amitriptyline Active Tablets 50mg 30tab take one Vanessa HCL s tablet by Marla, mouth at M.D. bedtime Breo Ellipta Active Aerosol 100-25mcg Inhale One Unknown /Inh puff By Mouth Every Day Fexofenadine HCL Active Tablets 180mg 30tab take one Rudy E. / s tablet by Jodie, mouth every M.D. day Sertraline HCL Active Tablets 50mg one daily Unknown Amoxicillin 05/12 Hx Tablets 875mg 20tab Twice Daily s - 06/16 Diflucan 05/12 Hx Tablets 150mg 1tabs Once - 06/16 Sulfamethoxazole 04/09 Hx Tablets 800-160mg 10tab 1 by mouth R30.0 Vanessa /Trimethoprim s twice a day Marla, - X 5 days M.D. 04/14 only Clindamycin 06/11 Hx Cream 2% 40gm one N76.0 Sydnie applicator Nate, - intravagina N.P. 03/25 lly at bedtime for 7 nights Tramadol HCL 11/06 Hx Tablets 50mg 60tab 1-2 tablets s every 12 Kristin, ADULT SERVICES LIBRARIAN - hours as 04/03 needed for pain. Lorazepam 01/05 Hx Tablets 0.5mg 60tab 1 by mouth s three a day Randal, ADULT SERVICES LIBRARIAN - as needed 09/20 Fluconazole 01/05 Hx Tablets 150mg 3tabs 1 tab by N76.0 mouth x1 Tee, ADULT SERVICES LIBRARIAN - 09/20 Sulfamethoxazole 01/05 Hx Solution 400-80mg/ N76.0 - 5ML Tee, ADULT SERVICES LIBRARIAN - 01/05 Sulfamethoxazole 01/05 Hx Tablets 800-160mg 10tab 1 tab by N76.0 Steve /Trimethoprim s mouth twice Tee, ADULT SERVICES LIBRARIAN - a day x 5 Acetaminophen-Co 12/15 Hx Tablets 300-30mg 30tab 1 tab by M54.31 Deja deine #3 s mouth 2x Teresa Beck per day prn M.DAzael 01/05 Fluticasone 05/12 Hx Suspension 50mcg/Act 1unit 2 sprays 461.8 Deja s each Teresa Beck nostril M.DAzael 12/15 Flagyl 03/22 Hx Tablets 500mg 14tab bid No 616.10 Vignesh s alcohol use Pachikara - during and , M.DAzael 05/12 for 5 days after finishing Medrol (Shahriar) 12/22 Hx Tablets 4mg 1tabs as directed 493.90 Teresa Beck M.D. 03/22 Nasonex 12/22 Hx Suspension 50mcg/Act 1unit 2 sp nasal 493.90 s every day Teresa Beck M.D. 01/05 Metrogel-Vaginal 07/22 Hx Gel 0.75% 1unit insert one s applicator Kiran, - once a day M.DAzael 03/22 x 7 Elavil 02/18 Hx Tablets 25mg Bedtime - 06/16 Multi For Her Hx Capsules 30cap 1 by mouth Deja / s every day Teresa Beck M.D. 08/30 Effexor XR Hx Caps ER 75mg 1 po qd 24HR - 11/03 Effexor XR Hx Caps ER 150mg 30cap 1 by mouth Deja 24HR s every day Teresa Beck M.D. 11/03 Singulair Hx Tablets 10mg 30tab 1 by mouth Rudy E. /0000 s every day Teresa Feliciano M.D. 03/28 Trazodone HCL Hx Tablets 50mg 30tab 1 tablet at Deja / s bedtime as Teresa Beck needed Connie 09/20 Hydrocodone/Acet Hx Tablets 5-325mg 1 po q4-6 Unknown aminophen /0000 hours prn - 07/14 Topamax Hx Tablets 25mg 1 Q6 hours Unknown /0000 prn - 07/14 Vitamin D 00/00 Hx Capsules [id number] 12cap one by Deja (Ergocalciferol) /0000 s mouth Kiran - rodriguez M.DAzael 05/12 Qvar 00 Hx Aerosol 80mcg/Act 1unit 2 puff Rudy E. /0000 s twice a day Teresa Feliciano M.D. 01/05 Bactrim DS 00 Hx Tablets Unknown /0000 - 12/15 Tramadol HCL 00 Hx Tablets as needed Unknown /0000 - 12/15 [address] 20mg 60cap take one Serg /0000 s capsule by Kristin ADULT SERVICES LIBRARIAN - mouth twice 10/29 a Trazodone HCL Hx Tablets 100mg take two Unknown /0000 tablets by - mouth every 04/03 day at bedtime Azelastine HCL Hx Solution 0.1% Use 1 Jackson Unknown (Nasal) /0000 In Each - Nostril In 05/11 The Morning /2017 And Night Immunizations CPT Code Status Date Vaccine Reaction Lot # [id number] Given 03/25/2017 Pneumonia Vaccine Pt. tolerated well. No [id number] immediate reaction noted. 48650 Given 04/03/2016 Tdap - [id number] Tetanus/Diptheria/Acellul ar Pertussis 21844 Given 04/03/2016 Influenza Virus Vaccine, [id number] Quadrivalent, Split Virus, Im Use Vital Signs Date Vital Result Comment 06/17/2017 Height 65 inches 5'5" Heart Rate 95 /min BP Systolic 100 mmHg BP Diastolic 58 mmHg Respiratory Rate 20 /min Pain Level 7 O2 % BldC Oximetry 97 % 06/08/2017 Height 65 inches Weight 161.00 lb Heart Rate 69 /min BP Systolic 93 mmHg BP Diastolic 49 mmHg Respiratory Rate 16 /min Body Temperature 98.2 F O2 % BldC Oximetry 100 % BMI (Body Mass Index) 26.8 kg/m2 05/20/2017 Height 65 inches 5'5" Weight 159.12 lb Heart Rate 89 /min BP Systolic Sitting 92 mmHg BP Diastolic Sitting 60 mmHg Respiratory Rate 16 /min Pain Level 6 O2 % BldC Oximetry 98 % Ra BMI (Body Mass Index) 26.5 kg/m2 05/12/2017 Height 65 inches Weight 158.00 lb Heart Rate 74 /min BP Systolic 98 mmHg BP Diastolic 56 mmHg Respiratory Rate 16 /min Body Temperature 97.7 F O2 % BldC Oximetry 100 % BMI (Body Mass Index) 26.2 kg/m2 04/09/2017 Height 65 inches 5'5" Weight 158.00 [...] Test Result H/L Range Note Laboratory test 05/12/2017 Rapid Strep Negative Negative 1 finding Molecular Urine Culture And 04/09/2017 Urine Culture SEE RESULT BELOW 2 Sensitivities Ua Routine 04/09/2017 Ua Specific 1.000 [place]on Ua PH 6 Ua Color yellow Ua Appera clear Ua WBC - Ua Protein - Ua Glucose norm Ua Ketones - Ua Bilirubin - Ua Urobilinogen - Ua Nitrite - Ua Occult Blood - Laboratory test 02/09/2017 Gardnerella/Yeast: SEE RESULT 3, 4 finding Vaginal Dna BELOW Urine Culture And 02/09/2017 Urine Culture SEE RESULT 5, 6 Sensitivities BELOW Laboratory test 02/09/2017 Poc , Urine Negative Negative 7 finding Poc Urinalysis 02/09/2017 Poc Glucose, Urine Negative Negative Poc Bilirubin, Urine 1+ Negative Poc Ketone, Urine 1+ Negative Poc Specific [place], Urine 1.025 1.010-1.030 Poc Blood, Urine Trace-intact Negative Poc pH, Urine 6.0 5-9 Poc Protein, Urine 2+ Negative Poc Urobilinogen, Urine 1.0 Negative Poc Nitrite, Urine Negative Negative Poc Leukocytes, Urine Trace Negative Poc Color, Urine Ainsley Poc Clarity, Urine Clear 8 Laboratory test 01/08/2017 Stool Culture SEE RESULT BELOW 9, 10 finding Poc Urinalysis 09/30/2016 Poc Glucose, Urine Negative Negative Poc Bilirubin, Urine Negative Negative Poc Ketone, Urine 1+ Negative Poc Specific [place], Urine 1.020 1.010-1.030 Poc Blood, Urine Negative Negative Poc pH, Urine 7.0 5-9 Poc Protein, Urine Negative Negative Poc Urobilinogen, Urine 0.2 Negative Poc Nitrite, Urine Negative Negative Poc Leukocytes, Urine Negative Negative Poc Color, Urine Yellow Poc Clarity, Urine Clear 11 Laboratory test finding 09/12/2016 Bilirubin Total 0.50 mg/dL 0.2-1.0 12 Bilirubin Direct 0.10 mg/dL 0.03-0.18 12 Urine Culture And 07/03/2016 Urine Culture SEE RESULT 13, 14 Sensitivities BELOW Laboratory test finding 06/18/2016 TSH (Thyroid Stim 0.91 mcIU/mL 0.34- 5.60 Horm) Urine Culture And 06/11/2016 Urine Culture SEE RESULT 15 Sensitivities BELOW Ua Routine 06/11/2016 Ua Specific 1.025 [place] Ua PH 7 Ua Color yellow Ua Appera clear Ua WBC neg Ua Protein neg Ua Glucose neg Ua Ketones neg Ua Bilirubin neg Ua Urobilinogen normal Ua Nitrite neg Ua Occult Blood neg HIV 1/2 AB Evaluation 04/17/2016 HIV 1 2 Antibody Nonreactive Nonreactive 16 Comp Metabolic Panel 04/17/2016 Sodium 135 mmol/L [...] Egfr Non- 71.9 >60 Egfr 92.5 >60 17 Laboratory test 04/03/2016 Cytology SEE RESULT BELOW 18 finding GC/Chlamydia 04/03/2016 Chlamydia trachomatis Negative Negative Amplified Rna Rna Neisseria gonorrhoeae (GC) Rna Negative Negative Laboratory test 04/03/2016 Gardnerella/Yeast: Vaginal SEE RESULT BELOW 19 finding Dna HPV Rna Ww/Reflex Genotype Negative Negative 20 Trichomonas Vaginalis Rna Negative Negative 21 Urine Culture And 01/16/2016 Urine Culture SEE RESULT BELOW 22, 23 Sensitivities Laboratory test finding 11/09/2015 Gardnerella/Yeast: SEE RESULT BELOW 24 Vaginal Dna Trichomonas Vaginalis Rna Negative Negative 25 GC/Chlamydia Amplified Rna 11/09/2015 Chlamydia trachomatis Rna Negative Negative Neisseria gonorrhoeae (GC) Rna Negative Negative Urine Culture And 10/06/2015 Urine Culture SEE RESULT BELOW 26, 27 Sensitivities CBC Auto Diff 08/21/2015 White Blood Count 7.8 10^3/uL 3.5-10.8 28 Red Blood Count 4.20 10^6/uL 4.0-5.4 28 Hemoglobin 13.6 g/dL 12.0-16.0 28 Hematocrit 40 % 35-47 28 Mean Corpuscular Volume 95 fL 80-97 28 Mean Corpuscular Hemoglobin 32 pg High -31 28 Mean Corpuscular HGB Conc 34 g/dL 31-36 28 Red Cell Distribution Width 13 % 10.5-15 28 Platelet Count 258 10^3/uL 150-450 28 Mean Platelet Volume 9 um3 7.4-10.4 28 Abs Neutrophils 3.4 10^3/uL 1.5-7.7 28 Abs Lymphocytes 3.5 10^3/uL 1.0-4.8 28 Abs Monocytes 0.7 10^3/uL 0-0.8 28 Abs Eosinophils 0.2 10^3/uL 0-0.6 28 Abs Basophils 0 10^3/uL 0-0.2 28 Abs Nucleated RBC 0 10^3/uL 28 Granulocyte % 43.2 % 38-83 28 Lymphocyte % 45.1 % 25-47 28 Monocyte % 8.8 % 1-9 28 Eosinophil % 2.6 % 0-6 28 Basophil % 0.3 % 0-2 28 Nucleated Red Blood Cells % 0.1 28 Basic Metabolic Panel 08/21/2015 Sodium 136 mmol/L 133-145 28 Potassium 4.2 mmol/L 3.5-5.0 28 Chloride 105 mmol/L 101-111 28 Co2 Carbon Dioxide 27 mmol/L 22-32 28 Anion Gap 4 mmol/L 2-11 28 Glucose 70 mg/dL 70-100 28 Blood Urea Nitrogen 14 mg/dL 6-24 28 Creatinine 0.95 mg/dL 0.51-0.95 28 BUN/Creatinine Ratio 14.7 8-20 28 Calcium 8.8 mg/dL 8.6-10.3 28 Egfr Non- 66.2 >60 28 Egfr 85.1 >60 28, 29 Laboratory test 08/21/2015 Gardnerella/Yeast: Vaginal SEE RESULT BELOW 30 finding Dna GC/Chlamydia 08/21/2015 Chlamydia trachomatis Rna Negative Negative Amplified Rna Neisseria gonorrhoeae (GC) Rna Negative Negative Laboratory test finding 08/21/2015 Trichomonas Negative Negative 31 Vaginalis Rna Laboratory test finding 07/23/2015 Urine Glucose Negative mg/dL Negative Urine Culture And 07/23/2015 Urine Culture SEE RESULT BELOW 32 Sensitivities Laboratory test finding 05/11/2015 Gardnerella/Yeast: SEE RESULT BELOW 33 Vaginal Dna Urine Culture And Sensitivities SEE RESULT BELOW 34 GC/Chlamydia Amplified Rna 05/11/2015 Chlamydia trachomatis Rna Negative Negative Neisseria gonorrhoeae (GC) Rna Negative Negative Laboratory test 05/11/2015 Trichomonas Vaginalis Negative Negative 35 finding Rna Laboratory test 05/11/2015 Gardnerella/Yeast: SEE RESULT BELOW 36 finding Vaginal Dna Urine Culture And Sensitivities SEE RESULT BELOW 37 Laboratory test 03/21/2015 Gardnerella/Yeast: Vaginal SEE RESULT BELOW 38 finding Dna Trichomonas Vaginalis Rna Negative Negative Laboratory test 02/09/2015 Gardnerella/Yeast: Vaginal SEE RESULT BELOW 39 finding Dna GC/Chlamydia 02/09/2015 Chlamydia trachomatis Rna Negative Negative Amplified Rna Neisseria gonorrhoeae (GC) Rna Negative Negative 40 Laboratory test 02/09/2015 Trichomonas Vaginalis Negative Negative 41 finding Rna Laboratory test 02/09/2015 Urine Culture And SEE RESULT BELOW 42 finding Sensitivities GC/Chlamydia 01/05/2015 Chlamydia trachomatis Negative Negative Amplified Rna Rna Neisseria gonorrhoeae (GC) Rna Negative Negative 43 Laboratory test 01/05/2015 Gardnerella/Yeast: Vaginal SEE RESULT BELOW 44 finding Dna Ua And Culture 01/05/2015 Urine Culture And SEE RESULT BELOW 45 Sensitivity Sensitivities Urinalysis Profile 01/05/2015 Urine Color Yellow Urine Appearance Cloudy Urine Specific Macon 1.003 Low 1.010-1.030 Urine pH 6.0 5-9 [...] Present Absent Ua Routine 01/05/2015 Ua Specific [place] 1.000 Ua PH 5 Ua Color yellow Ua Appera cloudy Ua WBC large Ua Protein negative Ua Glucose negative Ua Ketones negative Ua Bilirubin negative Ua Urobilinogen normal Ua Nitrite negative Ua Occult Blood NHT Laboratory test 12/17/2014 Gardnerella/Yeast: Vaginal SEE RESULT BELOW 46 finding Dna Trichomonas Vaginalis Rna Negative Negative 47 GC/Chlamydia Amplified Rna 12/17/2014 Chlamydia trachomatis Rna Positive Negative Neisseria gonorrhoeae (GC) Rna Negative Negative 48 Drug Abuse 20 Urine 12/15/2014 Urine Amphetamine Negative ng/mL 49 Urine Barbiturates Negative ng/mL 50 Urine Benzodiazepines Negative ng/mL 51 Urine Cocaine Negative ng/mL 52 Urine Methadone Negative ng/mL 53 Urine Opiates Negative ng/mL 54 Urine Phencyclidine Negative ng/mL Cutoff: 25 Urine Tetrahydrocannabinol Negative ng/mL Cutoff: 20 55 Urine Oxycodone Negative ng/mL 56 CBC Auto Diff 12/06/2014 White Blood Count [...] Egfr Non- 66.6 >60 Egfr 85.6 >60 57 Laboratory test finding 12/06/2014 TSH (Thyroid Stim Horm) 1.22 ?IU/mL 0.34-5.60 Free T4 (Free Thyroxine) 0.86 ng/mL 0.61-1.12 Lipid Profile (Trig/Chol/HDL) 12/06/2014 Triglycerides 126 mg/dL 58 Cholesterol 158 mg/dL 59 HDL Cholesterol 46.1 mg/dL 60 LDL Cholesterol 87 mg/dL 61 Laboratory test 10/29/2014 Urine Culture And SEE RESULT BELOW 62 finding Sensitivities Laboratory test 10/19/2014 Gardnerella/Yeast: SEE RESULT BELOW 63 finding Vaginal Dna GC/Chlamydia 10/19/2014 Chlamydia trachomatis Negative Negative Amplified Rna Rna Neisseria gonorrhoeae (GC) Rna Negative Negative 64 Laboratory test 10/19/2014 Trichomonas Vaginalis Negative Negative 65 finding Rna Laboratory test 10/10/2014 Urine Culture And SEE RESULT BELOW 66 finding Sensitivities Laboratory test 08/23/2014 Urine Culture And SEE RESULT BELOW 67 finding Sensitivities CMP Panel 06/14/2014 Sodium 134 [...] Egfr Non- 72.7 >60 Egfr 93.5 >60 68 Laboratory test finding 06/14/2014 TSH (Thyroid Stimulating 1.03 IU/mL 0.34-5.60 Horm) Free T4 0.61 ng/mL 0.61-1.12 Laboratory test finding 05/12/2014 Gardnerella/Yeast: Vaginal Dna (SEE NOTE ) 69 Ua Routine 03/22/2014 Ua Specific [place] 1.005 Ua PH 5 Ua Color yellow Ua Appera clear Ua WBC neg Ua Protein neg Ua Glucose neg Ua Ketones neg Ua Bilirubin neg Ua Urobilinogen neg Ua Nitrite neg Ua Occult Blood neg Urine Culture And Sensitivities 01/27/2014 Urine Culture (SEE NOTE) 70 Vitamin D, 25 Hydroxy 07/14/2013 25-Hydroxy Vitamin [...] mg/dL 75 LDL Cholesterol 104 mg/dL 76 Laboratory test finding 07/14/2013 Affirm Vaginal Dna (SEE NOTE) 77 Probe Laboratory test finding 07/14/2013 Cytology RUN DATE: <SEE NOTE> 1 Office Rn: [id number] 2 SEE RESULT BELOW Name: BIBIANA GARCIA Vito : [address]: Vanessa Gutiérrez MD Acct: [id number] Unit: [id number] AGE: 37 Location: [facility] Re04/09/17 SEX: F Status: REG REF SPEC: [id number] WILL: 04/09/17-[address] [facility] [address]: Vanessa Gutiérrez MD REQ: [id number] RECD: 04/09/17123 STATUS: COMP _ SOURCE: URINE SPDESC: ORDERED: Urine Culture COMMENTS: [id number] Urine Source: Random Procedure Result Reported Site Urine Culture Final 04/10/17- 1312 ML No Growth (<1,000 CFU/mL) * ML - MAIN LAB ([facility]) . END OF REPORT * ML=Testing performed at Main Lab DEPARTMENT OF PATHOLOGY, [address] [place] [address] Jordan Pedroza M.D. Director [facility] # [id number] 3 Would you like to order Trichomonas Vaginalis RNA testing? N [id number] 4 SEE RESULT BELOW Name: BIBIANA GARCIA : [address]: Jon Ness MD Acct: [id number] Unit: [id number] AGE: 37 Location: [facility] Re02/09/17 SEX: F Status: DEP ER SPEC: [id number] WILL: 02/09/17-[address]: Mona Buck NP REQ: [id number] RECD: 02/09/17 STATUS: COMP OTHR DR: Vanessa Ness MD _ SOURCE: VAGINAL SPDESC: ORDERED: Arturo,Yeast DNA COMMENTS: Would you like to order Trichomonas Vaginalis RNA testing? N [id number] Procedure Result Reported Site Gardnerella/Yeast: Vaginal DNA [...] or failure. * ML - MAIN LAB ([facility]) . END OF REPORT * ML=Testing performed at Main Lab DEPARTMENT OF PATHOLOGY, [address] [place] [address] Jordan Pedroza M.D. Director [facility] # [id number] 5 [id number] SEE RESULT BELOW Name: BIBIANA GARICA : [address]: Jon Ness MD Acct: [id number] Unit: [id number] AGE: 37 Location: [facility] Re02/09/17 SEX: F Status: DEP ER SPEC: [id number] WILL: 02/09/[address] [facility] [address]: Mona Buck ADULT SERVICES LIBRARIAN REQ: [id number] RECD: 02/09/17 STATUS: COMP [facility] DR: Vanessa Ness MD _ SOURCE: URINE SPDESC: ORDERED: Urine Culture COMMENTS: [id number] Procedure Result Reported Site Urine Culture Final 02/10/17- 1624 ML No growth of clinically significant organisms * ML - MAIN LAB ([facility]) . END OF REPORT * ML=Testing performed at Main Lab DEPARTMENT OF PATHOLOGY, [address] [place] [address] Jordan Pedroza M.D. Director [facility] # [id number] 7 Office Rn: [id number] If is still suspected, please repeat test after 48 to 72 hours. 8 Office Rn: [id number] C. Difficile toxin testing is not performed on formed stool specimens. Test of cure 10 SEE RESULT BELOW Name: BIBIANA GARCIA : [address]: Elizabet Quesada MD Acct: [id number] Unit: [id number] AGE: 36 Location: [facility] Re01/08/17 SEX: F Status: REG REF SPEC: [id number] WILL: 01/08/17-[address] [facility] [address]: Xavi Navarro MD REQ: [id number] RECD: 01/09/17 STATUS: COMP [facility] DR: Vanessa Gutiérrez MD _ SOURCE: STOOL SPDESC: ORDERED: Stool Culture, O P: Giar/Crypt, Rotavirus Ag St COMMENTS: [id number] C. Difficile toxin testing is not performed on formed stool specimens. Test of cure on positive patients is not recommended. Verbal to ABBY KNAPP. by [id number] at 0948 on 01/12/17. Results read back [...] performed at Main Lab DEPARTMENT OF PATHOLOGY, [address] [place] [address] Jordan Pedroza M.D. Director [facility] # [id number] Patient: BIBIANA GARCIA [id number] (Continued) Specimen: [id number] Collected: 01/08/17-1029 Received: 01/09/17 (Continued) Procedure Result [...] is requested. Contact the Microbiology Department at [phone]. TEST LIMITATIONS: As with all diagnostic procedures, [...] not recommended. Rotavirus Antigen Stool Final 01/10/17- 08 ML Organism 1 Negative Rotavirus CONTINUED ON NEXT PAGE * ML=Testing performed at Main Lab DEPARTMENT OF PATHOLOGY, [address] [place] [address] Jordan Pedroza M.D. Director [facility] # [id number] Patient: BIBIANA GARCIA [id number] (Continued) Specimen: [id number] Collected: 01/08/17 Received: 01/09/17 (Continued) Procedure Result Reported Site Rotavirus Antigen Stool Final (continued) 01/10/17812 Antigen testing by enzyme immunoassay * ML - MAIN LAB ([facility]) . END OF REPORT * ML=Testing performed at Main Lab DEPARTMENT OF PATHOLOGY, [address] [place] [address] Jordan Pedroza M.D. Director [facility] # [id number] 11 Office Rn: [id number] 12 REPEAT IN 4 MONTHS 13 [id number] 14 SEE RESULT BELOW Name: BIBIANA GARCIA : [address]: Betzaida Leiva MD Acct: [id number] Unit: [id number] AGE: 36 Location: [facility] Re07/03/16 SEX: F Status: DEP ER SPEC: [id number] WILL: 07/03/[address] [facility] [address]: Betzaida Leiva MD REQ: [id number] RECD: 07/03/16 STATUS: MILAGROS KERNS DR: Serg Foster ADULT SERVICES LIBRARIAN _ SOURCE: URINE SPDESC: ORDERED: Urine Culture COMMENTS: [id number] Procedure Result Reported Site Urine Culture Final 07/04/16- 1341 ML No growth of clinically significant organisms * ML - MAIN LAB ([facility]) . END OF REPORT * ML=Testing performed at Main Lab DEPARTMENT OF PATHOLOGY, [address] [place] [address] Jordan Pedroza M.D. Director [facility] # [id number] 15 SEE RESULT BELOW Name: BIBIANA GARCIA : [address]: Sydnie Sullivan NP Acct: [id number] Unit: [id number] AGE: 36 Location: [facility] Re06/11/16 SEX: F Status: REG REF SPEC: [id number] WILL: 06/11/16-[address]: Sydnie Sullivan NP REQ: [id number] RECD: 06/11/16 STATUS: COMP _ SOURCE: URINE [facility]: ORDERED: Urine Culture COMMENTS: [id number] Urine Source: Random Procedure Result Reported Site Urine Culture Final 06/12/16- 1612 ML No Growth (<1,000 CFU/mL) * ML - [facility] ([facility]) . END OF REPORT * ML=Testing performed at Main Lab DEPARTMENT OF PATHOLOGY, [address] [place] [address] Jordan Pedroza M.D. Director [facility] # [id number] 16 It is recognized that currently available assays [...] 95% confidence interval of 99.78 to 99.96%. 17 Because ethnic data is not always readily [...] 15-29 5 Kidney failure <15 (or dialysis) 18 SEE RESULT BELOW Name: BIBIANA GARCIA : [address]: Vanessa Gutiérrez MD Acct: [id number] Unit: [id number] AGE: 36 Location: [facility] Re04/03/16 SEX: F Status: REG REF SPEC: [id number] WILL: 04/03/16-[address] [facility] [address]: Vanessa Gutiérrez MD REQ: [id number] RECD: 04/03/16 STATUS: SOUT _ ORDERED: IMAGE ANALYSIS, HPV/Thin Prep, HPV 16/18 GENE COMMENTS: [id number] FINAL DIAGNOSIS Negative for Intraepithelial lesion or [...] (signature on file) DAKOTAH Sepulveda (ASCP) 04/04 1076 This Pap test was evaluated with the assistance of the ThinPrep Test Imaging System. Due to cytologic findings at the recording artist microscope, comprehensive manual rescreening by a Erp Engineer may be required. The Pap Smear [...] performed at Main Lab DEPARTMENT OF PATHOLOGY, [address] [place] [address] Jordan Pedroza M.D. Director [facility] # [id number] 19 SEE RESULT BELOW Name: NADYABIBIANA L : [address]: Vanessa Gutiérrez MD Acct: [id number] Unit: [id number] AGE: 36 Location: [facility] Re04/03/16 SEX: F Status: REG REF SPEC: [id number] WILL: 04/03/16-[address] [facility] [address]: Vanessa Gutiérrez MD REQ: [id number] RECD: 04/03/16 STATUS: COMP _ SOURCE: VAGINAL [facility]: ORDERED: Arturo,Yeast DNA COMMENTS: [id number] Procedure Result Reported Site Gardnerella/Yeast: Vaginal DNA [...] therapeutic success or failure. * ML - [facility] ([facility]) . END OF REPORT * ML=Testing performed at Main Lab DEPARTMENT OF PATHOLOGY, [address] [place] [address] Jordan Pedroza M.D. Director [facility] # [id number] 20 The high-risk HPV types detected by the assay include: 16, 18, 31, 33, 35, 39, 45, 51, 52, 56, 58, 59, 66, and 68. 21 [id number] GC/Chlamydia Source?: Thin Prep HPV Source?: Thin Prep Trichomonas Source: Thin Prep 22 [id number] 23 SEE RESULT BELOW Name: BIBIANA GARCIA : [address]: Tab Celaya MD Acct: [id number] Unit: [id number] AGE: 35 Location: [facility] Re01/16/16 SEX: F Status: DEP ER SPEC: [id number] WILL: 01/16/[address]: Anjelica Espana NP REQ: [id number] RECD: 01/16/16 STATUS: MILAGROS KERNS DR: Tab Foster ADULT SERVICES LIBRARIAN _ SOURCE: URINE SPDESC: ORDERED: Urine Culture COMMENTS: [id number] Procedure Result Reported Site Urine Culture Final 01/17/16- 1250 ML Organism 1 STREP GROUP B [place]uma Count 75-100,000 (Many) CFU/ML Organism 2 NORMAL ABI [place] Count 1-10,000 (Few) CFU/ML Susceptibility testing of penicillins and other B-lactams approved by FDA for treatment of Streptococcus pyogenes (Group A Strep) and Streptococcus agalactiae (Group B Strep) is not necessary for clinical purposes and need not be done routinely, since as with vancomycin, resistant strains have not been recognized. (CLSI P272-P09;p.66) Positive isolates will be saved for one week. Please call the Microbiology Laboratory if further susceptibility testing is needed. * ML - MAIN LAB ([facility]) . END OF REPORT * ML=Testing performed at Main Lab DEPARTMENT OF PATHOLOGY, [address] [place] [address] Jordan Pedroza M.D. Director [facility] # [id number] 24 SEE RESULT BELOW Name: BIBIANA GARCIA : [address]: Steve Keen MD Acct: [id number] Unit: [id number] AGE: 35 Location: [facility] Re11/09/15 SEX: F Status: DEP ER SPEC: [id number] WILL: 11/09/15-[address] [facility] [address]: Steve Keen MD REQ: [id number] RECD: 11/09/15 STATUS: COMP SAUMYA DR: Serg Foster ADULT SERVICES LIBRARIAN _ SOURCE: VAGINAL SPDESC: ORDERED: Arturo,Yeast DNA [...] or failure. * ML - MAIN LAB ([facility]) . END OF REPORT * ML=Testing performed at Main Lab DEPARTMENT OF PATHOLOGY, [address] [place] [address] Jordan Pedroza M.D. Director [facility] # [id number] 25 GC/Chlamydia Source?: Endocervical Trichomonas Source: Endocervical 26 [id number] 27 SEE RESULT BELOW Name: BIBIANA GARCIA : [address]: Bev Espana MD Acct: [id number] Unit: [id number] AGE: 35 Location: [facility]: 10/06/15 SEX: F Status: DEP ER SPEC: [id number] WILL: 10/06/15-[address] [facility] [address]: Bev Espana MD REQ: [id number] RECD: 10/07/15-1332 STATUS: MILAGROS KERNS DR: Deja Beck MD _ SOURCE: URINE SPDESC: ORDERED: Urine Culture COMMENTS: [id number] Procedure Result Reported Site Urine Culture Final 10/08/15- 1233 ML No Growth (<1,000 CFU/mL) * ML - MAIN LAB ([facility]) . END OF REPORT * ML=Testing performed at Main Lab DEPARTMENT OF PATHOLOGY, [address] [place] [address] Jordan Pedroza M.D. Director [facility] # [id number] 29 Because ethnic data is not always [...] [address]: Xavi Navarro MD Acct: [id number] Unit: [id number] AGE: 35 Location: [facility] Re08/21/15 SEX: F Status: DEP ER SPEC: [id number] WILL: 08/21/15-[address] [facility] [address]: Xavi Navarro MD REQ: [id number] RECD: 08/22/154234 STATUS: MILAGROS KERNS DR: Deja Beck MD [...] or failure. * ML - MAIN LAB ([facility]) . END OF REPORT * ML=Testing performed at Main Lab DEPARTMENT OF PATHOLOGY, [address] [place] [address] Jordan Pedroza M.D. Director [facility] # [id number] 31 GC/Chlamydia Source?: Endocervical Trichomonas Source: Endocervical 32 SEE RESULT BELOW Name: BIBIANA GARCIA : [address]: Tab Celaya MD Acct: [id number] Unit: [id number] AGE: 35 Location: [facility] Re07/23/15 SEX: F Status: DEP ER SPEC: [id number] WILL: 07/23/15-[address] [facility] [address]: Alejandro HERRERA REQ: [id number] RECD: 07/23/15 STATUS: MILAGROS KERNS DR: [facility] Deja Beck MD _ SOURCE: URINE SPDESC: ORDERED: Urine Culture Procedure Result Reported Site Urine Culture Final 07/24/15- 1638 ML No growth of clinically significant organisms * ML - MAIN LAB ([facility]) . END OF REPORT * ML=Testing performed at Main Lab DEPARTMENT OF PATHOLOGY, [address] [place] [address] Jordan Pedroza M.D. Director [facility] # [id number] 33 SEE RESULT BELOW Name: BIBIANA GARCIA : [address]: Tab Celaya MD Acct: [id number] Unit: [id number] AGE: 35 Location: [facility] Re05/11/15 SEX: F Status: DEP ER SPEC: [id number] WILL: 05/11/15-[address] [facility] [address]: Cordelia Chan NP REQ: [id number] RECD: 05/12/15 STATUS: MILAGROS KERNS DR: Deja Celaya MD [...] or failure. * ML - MAIN LAB ([facility]) . END OF REPORT * ML=Testing performed at Main Lab DEPARTMENT OF PATHOLOGY, [address] [place] [address] Jordan Pedroza M.D. Director [facility] # [id number] 34 SEE RESULT BELOW Name: BIBIANA GARCIA : [address]: Tab Celaya MD Acct: [id number] Unit: [id number] AGE: 35 Location: [facility] Re05/11/15 SEX: F Status: DEP ER SPEC: [id number] WILL: 05/11/15-[address] [facility] [address]: Tab Celaya MD REQ: [id number] RECD: 05/12/15 STATUS: MILAGROS KERNS DR: Deja Beck MD _ SOURCE: URINE [facility]: ORDERED: Urine Culture Procedure Result Reported Site Urine Culture Final 05/13/15- 1314 ML No Growth (<1,000 CFU/mL) * ML - MAIN LAB ([facility]) . END OF REPORT * ML=Testing performed at Main Lab DEPARTMENT OF PATHOLOGY, [address] [place] [address] Jordan Pedroza M.D. Director [facility] # [id number] 35 GC/Chlamydia Source?: Endocervical Trichomonas Source: Endocervical 36 SEE RESULT BELOW Name: BIBIANA GARCIA : [address]: Tab Celaya MD Acct: [id number] Unit: [id number] AGE: 35 Location: [facility] Re05/11/15 SEX: F Status: DEP ER SPEC: [id number] WILL: 05/11/15-[address] [facility] [address]: Cordelia Chan NP REQ: [id number] RECD: 05/12/15-1225 STATUS: MILAGROS KERNS DR: Deja [...] or failure. * ML - MAIN LAB ([facility]) . END OF REPORT * ML=Testing performed at Main Lab DEPARTMENT OF PATHOLOGY, [address] [place] [address] Jordan Pedroza M.D. Director [facility] # [id number] 37 SEE RESULT BELOW Name: BIBIANA GARCIA : [address]: Tab Celaya MD Acct: [id number] Unit: [id number] AGE: 35 Location: [facility] Re05/11/15 SEX: F Status: DEP ER SPEC: [id number] WILL: 05/11/15-[address] [facility] [address]: Tab Celaya MD REQ: [id number] RECD: 05/12/155 STATUS: MILAGROS KERNS DR: Deja Beck MD _ SOURCE: URINE SPDESC: ORDERED: Urine Culture Procedure Result Reported Site Urine Culture Final 05/13/15- 1314 ML No Growth (<1,000 CFU/mL) * ML - MAIN LAB ([facility]) . END OF REPORT * ML=Testing performed at Main Lab DEPARTMENT OF PATHOLOGY, [address] [place] [address] Jordan Pedroza M.D. Director [facility] # [id number] 38 SEE RESULT BELOW Name: BIBIANA GARCIA : [address]: Steve Keen MD Acct: [id number] Unit: [id number] AGE: 35 Location: [facility] Re03/21/15 SEX: F Status: DEP ER SPEC: [id number] WILL: 03/21/15-[address] [facility] [address]: Steve Keen MD REQ: [id number] RECD: 03/21/15-1337 STATUS: MILAGROS KERNS DR: Deja Beck MD _ SOURCE: VAGINAL SPDESC: ORDERED: Agata Morris DNA Procedure Result Reported [...] or failure. * ML - MAIN LAB ([facility]) . END OF REPORT * ML=Testing performed at Main Lab DEPARTMENT OF PATHOLOGY, [address] [place] [address] Jordan Pedroza M.D. Director [facility] # [id number] 39 SEE RESULT BELOW Name: BIBIANA GARCIA : [address]: Bev Espana MD Acct: [id number] Unit: [id number] AGE: 35 Location: [facility] Re02/09/15 SEX: F Status: DEP ER SPEC: [id number] WILL: 02/09/15-[address] [facility] [address]: Bev Espana MD REQ: [id number] RECD: 02/09/15 STATUS: MILAGROS KERNS DR: Deja [...] or failure. * ML - MAIN LAB ([facility]) . END OF REPORT * ML=Testing performed at Main Lab DEPARTMENT OF PATHOLOGY, [address] [place] [address] Jordan Pedroza M.D. Director [facility] # [id number] 40 Female urine specimens have been self-validated by [facility] and have been granted conditional assay approval by [facility]. [facility] Specimen Source: vaginal GC/Chlamydia Source?: Endocervical Trichomonas Source: Endocervical 42 SEE RESULT BELOW Name: BIBIANA GARCIA : [address]: Bev Espana MD Acct: [id number] Unit: [id number] AGE: 35 Location: [facility] Re02/09/15 SEX: F Status: DEP ER SPEC: [id number] WILL: 02/09/15-[address] [facility] [address]: Bev Espana MD REQ: [id number] RECD: 02/09/15 STATUS: MILAGROS KERNS DR: [facility] Deja Beck MD _ SOURCE: URINE SPDESC: ORDERED: Urine Culture Procedure Result Verified Site Urine Culture Final 02/11/15- 927 ML No Growth Day 2 (<1,000 CFU/mL) * ML - MAIN LAB ([facility]) . END OF REPORT * ML=Testing performed at Main Lab DEPARTMENT OF PATHOLOGY, [address] [place] [address] Jordan Pedroza M.D. Director [facility] # [id number] 43 Female urine specimens have been self-validated by [facility] and have been granted conditional assay approval by [facility]. 44 SEE RESULT BELOW Name: BIBIANA GARCIA : [address]: Steve Tee NP Acct: [id number] Unit: [id number] AGE: 34 Location: [facility] Re01/05/15 SEX: F Status: REG REF SPEC: [id number] WILL: 01/05/15-[address]: Steve Tee NP REQ: [id number] RECD: 01/05/15 STATUS: COMP _ SOURCE: VAGINAL [...] performed at Main Lab DEPARTMENT OF PATHOLOGY, [address] [place] [address] Jordan Pedroza M.D. Director [facility] # [id number] Patient: BIBIANA GARCIA [id number] (Continued) Specimen: [id number] Collected: 01/05/15 Received: 01/05/15-1625 (Continued) Procedure Result Verified Site Trichomonas: Vaginal DNA Probe Final (continued) 01/06/15 1322 The presence or absence of T. vaginalis cannot be used as a test for therapeutic success or failure. * ML - MAIN LAB ([facility]) . END OF REPORT * ML=Testing performed at Main Lab DEPARTMENT OF PATHOLOGY, [address] [place] [address] Jordan Pedroza M.D. Director [facility] # [id number] 45 SEE RESULT BELOW Name: BIBIANA GARCIA : [address]: Steve Tee NP Acct: [id number] Unit: [id number] AGE: 34 Location: [facility] Re01/05/15 SEX: F Status: REG REF SPEC: [id number] WILL: 01/05/[address]: Steve Tee NP REQ: [id number] RECD: 01/05/15 STATUS: COMP _ SOURCE: URINE SPDESC: ORDERED: Urine Culture Urine Source: Catheterization Procedure Result Verified Site Urine Culture Final 01/07/15- 1038 ML Organism 1 NORMAL ABI [place] Count 10-25,000 (Moderate) CFU/ML * ML - MAIN LAB ([facility]) . END OF REPORT * ML=Testing performed at Main Lab DEPARTMENT OF PATHOLOGY, [address] [place] [address] Jordan Pedroza M.D. Director [facility] # [id number] 46 SEE RESULT BELOW Name: BIBIANA GARCIA : [address]: Luciano Marion DO Acct: [id number] Unit: [id number] AGE: 34 Location: [facility] Re12/17/14 SEX: F Status: DEP ER SPEC: [id number] WILL: 12/17/14-[address] [facility] [address]: Gwen Duran NP REQ: [id number] RECD: 12/18/14-1152 STATUS: MILAGROS KERNS DR: Deja [...] therapeutic success or failure. * ML - [facility] ([facility]) . END OF REPORT * ML=Testing performed at Main Lab DEPARTMENT OF PATHOLOGY, [address] [place] [address] Jordan Pedroza M.D. Director [facility] # [id number] [facility] Specimen Source: endocervical GC/Chlamydia Source?: Endocervical Trichomonas Source: Endocervical 48 Female urine specimens have been self-validated by [facility] and have been granted conditional assay approval by [facility]. 49 REFERENCE VALUE Cutoff: 500 50 REFERENCE VALUE Cutoff: 200 51 REFERENCE VALUE Cutoff: 200 52 REFERENCE VALUE Cutoff: 150 53 REFERENCE VALUE Cutoff: 150 54 REFERENCE VALUE Cutoff: 300 55 ADDITIONAL INFORMATION This report is intended for use in clinical monitoring or management of patients. It is not intended for use in employment-related testing. 56 REFERENCE VALUE Cutoff: 100 ADDITIONAL INFORMATION This report is intended for use in clinical monitoring or management of patients. It is not intended for use in employment-related testing. Test Performed by: [facility] [place] [address] Car Salesman: Sudheer Griffiths II, M.D., Ph.D. 57 Because ethnic data is not always readily [...] 15-29 5 Kidney failure <15 (or dialysis) 58 Desirable <150 Borderline high 150-199 High 200-499 Very High >500 59 Desirable <200 Borderline high 200-239 High >239 60 Low <40 Desirable: 40-60 High: >60 61 Desirable: <100 mg/dL Near Optimal: 100-129 mg/dL Borderline High: 130-159 mg/dL High: 160-189 mg/dL Very High: >189 mg/dL 62 SEE RESULT BELOW Name: BIBIANA MATHIS : [address]: Alejandro Sesay MD Acct: [id number] Unit: [id number] AGE: 34 Location: [facility] Re10/29/14 SEX: F Status: DEP ER SPEC: [id number] WILL: 10/29/14-[address]: Alejandro Sesay MD REQ: [id number] RECD: 10/30/14 STATUS: MILAGROS KERNS DR: Deja Beck MD _ SOURCE: URINE SPDESC: ORDERED: Urine Culture Procedure Result Verified Site Urine Culture Final 11/01/14- 1130 ML No Growth Day 2 (<1,000 CFU/mL) * ML - MAIN LAB ([facility]) . END OF REPORT * ML=Testing performed at Main Lab DEPARTMENT OF PATHOLOGY, [address] [place] [address] Jordan Pedroza M.D. Director [facility] # [id number] 63 SEE RESULT BELOW Name: BIBIANA GARCIA : [address]: Adrianne Hugo Acct: [id number] Unit: [id number] AGE: 34 Location: [facility] Re10/19/14 SEX: F Status: DEP ER SPEC: [id number] IWLL: 10/19/14-[address]: Adrianne Dixon DO REQ: [id number] RECD: 10/20/14-1050 STATUS: MILAGROS KERNS DR: Deja Beck MD _ SOURCE: VAGINAL SPDESC: ORDERED: Agata Morris DNA Procedure Result Verified Site Gardnerella/Yeast: Vaginal [...] or failure. * ML - MAIN LAB ([facility]) . END OF REPORT * ML=Testing performed at Main Lab DEPARTMENT OF PATHOLOGY, [address] [place] [address] Jordan Pedroza M.D. Director [facility] # [id number] 64 Female urine specimens have been self-validated by [facility] and have been granted conditional assay approval by [facility]. [facility] Specimen Source: cervix GC/Chlamydia Source?: Endocervical Trichomonas Source: Endocervical 66 SEE RESULT BELOW Name: BIBIANA GARCIA : [address]: Xavi Navarro MD Acct: [id number] Unit: [id number] AGE: 34 Location: [facility] Re10/10/14 SEX: F Status: DEP ER SPEC: [id number] WILL: 10/10/14-[address] [facility] [address]: Alyson Keen NP REQ: [id number] RECD: 10/10/14 STATUS: MILAGROS KERNS DR: [facility] Deja Beck MD _ SOURCE: URINE SPDESC: ORDERED: Urine Culture Procedure Result Verified Site Urine Culture Final 10/12/14- 1018 ML Organism 1 NORMAL ABI [place] Count 1-10,000 (Few) CFU/ML * ML - MAIN LAB ([facility]) . END OF REPORT * ML=Testing performed at Main Lab DEPARTMENT OF PATHOLOGY, [address] [place] [address] Jordan Pedroza M.D. Director [facility] # [id number] 67 SEE RESULT BELOW Name: BIBIANA GARCIA : [address]: Xavi Navarro MD Acct: [id number] Unit: [id number] AGE: 34 Location: [facility] Re08/23/14 SEX: F Status: DEP ER SPEC: [id number] WILL: 08/23/14-[address] [facility] [address]: Xavi Navarro MD REQ: [id number] RECD: 08/23/14-1311 STATUS: COMP WILMAR DR: Deja Beck MD _ SOURCE: URINE SPDESC: ORDERED: Urine Culture Procedure Result Verified Site Urine Culture Final 08/25/14- 0850 ML Organism 1 ESCHERICHIA COLI [place] Count >100,000 (Many) CFU/ML 1. ESCHERICHIA COLI [...] antibiotic reporting. * ML - MAIN LAB ([facility]) . END OF REPORT * ML=Testing performed at Main Lab DEPARTMENT OF PATHOLOGY, [address] [place], [place] [address] Jordan Pedroza M.D. Director [facility] # [id number] 68 Because ethnic data is not always readily [...] 15-29 5 Kidney failure <15 (or dialysis) 69 RUN DATE: 05/13/14 [facility] LIVE PAGE 1 RUN TIME: [address] [place] [address] Specimen Inquiry Name: BIBIANA GARCIA : [address]: Deja Beck MD Acct: [id number] Unit: [id number] AGE: 34 Location: [facility] Re05/12/14 SEX: F Status: REG REF SPEC: [id number] WILL: 05/12/[address] [facility] [address]: Deja Beck MD REQ: [id number] RECD: 05/12/14 STATUS: COMP _ SOURCE: VAGINAL SPDESC: ORDERED: Arturo,Yeast DNA, Trich DNA QUERIES: Provider Requisition # [id number] Procedure Result Verified Site Gardnerella/Yeast: Vaginal DNA [...] Main Lab DEPARTMENT OF PATHOLOGY, [address] [place] [address] Jordan Pedroza M.D. Director [facility] # [id number] RUN DATE: 05/13/14 [facility] LIVE PAGE 2 RUN TIME: [address] [place] [address] Specimen Inquiry Patient: BIBIANA GARCIA [id number] (Continued) Specimen: [id number] Collected: 05/12/14 Received: 05/12/14-1799 (Continued) Procedure Result Verified Site Trichomonas: Vaginal DNA Probe Final (continued) 05/13/14- 1255 The presence or absence of T. vaginalis cannot be used as a test for therapeutic success or failure. END OF REPORT * ML=Testing performed at Main Lab DEPARTMENT OF PATHOLOGY, [facility] [employer] [place], [place] [address] Jordan Pedroza M.D. Director [place] # [id number] 70 RUN DATE: 01/29/14 [facility] LIVE PAGE 1 RUN TIME: 07 [facility] [employer] [place], [place] [address] Specimen Inquiry Name: BIBIANA GARCIA : [address]: Xavi Navarro MD Acct: [id number] Unit: [id number] AGE: 33 Location: [facility] Re01/27/14 SEX: F Status: DEP ER SPEC: [id number] WILL: 01/27/14-[address] [facility] [address]: Xavi Navarro MD REQ: [id number] RECD: 01/27/14 STATUS: MILAGROS KERNS DR: [facility] Deja Beck MD _ SOURCE: URINE SPDESC: ORDERED: Urine Culture Procedure Result Verified Site Urine Culture Final 01/29/14- 0732 ML Organism 1 ESCHERICHIA COLI [place] Count >100,000 (Many) CFU/ML 1. ESCHERICHIA COLI [...] performed at Main Lab DEPARTMENT OF PATHOLOGY, [address] [place] [address] Jordan Pedroza M.D. Director [facility] # [id number] 71 -- REFERENCE VALUE -- 25-HYDROXY D TOTAL (D2+D3) Optimum levels in the healthy population are 20-50, patients with bone disease may benefit from higher levels within this range. Test Performed by: [address] [address] Car Salesman: Jake Colby III, M.D. 72 It is [...] high 130-159 High 160-189 Very High >189 77 RUN DATE: 07/15/13 [facility] LIVE PAGE 1 RUN TIME: [address] [place] [address] Specimen Inquiry Name: BIBIANA MATHIS : [address]: Deja Beck MD Acct: [id number] Unit: [id number] AGE: 33 Location: [facility] Re07/14/13 SEX: F Status: REG REF SPEC: [id number] WILL: 07/14/13-[address] [facility] [address]: Deja Beck MD REQ: [id number] RECD: 07/14/13 STATUS: COMP _ SOURCE: VAGINAL SPDESC: ORDERED: Affirm QUERIES: Medent Number [id number] Procedure Result Verified Site Affirm Vaginal DNA [...] performed at Main Lab DEPARTMENT OF PATHOLOGY, [facility] [employer] [place] [address] Jordan Pedroza M.D. Director [place] Permit #[id number] 78 RUN DATE: 07/15/13 [facility] LIVE PAGE 1 RUN TIME: 1556 [facility] [employer] [place] [address] Specimen Inquiry Name: BIBIANA MATHIS : [address]: Deja Beck MD Acct: [id number] Unit: [id number] AGE: 33 Location: [facility] Re07/14/13 SEX: F Status: REG REF SPEC: [id number] WILL: 07/14/[address] [facility] [address]: Deja Beck MD REQ: [id number] RECD: 07/14/13 STATUS: SOUT _ ORDERED: IMAGE [...] (signature on file) DAKOTAH Echeverria (ASCP) 07/15/13 4026 This Pap test was evaluated with the assistance of the CH[employer] TechnologiesPrep Test Imaging System. Due to cytologic findings at the recording artist microscope, comprehensive manual rescreening by a Erp Engineer may be required. The Pap Smear [...] performed at Main Lab DEPARTMENT OF PATHOLOGY, [address] [place] [address] Jordan Pedroza M.D. 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 78712 R30.0 10:50a Barb L08.9 Office Visit 04/09/2017 1:30p [facility] [place] [address] M25.512 C.M.A. S46.012A R20.0 M54.2 R20.2 Office Visit 03/25/2017 10:50a [facility] Vanessa Gutiérrez 88502 M25.512 - Barb Rosales Z23 J06.9 Office Visit 06/11/2016 1:00p [facility] Sydnie Sullivan, N.P. 36464 N76.0 - Vimal R35.0 L65.9 Office Visit 04/03/2016 11:10a [facility] Vanessa Gutiérrez 24467 Z00.00 - Barb Rosales N76.0 Z13.1 Z11.4 Z12.4 Z23 Office Visit 09/21/2015 2:00p [facility] [place] [address] M25.512 Vimal Office Visit 01/05/2015 1:30p [facility] [place] [address] N76.0 Vimal N39.0 Office Visit 12/15/2014 4:20p [facility] Deja Beck M.D. 56094 M54.41 - [place] E78.89 Office Visit 11/03/2014 12:40p [facility] Deja Beck M.D. 77360 780.79 - [place] 783.1 844.9 782.3 V17.49 Office Visit 05/12/2014 4:40p [facility] Deja Beck M.D. 68722 616.10 - [place] 783.1 461.8 461.9 Office Visit 03/22/2014 1:40p [facility] Vignesh Ferguson, 69726 616.10 [facility] Vimal Rosales Office Visit 12/22/2013 1:40p [facility] Deja Beck M.D. 25717 493.90 [facility] [place] 726.5 Office Visit 07/14/2013 2:00p [facility] Deja Beck M.D. 69879 V70.0 - [place] V76.2 V76.10 268.9 278.00 V17.49 v65.44 V77.91 Office Visit 10/20/2012 2:00p [facility] [place] M.D. 06081 723.4 C.M.A. Plan of Care Future Appointment(s):07/01/2017 4:00 pm - Pako Wood MD at [facility] Rkqkwtmi98/17/2018 1:00 pm - Vanessa Gutiérrez M.D. at [facility] - Kandcbizb50/28/2018 - Pako Wood MDM54.2 CervicalgiaNew Xrays:MRI Lumbar Spine W/OSP Lumbar Ap//Lat 2-3 ViewsNew Therapy:Physical TherapyFollow up:RV in 2 weeks after MRIs are done.M54.5 Low back pain
--- NOTE | 2017-06-30 17:14 | UC ---
UC General HPI - HPI Summary HPI Summary: Pt is c/o sharp pain to her lower abdomen since this am. It was episodic but is becoming more constant. She reports some brown vaginal d/c but ended her period 2 days ago. No fever, n/v/d. Denies risk/concern for std, same partner x 3 yeras. Admits to some frequent urination but no burning. - History of Current Complaint Chief Complaint: UCAbdominalPain Stated Complaint: STOMACH ACHE Time Seen by Provider: 06/30/17 16:33 Hx Obtained From: Patient Hx Last Menstrual Period: 06/25/17 Onset/Duration: Gradual Onset Pain Intensity: 6 Aggravating: nothing Alleviating: lying back lessens discomfort Associated Signs & Symptoms: Positive: Abdominal Pain. Negative: Dysuria, Fever - Allergy/Home Medications Allergies/Adverse Reactions: Allergies Allergy/AdvReac Type Severity Reaction Status Date / Time desloratadine [From Clarinex] Allergy Intermediate Hives Verified 06/30/17 16:34 latex Allergy Intermediate Rash Verified 06/30/17 16:34 levofloxacin [From Levaquin] Allergy Intermediate Hives Verified 06/30/17 16:34 naproxen Allergy Intermediate hives/dizzi Verified 06/30/17 16:34 ness PMH/Surg Hx/FS Hx/Imm Hx Respiratory History: Asthma Psychological History: Anxiety Other History Of: Negative For: HIV, Hepatitis B, Hepatitis C, Anticoagulant Therapy - Surgical History Surgical History: Yes Surgery Procedure, Year, and Place: , 1996. Cholecystectomy, 2000. Tubal Ligation, 2001. CARPAL TUNNEL RIGHT. DEVIATED SEPTUM - Family History Known Family History: Positive: Unknown, Hypertension - father, Renal Disease - mother and grandmother, Respiratory Disease Negative: Cardiac Disease, Diabetes Family History: Stomach cancer, uterine cancer - Social History Occupation: Employed Full-time Lives: With Family Alcohol Use: Occasionally Substance Use Type: None Smoking Status (MU): Never Smoked Tobacco Have You Smoked in the Last Year: No Household Exposure Type: Cigarettes - Immunization History Most Recent Influenza Vaccination: none 2017 Vaccination Up to Date: Yes Review of Systems Constitutional: Negative Skin: Negative Eyes: Negative ENT: Negative Respiratory: Negative Cardiovascular: Negative Gastrointestinal: Abdominal Pain Genitourinary: Frequency, Urgency, Vaginal/Penile Discharge - brown Motor: Negative Neurovascular: Negative Musculoskeletal: Negative Neurological: Negative Psychological: Negative Is Patient Immunocompromised?: No All Other Systems Reviewed And Are Negative: Yes Physical Exam Triage Information Reviewed: Yes Appearance: Well-Appearing Vital Signs: Initial Vital Signs Temp 99.9 F 06/30/17 16:29 Pulse 100 06/30/17 16:29 Resp 16 06/30/17 16:29 BP 100/56 06/30/17 16:29 Pulse Ox 96 06/30/17 16:29 Vital Signs Reviewed: Yes Eyes: Positive: Conjunctiva Clear ENT: Positive: Normal ENT inspection Neck: Positive: Supple, Nontender, No Lymphadenopathy Respiratory: Positive: Lungs clear, Normal breath sounds Cardiovascular: Positive: RRR, No Murmur Abdomen Description: Positive: Other: - flat, hyperactive BS, soft, tender RLQ with mild guarding but no reboubd. No mass or HSM. No CVA tenderness. Pelvic Exam: Positive: Other - No external lesion. Vagina without lesion or discharge and no odor. Cervix closed. Cultures obtained, scant blood from os. Fundus is tender as is R adnexal area but no cmt and no mass appreciated. Musculoskeletal: Positive: ROM Intact Neurological: Positive: Alert Psychological: Positive: Age Appropriate Behavior Skin Exam: Normal Diagnostics - Laboratory Diagnostic Studies Completed/Ordered: Pelvic cultures=pending, hcg=neg, U/A = small blood otherwise unremarkable. Course/Dx - Course Course Of Treatment: no overt STD or URI. hcg=neg. abdominal exam with RLQ pain thus must r/o appendicitis and pelvic exam with fundal and R adnexal discomfort so manager group pathology possible. pt agrees to [facility] for additonal evaluation. will go by car with her daughter. [facility] ER called, report given to Justine Quintero NP. Advised of PE, workup here and concern for manager group/appy pathology. - Differential Dx - Multi-Symptom Provider Diagnoses: R lower abdominal pain. Fundal and R adnexal pain. Discharge - Sign-Out/Discharge Documenting (check all that apply): Discharge - Discharge Plan Condition: Stable Disposition: [facility] Referrals: Vanessa Gutiérrez MD [Primary Care Provider] - Additional Instructions: GO DIRECTLY TO THE [facility] EMERGENCY ROOM FROM HERE DISCUSSED - Billing Disposition and Condition Condition: STABLE Disposition: EMTALA
== END 2017-06-30 17:20 | disposition short-term general hospital (02) ==
LOC: UCCORT 15:24
DX: R10.31 Right lower quadrant pain (principal); R10.2 Pelvic and perineal pain; Z32.02 Encounter for pregnancy test, result negative; Z88.8 Allergy status to other drugs, medicaments and biological substances; Z88.6 Allergy status to analgesic agent; Z88.1 Allergy status to other antibiotic agents; Z91.040 Latex allergy status
CPT/HCPCS: 81003; 84702; 87480; 87491; 87510; 87591; 87661; 99212; G0463

== ENCOUNTER 2017-07-15 13:49 | Emergency (ER) | payer OTHER ==
[2017-07-15 15:01] VITALS: BP 104/66
--- NOTE | 2017-07-15 15:16 | UC ---
Complaint Female HPI - HPI Summary HPI Summary: Pt presents with urinary frequency, bladder pressure, and lower abdominal discomfort since yesterday. She tells me that she has had a UTI before and this feels the same. Has left over pyridium from the past, and took some with good relief. Denies fever, chills, SOB, chest pain, n/v/d/c, flank pain, hematuria, vaginal discharge/bleeding. - History Of Current Complaint Chief Complaint: UCGU Stated Complaint: URINARY COMPLAINT Time Seen by Provider: 07/15/17 14:51 Hx Obtained From: Patient Hx Last Menstrual Period: 06/26/17 Onset/Duration: Sudden Onset Timing: Constant Severity Initially: Mild Severity Currently: Moderate Pain Intensity: 6 Pain Scale Used: 0-10 Numeric - Allergies/Home Medications Allergies/Adverse Reactions: Allergies Allergy/AdvReac Type Severity Reaction Status Date / Time desloratadine [From Clarinex] Allergy Intermediate Hives Verified 07/15/17 15:02 latex Allergy Intermediate Rash Verified 07/15/17 15:02 levofloxacin [From Levaquin] Allergy Intermediate Hives Verified 07/15/17 15:02 naproxen Allergy Intermediate hives/dizzi Verified 07/15/17 15:02 ness PMH/Surg Hx/FS Hx/Imm Hx Respiratory History: Asthma GI/ History: Gastroesophageal Reflux Psychological History: Anxiety, Depression Other History Of: Negative For: HIV, Hepatitis B, Hepatitis C, Anticoagulant Therapy - Surgical History Surgical History: Yes Surgery Procedure, Year, and Place: , 1996. Cholecystectomy, 2000. Tubal Ligation, 2001. CARPAL TUNNEL RIGHT. DEVIATED SEPTUM - Family History Known Family History: Positive: Unknown, Hypertension - father, Renal Disease - mother and grandmother, Respiratory Disease Negative: Cardiac Disease, Diabetes Family History: Stomach cancer, uterine cancer - Social History Lives: With Family Alcohol Use: None Substance Use Type: None Smoking Status (MU): Never Smoked Tobacco Have You Smoked in the Last Year: No Household Exposure Type: Cigarettes - Immunization History Most Recent Influenza Vaccination: none 2017 Vaccination Up to Date: Yes Review of Systems Constitutional: Negative Skin: Negative Respiratory: Negative Cardiovascular: Negative Gastrointestinal: Abdominal Pain Genitourinary: Dysuria, Frequency, Urgency Neurovascular: Negative Neurological: Negative Psychological: Negative All Other Systems Reviewed And Are Negative: Yes Physical Exam - Summary Physical Exam Summary: GENERAL: NAD. WDWN. No pain distress. SKIN: No rashes, sores, ulcers, masses, lesions. NECK: Supple. Nontender. No lymphadenopathy. CHEST: CTAB. No r/r/w. No accessory muscle use. Breathing comfortably and in no distress. CV: RRR. Without m/r/g. Pulses intact. Brisk cap refill. ABDOMEN: Soft. NTTP. No distention or guarding. No organomegaly. No CVA tenderness. Bowel sounds present x4. NEURO: Alert. CN II-XII grossly intact. PSYCH: Age appropriate behavior. Triage Information Reviewed: Yes Vital Signs: Initial Vital Signs Temp 97.7 F 07/15/17 14:52 Pulse 90 07/15/17 14:52 Resp 16 07/15/17 14:52 BP 104/66 07/15/17 14:52 Pulse Ox 99 07/15/17 14:52 Complaint Female Dx - Course Course Of Treatment: UA with trace leuks. Will send for culture and treat with Macrobid pending results. - Differential Dx/Diagnosis Provider Diagnoses: UTI Discharge - Sign-Out/Discharge Documenting (check all that apply): Discharge/Admit/Transfer - Discharge Plan Condition: Stable Disposition: HOME Prescriptions: Fluconazole 150 MG (NF) [Diflucan 150 mg (NF)] 150 mg PO ONCE #1 tab Nitrofurantoin Macrocrystals* [Macrodantin 100 mg*] 100 mg PO BID #10 cap Patient Education Materials: Urinary Tract Infection in Women (ED) Referrals: Vanessa Gutiérrez MD [Primary Care Provider] - Additional Instructions: If you develop a fever, shortness of breath, chest pain, new or worsening symptoms - please call your PCP or go to the ED. - Billing Disposition and Condition Condition: STABLE Disposition: HOME
== END 2017-07-15 15:42 | disposition home or self-care (01) ==
LOC: UCCORT 13:49
DX: N39.0 Urinary tract infection, site not specified (principal); Z88.6 Allergy status to analgesic agent; Z88.3 Allergy status to other anti-infective agents; Z88.8 Allergy status to other drugs, medicaments and biological substances
CPT/HCPCS: 81003; 87086; 99212; G0463

== ENCOUNTER 2017-09-15 14:28 | Emergency (ER) | payer OTHER ==
[2017-09-15 14:44] VITALS: BP 94/60
--- NOTE | 2017-09-15 15:05 | UC ---
General HPI - HPI Summary HPI Summary: Patient went to being ill for 3 days. Began with a sore throat now include sinus and chest congestion along with right ear discomfort. She does have a history of asthma and used her rescue inhaler once this morning. She denies any fever or chills. She has no chest pain. She was to some sneezing and history of allergies. She is treating her allergies with Gertrude but it is not helping her current signs or symptoms. - History of Current Complaint Hx Obtained From: Patient Hx Last Menstrual Period: 08/25/17 Onset/Duration: Gradual Onset Timing: Constant Pain Intensity: 0 Aggravating: nothing Associated Signs & Symptoms: Positive: Cough, Wheezing. Negative: Diarrhea, Fever, Nausea, Vomiting <Susie Barkley - Last Filed: 09/15/17 14:48> <Xavi Navarro - Last Filed: 09/15/17 20:00> - History of Current Complaint Chief Complaint: UCRespiratory Stated Complaint: CONGESTION RUNNY NOSE SINUS Time Seen by Provider: 09/15/17 14:44 - Allergy/Home Medications Allergies/Adverse Reactions: Allergies Allergy/AdvReac Type Severity Reaction Status Date / Time desloratadine [From Clarinex] Allergy Intermediate Hives Verified 07/15/17 15:02 latex Allergy Intermediate Rash Verified 07/15/17 15:02 levofloxacin [From Levaquin] Allergy Intermediate Hives Verified 07/15/17 15:02 naproxen Allergy Intermediate hives/dizzi Verified 07/15/17 15:02 ness PMH/Surg Hx/FS Hx/Imm Hx Respiratory History: Asthma Psychological History: Anxiety, Depression Other History Of: Negative For: HIV, Hepatitis B, Hepatitis C, Anticoagulant Therapy - Surgical History Surgical History: Yes Surgery Procedure, Year, and Place: , 1996. Cholecystectomy, 2000. Tubal Ligation, 2001. CARPAL TUNNEL RIGHT. DEVIATED SEPTUM - Family History Known Family History: Positive: Unknown, Hypertension - father, Renal Disease - mother and grandmother, Respiratory Disease Negative: Cardiac Disease, Diabetes Family History: Stomach cancer, uterine cancer - Social History Occupation: Employed Full-time Lives: With Family Alcohol Use: None Substance Use Type: None Smoking Status (MU): Never Smoked Tobacco Have You Smoked in the Last Year: No Household Exposure Type: Cigarettes - Immunization History Most Recent Influenza Vaccination: none 2017 Vaccination Up to Date: Yes <FilippoSusie - Last Filed: 09/15/17 14:48> Review of Systems Constitutional: Negative Skin: Negative Eyes: Negative ENT: Sore Throat, Ear Ache - right, Nasal Discharge, Sinus Congestion, Sinus Pain/Tenderness Respiratory: Shortness Of Breath, Cough Cardiovascular: Negative Gastrointestinal: Negative Genitourinary: Negative Motor: Negative Neurovascular: Negative Musculoskeletal: Negative Neurological: Negative Psychological: Negative Is Patient Immunocompromised?: No All Other Systems Reviewed And Are Negative: Yes <Susie Barkley - Last Filed: 09/15/17 14:48> Physical Exam Triage Information Reviewed: Yes Appearance: Well-Appearing Vital Signs: Initial Vital Signs Temp 99.8 F 09/15/17 14:42 Pulse 92 09/15/17 14:42 Resp 09/15/17 14:42 BP 94/60 09/15/17 14:42 Pulse Ox 97 09/15/17 14:42 Vital Signs Reviewed: Yes Eyes: Positive: Conjunctiva Clear ENT: Positive: Pharyngeal erythema, Nasal congestion, TMs normal, Uvula midline. Negative: Nasal drainage, Tonsillar swelling, Tonsillar exudate, Trismus, Muffled voice, Hoarse voice Neck: Positive: Supple, Nontender, No Lymphadenopathy Respiratory: Positive: Lungs clear, No respiratory distress, Decreased breath sounds Cardiovascular: Positive: RRR, No Murmur Abdomen Description: Positive: Nontender, No Organomegaly, Soft Bowel Sounds: Positive: Present Musculoskeletal: Positive: ROM Intact Neurological: Positive: Alert Psychological: Positive: Age Appropriate Behavior Skin Exam: Normal <FilippoSusie - Last Filed: 09/15/17 14:48> Vital Signs: Initial Vital Signs Temp 99.8 F 09/15/17 14:42 Pulse 92 09/15/17 14:42 Resp 09/15/17 14:42 BP 94/60 09/15/17 14:42 Pulse Ox 97 09/15/17 14:42 <Xavi Navarro - Last Filed: 09/15/17 20:00> Diagnostics - Laboratory Diagnostic Studies Completed/Ordered: rapid strep=neg <FilippoSusie - Last Filed: 09/15/17 14:48> Course/Dx - Course Course Of Treatment: rapid strep neg. no indication for antibiotic - Differential Dx - Multi-Symptom Provider Diagnoses: URI. asthma flare <Susie Barkley - Last Filed: 09/15/17 14:48> Discharge - Sign-Out/Discharge Documenting (check all that apply): Discharge/Admit/Transfer - Billing Disposition and Condition Condition: STABLE Disposition: Home <Susie Barkley - Last Filed: 09/15/17 14:48> - Billing Disposition and Condition Condition: STABLE Disposition: Home <Xavi Navarro - Last Filed: 09/15/17 20:00> - Discharge Plan Condition: Stable Disposition: HOME Prescriptions: Albuterol HFA INHALER* [Ventolin HFA Inhaler*] 2 puff INH Q6H #1 mdi predniSONE TAB* [Deltasone 20 MG TAB*] 40 mg PO DAILY 5 Days #10 tab Patient Education Materials: Asthma (DC), Upper Respiratory Infection (DC) Referrals: Vanessa Gutiérrez MD [Primary Care Provider] - 5 Days Additional Instructions: Per institutional requirements, I have reviewed the chart, however, I was not consulted specifically or made aware of this patient by the above midlevel provider. I did not personally evaluate, interact with , or disposition this patient.
== END 2017-09-15 15:17 | disposition home or self-care (01) ==
LOC: UCCORT 14:28
DX: J06.9 Acute upper respiratory infection, unspecified (principal); J45.909 Unspecified asthma, uncomplicated; Z88.1 Allergy status to other antibiotic agents; Z88.8 Allergy status to other drugs, medicaments and biological substances
CPT/HCPCS: 87651; 99212; G0463

== ENCOUNTER 2017-11-07 18:48 | Emergency (ER) | payer OTHER ==
--- OUTSIDE RECORDS SUMMARY | 2017-11-07 19:15 | XMS REPORT ---
:1980 External Reference #:[id number] Author Organization [facility] 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 Primary Care Physician Unavailable Payers Type Date Identification Numbers Payment Provider Subscriber Commercial Effective: Policy Number: [id number] Fidel[employer] Medicaid Bibiana Garcia 2008 Tomick PayID: [id number] [address] [place] [address] Medicaid Policy Number: [id number] Medicaid Bibiana Champion Group Name: 1 1 [address] PayID: [id number] [place] [address] Workers Compensation Policy Number: National Liability Bibiana Garcia [id number] Millick PayID: [id number] [address] [place] [address] Workers Effective: Policy Number: National Bibiana Garcia Compensation 2010 [id number] Liability Tomick Onset: 2010 PayID: [id number] [address] [place] [address] Problems Date Description Provider Status Onset: 09/10/2016 [...] Form Strength Qnty SIG Indications Ordering Provider Fluconazole 08/07/ Active Tablets 200mg 1tabs 1 by Светлана Pritchard mouth Suzanne, once M.D. Acetaminophen 09/10/ Active Tablets 325mg 30tabs Every 4 Unknown 2017 To 6 HRS Albuterol / Active Aerosol 90mcg/Act 17gm 2 puffs Unknown 0000 q 4h/ prn Albuterol / Active Nebulizer (2.5mg/3ML prn Unknown Sulfate 0000 ) 0.083% Klonopin / Active Tablets 0.5mg 1 po bid Unknown 0000 Singulair / Active Tablets 10mg 1 po qd Unknown 0000 Amitriptyline 00/00/ Active Tablets 50mg AT Unknown HCL 0000 Bedtime Clonazepam / Active Tablets 0.5mg 3 Times Unknown 0000 A Day as Needed as needed for Anxiety' Omeprazole / Active Capsules DR 40mg 2 Times Unknown 0000 A Day Escitalopram 0000/ Active Tablets 5mg Unknown Oxalate 0000 Keflex 08/24/ Hx Capsules 500mg 14caps 1 tab by Светлана 2018 - mouth 1 Suzanne, 08/25/ x dose M.D. 2018 Macrobid 05/15/ Hx Capsules 100mg 10caps 1 tab by Светлана 2018 - mouth Suzanne, 05/25/ twice a M.D. 2018 day for 5 days Cephalexin 02/26/ Hx Tablets 500mg 14tabs 1 tab PO Светлана 2017 - 1 Time. Suzanne, 04/30/ M.D. 2018 Diflucan 02/20/ Hx Tablets 150mg 1tabs 1 tab by Светлана 2017 - mouth Suzanne, 04/30/ M.D. 2017 Lortab 02/13/ Hx Tablets 5-325mg 14tabs 1 tab by Светлана 2017 - mouth Suzanne, 04/30/ every 6 M.D. 2018 hours as needed for pain Hydrocodone 02/10/ Hx Tablets 5-300mg 6tabs Every Unknown Bitartrate/Aceta 2016 - 4-6 minophen 02/16/ Hours as 2017 Needed as needed for Pain Hydrocodone/Acet 06/28/ Hx Tablets 5-325mg 30tabs 1 tab by Buck peña 2010 - mouth DeThomas, 08/11/ daily at M.D. 2010 bedtime as needed Cebolla 04/25/ Hx Tablets 5-325mg 30tabs 1-2 tabs 354.0 Maya 2010 - po q4h Kristin N.P. 06/27/ prn pain 2010 Amitriptyline / Hx Tablets 25mg 1 po qd Unknown HCL - 2017 Nexium / Hx Capsules DR 40mg 30caps 1 po bid Unknown - 2016 Loratadine / Hx Tablets 10mg 1 po qd Unknown - 2017 Vitamin D / Hx 50,000Unit weekly Unknown 0000 - s 2010 Celebrex / Hx Capsules 200mg 7caps 1 po bid Unknown 0000 - 2010 Flexeril / Hx Tablets 5mg po q hs Unknown 0000 - 2016 Sertraline HCL / Hx Tablets 50mg 1 by Unknown 0000 - mouth 2017 day Nitrofurantoin / Hx Capsules 100mg Unknown Monohydrate/Macr 0000 - ocrystals 2017 Immunizations CPT Code Status Date Vaccine Lot # [id number] Given 02/17/2012 flu vaccination 33987 Given 12/19/2010 flu vaccination 48122 Given 01/24/2010 flu vaccination 45518 Given 11/07/2009 Tdap injection Vital Signs Date Vital Result Comment 11/05/2017 Body Temperature 100.0 F Heart Rate 62 /min Respiratory Rate 15 /min O2 % BldC Oximetry 100 % Pain Level 6 Abd pain below belly button 08/24/2017 BP Systolic 94 mmHg BP Diastolic 65 mmHg Body Temperature 97.9 F Heart Rate 75 /min Respiratory Rate 16 /min Height 65 inches 5'5" Weight 166.00 lb BMI (Body Mass Index) 27.6 kg/m2 BSA (Body Surface Area) 1.83 m2 [place] body weight in kilograms 57 O2 % BldC Oximetry 100 % Pain Level 0 07/20/2017 BP Systolic 96 mmHg BP Diastolic 67 mmHg Body Temperature 99.4 F Heart Rate 74 /min Respiratory Rate 16 /min Height 65 inches 5'5" [place] body weight in kilograms 57 O2 % BldC Oximetry 98 % Pain Level 0 05/25/2017 BP Systolic 101 mmHg BP Diastolic 54 mmHg Body Temperature 98.6 F Heart Rate 80 /min Respiratory Rate 16 /min Height 65 inches 5'5" Weight 161.12 lb BMI (Body Mass Index) 26.8 kg/m2 BSA (Body Surface Area) 1.80 m2 [place] body weight in kilograms 57 O2 % BldC Oximetry 95 % Pain Level 6 Right side back pain achy 04/30/2017 BP Systolic 97 mmHg BP Diastolic 64 mmHg Body Temperature 98.4 F 36.9C Heart Rate 71 /min Respiratory Rate 18 /min Height 65 inches 5'5" Weight 159.00 lb BMI (Body Mass Index) 26.5 kg/m2 BSA (Body Surface Area) 1.79 m2 [place] body weight in kilograms 57 Pain Level 0 02/26/2017 BP Systolic 107 mmHg BP Diastolic 72 mmHg Body Temperature 98.3 F 36.8C Heart Rate 78 /min Respiratory Rate 16 /min Height 65 inches 5'5" Weight 157.00 lb BMI (Body Mass Index) 26.1 kg/m2 BSA (Body Surface Area) 1.78 m2 [place] body weight in kilograms 57 O2 % [...] kg/m2 BSA (Body Surface Area) 1.86 m2 [place] body weight in kilograms 63 O2 % BldC Oximetry 98 % Pain Level 7 Low back and abd pain bilaterally 10/17/2010 Height 68 inches 5'8" Weight 165.00 lb BMI (Body Mass Index) 25.1 kg/m2 02/20/2010 Height 68 inches 5'8" Weight 172.00 lb BMI (Body Mass Index) 26.1 kg/m2 Results Test Date Test Result H/L Range Note Urine Dipstick 11/05/2017 Ua Color Yellow Yellow Ua Clarity Clear Clear Ua Leuko Negaitve Negative Ua Nitrite Negative Negative Ua Urobilinogen 1 mg/dL 0.2 - 1.0 E.U./dL Ua Protein Negative Negative Ua PH 6.5 6.5-7.5 Ua Blood Negative Negative Ua Specific [place] 1.015 1.010-1.030 Ua Ketones Negative Negative Ua Bilirubin Negative Negative Ua Glucose Negative Negative Ua RFX Micro & Culture II 10/28/2017 Urine Color YELLOW Yellow 1 Urine Clarity CLEAR Clear 1 Urine Glucose - Dipstick NEGATIVE mg/dL Negative 1 Urine Bilirubin - Dipstick NEGATIVE Negative 1 Urine Ketone NEGATIVE mg/dL Negative 1 Urine Specific [place] 1.010 1.010-1.030 1 Urine Blood NEGATIVE Negative 1 Urine PH 6.5 6.5-7.5 1 Urine Protein - Dipstick NEGATIVE mg/dL Negative 1 Urine Urobilinogen - Dipstick 0.2 E.U./dL 0.2-1.0 1 Urine Nitrite - Dipstick NEGATIVE Negative 1 Urine Leuk Esterase NEGATIVE Negative 1 Source: URINE, CLEAN CAT <SEE NOTE> 1, 2 Calculi,Urinary,With Photo 08/05/2017 Color Dean . 3 Size (SEE NOTE) 3, 4 Weight 15.0 mg . 3 Composition (SEE NOTE) 3, 5 Ca Oxalate,Dihydrate 20 % . 3 Ca Oxalate,Monohydrate 35 % . 3 Calcium Phosphate 45 % . 3 Nidus No Nidus visuali <SEE NOTE> . 3, 6 . (SEE NOTE) 3, 7 . (SEE NOTE) 3, 8 . (SEE NOTE) 3, 9 Disclaimer (SEE NOTE) 3, 10 Laboratory test 08/05/2017 Urine HCG NEGATIVE Negative 3, 11 finding (Qualitative) Urine Culture 05/25/2017 Urine Culture URETHRAL ABI 12 Quantity < 10,000 CFU/mL 12 Urine Culture 05/11/2017 Urine Culture URETHRAL ABI 13 Quantity 10,000 - 50,000 <SEE NOTE> 13, 14 Slide Review 02/16/2017 Slide Review (SEE NOTE) 13, 15 Urine Culture 02/16/2017 Urine Culture NO GROWTH: FINAL <SEE 13, 16 NOTE> Basic Metabolic Panel 02/16/2017 Glucose 103 mg/dL 74-106 13 BUN 16 mg/dL 7-18 13 Creatinine 0.9 mg/dL 0.6-1.3 13 Glom Filtration Rate, Estimate >60 mL/min >60 13 If >60 mL/min >60 13, 17 BUN/Creat 17.7 ratio 13 Sodium 137 mmol/L 136-145 13 Potassium 4.0 mmol/L 3.5-5.1 13 Chloride 104 mmol/L 98-107 13 Carbon Dioxide 29 mmol/L 21-32 13 Anion Gap 4 mEq/L Low 8-16 13 Calcium 8.4 mg/dL Low 8.5-10.1 13 CBS W/Automated Diff 02/16/2017 White Blood Count 9.8 K/uL 3.1-10.7 13 Red Blood Count 4.13 M/uL 3.90-5.40 13 Hemoglobin 13.7 gm/dL 11.6-15.8 13 Hematocrit 39.7 % 36.0-46.1 13 Mean Cell Volume 96.1 fl 80.9-99.0 13 Mean Corpuscular HGB 33.2 pg High 25.9-32.7 13 Mean Corpuscular HGB Conc 34.5 g/dL High 30.8-34.3 13 Platelet Count 252 K/uL 150-400 13 Red Cell Distri Width SD 42.8 fl 3-47 13 Red Cell Distri Width %CV 12.6 % 11.7-14.4 13 Mean Platelet Volume 11.1 fL 8.9-12.4 13 Neut% 73.5 % High 40.4-72.8 13 Lymph % 18.3 % Low 20.0-42.0 13 Granite % 6.9 % 4.3-13.2 13 Eo% 1.1 % 0.0-6.6 13 Bas% 0.2 % 0.0-1.1 13 Neut# 7.18 K/uL High 1.8-7.0 13 Lymph # 1.79 K/uL 1.0-4.0 13 Granite # 0.67 K/uL 0.3-0.9 13 Eos # 0.11 K/uL 0.0-0.5 13 Baso # 0.02 K/uL 0.0-0.1 13 Calculi,Urinary,With Photo 02/11/2017 Color Brown . 18 Size (SEE NOTE) 18, 19 Weight 133.0 mg . 18 Composition (SEE NOTE) 18, 20 Ca Oxalate,Dihydrate 05 % . 18 Ca Oxalate,Monohydrate 55 % . 18 Calcium Phosphate 40 % . 18 Nidus No Nidus visuali <SEE NOTE> . 18, 21 Surface Crystals Comment: . 18, 22 . (SEE NOTE) 18, 23 . (SEE NOTE) 18, 24 . (SEE NOTE) 18, 25 Disclaimer (SEE NOTE) 18, 26 Serum carbon dioxide 02/10/2017 Serum carbon dioxide 27 21-32 measurement measurement RDW RBC Auto-Rto 02/10/2017 RDW RBC Auto-Rto [...] 0.3-0.9 automated count automated count (number/volume) (number/volume) Serum or plasma 02/10/2017 Serum or plasma [...] 02/10/2017 WBC # Bld Auto 6.9 3.1-10.7 Leukocyte esterase Ur 02/10/2017 Leukocyte esterase Ur Negative Negative Ql Strip.auto Ql Strip.auto Ketones Ur 02/10/2017 Ketones Ur Negative Negative Strip.auto-mCnc Strip.auto-mCnc Epithelial cells 02/10/2017 Epithelial cells Few None Seen detection in urine detection in urine sediment by li sediment by light microscopy Color Ur 02/10/2017 Color Ur Yellow Yellow Mucus detection in 02/10/2017 Mucus detection in [...] SerPl-cCnc 02/10/2017 Alt SerPl-cCnc 21 12-78 Blood hemoglobin 02/10/2017 Blood hemoglobin 14.3 11.6-15.8 measurement measurement (mass/volume) (mass/volume) Blood erythrocytes 02/10/2017 Blood erythrocytes 4.25 3.90-5.40 [...] Dna 02/19/2012 Affirm Vaginal Dna (See Note) 27 Probe Probe GC/Chlamydia Amplified 02/19/2012 GC/Chlamydia Rna (See Note) 28 Rna Dna Probe N. Gono + C. 06/11/2011 Dna Probe For See Note 29 Trach. Chlamydia Trac. Dna Probe For N. Gonorrhoeae See Note 30 Laboratory test finding 06/10/2011 Cytology Pap See Note 31 Laboratory test finding 05/29/2011 Gastric Biopsy/Polyp See Note 32 Urine Culture & 05/19/2011 M 33 Sensitivi <See Note> Urine Culture & 04/29/2011 M 34 Sensitivi <See Note> Urine Culture & 03/31/2011 M 35 Sensitivi <See Note> Laboratory test finding 01/29/2011 Amylase 89 U/L 20-120 36 Lipase 50 U/L 22-51 Comp Metabolic Panel 01/29/2011 Albumin 4.0 GM/DL 3.6-5.4 Albumin/Globulin Ratio 1.2 1-3 Alkaline Phosphatase 34 U/L 30-110 Alt (SGPT) 18 U/L 14-54 Anion Gap 4.0 mmol/L 2-11 37 Ast (Sgot) 19 U/L 12-42 BUN 8 mg/dL 6-24 BUN/Creatinine Ratio 10.0 8-20 Bilirubin Total 0.7 mg/dL 0.4-1.5 38 Calcium 9.4 mg/dL 8.1-9.9 Chloride 102 mmol/L 101-111 Co2 (Carbon Dioxide) 30.0 mmol/L 22-32 Creatinine 0.8 mg/dL 0.50-1.40 Globulin 3.3 GM/DL 2-4 Glucose 65 mg/dL Low 70-100 One Over Creatinine 1.25 Potassium 3.9 mmol/L 3.5-5.0 Sodium 136 mmol/L 135-145 Total Protein 7.3 GM/DL 6.2-8.1 eGFR 106.9 > 60 39 eGFR Non- 83.1 > 60 H. Pylori Evaluation Quantitat 01/29/2011 H. Pylori Iga AB Negative Negative H. Pylori Igg AB <0.75 index () 40 H. Pylori Igm AB Positive Negative Urine Culture & Sensitivi 01/09/2011 Urine Culture NF1 41 Sensitivi Laboratory test finding 12/20/2010 Hemoglobin A1c 5.1 % Less Than 6.0 42 TSH 1.65 MIU/ML 0.34-5.60 Lipid Profile (Trig/Chol/HDL) 12/20/2010 Cholesterol 169 mg/dL Less Than 200 43 Cholesterol/HDL Ratio 3.13 AVERAGE 1-4.44 High Density Lipoprotein 54 mg/dL 40-60 44 Low Density Lipoprotein 97 mg/dL Less Than 100 45 Triglyceride 92 mg/dL 40-200 Vitamin D, 25 Hydroxy 12/20/2010 25-Hydroxy Vitamin D Total 32 ng/mL () 46 25-Hydroxy Vitamin D2 8.9 ng/mL () 25-Hydroxy Vitamin D3 23 ng/mL () Type And Screen 04/25/2010 Patient Blood Type B POS Antibody Screen NEGATIVE Basic Metabolic Panel 04/25/2010 Glucose 76 mg/dL 76-115 BUN 17 mg/dL 5-23 Creatinine 0.9 mg/dL 0.5-1.4 Glom Filtration Rate, Estimate >60 mL/min >60 If >60 mL/min >60 47 BUN/Creat 18.8 Sodium 140 mEq/L 136-145 Potassium 4.2 mEq/L 3.5-5.1 Chloride 103 mEq/L 98-107 Carbon Dioxide 31 mEq/L 21-32 Anion Gap 10 mEq/L 8-16 Calcium 8.7 mg/dL 8.5-10.1 Urine Screen 04/25/2010 Urine Color YELLOW Yellow Urine Clarity CLEAR Clear Urine Glucose - Dipstick NEGATIVE mg/dL Negative Urine Bilirubin - Dipstick NEGATIVE Negative Urine Ketone NEGATIVE mg/dL Negative Urine Specific [place] 1.025 1.010-1.030 Urine Blood NEGATIVE Negative Urine PH 6.0 Low 6.5-7.5 Urine Protein - Dipstick NEGATIVE mg/dL Negative Urine Urobilinogen - Dipstick 0.2 E.U./dL 0.2-1.0 Urine Nitrite - Dipstick NEGATIVE Negative Urine Leuk Esterase NEGATIVE Negative Laboratory test finding 04/25/2010 Act Partial Thrombo 28.2 seconds 23.4- 37.4 48 Time Protime 04/25/2010 Protime 14.0 seconds 12.2-15.2 Inr 1.0 0.9-1.1 49 CBC 04/25/2010 White Blood Count 9.4 K/uL [...] test finding 04/25/2010 HCG Serum, Qualitative NEGATIVE 50 1 N39.0 2 URINE, CLEAN CATCH 3 CONSULT 08/03/17 12;30 4 Specimen received as fragments. 5 Percentage (Represents the % composition) 6 No Nidus visualized 7 Photograph will follow under separate cover. 8 Physician questions regarding Calculi Analysis contact [facility] at: [phone]. 9 Calculi report with photograph will follow via computer, mail or engineering professionals delivery. 10 This test was developed and its performance characteristics determined by [employer]. It has not been cleared or approved by the Food and Drug Administration. Performed at: [address] [id number] [employer] Feeder: Riky Barnes MD, Phone: [phone] 11 FIRST MORNING SPECIMENS GENERALLY CONTAIN THE HIGHEST CONCENTRATION OF HCG AND ARE RECOMMENDED FOR EARLY DETECTION OF . Method: Quidel QuickVue One-Step Immunoassay 12 N39.0 13 N20.0 14 10,000 - 50,000 CFU/mL 15 Instrument flagged sample for slide review. Less than 10% Bands seen, no other immature WBC's seen. RBC morphology essentially normal. Platelet estimate=NORMAL 16 NO GROWTH: FINAL REPORT 17 Note: Persistent reduction for 3 months or more in an eGFR <60 mL/min/1.73 m2 defines CKD. Patients with eGFR values >/=60 mL/min/1.73 m2 may also have CKD if evidence of persistent proteinuria is present. The original MDRD equation for estimated GFR is not valid for patients less than 18 years of age. Additional information may be found at www.kdoqi.org. 18 CONSULT 02/10/17 19 Specimens received as a mixture of whole stones and fragments. 20 Percentage (Represents the % composition) 21 No Nidus visualized 22 Calcium oxalate dihydrate 23 Photograph will follow under separate cover. 24 Physician questions regarding Calculi Analysis contact [facility] at: [phone]. 25 Calculi report with photograph will follow via computer, mail or engineering professionals delivery. 26 This test was developed and its performance characteristics determined by [employer]. It has not been cleared or approved by the Food and Drug Administration. Performed at: [address] [id number] [employer]: Riky Barnes MD, Phone: [phone] 27 RUN DATE: 02/20/12 [facility] LAB LIVE PAGE 1 RUN TIME: [address] [place] [address] Specimen Inquiry ----- Name: BIBIANA CHAMPION Vito : [address]: Xavi Navarro MD Acct: [id number] Unit: [id number] AGE: 32 Location: [facility] Re02/19/12 SEX: F Status: DEP ER ----- SPEC: [id number] WILL: 02/19/12-[address] [facility] [address]: Rafael Jacobson REQ: [id number] RECD: 02/19/12417 STATUS: MILAGROS KERNS DR: Melanie PEPPER,Linda Carroll [...] performed at Main Lab DEPARTMENT OF PATHOLOGY, [facility] [employer] [place] [address] Jordan Pedroza M.D. Director [facility] Permit # [id number] RUN DATE: 02/24/12 [facility] LAB LIVE PAGE 1 RUN TIME: 1612 [facility] [employer] [place] [address] Specimen Inquiry ----- Name: BIBIANA CHAMPION : [address]: Xavi Navarro MD Acct: [id number] Unit: [id number] AGE: 32 Location: [facility] Re02/19/12 SEX: F Status: DEP ER ----- SPEC: [id number] WILL: 02/19/[address] [facility] [address]: Rafael Jacobson REQ: [id number] RECD: 02/19/12 STATUS: MILAGROS KERNS DR: Melanie PEPPER,Xavi Whitfield,MD [...] result may have adverse psychosocial impact, the [facility] recommends retesting by a method using an [...] performed at Main Lab DEPARTMENT OF PATHOLOGY, [facility] [employer] [place] [address] Jordan Pedroza M.D. Director [facility] Permit # [id number] RUN DATE: 02/24/12 [facility] LAB LIVE PAGE 2 RUN TIME: 161 [facility] [employer] [place], [place] [address] Specimen Inquiry ----- Patient: BIBIANA CHAMPION [id number] (Continued) ----- Specimen: [id number] Collected: 02/19/12113 Received: 02/19/12975 (Continued) ----- Procedure Result Verified Site ----- [...] performed at Main Lab DEPARTMENT OF PATHOLOGY, [address] [place] [address] Jordan Pedroza M.D. Director [facility] Permit # [id number] 29 NEGATIVE FOR CHLAMYDIA TRACHOMATIS BY DNA HYBRIDIZATION ASSAY. THIS TEST IS APPROVED FOR OCULAR AND UROGENITAL SITES ONLY. 30 NEGATIVE FOR NEISSERIA GONORRHOEAE BY DNA HYBRIDIZATION ASSAY. THIS METHOD IS APPROVED FOR UROGENITAL SITES ONLY. 31 Cytology Laboratory [address] [place] [address], [address] [place] [address] CYTOLOGY REPORT Name: Bibiana Huber : 1980 (Age: 31) Sex: F Location: [facility] Date Collected: 06/10/2011 Billing #: [id number] Date Received: 2011 Physician(s): LINDA WHITFIELD MD Source of Specimen: ENDOCERVICAL/ ECTOCERVICAL THIN PREP Clinical Information: Date of Last Menstrual Period: None Provided Specimen Adequacy: SATISFACTORY FOR EVALUATION. NO ENDOCERVICAL/ TRANSFORMATION ZONE. General Categorization: NEGATIVE FOR INTRAEPITHELIAL LESION OR MALIGNANCY. lar Electronic Signature Chasidy Daly, DAKOTAH (ASCP) Reported: 06/16/2011 Cytology Outreach [facility] ICD-9 Code(s) V72.31 32 OPERATION/PROCEDURE Colonoscopy, EGD DIAGNOSIS: PART 1: "CECAL [...] ----- RIKY Todd MD 05/30/11 1352 ----- 31 ------- RUN DATE: 05/21/11 [facility] NMI LIVE PAGE 1 RUN TIME: 1345 Specimen Inquiry RUN USER: INTERFACE ----- Name: BIBIANA CHAMPION#: [id number] Status: REG REF Re Age/Sex: 31/F Unit#: [id number] Location: [facility] : [birth year] ----- SPEC #: [id number] WILL: 05/19/11 STATUS: COMP REQ #: [id number] RECD: 05/19/[address]: Haley ALVAREZ,Deanna Chavis SOURCE: URINE ENTR: 05/19/[address]: JAMI: ORDERED: URINE C S QUERIES: MEDENT REQUISITION # [id number] SPECIMEN DESCRIPTION: URINE, RANDOM ACT WKST: UR 05/21/11 #1 ----- Procedure Result Verified Site ----- > URINE CULTURE SENSITIVI Final 05/21/11-1345 ML SCANT NORMAL URETHRAL OR PERINEAL ABI ----- ML - [facility] Permit #[id number] [address] [place] [address] ----- DEPARTMENT OF PATHOLOGY, [address] [place] [address] [facility] Permit #[id number] Connie Hess M.D. [employer] ----- 32 ------- RUN DATE: 05/02/11 [facility] NMI LIVE PAGE 1 RUN TIME: 1142 Specimen Inquiry RUN USER: INTERFACE ----- Name: BIBIANA CHAMPION#: [id number] Status: DEP CLI Re Age/Sex: 31/F Unit#: [id number] Location: [facility] : 76 ----- SPEC #: [id number] WILL: 04/29/11 STATUS: COMP REQ #: [id number] RECD: 04/30/[address] [facility] [address]: Ke PEPPER,Que Aguirre SOURCE: URINE ENTR: 04/30/11-1099 [facility] DR: Linda Whitfield MD [facility]: ORDERED: URINE C S QUERIES : SPECIMEN DESCRIPTION: URINE, CLEAN CATCH ACT WKST: UR 05/02/11 #1 ----- Procedure Result Verified Site ----- > URINE CULTURE SENSITIVI Final 05/02/11-1141 ML SCANT NORMAL URETHRAL OR PERINEAL ABI ----- [facility] Permit #[id number] [address] [place] [address] ----- DEPARTMENT OF PATHOLOGY, [address] [place] [address] [facility] Permit #[id number] Connie Hess M.D. [employer] Operator ----- 33 ------- RUN DATE: 04/03/11 [facility] NMI LIVE PAGE 1 RUN TIME: 1117 Specimen Inquiry RUN USER: INTERFACE ----- Name: BIBIANA CHAMPION Status: BRENDA CLI Re Age/Sex: 31/F Unit#: [id number] [facility] : [birth year] ----- SPEC #: [id number] WILL: 03/31/11 STATUS: COMP REQ #: [id number] RECD: 04/01/[address] [facility] [address]: Melanie PEPPER,Xavi Phan SOURCE: URINE ENTR: 04/01/11 [facility] DR: Linda Whitfield MD SPDESC: ORDERED: URINE C S QUERIES: SPECIMEN DESCRIPTION: URINE, CLEAN CATCH ACT WKST: UR 04/03/11 #1 ----- Procedure Result Verified Site ----- > URINE CULTURE SENSITIVI Final 04/03/11-1117 ML FINAL: NO GROWTH DAY 2 (<1,000 CFU/mL) ----- - [facility] State Permit #[id number] [facility] [employer] [place] [address] ----- DEPARTMENT OF PATHOLOGY, [facility] [employer] [place] [address] [facility] Permit #[id number] Jordan Pedroza M.D. Director Judit Garrett M.D. [employer] Operator ----- 36 PLEASE NOTE NEW REFERENCE RANGE. 37 Anion gap measurement may be of limited value in the presence of any alkalosis, especially in a combined acid base disorder. . 38 A metabolite of Naproxen, O-desmethylnaproxen, has been shown to interfere with the Jendrchristieik-Tona method for measuring total bilirubin. Samples from patients who have taken Naproxen have shown spurious elevation in total bilirubin levels. 39 Because ethnic data is not always readily [...] 15-29 5 Kidney failure <15 (or dialysis) 40 -- REFERENCE VALUE -- <0.75 (negative) 0.75-0.99 (equivocal) >=1.00 ( positive) Test Performed by: [facility] Dpt of Lab Med and Pathology [address] [place] [address] Digital Media Specialist: Jake Colby III, M.D. 41 SPECIMEN CONTAINS NORMAL URETHRAL OR PERINEAL ABI AND DOES NOT SUGGEST URINARY TRACT INFECTION 42 THERAPEUTIC TARGET FOR THE TREATMENT OF DIABETES MELLITUS PATIENTS IS <7% HBA1C, AND IN SELECTIVE PATIENTS <6.0%. PLEASE REFER TO [employer] DIABETIC CARE GUIDELINES FOR FURTHER INFORMATION. 43 CHOLESTEROL INTERPRETATION: Desirable: Less than 200 MG/DL Borderline-High Risk: 200-239 MG/DL High-Risk: 240 MG/DL and over 44 HDL INTERPRETATION: Undesirable: High Risk: Less than 40 MG/DL Desirable: Low Risk: Greater than 60 MG/DL 45 LDL INTERPRETATION: Low Risk Optimal Level: LDL Less than 100 MG/DL Near or Above Optimal: LDL 100-129 MG/DL Borderline High Risk: LDL 130-159 MG/DL High Risk : LDL 160-189 MG/DL Very High Risk: LDL Greater than 189 MG/DL 46 -- REFERENCE VALUE -- 25-HYDROXY D TOTAL (D2+D3) Optimum levels in the normal population are 25-80 Test Performed by: [facility] Dpt of Lab Med and Pathology [address] [place] [address] Digital Media Specialist: Jake Colby III, M.D. 47 Note: Persistent reduction for 3 months or more in an eGFR <60 mL/min/1.73 m2 defines CKD. Patients with eGFR values >/=60 mL/min/1.73 m2 may also have CKD if evidence of persistent proteinuria is present. The original MDRD equation for estimated GFR is not valid for patients less than 18 years of age. Additional information may be found at www.kdoqi.org. 48 Is patient on heparin protocol? N Is patient on anticoagulants? Unknown QUERY: @EMR Pat ID: QUERY: @EMR Req #: QUERY: Anticoagulant Therapy? QUERY: Date of Last Dose: QUERY: Time of Last Dose: 49 THERAPEUTIC INR RANGE: 2.0 - 3.0 DVT, Pulmonary embolus, prophylaxis against venous thrombosis or systemic embolization in high risk patients. 2.5 - 3.5 Mechanical heart valves 50 QUERY: @EMR Pat ID: QUERY: @EMR Req #: Procedures Date CPT Code Description Status 08/24/2017 34588 Cystourethroscopy W/Removal FB/Calc/Stent Completed Urethra/Bladder Simple 08/05/2017 67939 Urography Retrograde W/Wo KUB Completed 08/05/2017 68908 Cystourethroscopy W/ Lithotripsy Incl. Ins. Indwelling Completed Stent 02/26/2017 29624 Cystourethroscopy W/Removal FB/Calc/Stent Completed Urethra/Bladder Simple 02/16/2017 23043 IV Infusion, Hydration, 31 Minutes To 1 Hour Completed 02/11/2017 27969 Cystourethroscopy W/ Lithotripsy Incl. Ins. Indwelling Completed Stent 05/23/2011 27839 Holter Monitor 24HR Inter/Report Completed 05/01/2010 77290 Neuroplasty median nerve at carpal tunnel Completed 05/01/2010 22986 Anesthesia, Lower Arm Surgery Completed (Nerve,Muscle,Tendon,Fascia,Bursa) Encounters Type Date Location Provider CPT E/M Dx Office Visit 11/05/2017 1:15p Urology Светлана Palacios M.D. 65168 N20.0 Office Visit 07/20/2017 1:00p Urology Светлана Palacios M.D. 67616 N20.0 Office Visit 05/25/2017 1:30p Urology Светлана Palacios M.D. 65142 N20.0 N39.0 Office Visit 04/30/2017 10:00a Urology Светлана Palacios M.D. 87035 N20.0 N39.0 Office Visit 02/16/2017 1:30p Urology Светлана Palacios M.D. 55764 N20.0 Office Visit 10/17/2010 10:00a Orthopaedic Office Buck Hester, 91096 723.4 M.D. Office Visit 08/12/2010 11:00a Orthopaedic Office Buck Hester, 44278 354.0 M.D. Office Visit 03/28/2010 11:00a Orthopaedic Office Buck Hester 21022 354.0 M.D. Office Visit 02/20/2010 2:00p Orthopaedic Office Buck Hester, 31011 354.0 M.DAzael Plan of Care Future Appointment(s):02/08/2018 1:00 pm - Светлана Palacios M.D. at [id number] 3:00 pm - Светлана Palacios M.D. at [id number]/05/2017 - Светлана Palacios M.D.N20.0 Calculus of kidneyComments:Patient has a 4 mm calculus based on the renal ultrasound. We'll check a 24-hour urine collection in 3 months and will plan on getting a CT scan in the year
[2017-11-07 19:21] VITALS: BP 108/65
--- NOTE | 2017-11-07 20:12 | UC ---
Complaint Female HPI - HPI Summary HPI Summary: 37 y/o female presents to the urgent care c/o vaginal discharge w/ bad odor for the past 3 days. Pt state vaginal discharge is associated w/ mild pelvic pain about 3/10. Pt has taken Tylenol PO to alleviate symptoms. LMP: w/ regular menstrual cycles. Pt has not done a PAP in the past 3 years. Pt denies Hx of STD's and has been w/ same partner for the past 5 years. Pt denies fever, urinary symptoms, SOB, chest pain, abdominal pain, N/V/D. - History Of Current Complaint Chief Complaint: UCGeneralIllness Stated Complaint: PERSONAL Time Seen by Provider: 11/07/17 19:57 Hx Obtained From: Patient Hx Last Menstrual Period: 10/16/17 ?: No Onset/Duration: Gradual Onset, Lasting Days - 3 days, Still Present, Worse Since - today Timing: Constant Severity Initially: Mild Severity Currently: Moderate Pain Intensity: 3 - pelvic pain Pain Scale Used: 0-10 Numeric Character: Dull Aggravating Factor(s): [place] Alleviating Factor(s): Nothing Associated Signs And Symptoms: Positive: Vaginal Discharge - w/ bad odor. Negative: Fever, Back Pain, Nausea, Vomiting(# Of Episodes =), Genital Swelling , Genital Blisters - Risk Factors Ectopic Risk Factor: Negative Ovarian Torsion Risk Factor: Negative - Allergies/Home Medications Allergies/Adverse Reactions: Allergies Allergy/AdvReac Type Severity Reaction Status Date / Time desloratadine [From Clarinex] Allergy Intermediate Hives Verified 07/15/17 15:02 latex Allergy Intermediate Rash Verified 07/15/17 15:02 levofloxacin [From Levaquin] Allergy Intermediate Hives Verified 07/15/17 15:02 naproxen Allergy Intermediate hives/dizzi Verified 07/15/17 15:02 ness Home Medications: Home Medications Escitalopram (NF) [Lexapro 5 mg (NF)] 10 mg PO DAILY 11/07/17 [History Confirmed 11/07/17] PMH/Surg Hx/FS Hx/Imm Hx Previously Healthy: Yes Respiratory History: Asthma GI/ History: Gastroesophageal Reflux Neurological History: Migraine Psychological History: Depression Other History Of: Negative For: HIV, Hepatitis B, Hepatitis C, Anticoagulant Therapy - Surgical History Surgical History: Yes Surgery Procedure, Year, and Place: , 1996. Cholecystectomy, 2000. Tubal Ligation, 2001. CARPAL TUNNEL RIGHT. DEVIATED SEPTUM - Family History Known Family History: Positive: Hypertension - father, Renal Disease - mother and grandmother, Respiratory Disease Negative: Cardiac Disease, Diabetes Family History: Stomach cancer, uterine cancer - Social History Occupation: Employed Full-time Lives: With Family Alcohol Use: None Substance Use Type: None Smoking Status (MU): Never Smoked Tobacco Have You Smoked in the Last Year: No Household Exposure Type: Cigarettes - Immunization History Most Recent Influenza Vaccination: none 2017 Vaccination Up to Date: Yes Review of Systems Constitutional: Negative Skin: Negative Eyes: Negative ENT: Negative Respiratory: Negative Cardiovascular: Negative Gastrointestinal: Negative Genitourinary: Vaginal/Penile Discharge, Other - pelvic pain Motor: Negative Neurovascular: Negative Musculoskeletal: Negative Neurological: Negative Psychological: Negative Is Patient Immunocompromised?: No All Other Systems Reviewed And Are Negative: Yes Physical Exam - Summary Physical Exam Summary: Vital signs: reviewed General: well developed, well nourished female sitting in the examining table w /o any acute distress. Head: Normocephalic, no lesions. Eyes: PERRLA, EOM's full, conjunctiva clear, fundi grossly normal. Ears: EAC's clear, TM's normal. Nose: Mucosa normal, no obstruction. Throat: Clear, no exudates, no lesions. Neck: Supple, no masses, no thyromegaly, no bruits. Chest: Lungs clear, no rales, no rhonchi, no wheezes. Heart: RR, no murmurs, no rubs, no gallops. Abdomen: Soft, no tenderness, no masses, BS normal. : Normal, no lesions, no discharge, no hernias noted. Pelvic: I was assisted by Nurse Amanda. External genitalia within normal limits. There is no lesions there is no masses noted. Speculum exam: The vaginal nielson are within normal limits w/ normal white vaginal discharge w/ fishy odor, no the lesions or rashes. The cervix is closed with no lesions or masses. There is no CMT's, and no adnexal masses. Sample sent to Lab for Affirm panel. Rectal: No lesions, no hemorrhoids, Back: Normal curvature, no tenderness. Extremities: FROM, no deformities, no edema, no erythema. Neuro: Physiological, no localizing findings. Skin: Normal, no rashes, no lesions noted. Triage Information Reviewed: Yes Vital Signs: Initial Vital Signs Temp 98.3 F 11/07/17 19:18 Pulse 79 11/07/17 19:18 Resp 16 11/07/17 19:18 BP 108/65 11/07/17 19:18 Pulse Ox 99 11/07/17 19:18 Complaint Female Dx - Course Course Of Treatment: 37 y/o female presents to the urgent care c/o vaginal discharge w/ bad odor for the past 3 days. Pt state vaginal discharge is associated w/ mild pelvic pain about 3/10. Pt has taken Tylenol PO to alleviate symptoms. LMP: w/ regular menstrual cycles. Pt has not done a PAP in the past 3 years. Pt denies Hx of STD's and has been w/ same partner for the past 5 years. Pt denies fever, urinary symptoms, SOB, chest pain, abdominal pain , N/V/D. Hx obtained. Pt with probably Bacterial vaginosis on pelvic examination. Pt Rx Metronidazole PO, first dose given at the clinic tonight. UA ordered, result:negative. test: negative. Advised to f/u with ENVIRONMENTAL TEST TECHNICIAN for PAP. Specimen were sent to lab for affirm, Advised she will be notified if any abnormal result from lab. Pt understood and agreed with plan of care. - Differential Dx/Diagnosis Differential Diagnosis/HQI/PQRI: Cervicitis, Pelvic Inflammatory Disease, Renal Colic, Sexually Transmitted Disease, Ureteral Stone, Urinary Tract Infection Provider Diagnoses: 1-Bacterial Vaginosis Discharge - Sign-Out/Discharge Documenting (check all that apply): Patient Departure - D/C home - Discharge Plan Condition: Stable Disposition: HOME Prescriptions: metroNIDAZOLE * 500 mg PO BID #13 tablet Patient Education Materials: Bacterial Vaginosis (ED) Referrals: Vanessa Gutiérrez MD [Primary Care Provider] - 1 Week Additional Instructions: 1-Please f/u with your ENVIRONMENTAL TEST TECHNICIAN for a PAP 2- Please take Metronidazole PO as directed. First dose given tonight. Avoid drinking alcohol and sexual intercourse until symptoms resolve. 3- Specimen were sent to lab, if anything abnormal you will receive a call from us for further treatment. 4-If not improvement of symptoms please return to the urgent care or f/u with your ENVIRONMENTAL TEST TECHNICIAN for further treatment - Billing Disposition and Condition Condition: STABLE Disposition: Home
[2017-11-07] MEDS ORDERED: metroNIDAZOLE TAB* 250 MG PO ONE (20:31)
== END 2017-11-07 20:42 | disposition home or self-care (01) ==
LOC: UCCORT 18:48
DX: N76.0 Acute vaginitis (principal); Z88.1 Allergy status to other antibiotic agents; Z88.8 Allergy status to other drugs, medicaments and biological substances
CPT/HCPCS: 81003; 84702; 87480; 87510; 99212; A9270-GY; G0463

== ENCOUNTER 2017-12-10 09:04 | Emergency (ER) | payer OTHER ==
[2017-12-10 10:40] VITALS: BP 107/64
--- NOTE | 2017-12-10 17:06 | RAD ---
Indication: Palpable painful lump medial LEFT calf. Comparison: June 08, 2017 ultrasound Technique: Ultrasound medial LEFT calf corresponding with the palpable lump. Report: At the interface of the subcutaneous tissue plane and muscular fascia there is a well-circumscribed hypoechoic solid mass with intrinsic vascularity measuring 1.5 x 1.3 x 1.4 cm without significant interval change. Vague suggestion that the lesion represents a fusiform enlargement of a cephalocaudal cylindrical structure possibly representing the saphenous nerve. The lesion is 0.6 cm deep to the skin surface. IMPRESSION: #. While unchanged in size from the June 08, 2017 exam the solid vascular mass corresponding with the painful palpable lump is indeterminate. Differential primarily includes saphenous nerve sheath tumor as well as, sarcoma, reactive lymph node, or metastasis. Consider fine-needle aspiration for further assessment.
--- NOTE | 2017-12-10 21:25 | UC ---
- Progress Note Progress Note: Patient Name: BIBIANA COVINGTON Medical Record#: [id number] Ordering Physician: [facility] Acct.#: [id number] : 1980 Age: 37 Sex: F Location: [facility] Exam Date: 12/10/17 ADM Status: PRE ER Order Information: US SOFT TISSUE LIMITED EXT-LT Accession Number: [id number] CPT: 08325 Indication: Palpable painful lump medial LEFT calf. Comparison: June 08, 2017 ultrasound Technique: Ultrasound medial LEFT calf corresponding with the palpable lump. Report: At the interface of the subcutaneous tissue plane and muscular fascia there is a well-circumscribed hypoechoic solid mass with intrinsic vascularity measuring 1.5 x 1.3 x 1.4 cm without significant interval change. Vague suggestion that the lesion represents a fusiform enlargement of a cephalocaudal cylindrical structure possibly representing the saphenous nerve. The lesion is 0.6 cm deep to the skin surface. IMPRESSION: #. While unchanged in size from the June 08, 2017 exam the solid vascular mass corresponding with the painful palpable lump is indeterminate. Differential primarily includes saphenous nerve sheath tumor as well as, sarcoma, reactive lymph node, or metastasis. Consider fine-needle aspiration for further assessment. <Electronically signed by Rudy Powers MD in OV> 12/10/171702 Dictated By: Rudy Powers MD Dictated Date/Time: 12/10/171702 Transcribed Date/Time: 12/10/17 1222 Copy to: CC:[facility]; Vanessa Gutiérrez MD Imaging - [facility] - [place] [facility] [address] [address] ph ([phone]) ph ([phone]) ph ([phone]) This report is only to be considered final once signed by the Provider(s) as displayed in the "<Electronically Signed by >" field (s). Absence of a signature indicates the report is in a draft status and still needs to be finalized. In the event this document was created by someone other than the signing Provider, the individual initiating the document will be listed in the "Entered by:" or "Dictated by:" lua. 1 of 1 Discharge - Sign-Out/Discharge Documenting (check all that apply): Post-Discharge Follow Up All imaging exams completed and their final reports reviewed: Yes - Discharge Plan Referrals: Vanessa Gutiérrez MD [Primary Care Provider] -
== END 2017-12-10 12:45 | disposition home or self-care (01) ==
LOC: UCCORT 09:04
DX: R22.42 Localized swelling, mass and lump, left lower limb (principal)
CPT/HCPCS: 99212; G0463

== ENCOUNTER 2017-12-20 12:01 | Emergency (ER) | payer OTHER ==
[2017-12-20 12:58] VITALS: BP 94/62
--- NOTE | 2017-12-20 13:46 | UC ---
UC General HPI - HPI Summary HPI Summary: Pt presents with two c/o. 1. URI symptoms of nasal congestion, cough, sinus pressure X1 week. 2. intermittent pelvic discomfort, X 1 week. - History of Current Complaint Chief Complaint: UCGeneralIllness Stated Complaint: CONGESTION,SORE THROAT,URINARY Time Seen by Provider: 12/20/17 13:14 Hx Obtained From: Patient Hx Last Menstrual Period: "about a week ago" Onset/Duration: Gradual Onset, Lasting Days, Still Present Timing: Constant Onset Severity: Mild Current Severity: Mild Pain Intensity: 5 Associated Signs & Symptoms: Positive: Cough - Allergy/Home Medications Allergies/Adverse Reactions: Allergies Allergy/AdvReac Type Severity Reaction Status Date / Time desloratadine [From Clarinex] Allergy Intermediate Hives Verified 12/20/17 12:54 latex Allergy Intermediate Rash Verified 12/20/17 12:54 levofloxacin [From Levaquin] Allergy Intermediate Hives Verified 12/20/17 12:54 naproxen Allergy Intermediate hives/dizzi Verified 12/20/17 12:54 ness PMH/Surg Hx/FS Hx/Imm Hx Previously Healthy: Yes Other History Of: Negative For: HIV, Hepatitis B, Hepatitis C, Anticoagulant Therapy - Surgical History Surgical History: Yes Surgery Procedure, Year, and Place: , 1996. Cholecystectomy, 2000. Tubal Ligation, 2001. CARPAL TUNNEL RIGHT. DEVIATED SEPTUM - Family History Known Family History: Positive: Unknown, Hypertension - father, Renal Disease - mother and grandmother, Respiratory Disease Negative: Cardiac Disease, Diabetes Family History: Stomach cancer, uterine cancer - Social History Occupation: Employed Full-time, Works From/At Home Lives: With Family Alcohol Use: None Substance Use Type: None Smoking Status (MU): Never Smoked Tobacco Have You Smoked in the Last Year: No Household Exposure Type: Cigarettes - Immunization History Most Recent Influenza Vaccination: none 2017 Vaccination Up to Date: Yes Review of Systems Constitutional: Negative Skin: Negative Eyes: Negative ENT: Sinus Congestion Respiratory: Cough Cardiovascular: Negative Gastrointestinal: Negative Genitourinary: Vaginal/Penile Itching, Vaginal/Penile Pain Motor: Negative Neurovascular: Negative Musculoskeletal: Negative Neurological: Negative Psychological: Negative Is Patient Immunocompromised?: No All Other Systems Reviewed And Are Negative: Yes Physical Exam Triage Information Reviewed: Yes Appearance: Well-Appearing Vital Signs: Initial Vital Signs Temp 98.4 F 12/20/17 12:52 Pulse 82 12/20/17 12:52 Resp 16 12/20/17 12:52 BP 94/62 12/20/17 12:52 Pulse Ox 99 12/20/17 12:52 Vital Signs Reviewed: Yes Eye Exam: Normal ENT: Positive: Nasal congestion Dental Exam: Normal Neck exam: Normal Respiratory Exam: Normal Cardiovascular Exam: Normal Abdominal Exam: Normal Abdomen Description: Positive: Nontender Musculoskeletal Exam: Normal Neurological Exam: Normal Psychological Exam: Normal Skin Exam: Normal Course/Dx - Differential Dx - Multi-Symptom Differential Diagnoses: Urinary Tract Infection, Other - vaginitis Provider Diagnoses: URI. pelvic pain Discharge - Sign-Out/Discharge Documenting (check all that apply): Patient Departure All imaging exams completed and their final reports reviewed: No Studies - Discharge Plan Condition: Stable Disposition: HOME Prescriptions: Guaifenesin/Pseudoephedrne HCl [Mucinex D ER 600-60 mg Tablet] 1 each PO Q12H # 14 tab.er.12h Patient Education Materials: Upper Respiratory Infection (ED), Pelvic Pain in Women (ED) Referrals: Vanessa Gutiérrez MD [Primary Care Provider] - If Needed - Billing Disposition and Condition Condition: STABLE Disposition: Home
== END 2017-12-20 13:56 | disposition home or self-care (01) ==
LOC: UCCORT 12:01
DX: J06.9 Acute upper respiratory infection, unspecified (principal); R10.2 Pelvic and perineal pain; Z88.1 Allergy status to other antibiotic agents; Z88.8 Allergy status to other drugs, medicaments and biological substances
CPT/HCPCS: 81003; 87480; 87510; 87660; 99212; G0463

== ENCOUNTER 2017-12-24 09:36 | Emergency (ER) | payer OTHER ==
[2017-12-24 10:29] VITALS: BP 113/61
--- NOTE | 2017-12-24 10:40 | UC ---
Respiratory Complaint HPI - HPI Summary HPI Summary: Pt presents with c/o worsening cough, nasal congestion, "loss of voice" body aches, since 12/20/17. Pt was seen here and diagnosed with viral syndrome. - History of Current Complaint Chief Complaint: UCRespiratory Stated Complaint: CONGESTION/COUGH Time Seen by Provider: 12/24/17 10:33 Hx Obtained From: Patient Hx Last Menstrual Period: 11/30/17 ?: No Onset/Duration: Gradual Onset, Lasting Days, Worse Since - onset Timing: Constant Severity Initially: Mild Severity Currently: Moderate Pain Intensity: 8 Character: Cough: Nonproductive Aggravating Factors: Exertion, Deep Breaths, Recumbent Position Alleviating Factors: Nothing Associated Signs And Symptoms: Positive: Chills, URI, Nasal Congestion - Risk Factors Pulmonary Embolism Risk Factors: Negative Cardiac Risk Factors: Negative Pseudomonas Risk Factors: Negative Tuberculosis Risk Factors: Negative - Allergies/Home Medications Allergies/Adverse Reactions: Allergies Allergy/AdvReac Type Severity Reaction Status Date / Time desloratadine [From Clarinex] Allergy Intermediate Hives Verified 12/24/17 10:26 latex Allergy Intermediate Rash Verified 12/24/17 10:26 levofloxacin [From Levaquin] Allergy Intermediate Hives Verified 12/24/17 10:26 naproxen Allergy Intermediate hives/dizzi Verified 12/24/17 10:26 ness PMH/Surg Hx/FS Hx/Imm Hx Previously Healthy: Yes Other History Of: Negative For: HIV, Hepatitis B, Hepatitis C, Anticoagulant Therapy - Surgical History Surgical History: Yes Surgery Procedure, Year, and Place: , 1996. Cholecystectomy, 2000. Tubal Ligation, 2001. CARPAL TUNNEL RIGHT. DEVIATED SEPTUM - Family History Known Family History: Positive: Unknown, Hypertension - father, Renal Disease - mother and grandmother, Respiratory Disease Negative: Cardiac Disease, Diabetes Family History: Stomach cancer, uterine cancer - Social History Occupation: Works From/At Home Lives: With Family Alcohol Use: None Substance Use Type: None Smoking Status (MU): Never Smoked Tobacco Have You Smoked in the Last Year: No Household Exposure Type: Cigarettes - Immunization History Most Recent Influenza Vaccination: none 2017 Vaccination Up to Date: Yes Review of Systems Constitutional: Chills, Fatigue Skin: Negative Eyes: Negative ENT: Sore Throat, Ear Ache, Sinus Congestion, Sinus Pain/Tenderness Respiratory: Cough Cardiovascular: Negative Gastrointestinal: Negative Genitourinary: Negative Motor: Negative Neurovascular: Negative Musculoskeletal: Myalgia Neurological: Headache Psychological: Negative Is Patient Immunocompromised?: No All Other Systems Reviewed And Are Negative: Yes Physical Exam Triage Information Reviewed: Yes Appearance: Ill-Appearing Vital Signs: Initial Vital Signs Temp 98.3 F 12/24/17 10:24 Pulse 92 12/24/17 10:24 Resp 18 12/24/17 10:24 BP 113/61 12/24/17 10:24 Pulse Ox 100 12/24/17 10:24 Vital Signs Reviewed: Yes Eye Exam: Normal ENT: Positive: Nasal congestion, TM bulging - bilateral, Hoarse voice, Sinus tenderness Dental Exam: Normal Neck exam: Normal Respiratory Exam: Normal Cardiovascular Exam: Normal Musculoskeletal Exam: Normal Neurological Exam: Normal Psychological Exam: Normal Skin Exam: Normal UC Diagnostic Evaluation - Laboratory O2 Sat by Pulse Oximetry: 100 Respiratory Course/Dx - Differential Dx/Diagnosis Differential Diagnosis/HQI/PQRI: Bronchitis, Influenza Provider Diagnoses: bronchitis. laryngitis Discharge - Sign-Out/Discharge Documenting (check all that apply): Patient Departure All imaging exams completed and their final reports reviewed: No Studies - Discharge Plan Condition: Stable Disposition: HOME Prescriptions: Amoxicillin PO (*) [Amoxicillin 875 MG (*)] 875 mg PO Q12H #20 tab Benzonatate CAP* [Tessalon 100 MG CAP*] 100 mg PO TID PRN #30 cap PRN Reason: Cough predniSONE TAB* [Deltasone 10 MG TAB*] 30 mg PO DAILY #12 tab Patient Education Materials: Laryngitis (ED), Acute Bronchitis (ED) Referrals: Vanessa Gutiérrez MD [Primary Care Provider] - If Needed - Billing Disposition and Condition Condition: STABLE Disposition: Home - Attestation Statements Provider Attestation: Per institutional requirements, I have reviewed the chart, however, I was not consulted specifically or made aware of this patient by the midlevel provider. I did not personally evaluate, interact with , or disposition this patient.
== END 2017-12-24 10:57 | disposition home or self-care (01) ==
LOC: UCCORT 09:36
DX: J40 Bronchitis, not specified as acute or chronic (principal); J04.0 Acute laryngitis; Z88.8 Allergy status to other drugs, medicaments and biological substances; Z88.1 Allergy status to other antibiotic agents
CPT/HCPCS: 99212; G0463

== ENCOUNTER 2017-12-30 12:33 | Emergency (ER) | payer OTHER ==
[2017-12-30 13:27] VITALS: BP 100/78
--- NOTE | 2017-12-30 13:35 | UC ---
UC General HPI - HPI Summary HPI Summary: Patient is complaining of external vaginal itching and odor. She self treated for yeast infection with [id number] medication without relief. She started some leftover BV cream which she notes has used the itch. She denies any new partners as well as fever and abdominal pain. - History of Current Complaint Chief Complaint: UCGU Stated Complaint: URINARY COMPLAINT Time Seen by Provider: 12/30/17 13:29 Hx Obtained From: Patient Hx Last Menstrual Period: 11/30/17 Onset/Duration: Gradual Onset Timing: Constant Pain Intensity: 6 Associated Signs & Symptoms: Negative: Abdominal Pain, Fever - Allergy/Home Medications Allergies/Adverse Reactions: Allergies Allergy/AdvReac Type Severity Reaction Status Date / Time desloratadine [From Clarinex] Allergy Intermediate Hives Verified 12/30/17 13:22 latex Allergy Intermediate Rash Verified 12/30/17 13:22 levofloxacin [From Levaquin] Allergy Intermediate Hives Verified 12/30/17 13:22 naproxen Allergy Intermediate hives/dizzi Verified 12/30/17 13:22 ness PMH/Surg Hx/FS Hx/Imm Hx Previously Healthy: Yes Other History Of: Negative For: HIV, Hepatitis B, Hepatitis C, Anticoagulant Therapy - Surgical History Surgical History: Yes Surgery Procedure, Year, and Place: , 1996. Cholecystectomy, 2000. Tubal Ligation, 2001. CARPAL TUNNEL RIGHT. DEVIATED SEPTUM - Family History Known Family History: Positive: Unknown, Hypertension - father, Renal Disease - mother and grandmother, Respiratory Disease Negative: Cardiac Disease, Diabetes Family History: Stomach cancer, uterine cancer - Social History Occupation: Employed Full-time Lives: With Family Alcohol Use: None Substance Use Type: None Smoking Status (MU): Never Smoked Tobacco Have You Smoked in the Last Year: No Household Exposure Type: Cigarettes - Immunization History Most Recent Influenza Vaccination: none 2017 Vaccination Up to Date: Yes Review of Systems Constitutional: Negative Skin: Negative Eyes: Negative ENT: Negative Respiratory: Negative Cardiovascular: Negative Gastrointestinal: Negative Genitourinary: Vaginal/Penile Burning, Vaginal/Penile Itching Motor: Negative Neurovascular: Negative Musculoskeletal: Negative Neurological: Negative Psychological: Negative Is Patient Immunocompromised?: No All Other Systems Reviewed And Are Negative: Yes Physical Exam Triage Information Reviewed: Yes Appearance: Well-Appearing Vital Signs: Initial Vital Signs Temp 98.4 F 12/30/17 13:21 Pulse 80 10/10/18 13:21 Resp 16 12/30/17 13:21 BP 100/78 12/30/17 13:21 Pulse Ox 98 12/30/17 13:21 Vital Signs Reviewed: Yes Eyes: Positive: Conjunctiva Clear ENT: Positive: Normal ENT inspection Neck: Positive: Supple, Nontender, No Lymphadenopathy Respiratory: Positive: Lungs clear, Normal breath sounds Cardiovascular: Positive: RRR, No Murmur Abdomen Description: Positive: Nontender, No Organomegaly, Soft. Negative: CVA Tenderness (R), CVA Tenderness (L), Distended, Guarding Bowel Sounds: Positive: Present Pelvic Exam: Positive: Other - No odor. Labial folds with erythema and white coating but no lesions. Vaginal erythema with thick white material, cultures obtained. Os closed and no discharge. No masses or tenderness. Musculoskeletal: Positive: ROM Intact Neurological: Positive: Alert Psychological: Positive: Age Appropriate Behavior Skin Exam: Normal Course/Dx - Course Course Of Treatment: no concern for BV based on exam. vaginitis appears c/w yeast thus will tx with diflucan and have pt use her topical nystatin routinely. pelvic cultures pending as well. - Differential Dx - Multi-Symptom Provider Diagnoses: vaginitis Discharge - Sign-Out/Discharge Documenting (check all that apply): Patient Departure All imaging exams completed and their final reports reviewed: No Studies - Discharge Plan Condition: Stable Disposition: HOME Prescriptions: Fluconazole [Diflucan 150 MG (NF)] 150 mg PO ONCE #1 tab Patient Education Materials: Vaginitis (ED) Referrals: Vanessa Gutiérrez MD [Primary Care Provider] - 5 Days Additional Instructions: CONTINUE THE NYSTATIN CREAM TWICE DAILY FOR 5 DAYS - Billing Disposition and Condition Condition: STABLE Disposition: Home
--- NOTE | 2018-01-01 08:30 | UC ---
- Progress Note Progress Note: urine cx no growth + garnderella, neg urine,neg GC.ch, neg trich,neg [place] d/c amox Rx flagyl - no ETOH before and after 48 hours Mushtaq 01/01/18 Discharge - Sign-Out/Discharge Documenting (check all that apply): Post-Discharge Follow Up All imaging exams completed and their final reports reviewed: No Studies - Discharge Plan Condition: Stable Disposition: HOME Prescriptions: Fluconazole [Diflucan 150 MG (NF)] 150 mg PO ONCE #1 tab Patient Education Materials: Vaginitis (ED) Referrals: Vanessa Gutiérrez MD [Primary Care Provider] - 5 Days Additional Instructions: CONTINUE THE NYSTATIN CREAM TWICE DAILY FOR 5 DAYS - Billing Disposition and Condition Condition: STABLE Disposition: Home
== END 2017-12-30 14:03 | disposition home or self-care (01) ==
LOC: UCCORT 12:33
DX: N76.0 Acute vaginitis (principal); B96.89 Other specified bacterial agents as the cause of diseases classified elsewhere; Z88.8 Allergy status to other drugs, medicaments and biological substances; Z88.1 Allergy status to other antibiotic agents; Z88.6 Allergy status to analgesic agent
CPT/HCPCS: 81003; 84702; 87086; 87480; 87491; 87510; 87591; 87661; 99212; G0463

== ENCOUNTER 2018-03-30 10:58 | Emergency (ER) | payer OTHER ==
[2018-03-30 11:30] VITALS: BP 101/63
--- NOTE | 2018-03-30 11:54 | UC ---
Complaint Female HPI - HPI Summary HPI Summary: PT PRESENTS WITH C/O SUDDEN ONSET OF PELVIC PRESSURE. PT STATES SHE IS CONCERNED THAT SHE HAS A UTI - History Of Current Complaint Chief Complaint: UCGU Stated Complaint: URINARY Time Seen by Provider: 03/30/18 11:29 Hx Obtained From: Patient Hx Last Menstrual Period: 03/24/18 ?: No Onset/Duration: Sudden Onset, Lasting Days - one day Timing: Constant Severity Initially: Mild Severity Currently: Mild Pain Intensity: 4 Character: Dull Aggravating Factor(s): Urination Alleviating Factor(s): Nothing Associated Signs And Symptoms: Positive: Vaginal Discharge - Risk Factors Ectopic Risk Factor: Negative Ovarian Torsion Risk Factor: Negative - Allergies/Home Medications Allergies/Adverse Reactions: Allergies Allergy/AdvReac Type Severity Reaction Status Date / Time desloratadine [From Clarinex] Allergy Intermediate Hives Verified 03/30/18 11:23 latex Allergy Intermediate Rash Verified 03/30/18 11:23 levofloxacin [From Levaquin] Allergy Intermediate Hives Verified 03/30/18 11:23 naproxen Allergy Intermediate hives/dizzi Verified 03/30/18 11:23 ness Home Medications: Home Medications Albuterol HFA INHALER* [Ventolin HFA Inhaler*] 2 puff INH Q6H PRN 03/30/18 [ History Confirmed 03/30/18] PMH/Surg Hx/FS Hx/Imm Hx Previously Healthy: Yes Other History Of: Negative For: HIV, Hepatitis B, Hepatitis C, Anticoagulant Therapy - Surgical History Surgical History: Yes Surgery Procedure, Year, and Place: , 1996;. Cholecystectomy, 2000;. Tubal Ligation, 2001;. CARPAL TUNNEL RIGHT;. DEVIATED SEPTUM; - Family History Known Family History: Positive: Unknown, Hypertension - father, Renal Disease - mother and grandmother, Respiratory Disease Negative: Cardiac Disease, Diabetes Family History: Stomach cancer, uterine cancer - Social History Occupation: Employed Full-time Lives: With Family Alcohol Use: None Substance Use Type: None Smoking Status (MU): Never Smoked Tobacco Have You Smoked in the Last Year: No Household Exposure Type: Cigarettes - Immunization History Most Recent Influenza Vaccination: none 2017 Vaccination Up to Date: Yes Review of Systems All Other Systems Reviewed And Are Negative: Yes Constitutional: Positive: Negative Skin: Positive: Negative Eyes: Positive: Negative ENT: Positive: Negative Respiratory: Positive: Negative Cardiovascular: Positive: Negative Gastrointestinal: Positive: Abdominal Pain Genitourinary: Positive: Vaginal/Penile Discharge - no odor, no swelling, no pruritis, no tenderness Motor: Positive: Negative Neurovascular: Positive: Negative Musculoskeletal: Positive: Negative Neurological: Positive: Negative Psychological: Positive: Negative Is Patient Immunocompromised?: No Physical Exam Triage Information Reviewed: Yes Appearance: Well-Appearing Vital Signs: Initial Vital Signs Temp 98 F 03/30/18 11:25 Pulse 80 03/30/18 11:25 Resp 15 03/30/18 11:25 BP 101/63 03/30/18 11:25 Pulse Ox 98 03/30/18 11:25 Vital Signs Reviewed: Yes Eye Exam: Normal ENT Exam: Normal ENT: Positive: Hearing grossly normal Dental Exam: Normal Neck exam: Normal Respiratory: Positive: Normal breath sounds Cardiovascular Exam: Normal Abdomen Description: Positive: Nontender, No Organomegaly, Soft Musculoskeletal Exam: Normal Neurological Exam: Normal Psychological Exam: Normal Skin Exam: Normal Complaint Female Dx - Differential Dx/Diagnosis Differential Diagnosis/HQI/PQRI: Urinary Tract Infection, Other - vaginitis Provider Diagnosis: Pelvic pressure in female, Pelvic pain Discharge - Sign-Out/Discharge Documenting (check all that apply): Patient Departure All imaging exams completed and their final reports reviewed: No Studies - Discharge Plan Condition: Stable Disposition: HOME Patient Education Materials: Pelvic Pain in Women (ED) Referrals: Vanessa Gutiérrez MD [Primary Care Provider] - As Soon As Possible Additional Instructions: PLEASE FOLLOW UP WITH YOUR PCP OR RETURN TO CLINIC NEEDED. - Billing Disposition and Condition Condition: STABLE Disposition: Home
== END 2018-03-30 11:58 | disposition home or self-care (01) ==
LOC: UCCORT 10:58
DX: R10.2 Pelvic and perineal pain (principal); Z88.1 Allergy status to other antibiotic agents; Z88.8 Allergy status to other drugs, medicaments and biological substances; Z88.6 Allergy status to analgesic agent
CPT/HCPCS: 81003; 99211; G0463

== ENCOUNTER 2018-04-12 17:12 | Emergency (ER) | payer OTHER ==
[2018-04-12 17:27] VITALS: BP 119/68
--- NOTE | 2018-04-12 18:26 | ED ---
Abdominal Pain/Female - HPI Summary HPI Summary: pt presents today for eval of rlq abd pain for 4 days. she has also had a decrease po intake. she states she has been having white vaginal discharge. she denies any new sexual partners. She denies any fever or chills. she denies any pain with sex. she denies any hematuria/dysuria. - History of Current Complaint Chief Complaint: UCGeneralIllness Stated Complaint: ABDOMINAL PAIN X4 DAYS Hx Obtained From: Patient Hx Last Menstrual Period: 03/07/18 Onset/Duration: Sudden Onset, Lasting Days - 4 days Timing: Constant Severity Initially: Moderate Pain Intensity: 5 Allergies/Adverse Reactions: Allergies Allergy/AdvReac Type Severity Reaction Status Date / Time desloratadine [From Clarinex] Allergy Intermediate Hives Verified 04/12/18 17:27 latex Allergy Intermediate Rash Verified 04/12/18 17:27 levofloxacin [From Levaquin] Allergy Intermediate Hives Verified 04/12/18 17:27 naproxen Allergy Intermediate hives/dizzi Verified 04/12/18 17:27 ness PMH/Surg Hx/FS Hx/Imm Hx Previously Healthy: Yes Endocrine/Hematology History: Denies: Hx Anticoagulant Therapy, Hx Diabetes, Hx Thyroid Disease Cardiovascular History: Denies: Hx Congestive Heart Failure, Hx Deep Vein Thrombosis, Hx Hypertension , Hx Myocardial Infarction, Hx Pacemaker/ICD Respiratory History: Reports: Hx Asthma, Hx Pneumonia Denies: Hx Chronic Obstructive Pulmonary Disease (COPD), Hx Lung Cancer, Hx Pulmonary Embolism GI History: Denies: Hx Gall Bladder Disease, Hx Gastrointestinal Bleed, Hx Ulcer, Hx Urosepsis History: Reports: Hx Kidney Stones - many yrs ago, no surgery Denies: Hx Renal Disease Sensory History: Denies: Hx Hearing Aid Neurological History: Denies: Hx Dementia, Hx Migraine, Hx Seizures, Hx Transient Ischemic Attacks (TIA) Psychiatric History: Reports: Hx Anxiety Denies: Hx Depression, Hx Panic Disorder, Hx Schizophrenia, Hx Bipolar Disorder - Surgical History Surgery Procedure, Year, and Place: , 1996;. Cholecystectomy, 2000;. Tubal Ligation, 2001;. CARPAL TUNNEL RIGHT;. DEVIATED SEPTUM; Infectious Disease History: No Infectious Disease History: Denies: Hx Clostridium Difficile, Hx Hepatitis, Hx Human Immunodeficiency Virus (HIV), Hx of Known/Suspected MRSA, Hx Shingles, Hx Tuberculosis, Hx Known/ Suspected VRE, Hx Known/Suspected VRSA, History Other Infectious Disease, Traveled Outside the [place] in Last 30 Days - Family History Known Family History: Positive: Unknown, Hypertension - father, Renal Disease - mother and grandmother, Respiratory Disease Negative: Cardiac Disease, Diabetes Family History: Stomach cancer, uterine cancer - Social History Alcohol Use: None Substance Use Type: Reports: None Smoking Status (MU): Never Smoked Tobacco Have You Smoked in the Last Year: No Review of Systems Constitutional: Negative Eyes: Negative ENT: Negative Cardiovascular: Negative Respiratory: Negative Positive: Abdominal Pain. Negative: Vomiting, Diarrhea, Nausea Positive: discharge. Negative: burning, dysuria, frequency, flank pain, hematuria, pain Musculoskeletal: Negative Skin: Negative Neurological: Negative Psychological: Normal All Other Systems Reviewed And Are Negative: No Physical Exam Triage Information Reviewed: Yes Vital Signs On Initial Exam: Initial Vitals Temp Pulse Resp BP Pulse Ox 97.8 F 80 15 119/68 100 04/12/18 17:23 04/12/18 17:23 04/12/18 17:23 04/12/18 17:23 04/12/18 17:23 Vital Signs Reviewed: Yes Appearance: Positive: Well-Appearing, No Pain Distress, Well-Nourished Skin: Positive: Warm Head/Face: Positive: Normal Head/Face Inspection Eyes: Positive: Normal ENT: Positive: Normal ENT inspection, Hearing grossly normal Neck: Positive: Supple, Nontender Respiratory/Lung Sounds: Positive: Clear to Auscultation, Breath Sounds Present , Decreased Breath Sounds Cardiovascular: Positive: Normal, RRR Abdomen Description: Positive: Soft, Other: - tender to periumbilical area and rlq Musculoskeletal: Positive: Normal, Strength/ROM Intact Neurological: Positive: Normal, Sensory/Motor Intact, Alert, Oriented to Person Place, Time, CN Intact II-III Psychiatric: Positive: Normal AVPU Assessment: Alert Diagnostics - Vital Signs Vital Signs Temp Pulse Resp BP Pulse Ox 04/12/18 17:23 97.8 F 80 15 119/68 100 - Laboratory Lab Results: Lab Results 04/12/18 Range/Units 17:33 POC Urine Color Yellow POC Urine Clarity Clear POC Urine pH 6.5 (5-9) POC Ur Specif [place] 1.025 (1.010-1.030) POC Urine Protein Negative (Negative) POC Ur Glucose (UA) Negative (Negative) POC Urine Ketones Negative (Negative) POC Urine Blood Negative (Negative) POC Urine Nitrite Negative (Negative) POC Urine Bilirubin Negative (Negative) POC Urine Urobilinogen 0.2 (Negative) POC U Leukocyte Esteras Negative (Negative) Lab Statement: Any lab studies that have been ordered have been reviewed, and results considered in the medical decision making process. Abdominal Pain Fem Course/Dx - Course Course Of Treatment: ua shows no uti. urine pending. differential includes ectopic , ovarian torsion, ovarian cyst (possible hemorrhagic) , uti, pyelonephritis. We have no capability to perform a US or CT tonight at this UC. I emphasized the importance for further evaluation. PT agreed to go to [facility] for further eval. I called andspoke to Dayana Elaine. She accepted pt. - Diagnoses Provider Diagnoses: Abdominal pain Is Visit Related: No Discharge - Sign-Out/Discharge Documenting (check all that apply): Patient Departure All imaging exams completed and their final reports reviewed: No Studies - Discharge Plan Condition: Stable Disposition: HOME-RECOMMEND TO ED Patient Education Materials: Acute Abdominal Pain (ED) Referrals: No Primary Care Phys,NOPCP [Primary Care Provider] - Additional Instructions: Please go to [facility] immediately after discharge. - Billing Disposition and Condition Condition: STABLE Disposition: Home-Recommend to ED
== END 2018-04-12 18:31 | disposition home health service (06) ==
LOC: UCCORT 17:12
DX: R10.31 Right lower quadrant pain (principal); R63.8 Other symptoms and signs concerning food and fluid intake; N89.8 Other specified noninflammatory disorders of vagina; Z88.8 Allergy status to other drugs, medicaments and biological substances; Z91.040 Latex allergy status; J45.909 Unspecified asthma, uncomplicated
CPT/HCPCS: 81003; 84702; 99212; G0463

== ENCOUNTER 2018-06-04 12:41 | Emergency (ER) | payer OTHER ==
--- OUTSIDE RECORDS SUMMARY | 2018-06-04 12:51 | XMS REPORT | Continuity of Care Document ---
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 Status: DEP ER ----- SPEC: [id number] WILL: 02/19/[address]: Rafael Jacobson REQ: [id number] RECD: 02/19/120030 STATUS: MILAGROS KERNS DR: Melanie PEPPER,Linda Carroll MD _ SOURCE: ENDOCERVIX SPDC: ORDERED: GC/Chlam RNA ----- Procedure Result Verified [...] result may have adverse psychosocial impact, the [facility] recommends retesting by a method using an [...] performed at Main Lab DEPARTMENT OF PATHOLOGY, [facility] [place] [address] Jordan Pedroza M.D. Director [facility] Permit # [id number] RUN DATE: 02/24/12 [facility] LAB LIVE PAGE 2 RUN TIME: [address] [place] [address] Specimen Inquiry ----- Patient: BIBIANA CHAMPION [id number] (Continued) ----- Specimen: [id number] Collected: 02/19/12-1129 Received: 02/19/12-1552 (Continued) ----- Procedure Result Verified Site ----- [...] performed at Main Lab DEPARTMENT OF PATHOLOGY, [address] [place] [address] Jordan Pedroza M.D. Director [facility] Permit # [id number] RUN DATE: 02/20/12 [facility] LAB LIVE PAGE 1 RUN TIME: [address] [place] [address] Specimen Inquiry ----- Name: BIBIANA CHAMPION : [address]: Melanie PEPPER,Xavi Phan Acct: [id number] Unit: [id number] AGE: 32 Location: [facility] Re02/19/12 SEX: F Status: DEP ER ----- SPEC: [id number] WILL: 02/19/12-[address] [facility] [address]: Rafael Jacobson REQ: [id number] RECD: 02/19/129207 STATUS: MILAGROS KERNS DR: Melanie PEPPER,Xavi Whitfield,MD Linda _ SOURCE: VAGINAL SPDESC: ORDERED: Affirm ----- [...] performed at Main Lab DEPARTMENT OF PATHOLOGY, [address] [place] [address] Jordan Pedroza M.D. Director [facility] Permit # [id number] 30 NEGATIVE FOR CHLAMYDIA TRACHOMATIS BY DNA HYBRIDIZATION ASSAY. THIS TEST IS APPROVED FOR OCULAR AND UROGENITAL SITES ONLY. 31 NEGATIVE FOR NEISSERIA GONORRHOEAE BY DNA HYBRIDIZATION ASSAY. THIS METHOD IS APPROVED FOR UROGENITAL SITES ONLY. 32 Cytology Laboratory [address] [place] [address], [address] [place] [address] CYTOLOGY REPORT Name: Bibiana HuberAzael : 1980 (Age: 31) Sex: F Location: [facility] Date Collected: 06/10/2011 Billing #: [id number] Date Received: 2011 Physician(s): LINDA WHITFIELD MD Source of Specimen: ENDOCERVICAL/ ECTOCERVICAL THIN PREP Clinical Information: Date of Last Menstrual Period: None Provided Specimen Adequacy: SATISFACTORY FOR EVALUATION. NO ENDOCERVICAL/ TRANSFORMATION ZONE. General Categorization: NEGATIVE FOR INTRAEPITHELIAL LESION OR MALIGNANCY. lar Electronic Signature Cahsidy Daly, CT (ASCP) Reported: 06/16/2011 Cytology Outreach [facility] ICD-9 Code(s) V72.31 33 OPERATION/PROCEDURE Colonoscopy, EGD DIAGNOSIS: PART 1: "CECAL [...] ----- RIKY Todd MD 05/30/11 1352 ----- 32 ------- RUN DATE: 05/21/11 [facility] NMI LIVE PAGE 1 RUN TIME: 1345 Specimen Inquiry RUN USER: INTERFACE ----- Name: BIBIANA CHAMPION Status: REG REF Re Age/Sex: 31/F Unit#: [id number] Location: [facility] BeO.B. : [birth year] ----- SPEC #: [id number] WILL: 05/19/11 STATUS: MILAGROS REQ #: [id number] RECD: 05/19/11-[address]: Deanna De Leon NP [place] SOURCE: URINE ENTR: 05/19/[address]: JAMI: ORDERED: URINE C S QUERIES: MEDENT REQUISITION # [id number] SPECIMEN DESCRIPTION: URINE, RANDOM ACT WKST: UR 05/21/11 #1 ----- Procedure Result Verified Site ----- > URINE CULTURE SENSITIVI Final 05/21/11-1345 ML SCANT NORMAL URETHRAL OR PERINEAL ABI ----- ML - [facility] Permit #[id number] [address] [place] [address] ----- DEPARTMENT OF PATHOLOGY, [address] [place] [address] [facility] Permit #[id number] Jordan Pedroza M.D. Director Judit Garrett M.D. Event Mgr ----- 33 ------- RUN DATE: 05/02/11 [facility] NMI LIVE PAGE 1 RUN TIME: 1142 Specimen Inquiry RUN USER: INTERFACE ----- Name: BIBIANA CHAMPION Status: DEP CLI Re Age/Sex: 31/F Unit#: [id number] Location: [facility] : [birth year] ----- SPEC #: [id number] WILL: 04/29/11 STATUS: COMP REQ #: [id number] RECD: 04/30/[address] [facility] [address]: Ke PEPPER,Que Aguirre SOURCE: URINE ENTR: 04/30/11-[address] [facility] [address]: Apoorva PEPPER,Linda SPDESC: ORDERED: URINE C S QUERIES : SPECIMEN DESCRIPTION: URINE, CLEAN CATCH ACT WKST: UR 05/02/11 #1 ----- Procedure Result Verified Site ----- > URINE CULTURE SENSITIVI Final 05/02/11-1141 ML SCANT NORMAL URETHRAL OR PERINEAL ABI ----- [facility] Permit #[id number] [address] [place] [address] ----- DEPARTMENT OF PATHOLOGY, [address] [place] [address] [facility] Permit #[id number] Connie Hess M.D. Event Mgr ----- 34 ------- RUN DATE: 04/03/11 [facility] NMI LIVE PAGE 1 RUN TIME: 1117 Specimen Inquiry RUN USER: INTERFACE ----- Name: BIBIANA CHAMPION Status: BRENDA CLClem Re Age/Sex: 31/F Unit#: [id number] Location: [facility] : [birth year] ----- SPEC #: [id number] WILL: 03/31/11 STATUS: MILAGROS REQ #: [id number] RECD: 04/01/[address] [facility] [address]: Melanie PEPPER,Xavi Phan SOURCE: URINE ENTR: 04/01/[address] [facility] [address]: Linda Whitfield MD SPDC: ORDERED: URINE C S QUERIES: SPECIMEN DESCRIPTION: URINE, CLEAN CATCH ACT WKST: UR 04/03/11 #1 ----- Procedure Result Verified Site ----- > URINE CULTURE SENSITIVI Final 04/03/11-1117 ML FINAL: NO GROWTH DAY 2 (<1,000 CFU/mL) ----- [facility] Permit #[id number] [address] [place] [address] ----- DEPARTMENT OF PATHOLOGY, [address] [place] [address] [facility] Permit #[id number] Jordan Pedroza M.D. Director Judit Garrett M.D. Event Mgr ----- 37 PLEASE NOTE NEW REFERENCE RANGE. 38 Anion gap measurement may be of limited value in the presence of any alkalosis, especially in a combined acid base disorder. . 39 A metabolite of Naproxen, O-desmethylnaproxen, has been shown to interfere with the Jenebonyik-Burnside method for measuring total bilirubin. Samples from patients who have taken Naproxen have shown spurious elevation in total bilirubin levels. 40 Because ethnic data is not always readily [...] 15-29 5 Kidney failure <15 (or dialysis) 41 -- REFERENCE VALUE -- <0.75 (negative) 0.75-0.99 (equivocal) >=1.00 ( positive) Test Performed by: [facility] Dpt of Lab Med and Pathology [address] [place] [address] [employer]: Jake Colby III, M.D. 42 SPECIMEN CONTAINS NORMAL URETHRAL OR PERINEAL ABI AND DOES NOT SUGGEST URINARY TRACT INFECTION 43 THERAPEUTIC TARGET FOR THE TREATMENT OF DIABETES MELLITUS PATIENTS IS <7% HBA1C, AND IN SELECTIVE PATIENTS <6.0%. PLEASE REFER TO [place] [employer] DIABETIC CARE GUIDELINES FOR FURTHER INFORMATION. 44 CHOLESTEROL INTERPRETATION: Desirable: Less than 200 MG/DL Borderline-High Risk: 200-239 MG/DL High-Risk: 240 MG/DL and over 45 HDL INTERPRETATION: Undesirable: High Risk: Less than 40 MG/DL Desirable: Low Risk: Greater than 60 MG/DL 46 LDL INTERPRETATION: Low Risk Optimal Level: LDL Less than 100 MG/DL Near or Above Optimal: LDL 100-129 MG/DL Borderline High Risk: LDL 130-159 MG/DL High Risk : LDL 160-189 MG/DL Very High Risk: LDL Greater than 189 MG/DL 47 -- REFERENCE VALUE -- 25-HYDROXY D TOTAL (D2+D3) Optimum levels in the normal population are 25-80 Test Performed by: [facility] Dpt of Lab Med and Pathology [address] [place] [address] [employer]: Jake Colby III, M.D. 48 QUERY: @[facility] Pat ID: QUERY: @[facility] Req #: 49 Note: Persistent reduction for 3 months or more in an eGFR <60 mL/min/1.73 m2 defines CKD. Patients with eGFR values >/=60 mL/min/1.73 m2 may also have CKD if evidence of persistent proteinuria is present. The original MDRD equation for estimated GFR is not valid for patients less than 18 years of age. Additional information may be found at www.kdoqi.org. 50 Is patient on heparin protocol? N Is patient on anticoagulants? Unknown QUERY: @[facility] Pat ID: QUERY: @[facility] Req #: QUERY: Anticoagulant Therapy? QUERY: Date of Last Dose: QUERY: Time of Last Dose: 51 THERAPEUTIC INR RANGE: 2.0 - 3.0 DVT, Pulmonary embolus, prophylaxis against venous thrombosis or systemic embolization in high risk patients. 2.5 - 3.5 Mechanical heart valves Procedures Date Code Description Status 08/24/2017 44625 Cystourethroscopy W/Removal FB/Calc/Stent Urethra/Bladder Completed Simple 08/05/2017 22513 Urography Retrograde W/Wo KUB Completed 08/05/2017 17340 Cystourethroscopy W/ Lithotripsy Incl. Ins. Indwelling Completed Stent 02/26/2017 21315 Cystourethroscopy W/Removal FB/Calc/Stent Urethra/Bladder Completed Simple 02/16/2017 99722 IV Infusion, Hydration, 31 Minutes To 1 Hour Completed 02/11/2017 25664 Cystourethroscopy W/ Lithotripsy Incl. Ins. Indwelling Completed Stent 05/23/2011 74910 Holter Monitor 24HR Inter/Report Completed 05/01/2010 63737 Neuroplasty median nerve at carpal tunnel Completed 05/01/2010 19913 Anesthesia, Lower Arm Surgery Completed (Nerve,Muscle,Tendon,Fascia,Bursa) Encounters Type Date Location Provider Dx Diagnosis Office Visit 05/13/2018 9:00a Urology Cesario Perez, N20.0 Calculus of kidney PA Office Visit 04/29/2018 12:00p Urology Cesario Perez N20.0 Calculus of kidney PA Office Visit 11/05/2017 1:15p UrologСветлана Padilla M.D. N20.0 Calculus of kidney Office Visit 07/20/2017 1:00p UrologСветлана Padilla M.D. N20.0 Calculus of kidney Office Visit 05/25/2017 1:30p Urology Светлана Palacios M.D. N20.0 Calculus of kidney N39.0 Urinary tract infection, site not specified Office Visit 04/30/2017 10:00a Urology Светлана Palacios M.D. 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 Office Visit 08/12/2010 11:00a Orthopaedic Office Kacie 354.0 Carpal Tunnel Buck Brown MD Syndrome Office Visit 03/28/2010 11:00a Orthopaedic Office [place]ie 354.0 Carpal Tunnel Buck Brown MD Syndrome Office Visit 02/20/2010 2:00p Orthopaedic Office [place]acie 354.0 Carpal Tunnel Buck Brown MD Syndrome Plan of Treatment Future Appointment(s):05/12/2019 10:15 am - Cesario Perez PA at [email or web address] - Cesario Perez PAN20.0 Calculus of kidneyNew Medication: Tamsulosin HCL 0.4 mg - 1 by mouth every day as needed renal colicNew Xrays: Ultrasound, Renal, Ordered: 05/13/18Comments:Stable nonobstructing kidney stones on the CT. We await radiologist's final report. Call for his reviewed.We reviewed medical expulsive therapy. A prescription of 0.4 mg 1 by mouth daily as needed for renal colic. Prescription sent to pharmacy. She'll come symptomatic lower CAT scan otherwise I'll follow up with her hernia with an ultrasound
[2018-06-04 12:53] VITALS: BP 101/66
--- NOTE | 2018-06-04 13:17 | UC ---
Respiratory Complaint HPI - HPI Summary HPI Summary: cough x 1 days, cough is dry , + nasal congestion , pnd, no sore throat, + chest tightness, wheezing, no fever, no chills - History of Current Complaint Chief Complaint: UCRespiratory Stated Complaint: SINUS CONGESTION Time Seen by Provider: 06/04/18 13:09 Hx Obtained From: Patient Hx Last Menstrual Period: 05/12/18 Onset/Duration: Gradual Onset, Lasting Days - 1, Still Present Timing: Constant Severity Initially: Moderate Severity Currently: Moderate Pain Intensity: 0 Character: Cough: Nonproductive Aggravating Factors: Exertion, Deep Breaths Associated Signs And Symptoms: Positive: Wheezing, URI, Nasal Congestion - Allergies/Home Medications Allergies/Adverse Reactions: Allergies Allergy/AdvReac Type Severity Reaction Status Date / Time desloratadine [From Clarinex] Allergy Intermediate Hives Verified 06/04/18 12:50 latex Allergy Intermediate Rash Verified 06/04/18 12:50 levofloxacin [From Levaquin] Allergy Intermediate Hives Verified 06/04/18 12:50 naproxen Allergy Intermediate hives/dizzi Verified 06/04/18 12:50 ness PMH/Surg Hx/FS Hx/Imm Hx Respiratory History: Asthma Other History Of: Negative For: HIV, Hepatitis B, Hepatitis C, Anticoagulant Therapy - Surgical History Surgical History: Yes Surgery Procedure, Year, and Place: , 1996;. Cholecystectomy, 2000;. Tubal Ligation, 2001;. CARPAL TUNNEL RIGHT;. DEVIATED SEPTUM; - Family History Known Family History: Positive: Unknown, Hypertension - father, Renal Disease - mother and grandmother, Respiratory Disease Negative: Cardiac Disease, Diabetes Family History: Stomach cancer, uterine cancer - Social History Alcohol Use: None Substance Use Type: None Smoking Status (MU): Never Smoked Tobacco Have You Smoked in the Last Year: No Household Exposure Type: Cigarettes - Immunization History Most Recent Influenza Vaccination: none 2017 Vaccination Up to Date: Yes Review of Systems All Other Systems Reviewed And Are Negative: Yes Constitutional: Positive: Negative Skin: Positive: Negative Eyes: Positive: Negative ENT: Positive: Nasal Discharge Respiratory: Positive: Cough Cardiovascular: Positive: Negative Gastrointestinal: Positive: Negative Is Patient Immunocompromised?: No Physical Exam Triage Information Reviewed: Yes Appearance: Well-Appearing, No Pain Distress, Well-Nourished Vital Signs: Initial Vital Signs Temp 97.9 F 06/04/18 12:49 Pulse 74 06/04/18 12:49 Resp 17 06/04/18 12:49 BP 101/66 06/04/18 12:49 Pulse Ox 99 06/04/18 12:49 Vital Signs Reviewed: Yes Eye Exam: Normal Eyes: Positive: Conjunctiva Clear ENT: Positive: Normal ENT inspection, Hearing grossly normal, Pharynx normal, Nasal congestion, Nasal drainage, TMs normal Neck: Positive: Supple, Nontender, No Lymphadenopathy Respiratory: Positive: Chest non-tender, Lungs clear, Wheezing Cardiovascular: Positive: RRR, No Murmur, Pulses Normal Skin Exam: Normal Respiratory Course/Dx - Differential Dx/Diagnosis Provider Diagnosis: URI (upper respiratory infection) Discharge - Sign-Out/Discharge Documenting (check all that apply): Patient Departure All imaging exams completed and their final reports reviewed: No Studies - Discharge Plan Condition: Stable Disposition: HOME Prescriptions: Albuterol HFA INHALER* [Ventolin HFA Inhaler*] 2 puff INH Q6H PRN #1 mdi PRN Reason: Wheezing Patient Education Materials: Upper Respiratory Infection (DC) Referrals: Vanessa Gutiérrez MD [Primary Care Provider] - - Billing Disposition and Condition Condition: STABLE Disposition: Home
== END 2018-06-04 13:18 | disposition home or self-care (01) ==
LOC: UCCORT 12:41
DX: J06.9 Acute upper respiratory infection, unspecified (principal); J45.909 Unspecified asthma, uncomplicated; Z88.8 Allergy status to other drugs, medicaments and biological substances; Z91.040 Latex allergy status
CPT/HCPCS: 99212; G0463

== ENCOUNTER 2018-06-24 12:59 | Emergency (ER) | payer OTHER ==
[2018-06-24 14:13] VITALS: BP 105/59
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
[2018-06-24] MEDS ORDERED: Cyclobenzaprine TAB* 10 MG PO ONE (14:41)
[2018-06-24] MEDS ORDERED: Acetaminophen TAB* 325 MG PO ONE (14:42)
== END 2018-06-24 15:09 | disposition home or self-care (01) ==
LOC: UCCORT 12:59
DX: M25.551 Pain in right hip (principal); Z91.040 Latex allergy status; Z88.1 Allergy status to other antibiotic agents; Z88.8 Allergy status to other drugs, medicaments and biological substances
CPT/HCPCS: 99212; A9270-GY; G0463

== ENCOUNTER 2018-07-16 19:09 | Emergency (ER) | payer OTHER ==
[2018-07-16 19:25] VITALS: BP 112/70
--- NOTE | 2018-07-16 20:33 | UC ---
Complaint Female HPI - HPI Summary HPI Summary: Pt presents with c/o of pelvic discomfort, fishy smell to vaginal dishcarge. Pt states she frequently has BV. Denies risk for or STI's. - History Of Current Complaint Chief Complaint: UCGU Stated Complaint: PERSONAL Time Seen by Provider: 07/16/18 19:31 Hx Obtained From: Patient Hx Last Menstrual Period: 07/08/18 ?: No Onset/Duration: Gradual Onset, Lasting Days, Still Present Timing: Constant Severity Initially: Mild Severity Currently: Mild Pain Intensity: 4 Pain Scale Used: 0-10 Numeric Character: Dull Aggravating Factor(s): Nothing Alleviating Factor(s): Nothing Associated Signs And Symptoms: Positive: Vaginal Discharge - Risk Factors Ectopic Risk Factor: Negative Ovarian Torsion Risk Factor: Negative - Allergies/Home Medications Allergies/Adverse Reactions: Allergies Allergy/AdvReac Type Severity Reaction Status Date / Time desloratadine [From Clarinex] Allergy Intermediate Hives Verified 07/16/18 19:25 latex Allergy Intermediate Rash Verified 07/16/18 19:25 levofloxacin [From Levaquin] Allergy Intermediate Hives Verified 07/16/18 19:25 naproxen Allergy Intermediate hives/dizzi Verified 07/16/18 19:25 ness PMH/Surg Hx/FS Hx/Imm Hx Previously Healthy: Yes Other History Of: Negative For: HIV, Hepatitis B, Hepatitis C, Anticoagulant Therapy - Surgical History Surgical History: Yes Surgery Procedure, Year, and Place: , 1996;. Cholecystectomy, 2000;. Tubal Ligation, 2001;. CARPAL TUNNEL RIGHT;. DEVIATED SEPTUM; - Family History Known Family History: Positive: Unknown, Hypertension - father, Renal Disease - mother and grandmother, Respiratory Disease Negative: Cardiac Disease, Diabetes Family History: Stomach cancer, uterine cancer - Social History Occupation: Employed Full-time Lives: With Family Alcohol Use: None Substance Use Type: None Smoking Status (MU): Never Smoked Tobacco Have You Smoked in the Last Year: No Household Exposure Type: Cigarettes - Immunization History Most Recent Influenza Vaccination: none 2017 Vaccination Up to Date: Yes Review of Systems All Other Systems Reviewed And Are Negative: Yes Constitutional: Positive: Negative Skin: Positive: Negative Eyes: Positive: Negative ENT: Positive: Negative Respiratory: Positive: Negative Cardiovascular: Positive: Negative Gastrointestinal: Positive: Abdominal Pain Genitourinary: Positive: Vaginal/Penile Discharge Motor: Positive: Negative Neurovascular: Positive: Negative Musculoskeletal: Positive: Negative Neurological: Positive: Negative Psychological: Positive: Negative Is Patient Immunocompromised?: No Physical Exam Triage Information Reviewed: Yes Appearance: Well-Appearing Vital Signs: Initial Vital Signs Temp 98.0 F 07/16/18 19:22 Pulse 96 07/16/18 19:22 Resp 15 07/16/18 19:22 BP 112/70 07/16/18 19:22 Pulse Ox 98 07/16/18 19:22 Vital Signs Reviewed: Yes Eye Exam: Normal ENT Exam: Normal Dental Exam: Normal Neck exam: Normal Respiratory Exam: Normal Cardiovascular Exam: Normal Abdominal Exam: Normal Abdomen Description: Positive: Nontender Pelvic Exam: Positive: Speculum Exam Normal, Discharge Musculoskeletal Exam: Normal Neurological Exam: Normal Psychological Exam: Normal Skin Exam: Normal Complaint Female Dx - Differential Dx/Diagnosis Differential Diagnosis/HQI/PQRI: Pelvic Inflammatory Disease, Sexually Transmitted Disease Provider Diagnosis: Vaginitis Discharge - Sign-Out/Discharge Documenting (check all that apply): Patient Departure All imaging exams completed and their final reports reviewed: No Studies - Discharge Plan Condition: Stable Disposition: HOME Prescriptions: metroNIDAZOLE VAGINAL 0.75%* 1 applic VAGINAL BEDTIME #5 tube Patient Education Materials: Vaginitis (ED) Referrals: Vanessa Gutiérrez MD [Primary Care Provider] - If Needed Additional Instructions: Please follow up with your travel counselor automobile club provider as soon as possible. - Billing Disposition and Condition Condition: STABLE Disposition: Home - Attestation Statements Provider Attestation: I was available for consult. This patient was seen by the GUDELIA. The patient was not presented to , seen by or examined by nc -Ngoc Hernandez MD
--- NOTE | 2018-07-19 07:46 | UC ---
- Progress Note Progress Note: urine no growth, no change frederic 07/19/18 Course/Dx - Diagnoses Provider Diagnoses: Vaginitis Discharge - Sign-Out/Discharge Documenting (check all that apply): Post-Discharge Follow Up All imaging exams completed and their final reports reviewed: No Studies - Discharge Plan Condition: Stable Disposition: HOME Prescriptions: metroNIDAZOLE VAGINAL 0.75%* 1 applic VAGINAL BEDTIME #5 tube Patient Education Materials: Vaginitis (ED) Referrals: Vanessa Gutiérrez MD [Primary Care Provider] - If Needed Additional Instructions: Please follow up with your obstetrician and gynaecologist provider as soon as possible. - Billing Disposition and Condition Condition: STABLE Disposition: Home
== END 2018-07-16 20:24 | disposition home or self-care (01) ==
LOC: UCCORT 19:09
DX: N76.0 Acute vaginitis (principal); Z88.8 Allergy status to other drugs, medicaments and biological substances; Z91.040 Latex allergy status; Z88.1 Allergy status to other antibiotic agents
CPT/HCPCS: 81003; 87086; 87480; 87510; 87660; 99212; G0463

== ENCOUNTER 2019-02-09 09:57 | Emergency (ER) | payer OTHER ==
[2019-02-09 10:11] VITALS: BP 108/68
--- NOTE | 2019-02-09 11:14 | UC ---
Hand/Wrist HPI - HPI Summary HPI Summary: Patient is a 39yo female presenting with R wrist pain since yesterday. 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 Noticed R wrist pain at the gema of the day that has not improved today. Notes swelling and "bruised kind of pain" on radial aspect. Denies injury or trauma. Denies numbness and tingling in fingers. Denies pain at rest. Patient states she had carpal tunnel before but this is "in a different spot." - History Of Current Complaint Chief Complaint: UCUpperExtremity Stated Complaint: WC-RT WRIST INJURY Hx Obtained From: Patient Hx Last Menstrual Period: 02/01/19 Onset/Duration: Gradual Onset, Lasting Days Severity Initially: Mild Severity Currently: Moderate Pain Intensity: 5 - Allergies/Home Medications Allergies/Adverse Reactions: Allergies Allergy/AdvReac Type Severity Reaction Status Date / Time desloratadine [From Clarinex] Allergy Intermediate Hives Verified 02/09/19 10:04 latex Allergy Intermediate Rash Verified 02/09/19 10:04 levofloxacin [From Levaquin] Allergy Intermediate Hives Verified 02/09/19 10:04 naproxen Allergy Intermediate hives/dizzi Verified 02/09/19 10:04 ness PMH/Surg Hx/FS Hx/Imm Hx Other History Of: Negative For: HIV, Hepatitis B, Hepatitis C, Anticoagulant Therapy - Surgical History Surgical History: Yes Surgery Procedure, Year, and Place: , 1996;. Cholecystectomy, 2000;. Tubal Ligation, 2001;. CARPAL TUNNEL RIGHT;. DEVIATED SEPTUM; - Family History Known Family History: Positive: Unknown, Hypertension - father, Renal Disease - mother and grandmother, Respiratory Disease, Non-Contributory Negative: Cardiac Disease, Diabetes Family History: Stomach cancer, uterine cancer - Social History Occupation: Employed Full-time Alcohol Use: None Substance Use Type: None Smoking Status (MU): Never Smoked Tobacco Have You Smoked in the Last Year: No Household Exposure Type: Cigarettes - Immunization History Most Recent Influenza Vaccination: none 2017 Vaccination Up to Date: Yes Review of Systems All Other Systems Reviewed And Are Negative: No Constitutional: Positive: Negative Skin: Positive: Negative. Negative: Bruising Respiratory: Positive: Negative Cardiovascular: Positive: Negative Musculoskeletal: Positive: Arthralgia - R wrist, Decreased ROM - R wrist flexion , Edema - radial aspect of R wrist Neurological: Negative: Paresthesia, Numbness Physical Exam Triage Information Reviewed: Yes Appearance: Well-Appearing, No Pain Distress, Well-Nourished Vital Signs: Initial Vital Signs Temp 98.1 F 02/09/19 10:06 Pulse 83 02/09/19 10:06 Resp 16 02/09/19 10:06 BP 108/68 02/09/19 10:06 Pulse Ox 97 02/09/19 10:06 Vital Signs Reviewed: Yes Eyes: Positive: Conjunctiva Clear ENT: Positive: Hearing grossly normal Neck: Positive: Supple Respiratory: Positive: No respiratory distress Cardiovascular: Positive: Pulses Normal - strong radial pulses b/l, Brisk Capillary Refill Musculoskeletal: Positive: Strength Intact, ROM Limited @ - R wrist flexion d/t pain, Edema @ - radial aspect R wrist, Other: - positive miya test Neurological Exam: Other - sensation grossly intact Neurological: Positive: Alert Psychological: Positive: Age Appropriate Behavior Skin Exam: Normal - no erythema or ecchymosis Hand/Wrist Course/Dx - Course Course Of Treatment: Discussed De Nettein with patient. Instructed patient to continue with symptomatic treatment including use of cock up splint. Encouraged patient to follow up with Dr. Cheema if symptoms persist. Patient voiced understanding and agreed with treatment plan. - Differential Dx/Diagnosis Provider Diagnosis: De Quervain's disease (tenosynovitis) Discharge ED - Sign-Out/Discharge Documenting (check all that apply): Patient Departure All imaging exams completed and their final reports reviewed: No Studies - Discharge Plan Condition: Stable Disposition: HOME Patient Education Materials: De Quervain Disease (ED) Referrals: Bora Cheema MD [Medical Doctor] - If Needed Additional Instructions: As discussed, you likely have inflammation of the tendons in your wrist, causing you pain. Wear the splint during the day and while working to help immobilize and support the wrist. Continue to rest, ice, and take ibuprofen as directed to help relieve pain. Follow up with Dr. Cheema listed below if your symptoms do not begin to resolve within the next 2 weeks. - Billing Disposition and Condition Condition: STABLE Disposition: Home
== END 2019-02-09 11:09 | disposition home or self-care (01) ==
LOC: UCCORT 09:57
DX: M65.4 Radial styloid tenosynovitis [de Quervain] (principal); Z88.1 Allergy status to other antibiotic agents; Z88.8 Allergy status to other drugs, medicaments and biological substances; Z91.040 Latex allergy status
CPT/HCPCS: 99212; G0463

== ENCOUNTER 2019-03-15 08:41 | Emergency (ER) | payer OTHER ==
[2019-03-15 09:01] VITALS: BP 103/64
--- NOTE | 2019-03-15 10:25 | UC ---
Ear Complaint HPI - HPI Summary HPI Summary: right ear pain x 4 days pain is 6 out of 10, worse with cold weather, and touch , nothing makes it better, denies, any fever, no cold symptoms, c/o decrease hearing - History of Current Complaint Chief Complaint: UCGeneralIllness Stated Complaint: EAR PAIN, CONGESTION Time Seen by Provider: 03/15/19 09:04 Hx Obtained From: Patient Hx Last Menstrual Period: 03/04/19 ?: No Onset/Duration: Gradual Onset, Lasting Days - 4, Still Present Severity Initially: Moderate Severity Currently: Moderate Pain Intensity: 6 Pain Scale Used: 0-10 Numeric Aggravating Factors: Cold Alleviating Factors: Nothing Associated Signs/Symptoms: Positive: Hearing Loss. Negative: Discharge, Foreign Body Sensation, Trauma to Ear, Swelling @, URI Symptoms - Allergies/Home Medications Allergies/Adverse Reactions: Allergies Allergy/AdvReac Type Severity Reaction Status Date / Time desloratadine [From Clarinex] Allergy Intermediate Hives Verified 03/15/19 09:01 latex Allergy Intermediate Rash Verified 03/15/19 09:01 levofloxacin [From Levaquin] Allergy Intermediate Hives Verified 03/15/19 09:01 naproxen Allergy Intermediate hives/dizzi Verified 03/15/19 09:01 ness PMH/Surg Hx/FS Hx/Imm Hx Psychological History: Anxiety, Depression Other History Of: Negative For: HIV, Hepatitis B, Hepatitis C, Anticoagulant Therapy - Surgical History Surgical History: Yes Surgery Procedure, Year, and Place: , 1996;. Cholecystectomy, 2000;. Tubal Ligation, 2001;. CARPAL TUNNEL RIGHT;. DEVIATED SEPTUM; - Family History Known Family History: Positive: Unknown, Hypertension - father, Renal Disease - mother and grandmother, Respiratory Disease, Non-Contributory Negative: Cardiac Disease, Diabetes Family History: Stomach cancer, uterine cancer - Social History Alcohol Use: None Substance Use Type: None Smoking Status (MU): Never Smoked Tobacco Have You Smoked in the Last Year: No Household Exposure Type: Cigarettes - Immunization History Most Recent Influenza Vaccination: none 2017 Vaccination Up to Date: Yes Review of Systems All Other Systems Reviewed And Are Negative: Yes Constitutional: Positive: Negative Skin: Positive: Negative Eyes: Positive: Negative ENT: Positive: Ear Ache Respiratory: Positive: Negative Cardiovascular: Positive: Negative Is Patient Immunocompromised?: No Physical Exam Triage Information Reviewed: Yes Appearance: Well-Appearing, Well-Nourished, Pain Distress Vital Signs: Initial Vital Signs Temp 98.5 F 03/15/19 08:54 Pulse 81 03/15/19 08:54 Resp 16 03/15/19 08:54 BP 103/64 03/15/19 08:54 Pulse Ox 100 03/15/19 08:54 Vital Signs Reviewed: Yes Eye Exam: Normal Eyes: Positive: Conjunctiva Clear ENT: Positive: Normal ENT inspection, Hearing grossly normal, Pharynx normal, TMs normal, Other - tenderness right TMJ. Negative: TM bulging, TM dull, TM red Neck: Positive: Supple, Nontender, No Lymphadenopathy Respiratory: Positive: Chest non-tender, Lungs clear, Normal breath sounds, No respiratory distress Cardiovascular Exam: Normal Cardiovascular: Positive: RRR, No Murmur, Pulses Normal Skin Exam: Normal Ear Complaint Course/Dx - Differential Dx/Diagnosis Provider Diagnosis: Right ear pain, TMJ tenderness, right Discharge ED - Sign-Out/Discharge Documenting (check all that apply): Patient Departure All imaging exams completed and their final reports reviewed: No Studies - Discharge Plan Condition: Stable Disposition: HOME Prescriptions: Fluticasone NASAL SPRAY 50MCG* [Flonase NASAL SPRAY 50MCG*] 2 spray BOTH NARES DAILY #1 btl Ibuprofen TAB* [Motrin TAB* 600 MG] 600 mg PO Q8H PRN #15 tab PRN Reason: Pain - Moderate Patient Education Materials: Temporomandibular Disorder (ED), Earache (ED) Referrals: Funmilayo Hernandez [Primary Care Provider] - 7 Days - Billing Disposition and Condition Condition: STABLE Disposition: Home
== END 2019-03-15 09:21 | disposition home or self-care (01) ==
LOC: UCCORT 08:41
DX: M26.601 Right temporomandibular joint disorder, unspecified (principal); H92.01 Otalgia, right ear; Z88.1 Allergy status to other antibiotic agents; Z88.8 Allergy status to other drugs, medicaments and biological substances; Z91.040 Latex allergy status
CPT/HCPCS: 99212; G0463

== ENCOUNTER 2019-03-31 11:05 | Emergency (ER) | payer OTHER ==
[2019-03-31 11:38] VITALS: BP 96/66
--- NOTE | 2019-03-31 12:12 | UC ---
Elbow Pain - HPI Summary HPI Summary: Pt presents with gradual onset of right elbow pain. Pt denies injury past or present. Pt states that she uses her elbow" a lot" at work and is constantly extending and flexing upper extremities. Pt has hx of carpal tunnel sx. - History of Current Complaint Chief Complaint: UCUpperExtremity Stated Complaint: RT ELBOW PAIN Time Seen by Provider: 03/31/19 11:58 Hx Obtained From: Patient Hx Last Menstrual Period: 03/29/19 ?: No Onset/Duration: Days Severity Initially: Moderate Severity Currently: Moderate Pain Intensity: 7 Character: Dull, Aching, Burning Aggravating Factor(s): Movement, Pulling, Twisting Alleviating Factor(s): Nothing Associated Signs And Symptoms: Positive: Numbness/Tingling - Allergies/Home Medications Allergies/Adverse Reactions: Allergies Allergy/AdvReac Type Severity Reaction Status Date / Time desloratadine [From Clarinex] Allergy Intermediate Hives Verified 03/31/19 11:31 latex Allergy Intermediate Rash Verified 03/31/19 11:31 levofloxacin [From Levaquin] Allergy Intermediate Hives Verified 03/31/19 11:31 naproxen Allergy Intermediate hives/dizzi Verified 03/31/19 11:31 ness Home Medications: Home Medications Ibuprofen TAB* [Advil TAB*] 800 mg PO Q6H PRN 03/31/19 [History Confirmed ] PMH/Surg Hx/FS Hx/Imm Hx Previously Healthy: Yes Other History Of: Negative For: HIV, Hepatitis B, Hepatitis C, Anticoagulant Therapy - Surgical History Surgical History: Yes Surgery Procedure, Year, and Place: , 1996;. Cholecystectomy, 2000;. Tubal Ligation, 2001;. CARPAL TUNNEL RIGHT;. DEVIATED SEPTUM; - Family History Known Family History: Positive: Unknown, Hypertension - father, Renal Disease - mother and grandmother, Respiratory Disease, Non-Contributory Negative: Cardiac Disease, Diabetes Family History: Stomach cancer, uterine cancer - Social History Occupation: Employed Full-time Lives: With Family Alcohol Use: None Substance Use Type: None Smoking Status (MU): Never Smoked Tobacco Have You Smoked in the Last Year: No Household Exposure Type: Cigarettes - Immunization History Most Recent Influenza Vaccination: none 2017 Vaccination Up to Date: Yes Review of Systems All Other Systems Reviewed And Are Negative: Yes Constitutional: Positive: Negative Skin: Positive: Negative Eyes: Positive: Negative ENT: Positive: Negative Respiratory: Positive: Negative Cardiovascular: Positive: Negative Gastrointestinal: Positive: Negative Genitourinary: Positive: Negative Motor: Positive: Negative Neurovascular: Positive: Negative Musculoskeletal: Positive: Myalgia, Other: - c/o pain at proximal ulna, at ulnar nerve Neurological: Positive: Paresthesia, Numbness Psychological: Positive: Negative Is Patient Immunocompromised?: No Physical Exam Triage Information Reviewed: Yes Appearance: Well-Appearing Vital Signs: Initial Vital Signs Temp 98.5 F 03/31/19 11:33 Pulse 69 03/31/19 11:33 Resp 16 03/31/19 11:33 BP 96/66 03/31/19 11:33 Pulse Ox 98 03/31/19 11:33 Vital Signs Reviewed: Yes Eye Exam: Normal ENT Exam: Normal Dental Exam: Normal Neck exam: Normal Respiratory Exam: Normal Cardiovascular Exam: Normal Musculoskeletal Exam: Normal Musculoskeletal: Positive: Strength Intact, ROM Intact, No Edema, Other: - c/o of pain at medial aspect of elbow, proximal ulna, ulnar nerve Neurological Exam: Normal Neurological: Positive: Alert, Muscle Tone Normal Psychological Exam: Normal Skin Exam: Normal Elbow Pain Course/Dx - Differential Dx/Diagnosis Differential Diagnosis/HQI/PQRI: Bursitis, Joint Effusion, Sprain, Strain, Tendonitis Provider Diagnosis: Right elbow pain Discharge ED - Sign-Out/Discharge Documenting (check all that apply): Patient Departure All imaging exams completed and their final reports reviewed: No Studies - Discharge Plan Condition: Stable Disposition: HOME Prescriptions: predniSONE 10 mg TAB [Deltasone 10 MG TAB*] 30 mg PO DAILY #12 tab Patient Education Materials: Arthralgia (ED), Ice Pack Application (ED) Referrals: Funmilayo Hernandez [Primary Care Provider] - If Needed - Billing Disposition and Condition Condition: STABLE Disposition: Home - Attestation Statements Provider Attestation: I was available for consult. This patient was seen by the GUDELIA. The patient was not presented to, seen by, or examined by me. -Mushtaq
== END 2019-03-31 12:22 | disposition home or self-care (01) ==
LOC: UCCORT 11:05
DX: M25.521 Pain in right elbow (principal); Z88.8 Allergy status to other drugs, medicaments and biological substances; Z91.040 Latex allergy status
CPT/HCPCS: 99212; G0463

== ENCOUNTER 2019-05-05 14:29 | Emergency (ER) | payer OTHER ==
[2019-05-05 14:48] VITALS: BP 106/67
--- NOTE | 2019-05-05 14:59 | UC ---
Shoulder Pain HPI - HPI Summary HPI Summary: 39-year-old woman comes in with a chief complaint of right shoulder pain. Been going on for couple weeks. Pain is worst between the shoulder joint and the neck. Pain is worse with movement of the shoulder. Pain also is in the posterior aspect of the scapula area. No weakness or numbness. A nonspecific trauma the patient does lift quite a bit at work. No complaint of any shortness of breath or respiratory symptoms. - History of Current Complaint Chief Complaint: UCUpperExtremity Stated Complaint: RT SHOULDER PAIN Time Seen by Provider: 05/05/19 14:41 Hx Last Menstrual Period: 04/29/19 Pain Intensity: 7 - Allergies/Home Medications Allergies/Adverse Reactions: Allergies Allergy/AdvReac Type Severity Reaction Status Date / Time desloratadine [From Clarinex] Allergy Intermediate Hives Verified 05/05/19 14:38 latex Allergy Intermediate Rash Verified 05/05/19 14:38 levofloxacin [From Levaquin] Allergy Intermediate Hives Verified 05/05/19 14:38 naproxen Allergy Intermediate hives/dizzi Verified 05/05/19 14:38 ness PMH/Surg Hx/FS Hx/Imm Hx Previously Healthy: Yes Respiratory History: Asthma GI/ History: Gastroesophageal Reflux Other History Of: Negative For: HIV, Hepatitis B, Hepatitis C, Anticoagulant Therapy - Surgical History Surgical History: Yes Surgery Procedure, Year, and Place: , 1996;. Cholecystectomy, 2000;. Tubal Ligation, 2001;. R carpal tunnel;. deviated septum; - Family History Known Family History: Positive: Unknown, Hypertension - father, Renal Disease - mother and grandmother, Respiratory Disease, Non-Contributory Negative: Cardiac Disease, Diabetes Family History: Stomach cancer, uterine cancer - Social History Alcohol Use: None Substance Use Type: None Smoking Status (MU): Never Smoked Tobacco Have You Smoked in the Last Year: No Household Exposure Type: Cigarettes - Immunization History Most Recent Influenza Vaccination: none 2017 Vaccination Up to Date: Yes Review of Systems All Other Systems Reviewed And Are Negative: Yes Constitutional: Positive: Negative Skin: Positive: Negative Eyes: Positive: Negative ENT: Positive: Negative Respiratory: Positive: Negative Cardiovascular: Positive: Negative Gastrointestinal: Positive: Negative Motor: Positive: Negative Neurovascular: Positive: Negative Musculoskeletal: Positive: Other: - see hpi Neurological/Mental Status: Positive: Negative Psychological: Positive: Negative Is Patient Immunocompromised?: No Physical Exam Triage Information Reviewed: Yes Appearance: Well-Appearing, Well-Nourished, Pain Distress - mild with rom/ palpation/exam of rt shoulder Vital Signs: Initial Vital Signs Temp 98.3 F 05/05/19 14:41 Pulse 86 05/05/19 14:41 Resp 16 05/05/19 14:41 BP 106/67 05/05/19 14:41 Pulse Ox 100 05/05/19 14:41 Vital Signs Reviewed: Yes Eye Exam: Normal Eyes: Positive: Conjunctiva Clear Neck: Positive: Supple, Nontender Respiratory: Positive: Lungs clear, Normal breath sounds, No respiratory distress Musculoskeletal: Positive: Strength Intact, ROM Intact, Other: - Patient is tender to palpation in the trapezius muscle approximate half way between the neck and the right shoulder and in the region of the right scapula. Normal radial pulses bilaterally normal capillary refill normal sensation. Fingers wrist elbows shoulders have full range of motion full-strength. Pain is increased with range of motion of the shoulder. Neurological: Positive: Alert Psychological: Positive: Age Appropriate Behavior Skin Exam: Normal Shoulder Course/Dx - Course Course Of Treatment: Film And Video Graphics Designer: Cesario Norris ([id number]) Executive Talent Acquisition Consultant: BOOKER (NUANCE) Report Date: 05/05/2019 15:08:00 Report Status: Final Start of Report Content Patient Name: BIBIANA COVINGTON Medical Record#: [id number] Ordering Physician: Sudheer Israel MD Acct.#: [id number] : 01/1980 Age: 39 Sex: F Location: [facility] Exam Date: 05/05/19 1449 ADM Status: REG ER Order Information: SHOULDER RIGHT 2+ VWS Accession Number: [id number] CPT: 31822 INDICATION: Right shoulder injury. TECHNIQUE: 4 views of the right shoulder were obtained. FINDINGS: The soft tissues are unremarkable. The bone mineralization is within normal limits. No fracture is identified. Anatomic alignment is maintained. The joint spaces are preserved. IMPRESSION: NO FRACTURE IDENTIFIED. <Electronically signed by Cesario Norris MD in OV> 05/05/19 1504 Dictated By: Cesario Norris MD Dictated Date/Time: 05/05/19 150 Transcribed Date/ Time: 05/05/191502 Copy to: CC:Melodie PAIGE; Sudheer Israel MD Imaging - [facility] Imaging - [facility] [address] [address] ph [phone]) ph ([phone]) ) End of Report Content - Differential Dx/Diagnosis Provider Diagnosis: Right shoulder pain Discharge ED - Sign-Out/Discharge Documenting (check all that apply): Patient Departure All imaging exams completed and their final reports reviewed: Yes - Discharge Plan Condition: Stable Disposition: HOME Prescriptions: Cyclobenzaprine TAB* [Flexeril 10 MG TAB*] 10 mg PO TID PRN #15 tab MDD 3 PRN Reason: Pain - Moderate Patient Education Materials: Shoulder Pain (ED) Forms: *Work Release Referrals: Funmilayo Hernandez [Primary Care Provider] - [facility] [Provider Group] Melvin Cheema MD [Medical Doctor] - Additional Instructions: FOLLOW UP WITH SPORTS MEDICINE OR ORTHOPEDICS. GET REEVALUATED SOONER IF NOT IMPROVED OR WORSE; PAIN, WEAKNESS, NUMBNESS OR ANY QUESTIONS OR CONCERNS. - Billing Disposition and Condition Condition: STABLE Disposition: Home
== END 2019-05-05 15:26 | disposition home or self-care (01) ==
LOC: UCCORT 14:29
DX: M25.511 Pain in right shoulder (principal); J45.909 Unspecified asthma, uncomplicated; Z88.1 Allergy status to other antibiotic agents; Z88.8 Allergy status to other drugs, medicaments and biological substances; Z91.040 Latex allergy status
CPT/HCPCS: 99212; G0463